=== PATIENT | male | born 1955 | race Caucasian/White ===

== ENCOUNTER → 2017-06-29 | Outpatient (CLI) | payer OTHER ==
[~2017-06-29] MED LIST: BISO5TAB5 PO; FISH100049 PO; HYDR-3713 PO; HYDR12.55 PO; LISI-542 PO; LOVA40TA PO; WARF-20 PO; WARF-23 PO; WARF-60 PO; WARF4TAB52 PO
--- NOTE | 2017-06-29 13:47 | REP ---
Chest two views HISTORY: Acute bronchitis Comparison: None The lungs are clear. The heart is normal in size. The pulmonary vasculature is normal in appearance. The bony structure is intact. IMPRESSION: No acute disease. Signed by William Kendrick MD 06/29/2017 01:39 P
== END ==
LOC: M WUC 10:06
PROVIDERS: ATTEND Nurse Practitioner Adult Health
DX: J20.9 Acute bronchitis, unspecified (principal)

== ENCOUNTER 2021-07-11 09:05 | Inpatient (IN) | payer MEDICARE ==
[~2021-07-11] VITALS: Ht 177.8 cm; Wt 132.0 kg
[~2021-07-11 09:05] MED LIST changes: +AMOX875T2 PO; +BISO5TAB14 PO; -BISO5TAB5 PO; +HYDR-3715 PO; -LISI-542 PO; +LISI-898 PO; +PRED20TA PO
[2021-07-11] MEDS ORDERED: AMLO1TAB24 PO (09:19)
[2021-07-11] MEDS ORDERED: METF-838 (09:19)
[2021-07-11] MEDS ORDERED: ALBU8.5H INH (09:19)
[2021-07-11] MEDS ORDERED: LISI40TA4 PO (09:19)
--- NOTE | 2021-07-11 10:02 | REP ---
INDICATION: DYSPNEA/COUGH COMPARISON: 02/23/2018 TECHNIQUE: Portable AP view of the chest FINDINGS: The mediastinum and cardiac silhouette are essentially stable. Mild cardiomegaly cannot be excluded. The lung rodriguez are clear without acute consolidation, effusion, or pneumothorax. Skeletal structures are intact. IMPRESSION: No acute cardiopulmonary process appreciated. <Electronically signed by Amando Cam > 07/11/21 0958
[2021-07-11 10:31] LABS: BASO # 0.1 10^3/uL (0.0-0.2); BASO % 0.7 % (0.0-1.0); EOS # 0.1 10^3/uL (0.0-0.5); EOS % 1.4 % (0.0-3.0); HEMATOCRIT 40.3 % (42.0-52.0); HEMOGLOBIN 13.2 g/dl (13.5-17.5); LYMPH # 1.8 10^3/uL (1.5-5.0); LYMPH % 20.4 % (24.0-44.0); MEAN CORPUSCULAR HEMOGLOBIN 29.6 pg (27.0-33.0); MEAN CORPUSCULAR HGB CONC 32.8 g/dl (32.0-36.5); MEAN CORPUSCULAR VOLUME 90.4 fl (80.0-96.0); MONO # 0.7 10^3/uL (0.0-0.8); MONO % 8.1 % (2.0-8.0); NEUTROPHILS % 68.9 % (36.0-66.0); PLATELET COUNT, AUTOMATED 237 10^3/uL (150-450); RED BLOOD COUNT 4.46 10^6/uL (4.30-6.10); WHITE BLOOD COUNT 8.7 10^3/uL (4.0-10.0)
[2021-07-11 10:36] LABS: PROTHROMBIN TIME 52.5 SECONDS (12.7-14.5)
[2021-07-11 10:43] LABS: INR 5.86
[2021-07-11 10:57] LABS: ALBUMIN 3.6 GM/DL (3.2-5.2); ALT/SGPT 22 U/L (12-78); BILIRUBIN,DIRECT < 0.1 MG/DL (0.0-0.2); BILIRUBIN,TOTAL 0.6 MG/DL (0.2-1.0); BLOOD UREA NITROGEN 22 MG/DL (7-18); CALCIUM LEVEL 8.7 MG/DL (8.8-10.2); CARBON DIOXIDE LEVEL 25 MEQ/L (21-32); CHLORIDE LEVEL 109 MEQ/L (98-107); CK-MB VALUE MASS 1.4 NG/ML (<3.6); CPK CREATINE PHOSPHOKINASE 235 U/L (39-308); CREATININE FOR GFR 1.05 MG/DL (0.70-1.30); GLOMERULAR FILTRATION RATE > 60.0 (>49); GLUCOSE, FASTING 105 MG/DL (70-100); NT-PRO BNP 1282 PG/ML (<125); SODIUM LEVEL 138 MEQ/L (136-145); TOTAL PROTEIN 7.5 GM/DL (6.4-8.2); TROPONIN I < 0.02 NG/ML (< 0.10)
[2021-07-11] MEDS ORDERED: FUROSEMIDE 40MG/4ML VIAL (J1940) IV ONE (11:00)
[2021-07-11] MEDS ORDERED: METOPROLOL TART 50 MG TAB PO ONE (12:35)
[2021-07-11] MEDS ORDERED: METOPROLOL 5 MG/5 ML VIAL IV SCH (12:35)
[2021-07-11] MEDS ORDERED: ROSU40TA4 PO (13:09)
[2021-07-11] MEDS ORDERED: WARF-60 PO (13:09)
[2021-07-11] MEDS ORDERED: FLUT1BLS5 INH (13:09)
[2021-07-11] MEDS ORDERED: METF-838 PO (13:09)
[2021-07-11] MEDS ORDERED: HOME MED LIST COMPLETE! XX SCH (13:15)
[2021-07-11] MEDS ORDERED: FUROSEMIDE 40MG/4ML VIAL (J1940) IV SCH (14:00)
[2021-07-11 16:00] VITALS: BP 143/100
[2021-07-11 17:21] VITALS: BP 137/78
[2021-07-11] MEDS: FUROSEMIDE 40MG/4ML VIAL (J1940) IV SCH ×2 (17:53→20:47)
[2021-07-11] MEDS ORDERED: atenoloL 50 MG TAB PO ONE (18:00)
[2021-07-11] MEDS ORDERED: GLUCAGON INJ 1MG VIAL SC PRN (18:00)
[2021-07-11] MEDS ORDERED: METOPROLOL TART 25 MG TABLET PO SCH (18:00)
[2021-07-11] MEDS ORDERED: GLUCOSE 4GM CHEW TABLET PO PRN (18:00)
[2021-07-11] MEDS ORDERED: DEXTROSE 50% 50 ML SYRINGE IV PRN (18:00)
[2021-07-11 18:42] LABS: CK-MB VALUE MASS 1.7 NG/ML (<3.6); CPK CREATINE PHOSPHOKINASE 203 U/L (39-308); MB/CK RELATIVE INDEX 0.84 (< OR =4); TROPONIN I < 0.02 NG/ML (< 0.10)
--- NOTE | 2021-07-11 18:57 | HPE ---
HISTORY AND PHYSICAL DATE OF ADMISSION: 07/11/2021 CHIEF COMPLAINT: Shortness of breath. HISTORY OF PRESENT ILLNESS: This is a 66-year-old male with past medical history significant for questions history of non-ST elevation myocardial infarction, stress test, [address] Perez with LVH, ejection fraction 56.5, chronic pulmonary embolism on warfarin, chronic A fib, hypertension with LVH, hypercholesterolemia, mitral valve calcification, aortic sclerosis, chronic right bundle branch block, pulmonary embolism in 1998, obesity, appendectomy, right knee arthroscopy, presents with acute onset of shortness of breath, waking up this morning at 3 a.m. with paroxysmal nocturnal dyspnea, orthopnea, three pillows and two week history of a cough productive of white-murdock sputum with fever or chills. The patient is noncompliant with salt restriction and fluid restriction and presents with decompensated heart failure. He denied any palpitations, lightheadedness, dizziness, chest pain, pressure or tightness, nausea, vomiting, diaphoresis. He was found to have A fib with RVR in the emergency room with rate of about 107 to 115 on telemetry but with ambulation, goes up to 140-160, given metoprolol. Hospitalist was asked to admit the patient for A fib with RVR and decompensated congestive heart failure with preserved systolic function. PAST MEDICAL HISTORY: 1. Congestive heart failure with preserved systolic function. 2. Hypertension. 3. LVH. 4. Obesity. 5. Chronic atrial fibrillation. 6. Pulmonary embolism, 1998 on chronic warfarin. 7. Hypercholesterolemia. 8. Mitral valve calcification. 9. Aortic sclerosis. 10. Chronic right bundle branch block. 11. Diabetes. 12. Hypertension. PAST SURGICAL HISTORY: 1. Appendectomy. 2. Right knee arthroscopy. 3. Left inguinal hernia and right inguinal hernia, attempted laparoscopic inguinal herniorrhaphy, converted to open left inguinal herniorrhaphy with mesh, 2013. ALLERGIES: No known drug allergies. HOME MEDICATIONS: 1. Amlodipine 5 daily. 2. Lisinopril 40 daily. 3. Metformin 500 q.p.m. 4. Rosuvastatin 40 daily. 5. Warfarin 2 mg four times a week, 6 mg four times a week, 9 mg three times week. 6. Fluticasone salmeterol one puff inhaled b.i.d. 7. Albuterol as needed. FAMILY HISTORY: Father of lung cancer at age 57. Mother of a heart attack at 69. SOCIAL HISTORY: , four children, two grandchildren. Previously worked at [email or web address] ([employer] Quit smoking at the age of 24. REVIEW OF SYSTEMS: As per HPI, 12-point system otherwise negative. PHYSICAL EXAMINATION: VITAL SIGNS: Temperature 97, pulse 102, A fib, respiratory 20, blood pressure 137/78, 96% on room air. GENERAL: Awake, alert and oriented to person, place and time, answering questions appropriately. No conversational dyspnea. Disheveled appearing with overgrown velásquez, positive JVD, no thyromegaly, cervical lymphadenopathy, moist mucous membranes. LUNGS: Diminished with bilateral rhonchi. Air entry is diminished. HEART: S1, S2, irregularly irregular with apical murmur 2/6 without radiation. Tachycardic. ABDOMEN: Obese, soft, nontender, nondistended. EXTREMITIES: Trace lower extremity edema bilaterally. LABORATORY DATA: White count 8.7, hemoglobin 13, hematocrit 40, platelet count 237. Sodium 138, potassium 5, chloride 109, bicarb 25, BUN 22, creatinine 1, glucose of 105, lactic acid of 2. Troponin is less than 0.02, BNP of 1282. COVID virus is negative. Chest x-ray, 07/11/2021: No acute cardiopulmonary process. ASSESSMENT AND PLAN: This is a 66-year-old male with history of hypertension, diabetes, hypercholesterolemia, prior history of ejection fraction 58% with diastolic congestive heart failure, chronic PE and atrial fibrillation, not on rate controlled medications, presented with acute onset of shortness of breath, found to have A fib with RVR with decompensated congestive heart failure. Current issues are as follows: 1. Atrial fibrillation with rapid ventricular response. Patient is placed on atenolol 50 mg b.i.d., metoprolol 5 IV q.6 as needed for heart rate greater than 120. Patient's warfarin has been held due to elevated INR. Patient is kept on telemetry. 2. Congestive heart failure with preserve systolic function. Patient is on Lasix 40 mg IV q.4 hourly to have negative balance goal daily. Strict Is and Os. Salt restriction, two liter fluid restriction. 3. History of CAD, non-ST elevation [place]. Patient currently has negative troponin. He is kept on atenolol for now. Once he is euvolemic, may start him back on KELLI inhibitor. Continue him on his home statins. Check with panel in the morning. 4. Type 2 diabetes on insulin sliding scale. Hold the metformin while the patient has congestive heart failure, sliding scale with insulin. 5. Hypertension, uncontrolled. Resume on home meds once he is euvolemic. For now for rate control, we will need to given the patient beta blockers and continue with Lasix for now. 6. PE on chronic warfarin with elevated INR of 5.86. Hold for now. Recheck INR in the morning. TAMARA
[2021-07-11 20:00] VITALS: BP 129/88; O2SAT 94
[2021-07-11] MEDS: HumaLOG INSULIN (NovoLOG) PER UNIT SC SCH (20:39)
[2021-07-11 21:00] VITALS: O2SAT 94
[2021-07-11 22:00] VITALS: O2SAT 92
[2021-07-11 23:00] VITALS: O2SAT 90
[2021-07-11] MEDS ORDERED: RAMELTEON 8 MG TAB (ROZEREM) PO PRN (23:45)
[2021-07-12] VITALS (11 sets, daily range): BP systolic 105–141; BP diastolic 58–87; O2SAT 90–92
[2021-07-12 00:46] LABS: CK-MB VALUE MASS 1.9 NG/ML (<3.6); CPK CREATINE PHOSPHOKINASE 230 U/L (39-308); MB/CK RELATIVE INDEX 0.83 (< OR =4); TROPONIN I < 0.02 NG/ML (< 0.10)
[2021-07-12] MEDS: FUROSEMIDE 40MG/4ML VIAL (J1940) IV SCH ×2 (01:08→05:30)
[2021-07-12 06:03] LABS: HEMATOCRIT 39.1 % (42.0-52.0); MEAN CORPUSCULAR HEMOGLOBIN 29.9 pg (27.0-33.0); MEAN CORPUSCULAR HGB CONC 33.2 g/dl (32.0-36.5); MEAN CORPUSCULAR VOLUME 89.9 fl (80.0-96.0); PLATELET COUNT, AUTOMATED 228 10^3/uL (150-450); RED BLOOD COUNT 4.35 10^6/uL (4.30-6.10); WHITE BLOOD COUNT 8.4 10^3/uL (4.0-10.0)
[2021-07-12 06:10] LABS: INR 4.35; PROTHROMBIN TIME 41.7 SECONDS (12.7-14.5)
[2021-07-12 06:21] LABS: CALCIUM LEVEL 8.4 MG/DL (8.8-10.2); CREATININE FOR GFR 1.39 MG/DL (0.70-1.30); GLOMERULAR FILTRATION RATE 54.1 (>49)
[2021-07-12] MEDS: HumaLOG INSULIN (NovoLOG) PER UNIT SC SCH ×4 (07:23→21:00)
[2021-07-12] MEDS: ROSUVASTATIN 10 MG TAB (CRESTOR) PO SCH (08:01)
--- NOTE | 2021-07-12 08:08 | IPNPDOC ---
Date Seen The patient was seen on 07/12/21. Progress Note S: no cp, pressure, lightheaded ness. tele: controlled afib O: PHYSICAL EXAMINATION: VITAL SIGNS: see below GENERAL:sitting on a chair at the bedside Awake, alert and oriented to person, place and time, answering questions appropriately. No conversational dyspnea. Disheveled appearing with overgrown velásquez, positive JVD, no thyromegaly, cervical lymphadenopathy, moist mucous membranes. lungs: improved air entry clear upper lobes. faint bibasilar HEART: S1, S2, irregularly irregular with apical murmur 2/6 without radiation. Tachycardic. ABDOMEN: Obese, soft, nontender, nondistended. EXTREMITIES: Trace lower extremity edema bilaterally. LABORATORY DATA: see below Chest x-ray, 07/11/2021: No acute cardiopulmonary process. ASSESSMENT AND PLAN: This is a 66-year-old male with history of hypertension, diabetes, hypercholesterolemia, prior history of ejection fraction 58% with diastolic congestive heart failure, chronic PE and atrial fibrillation, not on rate controlled medications, presented with acute onset of shortness of breath, found to have A fib with RVR with decompensated congestive heart failure. Current issues are as follows: Atrial fibrillation with rapid ventricular response. Patient is placed on atenolol 50 mg b.i.d.,check inr . goal 2-3. resume warfarin if inr<2 acute decompensated Congestive heart failure with preserved systolic function. yoel overnight. dc lasix bolus fluid restrict daily wts. recheck cxr and monitor serial bnp. lasix iv gtt and recheck mp at 4pm. History of CAD, non-ST elevation [place]. Patient currently has negative troponin. He is kept on atenolol for now. Once he is euvolemic, may start him back on KELLI inhibitor. Continue him on his home statins. Type 2 diabetes on insulin sliding scale. Hold the metformin while the patient has congestive heart failure, sliding scale with insulin. Hypertension,on atenolol and lasix obesity complicating care PE on chronic warfarin -held due to elevated INR of 5.86 yesterday. resume if inr<2 disposition:dc in am VS, I&O, 24H, Fishbone Vital Signs/I&O Vital Signs Date Time Temp Pulse Resp B/P (MAP) Pulse Ox O2 Delivery O2 Flow Rate FiO2 07/12/21 06:00 90 Room Air 07/12/21 04:00 97.0 72 18 141/78 (99) I&O- Last 24 Hours up to 6 AM 07/12/21 06:00 Intake Total 1660 ml Output Total 1200 ml Balance 460 ml Laboratory Data 24H LABS Laboratory Tests 2 07/11/21 09:55: Immature Granulocyte % (Auto) 0.5, Neutrophils (%) (Auto) 68.9H, Lymphocytes (%) (Auto) 20.4L, Monocytes (%) (Auto) 8.1H, Eosinophils (%) (Auto) 1.4, Basophils (%) (Auto) 0.7, Neutrophils # (Auto) 6.0, Lymphocytes # (Auto) 1.8, Monocytes # (Auto) 0.7, Eosinophils # (Auto) 0.1, Basophils # (Auto) 0.1, Nucleated Red Blood Cells % (auto) 0.0, Prothrombin Time 52.5H, Prothromb Time International Ratio 5.86*H, Anion Gap 4L, Glomerular Filtration Rate > 60.0, Lactic Acid Level 2.0, Calcium Level 8.7L, Total Bilirubin 0.6, Direct Bilirubin < 0.1, Aspartate Amino Transf (AST/SGOT) 28, Alanine Aminotransferase (ALT/SGPT) 22, Alkaline Gaye sphatase 103, Total Creatine Kinase 235, Creatine Kinase MB 1.4, Creatine Kinase MB Relative Index 0.60, Troponin I < 0.02, MN-Wly-P-Type Natriuretic Peptide 1282H, Total Protein 7.5, Albumin 3.6, Albumin/Globulin Ratio 0.9 07/11/21 17:51: Total Creatine Kinase 203, Creatine Kinase MB 1.7, Creatine Kinase MB Relative Index 0.84, Troponin I < 0.02 07/11/21 20:38: Bedside Glucose (Misc Panel) 119H 07/11/21 23:57: Total Creatine Kinase 230, Creatine Kinase MB 1.9, Creatine Kinase MB Relative Index 0.83, Troponin I < 0.02 07/12/21 05:38: Nucleated Red Blood Cells % (auto) 0.0, Prothrombin Time 41.7H, Prothromb Time International Ratio 4.35, Anion Gap 6L, Glomerular Filtration Rate 54.1, Calcium Level 8.4L, Magnesium Level 2.0 CBC/BMP Laboratory Tests 07/11/21 09:55 8/22/21 05:38 Microbiology Microbiology 07/11/21 Respiratory Virus Panel (PCR) ([facility]) - Final, Complete JONNATHAN AGUIRRE MD Jul 12, 2021 08:03
--- NOTE | 2021-07-12 08:23 | REP ---
INDICATION: sob COMPARISON: 07/11/2021 TECHNIQUE: Portable AP view of the chest FINDINGS: The mediastinum and cardiac silhouette are stable and within normal limits for portable technique. The lung rodriguez are clear without acute consolidation, effusion, or pneumothorax. Skeletal structures are intact. IMPRESSION: No acute cardiopulmonary process appreciated. <Electronically signed by Amando Cam > 07/12/21 0819
--- NOTE | 2021-07-12 08:49 | ECGEPIP ---
[facility] - ED Test Date: 2021-07-11 Pat Name: AMY TRAN Department: Room: - Gender: Male Medicare Biller: LR : 1955 Requested By: Luis Enrique Newby Order Number: [id number] Reading MD: Saige Patterson Measurements Intervals [place] Rate: 97 P: [place]: QRS: 102 QRSD: 134 T: -7 QT: 316 QTc: 401 Interpretive Statements Atrial fibrillation Right bundle branch block No prior Electronically Signed on 07-12-2021 8:49:01 EDT by Saige Patterson
[2021-07-12] MEDS ORDERED: atenoloL 50 MG TAB PO SCH (09:00)
[2021-07-12] MEDS ORDERED: FUROSEMIDE injection 250 MG in D5W 225 ML IV SCH (09:00)
[2021-07-12 17:00] LABS: CALCIUM LEVEL 8.6 MG/DL (8.8-10.2); CREATININE FOR GFR 1.57 MG/DL (0.70-1.30); POTASSIUM SERUM 4.4 MEQ/L (3.5-5.1)
[2021-07-12] MEDS ORDERED: WARFARIN SOD 5MG TAB PO ONE (17:00)
[2021-07-13] VITALS: BP 102/50
[2021-07-13 04:00] VITALS: BP 102/54
[2021-07-13 05:40] LABS: HEMATOCRIT 39.7 % (42.0-52.0); HEMOGLOBIN 13.3 g/dl (13.5-17.5); MEAN CORPUSCULAR HEMOGLOBIN 29.8 pg (27.0-33.0); MEAN CORPUSCULAR HGB CONC 33.5 g/dl (32.0-36.5); PLATELET COUNT, AUTOMATED 233 10^3/uL (150-450); RED BLOOD COUNT 4.46 10^6/uL (4.30-6.10); WHITE BLOOD COUNT 8.8 10^3/uL (4.0-10.0)
[2021-07-13 05:52] LABS: INR 3.24; PROTHROMBIN TIME 33.4 SECONDS (12.7-14.5)
[2021-07-13 06:02] LABS: CALCIUM LEVEL 8.2 MG/DL (8.8-10.2); CREATININE FOR GFR 1.62 MG/DL (0.70-1.30); GLOMERULAR FILTRATION RATE 45.3 (>49); POTASSIUM SERUM 3.6 MEQ/L (3.5-5.1)
[2021-07-13] MEDS: HumaLOG INSULIN (NovoLOG) PER UNIT SC SCH ×4 (07:30→20:58)
[2021-07-13 08:00] VITALS: BP 130/87
--- NOTE | 2021-07-13 08:36 | IPN ---
PROGRESS NOTE DATE: 07/13/2021 Patient denies any chest pain, pressure, tightness, shortness of breath, palpitations, lightheadedness, dizziness. He ambulated around the floor yesterday twice without dyspnea on exertion. Patient has been diuresed with acute kidney injury. Vital signs: Temperature 97.1, pulse 68, respiratory rate 20, blood pressure 102/54, 96% on room air. Generally: Awake, alert, oriented to person, place, and time, answering questions appropriately. Lungs: Clear to auscultation. No wheezing, rales, or rhonchi. Heart: S1, S2, irregularly irregular, not tachycardic. Abdomen: Obese, soft, nontender, nondistended. Extremities: No pitting edema. Laboratory data, microbiology, imaging studies have been reviewed. ASSESSMENT AND PLAN: 66-year-old male with obesity, diabetes, hypertension, hypercholesterolemia, metabolic syndrome, diastolic heart failure, preserved systolic function, ejection fraction (EF) 58%, chronic pulmonary embolism (PE) and atrial fibrillation, not on rate control medication, presented with acute shortness of breath, admitted for atrial fibrillation with rapid ventricular rate (RVR) with decompensated congestive heart failure (CHF). IMPRESSION: 1. Atrial fibrillation with rapid ventricular rate (RVR). Currently rate controlled on atenolol 50 mg daily. 2. Decompensated congestive heart failure (CHF) with preserved systolic function. Patient had been diuresed with Lasix with acute kidney injury and Lasix has been discontinued. Repeat metabolic panel, if downward trend may discharge home. 3. Chronic pulmonary embolism (PE) and atrial fibrillation. On warfarin with elevated INR, supratherapeutic. Still holding the patient's warfarin. 4. Hypercholesterolemia. Stable. 5. Type 2 diabetes. On insulin sliding scale currently. Off metformin due to decompensated congestive heart failure (CHF). 6. Hypertension. Controlled. Currently with blood pressure of 106. May need to hold patient's atenolol or we may give midodrine in order to use atenolol if patient has heart rate greater than 100. DISPOSITION: Patient is anxious to go home. Will check 2 p.m. basic metabolic panel. If it is showing a downward trend in creatinine he may be discharged home without Lasix. However, if it remains similar will need to wait another 24 hours to see if the patient's creatinine returns to normal off diuretics. MTDD
[2021-07-13] MEDS: ROSUVASTATIN 10 MG TAB (CRESTOR) PO SCH (08:46)
[2021-07-13] MEDS: atenoloL 50 MG TAB PO SCH (08:47)
[2021-07-13] MEDS ORDERED: atenoloL 50 MG TAB PO SCH (09:00)
[2021-07-13] MEDS ORDERED: ATEN50TA2 PO (10:34)
[2021-07-13 12:00] VITALS: BP 127/67
[2021-07-13 15:16] LABS: CALCIUM LEVEL 8.5 MG/DL (8.8-10.2); CREATININE FOR GFR 1.7 MG/DL (0.70-1.30); GLOMERULAR FILTRATION RATE 42.9 (>49); POTASSIUM SERUM 3.5 MEQ/L (3.5-5.1)
[2021-07-13 16:00] VITALS: BP 115/66
[2021-07-13 20:00] VITALS: BP 115/71
[2021-07-14 00:30] VITALS: BP 128/66
[2021-07-14 01:00] VITALS: BP 128/72
[2021-07-14 06:00] VITALS: BP 101/69
[2021-07-14 06:11] LABS: HEMATOCRIT 41.2 % (42.0-52.0); HEMOGLOBIN 13.7 g/dl (13.5-17.5); MEAN CORPUSCULAR HEMOGLOBIN 30.2 pg (27.0-33.0); MEAN CORPUSCULAR HGB CONC 33.3 g/dl (32.0-36.5); MEAN CORPUSCULAR VOLUME 90.9 fl (80.0-96.0); PLATELET COUNT, AUTOMATED 248 10^3/uL (150-450); RED BLOOD COUNT 4.53 10^6/uL (4.30-6.10); WHITE BLOOD COUNT 9.1 10^3/uL (4.0-10.0)
[2021-07-14 06:26] LABS: INR 2.32; PROTHROMBIN TIME 25.8 SECONDS (12.7-14.5)
[2021-07-14 06:31] LABS: CALCIUM LEVEL 8.4 MG/DL (8.8-10.2); CREATININE FOR GFR 1.43 MG/DL (0.70-1.30); GLOMERULAR FILTRATION RATE 52.4 (>49); MAGNESIUM LEVEL 2.4 MG/DL (1.8-2.4); POTASSIUM SERUM 4.1 MEQ/L (3.5-5.1)
[2021-07-14] MEDS: HumaLOG INSULIN (NovoLOG) PER UNIT SC SCH (07:30)
[2021-07-14] MEDS: ROSUVASTATIN 10 MG TAB (CRESTOR) PO SCH (08:28)
[2021-07-14 08:29] VITALS: BP 113/75
[2021-07-14] MEDS: atenoloL 50 MG TAB PO SCH (08:29)
[2021-07-14] MEDS ORDERED: NYST1POW9 TOP (10:28)
[2021-07-14] MEDS ORDERED: NYSTATIN 100,000 UNITS/GM TOPICAL PWD 15 GM TOP SCH (11:30)
--- NOTE | 2021-07-14 12:33 | DSES ---
DISCHARGE SUMMARY DATE OF ADMISSION: 07/11/2021 DATE OF DISCHARGE: 07/14/2021 PRINCIPAL DIAGNOSIS: Atrial fibrillation with rapid ventricular response. SECONDARY DIAGNOSES: 1. Supratherapeutic anticoagulation. 2. Decompensated congestive heart failure, preserved ejection fraction. 3. Acute kidney injury secondary to diuresis. 4. Type 2 diabetes. 5. Hyperlipidemia. 6. Hypertensive heart disease. HISTORY: Patient was admitted with atrial fibrillation with rapid ventricular response. See H+P from admission. HOSPITAL COURSE: His rate came under good control with atenolol. He got a little dry with diuresis and went into acute kidney injury. Diuretics were held, and renal function improved on a daily basis. He is back to baseline today. His INR was supratherapeutic on admission, 5.8. Warfarin was held. It was down to 2.3 today. He had no active bleeding and no consequence from the elevated INR. PHYSICAL EXAMINATION: GENERAL: On the day of discharge, he is eager to go home. VITAL SIGNS: His blood pressure was 113/75. His pulse was 83. RECTAL/GENITOURINARY: No acute signs of rectal bleeding or urinary bleeding. CHEST: No chest pain or shortness of breath. He has no JVD. LUNGS: Lungs were clear. HEART: Regular rate and rhythm, rate around 80. ABDOMEN: Soft, nontender. No masses. EXTREMITIES: Trace peripheral edema. LABORATORY DATA: INR today is 2.33. Over the last four days, it has been 5.8 4.2 3.2 2.3. Sodium 138, potassium 4.1, BUN 45, creatinine 1.4, glucose 107. White count 9.1, hemoglobin 13.7, platelets 248. Blood sugars have been down around 100, and he required no insulin coverage during the course of his hospitalization except for one time when he received 2 units a few days ago. Nursing staff notes some intertrigo, and they wanted some Nystatin powder on discharge. DISPOSITION: Patient was discharged home in improved and stable condition. MEDICATIONS: New medications were: 1. Atenolol 50 mg daily. 2. Nystatin powder to affected skin folds twice daily. He will otherwise continue: 1. Albuterol inhaler as needed. 2. Amlodipine 5 mg daily. 3. Fluticasone/Salmeterol 250/50 one inhalation b.i.d. 4. Lisinopril 40 mg daily. 5. Metformin ER 500 mg every evening. 6. Rosuvastatin 40 mg daily. 7. He will resume his previous warfarin dose. I called Flory Finch, his primary care provider. Case was discussed. She understands the need for follow up INR and follow up renal lab work this week, and she will reach out for an appointment to see him in the next few days. At the time of this dictation, there were no pending labs. MTDD
== END 2021-07-14 11:35 | disposition home or self-care (01) | DRG 308 ==
LOC: M ED 09:05 → M ED INP 12:53 → ENRESERV 13:15 → M PCU 15:21 → M MSPAV 07-14 00:50
PROVIDERS: ADMIT General Practice; ATTEND Family Medicine
DX: I48.20 Chronic atrial fibrillation, unspecified (principal); I50.23 Acute on chronic systolic (congestive) heart failure; N17.9 Acute kidney failure, unspecified; Z68.41 Body mass index [BMI] 40.0-44.9, adult; I27.82 Chronic pulmonary embolism; E66.9 Obesity, unspecified; I11.0 Hypertensive heart disease with heart failure; E78.5 Hyperlipidemia, unspecified; E11.9 Type 2 diabetes mellitus without complications; Z79.899 Other long term (current) drug therapy; I45.10 Unspecified right bundle-branch block; Z79.01 Long term (current) use of anticoagulants; Z87.891 Personal history of nicotine dependence

== ENCOUNTER → 2021-07-21 | Outpatient (CLI) | payer MEDICARE ==
[~2021-07-21] MED LIST changes: +ALBU8.5H INH; +AMLO1TAB24 PO; +ATEN50TA2 PO; +ATOR40TA75; +FLUT1BLS5 INH; +HYDR12.55; +LISI40TA4 PO; +METF-838; +METF-838 PO; +NYST1POW9 TOP; +ROSU40TA4 PO
--- NOTE | 2021-07-21 12:08 | REP ---
INDICATION: SHORTNESS OF BREATH COMPARISON: 07/12/2021. TECHNIQUE: PA/Lateral FINDINGS: Lungs: Clear, no infiltrate. Heart: Mildly enlarged. Mediastinum: Mediastinal silhouette unremarkable. Pleural angles: Unremarkable.. Bones and soft tissues: There are mild degenerative changes of the spine without compression deformity. IMPRESSION: No acute pulmonary disease. Mild cardiomegaly. <Electronically signed by Latrell Sin > 07/21/21 1206
== END ==
LOC: M RAD 10:48
PROVIDERS: ATTEND Nurse Practitioner Adult Health
DX: R06.02 Shortness of breath (principal); I51.7 Cardiomegaly

== ENCOUNTER → 2021-07-24 | Outpatient (REF) | payer MEDICARE ==
[2021-07-24 10:59] LABS: INR 4.63; PROTHROMBIN TIME 43.8 SECONDS (12.7-14.5)
== END ==
LOC: M LAB REF 10:11
PROVIDERS: ATTEND Nurse Practitioner Adult Health
DX: Z51.81 Encounter for therapeutic drug level monitoring (principal); Z79.01 Long term (current) use of anticoagulants

== ENCOUNTER → 2021-08-12 | Outpatient (REF) | payer MEDICARE ==
[2021-08-12 17:25] LABS: INR 2.58
== END ==
LOC: M LAB REF 16:05
PROVIDERS: ATTEND Nurse Practitioner Adult Health
DX: Z79.01 Long term (current) use of anticoagulants (principal)

== ENCOUNTER → 2021-08-14 | Outpatient (CLI) | payer MEDICARE ==
--- NOTE | 2021-08-14 18:04 | ECHO ---
ECHOCARDIOGRAM DATE OF PROCEDURE: 08/14/2021 Age: 66 Gender: Male Height: 70 inches Weight: 300 pounds Body surface area: 2.47 m2 Outpatient. REFERRING PHYSICIAN: Flory Juares, nurse practitioner. INDICATION: Permanent atrial fibrillation. MEASUREMENTS: 2D Measurements: RV - 3.6 cm LV - 5.4 cm Septum 1.3 cm Posterior wall 1.3 cm Aortic root 4.5 cm Ascending aorta 4.1 cm LA - 4.8 cm LVEF 65% Doppler Measurements: AV - 1.0 m/s LVOT - 0.88 m/s LVOT diameter 2.2 cm MV-E 115 Early mitral deceleration 148 msec E prime medial 7.4 E prime lateral 9.5 Average E/E prime ratio 13.6/PCWP - 18.8 mmHg PV - 0.8 m/s Pulmonary artery acceleration time 120 msec RVSP - 28 mmHg IVC - 2.2 cm COMMENTS: Underlying atrial fibrillation with controlled ventricular response. Technically challenging study in light of the patient's body habitus, but diagnostically useful information was still obtained. M-mode and 2-dimensional echocardiography was performed with pulse, continuous wave, color flow, and tissue Doppler studies. Left ventricular cavity size upper limits of normal with mild symmetrical increased wall thickness. Wall motion was symmetrical and normal. At least moderately dilated left atrium with current estimated mean left atrial pressure slightly increased. Normal right ventricular size and wall motion and current estimated pulmonary arterial pressure. At least moderately dilated right atrium with IVC size upper limits of normal with adequate respiratory collapse against an elevated central venous pressure at this time. At least mildly dilated aortic root and proximal ascending aorta. Mild aortic valvular sclerosis without apparent functional abnormality. Mild mitral annular calcification with normal leaflet thickness and excursion with no more than very mild insufficiency. Normal-appearing tricuspid valve with very mild insufficiency. No apparent intracardiac mass or pericardial effusion.
== END ==
LOC: M CARPUL 08:34
PROVIDERS: ATTEND Nurse Practitioner Adult Health
DX: I48.21 Permanent atrial fibrillation (principal)

== ENCOUNTER 2021-09-07 11:11 | Emergency (ER) | payer MEDICARE ==
[~2021-09-07] VITALS: Ht 177.8 cm; Wt 137.5 kg
--- OUTSIDE RECORDS SUMMARY | 2021-09-07 11:17 | CCD | Continuity of Care Document ---
Author Author Tony Rivera Organization Unknown Address [address] [address] Phone [phone] Care Team Providers Care [employer] Drawer Name Role Phone Flory Finch AUTM [phone] Problems Active Problems Provider Date Atrial fibrillation IDALIA Rivera Onset: 08/06/2011 Benign essential hypertension IDALIA Rivera Onset: Hypertensive heart disease without congestive heart failure IDALIA Rivera Onset: 01/16/2021 Type II diabetes mellitus uncontrolled IDALIA Rivera O nset: 01/16/2021 Chronic obstructive lung disease IDALIA Rivera Onset: 01/16/2021 Morbid obesity IDALIA Rivera Onset: 01/16/2021 Long-term current use of anticoagulant IDALIA Rivera O nset: 01/16/2021 Right bundle branch block IDALIA Rivera Onset: 021 Social History Type Date Description Comments Sex Unknown ETOH Use Rarely consumes alcohol 1-2 BEER S Tobacco Use Start: Unknown End: Unknown Patient is a former smoker quit over 40 years ago Allergies, Adverse Reactions, Alerts Description No Known Drug Allergies Medications Active Medications SIG Qnty Indications Ordering Provide r Date Nebulizer Kit/Tubing/Mouthpiece K it use four times a day dx j44.9 1units J44.1 IDALIA Rivera 07/28 Albuterol Sulfate (2 .5mg/3ML) 0.083% Nebulizer use via aerosol neb four times a day as needed 75ml J44.1 IDALIA Rivera 07/28/2021 Mucinex 600mg Tablets ER 12HR 1 tablet by mouth every 12 hours 60tabs IDALIA Rivera 07/28/2021 Torsemide 10mg Tablets 2 today then one daily by mouth every day 30tabs [facility] Guaifenesin ac 100-10mg/5ML Syrup 5 milliliters every 6 hour, 10 milliliters at bedtime 120ml Robyn Cuadra, ANP 07/20/2021 Atenolol 50mg Tablets 1 by mouth every day 90tabs [facility] 07/16/2021 Ketoconazole 2% Cream apply to rash under arms two times a day for 14 days 60gm [facility]/30/2021 Amlodipine Besylate 5mg Tablets Take One Tablet By Mouth Every Day 30tabs I11.9 Flory Warren [facility] 01/16 Rosuvastatin Calcium 40mg Tablets Take One Tablet By Mouth Every Day 90tabs [facility] 01/16 Fluticasone Propionate/Salmeterol Diskus 250-50mcg/Dose Aerosol Inhale 1 puff By Mouth Two Times A Day 180units [facility] 10/03/2020 Lisinopril 40mg Tablets 1 by mouth every day 90tabs [facility] 11/29/2019 Proventil HFA 108(90Base) mcg/Act Aerosol 2 puffs four times a day for one week then as needed for cough 1units I48.2 [facility] 09/09/2015 Warfarin Sodium 6mg Tablets take 1 or 2 tablets by mouth daily as directed 60tabs Flory Warren [facility] 12/16/2009 Warfarin Sodium 1mg Tablets take 1-3 tablets by mouth daily as directed 100tabs Flory Warren [facility] 10/21/2009 History Medications Prednisone 10mg Tablets 4 every day x 3 days,3 every day x 3 days, 2 every day x 3 days, then 1 tablet x 3 days then discontinue 30tabs Flory Warren [facility] 07/21/2021 - Fluconazole 100mg Tablets one daily x 7 days 7tabs Flory Warren [facility] 06/30/2021 - Medications Administered in Office Medication SIG Qnty Indications Ordering Provider Date Administration Of Flu Vaccine Inj ection Quirino Soler MD 09/12/2020 Administration Of Flu Vaccine Inj ection Flory Warren, [facility] 09/18/2019 Immunization Adminstration,1 Vaccine/Tox oid Injection Flory Warren, [facility] 05/01/2019 Administration Of Flu Vaccine Inj ection Flory Warren, [facility] 10/03/2018 Immunizations CPT Code Status Date Vaccine Lot # [id number] Given 01/16/2021 Pneumovax 23 [id number] Given 09/12/2020 Influenza Vaccin e Quadrivalent Preser/Antibiotic Free Im Use [id number] 61340 Given 09/18/2019 Influenza Vaccin e Quadrivalent Preser/Antibiotic Free Im Use [id number] 72168 Given 05/01/2019 Adacel- Tetanus Diphtheria P ertussis [id number] 30022 Given 10/03/2018 Influenza Virus Vaccine, Quadrivalent ([id number]), Derived From 1 Given 09/14/2017 Influenza Vaccin e Quadrivalent Preser/Antibiotic Free Im Use [id number] 16488 Given 12/16/2016 Prevnar 13 [id number] Given 09/07/2016 Fluvirin Virus Vaccine [id number] 01 Q2037 Given 09/09/2015 Fluvirin Virus Vaccine Q2037 Given 09/09/2015 Fluvirin Virus Vaccine [id number] 01 Q2037 Given 09/10/2014 Fluvirin Virus Vaccine [id number] 21 09866 Given 11/29/2013 Pneumovax 23 [id number] Q2037 Given 09/06/2013 Fluvirin Virus Vaccine Q2037 Given 08/23/2012 Fluvirin Virus Vaccine Q2037 Given 08/23/2012 Fluvirin Virus Vaccine Q2037 Given 10/05/2011 Fluvirin Virus Vaccine Vital Signs Date Vital Result Comment 08/12/2021 1:50pm BP Systolic 148 mmHg BP Diastolic 68 mmHg Heart Rate 84 /min irregular Height 67.5 inches 5'7.50" Weight 298.00 lb O2 % BldC Oximetry 93 % BMI (Body Mass Index) 46.0 kg/m2 08/05/2021 9:13am BP Systolic 138 mmHg BP Diastolic 80 mmHg Heart Rate 95 /min Height 67.5 inches 5'7.50" Weight 298.00 lb O2 % BldC Oximetry 94 % BMI (Body Mass Index) 46.0 kg/m2 Results Test Acquired Date Facility Test Result H/L Range Note Laboratory test finding 08/13/2021 Wi[facility]In[facility] Inr 2.6 Basic Metabolic Panel 08/12/2021 [facility] Mold Shaker: Dr Quirino Soler [place], [place] [id number] [phone] Glucose 95 mg/dL 74 - 99 1 BUN 22 mg/dL High 7 - 18 Creatinine 1.3 mg/dL 0.6 - 1.3 Sodium 138 mEq/L 136 - 145 Potassium 4.3 mEq/L 3.5 - 5.1 Chloride 106 mEq/L 98 - 107 Carbon Dioxide 24 mEq/L 21 - 32 Calcium 8.6 mg/dL 8.5 - 10.1 GFR 55 mL/min Low >60 GFR >= 60 mL/min >60 2 Prothrombin Time/Inr 08/12/2021 [place] [address] [phone] Prothrombin Time 28.0 seconds High 12.7-14.5 Inr 2.58 Normal 3 Laboratory test finding 07/28/2021 Wi-Inr Inr 1.6 Basic Metabolic Panel 07/28/2021 [facility] Mold Shaker: [place] [address] [phone] Glucose 95 mg/dL 74 - 99 4 BUN 37 mg/dL High 7 - 18 Creatinine 1.3 mg/dL 0.6 - 1.3 Sodium 141 mEq/L 136 - 145 Potassium 4.3 mEq/L 3.5 - 5.1 Chloride 105 mEq/L 98 - 107 Carbon Dioxide 24 mEq/L 21 - 32 Calcium 9.0 mg/dL 8.5 - 10.1 GFR 55 mL/min Low >60 GFR >= 60 mL/min >60 5 Complete Blood Count 07/28/2021 [facility] Mold Shaker: [place] [address] [phone] WBC 11.2 x10*3/UL High 4.1 - 10.9 RBC 4.31 x10*6/UL 4.20 - 6.30 Hemoglobin 13.1 g/dL 12.0 - 18.0 Hematocrit 37.9 % 37.0 - 51.0 MCV 87.8 fL 80.0 - 97.0 MCH 30.5 pg 26.0 - 32.0 MCHC 34.7 g/dL 31.0 - 38.0 RDW 13.1 % 11.6 - 13.7 PLT 257 x10*3/UL 140 - 440 MPV 8.9 FL 7.8 - 11.0 Lymph % 16.4 % 10.0 - 58.5 Mid % 4.3 % 1.7 - 9.3 Neut % 79.3 % 37.0 - 92.0 Lymph # 1.8 x10*3/UL 0.6 - 4.1 Mid # 0.5 x10*3/UL 0.1 - 0.6 Neut # 8.9 x10*3/UL High 2.0 - 7.8 Prothrombin Time/Inr 07/24/2021 [facility] [address] [place] [address] [phone] Prothrombin Time 43.8 seconds High 12.7-14.5 Inr 4.63 Normal 6 Laboratory test finding 07/24/2021 Wi-Inr Inr 5.6 Complete Blood Count 07/24/2021 [facility] Mold Shaker: [place] [address] [phone] WBC 9.6 x10*3/UL 4.1 - 10.9 RBC 3.93 x10*6/UL Low 4.20 - 6.30 Hemoglobin 11.9 g/dL Low 12.0 - 18.0 7 Hematocrit 34.2 % Low 37.0 - 51.0 MCV 87.0 fL 80.0 - 97.0 MCH 30.4 pg 26.0 - 32.0 MCHC 35.0 g/dL 31.0 - 38.0 RDW 13.4 % 11.6 - 13.7 PLT 232 x10*3/UL 140 - 440 MPV 8.8 FL 7.8 - 11.0 Lymph % 15.9 % 10.0 - 58.5 Mid % 4.3 % 1.7 - 9.3 Neut % 79.8 % 37.0 - 92.0 Lymph # 1.5 x10*3/UL 0.6 - 4.1 Mid # 0.5 x10*3/UL 0.1 - 0.6 Neut # 7.6 x10*3/UL 2.0 - 7.8 Basic Metabolic Panel 07/16/2021 [facility] Mold Shaker: [place] Qu[place] [address] [phone] Glucose 124 mg/dL High 74 - 99 8 BUN 48 mg/dL High 7 - 18 9 Creatinine 1.7 mg/dL High 0.6 - 1.3 Sodium 138 mEq/L 136 - 145 Potassium 4.6 mEq/L 3.5 - 5.1 Chloride 106 mEq/L 98 - 107 Carbon Dioxide 27 mEq/L 21 - 32 Calcium 8.9 mg/dL 8.5 - 10.1 GFR 40 mL/min Low >60 GFR 49 mL/min Low >60 10 Laboratory test finding 07/16/2021 Wi-Inr Inr 2.2 Laboratory test finding 06/30/2021 Wi-Inr Inr 2.8 Complete Blood Count 06/30/2021 [facility] Mold Shaker: [place]ir[place] [address] [phone] WBC 7.5 x10*3/UL 4.1 - 10.9 RBC 4.77 x10*6/UL 4.20 - 6.30 Hemoglobin 14.0 g/dL 12.0 - 18.0 Hematocrit 42.0 % 37.0 - 51.0 MCV 88.1 fL 80.0 - 97.0 MCH 29.3 pg 26.0 - 32.0 MCHC 33.2 g/dL 31.0 - 38.0 RDW 13.3 % 11.6 - 13.7 PLT 261 x10*3/UL 140 - 440 MPV 8.7 FL 7.8 - 11.0 Lymph % 27.1 % 10.0 - 58.5 Mid % 6.0 % 1.7 - 9.3 Neut % 66.9 % 37.0 - 92.0 Lymph # 2.0 x10*3/UL 0.6 - 4.1 Mid # 0.5 x10*3/UL 0.1 - 0.6 Neut # 5.0 x10*3/UL 2.0 - 7.8 Basic Metabolic Panel 06/30/2021 [facility] Mold Shaker: [place] Quir[place] [address] [phone] Glucose 105 mg/dL High 74 - 99 11 BUN 30 mg/dL High 7 - 18 Creatinine 1.4 mg/dL High 0.6 - 1.3 Sodium 135 mEq/L Low 136 - 145 Potassium 4.7 mEq/L 3.5 - 5.1 Chloride 100 mEq/L 98 - 107 Carbon Dioxide 23 mEq/L 21 - 32 Calcium 9.4 mg/dL 8.5 - 10.1 GFR 51 mL/min Low >60 GFR >= 60 mL/min >60 12 Laboratory test finding 05/26/2021 Wi-Inr Inr 3.0 Laboratory test finding 05/12/2021 Wi-Inr Inr 3.5 Laboratory test finding 04/10/2021 Wi-Inr Inr 2.5 Complete Blood Count 04/10/2021 [facility] Mold Shaker: [place] Quirino [place] [address] [phone] WBC 6.8 x10*3/UL 4.1 - 10.9 RBC 4.39 x10*6/UL 4.20 - 6.30 Hemoglobin 13.3 g/dL 12.0 - 18.0 Hematocrit 38.7 % 37.0 - 51.0 MCV 88.2 fL 80.0 - 97.0 MCH 30.3 pg 26.0 - 32.0 MCHC 34.4 g/dL 31.0 - 38.0 RDW 13.0 % 11.6 - 13.7 PLT 226 x10*3/UL 140 - 440 MPV 8.0 FL 7.8 - 11.0 Lymph % 26.9 % 10.0 - 58.5 Mid % 7.1 % 1.7 - 9.3 Neut % 66.0 % 37.0 - 92.0 Lymph # 1.8 x10*3/UL 0.6 - 4.1 Mid # 0.5 x10*3/UL 0.1 - 0.6 Neut # 4.5 x10*3/UL 2.0 - 7.8 Basic Metabolic Panel 04/10/2021 [facility] Mold Shaker: [place] Quirino [place] [address] [phone] Glucose 100 mg/dL High 74 - 99 13 BUN 20 mg/dL High 7 - 18 Creatinine 1.2 mg/dL 0.6 - 1.3 Sodium 137 mEq/L 136 - 145 Potassium 4.4 mEq/L 3.5 - 5.1 Chloride 103 mEq/L 98 - 107 Carbon Dioxide 25 mEq/L 21 - 32 Calcium 8.8 mg/dL 8.5 - 10.1 GFR >= 60 mL/min >60 GFR >= 60 mL/min >60 14 Laboratory test finding 03/09/2021 Wi-Inr Inr 2.6 1 100-125 mg/dL PRE-DIABET ES/FASTING >126 mg/dL DIABETES/FASTING 2 CHRONIC KIDNEY DISEASE STAGI NG PER NKF STAGE I & II GFR >= 60 NORMAL TO MILDLY DECREASED STAGE III GFR 30-59 MODERATELY DECREASED STAGE IV GFR 15-29 SEVERELY DECREASED STAGE V GFR <15 VERY LITTLE GFR LEFT ESRD GFR <15 ON [employer]BL[employer] SUPERVISOR 3 THERAPUTIC HUMAN INR VALUES INDICATIONS NORMAL RANGES PROPHYLAXIS/TREATMENT OF: VENOUS THROMBOSIS 2.0-3.0 PULMONARY EMBOLISM 2.0-3.0 PREVENTION OF SYSTEMIC EMBOLISM FROM: TISSUE HEART VALVES 2.0-3.0 ACUTE MYOCARDIAL INFARCTION 2.0-3.0 VALVULAR HEART DISEASE 2.0-3.0 ATRIAL FIBRILLATION 2.0-3.0 MECHANICAL VALVES(HIGH RISK) 2.5-3.5 RECURRENT MYOCARDIAL INFARCTION 2.5-3.5 4 100-125 mg/dL PRE-DIABET ES/FASTING >126 mg/dL DIABETES/FASTING 5 CHRONIC KIDNEY DISEASE STAGI NG PER NKF STAGE I & II GFR >= 60 NORMAL TO MILDLY DECREASED STAGE III GFR 30-59 MODERATELY DECREASED STAGE IV GFR 15-29 SEVERELY DECREASED STAGE V GFR <15 VERY LITTLE GFR LEFT ESRD GFR <15 ON [employer]SEMBL[employer] SUPERVISOR 6 THERAPUTIC HUMAN INR VALUES INDICATIONS NORMAL RANGES PROPHYLAXIS/TREATMENT OF: VENOUS THROMBOSIS 2.0-3.0 PULMONARY EMBOLISM 2.0-3.0 PREVENTION OF SYSTEMIC EMBOLISM FROM: TISSUE HEART VALVES 2.0-3.0 ACUTE MYOCARDIAL INFARCTION 2.0-3.0 VALVULAR HEART DISEASE 2.0-3.0 ATRIAL FIBRILLATION 2.0-3.0 MECHANICAL VALVES(HIGH RISK) 2.5-3.5 RECURRENT MYOCARDIAL INFARCTION 2.5-3.5 7 NOTE: RESULT VERIFIED. 8 100-125 mg/dL PRE-DIABET ES/FASTING >126 mg/dL DIABETES/FASTING 9 NOTE: RESULT VERIFIED. 10 CHRONIC KIDNEY DISEASE STAGI NG PER NKF STAGE I & II GFR >= 60 NORMAL TO MILDLY DECREASED STAGE III GFR 30-59 MODERATELY DECREASED STAGE IV GFR 15-29 SEVERELY DECREASED STAGE V GFR <15 VERY LITTLE GFR LEFT ESRD GFR <15 ON [employer] SUPERVISOR 11 100-125 mg/dL PRE-DIABET ES/FASTING >126 mg/dL DIABETES/FASTING 12 CHRONIC KIDNEY DISEASE STAGI NG PER NKF STAGE I & II GFR >= 60 NORMAL TO MILDLY DECREASED STAGE III GFR 30-59 MODERATELY DECREASED STAGE IV GFR 15-29 SEVERELY DECREASED STAGE V GFR <15 VERY LITTLE GFR LEFT ESRD GFR <15 ON [employer] SUPERVISOR 13 100-125 mg/dL PRE-DIABET ES/FASTING >126 mg/dL DIABETES/FASTING 14 CHRONIC KIDNEY DISEASE STAGI NG PER NKF STAGE I & II GFR >= 60 NORMAL TO MILDLY DECREASED STAGE III GFR 30-59 MODERATELY DECREASED STAGE IV GFR 15-29 SEVERELY DECREASED STAGE V GFR <15 VERY LITTLE GFR LEFT ESRD GFR <15 ON [employer] SUPERVISOR Procedures Date Code Description Status 08/12/2021 68589 Office/Outpatient Established Lo w MDM 20-29 Min Completed 08/05/2021 24179 Office/Outpatient Established Lo w MDM 20-29 Min Completed 07/28/2021 37014 Office/Outpatient Established Mo d MDM 30-39 Min Completed 07/24/2021 28824 Office/Outpatient Established Lo w MDM 20-29 Min Completed 07/16/2021 15908 German Cre SRV W/I 7 Days Of DC, C omm W/I 2 Dys Med Rec Completed 06/30/2021 54420 Office/Outpatient Established Mo d MDM 30-39 Min Completed 04/10/2021 81222 Office/Outpatient Established Lo w MDM 20-29 Min Completed 05/03/2016 [id number] Colonoscopy Completed Medical Devices Description No Information Available Encounters Type Date Location Provider Dx Diagnosis Office Visit 08/12/2021 1:40p [facility] Flory Chisholm Pi ne, RETURN TO VENDOR Z87.891 Personal history of nicotine dependence J44.9 Chronic obstructive pulmonar y disease, unspecified I48.21 Permanent atrial fibrillatio n Z79.01 MCC (current) use of a nticoagulants I13.0 Hyp hrt & chr kdny dis w hrt fail and stg 1-4/unsp chr kdny I50.32 Chronic diastolic (congestiv e) heart failure N18.31 Chronic kidney disease, stag e 3a Office Visit 08/05/2021 9:[facility]a [facility], RETURN TO VENDOR I50.9 Heart failure, unspecified J44.9 Chronic obstructive pulmonar y disease, unspecified I48.21 Permanent atrial fibrillatio n Z79.01 MCC (current) use of a nticoagulants Z51.[address] ug level monitoring Office Visit 07/28/2021 8:20a [facility], RETURN TO VENDOR J44.1 Chronic obstructive pulmonary disease w (acute) exacerbation I50.33 Acute on chronic diastolic ( congestive) heart failure I48.21 Permanent atrial fibrillatio n D64.9 Anemia, unspecified Office Visit 07/24/2021 11:20a [facility] Pearson, RETURN TO VENDOR I50.33 Acute on chronic diastolic (congestive) heart failure Z87.891 Personal history of nicotine dependence J44.1 Chronic obstructive pulmonar y disease w (acute) exacerbation I48.21 Permanent atrial fibrillatio n D64.9 Anemia, unspecified R79.1 Abnormal coagulation profile Office Visit 07/16/2021 11:20a [facility].Nelly Pearson, RETURN TO VENDOR I48.21 Permanent atrial fibrillation Z79.01 MCC (current) use of a nticoagulants N17.9 Acute kidney failure, unspec ified I13.0 Hyp hrt & chr kdny dis w hrt fail and stg 1-4/unsp chr kdny I50.33 Acute on chronic diastolic ( congestive) heart failure N18.31 Chronic kidney disease, stag e 3a J44.9 Chronic obstructive pulmonar y disease, unspecified E11.65 Type 2 diabetes mellitus wit h hyperglycemia Z79.84 rat exterminator (current) use of o ral hypoglycemic drugs E66.01 Morbid (severe) obesity due to excess calories Z68.42 Body mass index [BMI] 45.0-4 9.9, adult Office Visit 06/30/2021 9:40a [facility], RETURN TO VENDOR I11.9 Hypertensive heart disease without heart failure I48.21 Permanent atrial fibrillatio n Z79.01 rat exterminator (current) use of a nticoagulants J44.9 Chronic obstructive pulmonar y disease, unspecified E11.65 Type 2 diabetes mellitus wit h hyperglycemia E11.40 Type 2 diabetes mellitus wit h diabetic neuropathy, unsp Z79.84 MCC (current) use of o ral hypoglycemic drugs E66.01 Morbid (severe) obesity due to excess calories B35.4 Tinea corporis Z68.42 Body mass index [BMI] 45.0-4 9.9, adult Office Visit 04/10/2021 11:00a [facility] Flory Pearson, [facility] I11.9 Hypertensive heart disease without heart failure J44.9 Chronic obstructive pulmonar y disease, unspecified I48.21 Permanent atrial fibrillatio n Z79.01 MCC (current) use of a nticoagulants E11.65 Type 2 diabetes mellitus wit h hyperglycemia E11.40 Type 2 diabetes mellitus wit h diabetic neuropathy, unsp E66.01 Morbid (severe) obesity due to excess calories Z68.42 Body mass index [BMI] 45.0-4 9.9, adult Assessments Date Code Description Provider 08/12/2021 Z87.891 Personal history of nicotine dep endence Flory Warren, [facility] 08/12/2021 J44.9 Chronic obstructive pulmonary di sease, unspecified Flory Warren, [facility] 08/12/2021 I48.21 Permanent atrial fibrillation An malvin Warren, [facility] 08/12/2021 Z79.01 MCC (current) use of antic oagulants Flory Warren, [facility] 08/12/2021 I13.0 Hypertensive heart a nd chronic kidney disease with heart failure and stage 1 through stage 4 chronic kidney disease, or unspecified chronic kidney disease Flory Warren, [facility] 08/12/2021 I50.32 Chronic diastolic (congestive) h eart failure Flory Warren, [facility] 08/12/2021 N18.31 Chronic kidney disease, stage 3a Flory Warren, [facility] 08/05/2021 I50.9 Heart failure, unspecified Flory Mazariegos, [facility] 08/05/2021 J44.9 Chronic obstructive pulmonary di sease, unspecified Flory Warren, [facility] 08/05/2021 I48.21 Permanent atrial fibrillation An malvin Warren, [facility] 08/05/2021 Z79.01 MCC (current) use of antic oagulants Flory Warren, [facility] 08/05/2021 Z51.81 Encounter for therapeutic drug l evel monitoring Flory Warren, [facility] 07/28/2021 Z51.81 Encounter for therapeutic drug l evel monitoring Flory Warren, [facility] 07/28/2021 Z51.81 Encounter for therapeutic drug l evel monitoring Protime 07/28/2021 Z79.01 MCC (current) use of antic oagulants Flory Warren, [facility] 07/28/2021 Z79.01 MCC (current) use of antic oagulants Protime 07/28/2021 I48.21 Permanent atrial fibrillation An n Kathrine Mazariegos, [facility] 07/28/2021 J44.1 Chronic obstructive pulmonary disease with (acute) exacerbation Flory Warren, [facility] 07/28/2021 I48.21 Permanent atrial fibrillation Pr otime 07/28/2021 I50.33 Acute on chronic diastolic (amaya estive) heart failure Flory Warren, [facility] 07/28/2021 I48.21 Permanent atrial fibrillation An n Kahtrine Mazariegos, [facility] 07/28/2021 D64.9 Anemia, unspecified Flory Warren, [facility] 07/24/2021 Z51.81 Encounter for therapeutic drug l evel monitoring Flory Warren, [facility] 07/24/2021 Z51.81 Encounter for therapeutic drug l evel monitoring Protime 07/24/2021 Z79.01 rat exterminator (current) use of antic oagulants Flory Warren, [facility] 07/24/2021 D64.9 Anemia, unspecified Flory Kathrine Mazariegos, [facility] 07/24/2021 I48.21 Permanent atrial fibrillation An n Kathrine Mazraiegos, [facility] 07/24/2021 Z79.01 rat exterminator (current) use of antic oagulants Protime 07/24/2021 D64.9 Anemia, unspecified Lab Schedule 07/24/2021 I48.21 Permanent atrial fibrillation Pr otime 07/24/2021 R79.1 Abnormal coagulation profile Flory Warren, [facility] 07/24/2021 I50.33 Acute on chronic diastolic (amaya estive) heart failure Flory Kathrine Mazariegos, [facility] 07/24/2021 R79.1 Abnormal coagulation profile Lab Schedule 07/24/2021 Z87.891 Personal history of nicotine dep endence Flory Warren, [facility] 07/24/2021 J44.1 Chronic obstructive pulmonary disease with (acute) exacerbation Flory Warren, [facility] 07/24/2021 I48.21 Permanent atrial fibrillation An malvin Warren, [facility] 07/24/2021 D64.9 Anemia, unspecified Flory Warren, [facility] 07/24/2021 R79.1 Abnormal coagulation profile Flory Warren, [facility] 07/16/2021 Z51.81 Encounter for therapeutic drug l evel monitoring Flory Warren, [facility] 07/16/2021 Z51.81 Encounter for therapeutic drug l evel monitoring Protime 07/16/2021 Z79.01 MCC (current) use of antic oagulants Flory Warren, [facility] 07/16/2021 Z79.01 rat exterminator (current) use of antic oagulants Protime 07/16/2021 I48.21 Permanent atrial fibrillation An malvin Warren, [facility] 07/16/2021 I48.21 Permanent atrial fibrillation An malvin Warren, [facility] 07/16/2021 I48.21 Permanent atrial fibrillation Pr otime 07/16/2021 Z79.01 MCC (current) use of antic oagulants Flory Warren, [facility] 07/16/2021 N17.9 Acute kidney failure, unspecifie d Flory Warren, [facility] 07/16/2021 I13.0 Hypertensive heart a nd chronic kidney disease with heart failure and stage 1 through stage 4 chronic kidney disease, or unspecified chronic kidney disease Flory Warren, [facility] 07/16/2021 I50.33 Acute on chronic diastolic (amaya estive) heart failure Flory Warren, [facility] 07/16/2021 N18.31 Chronic kidney disease, stage 3a Flory Warren, [facility] 07/16/2021 J44.9 Chronic obstructive pulmonary di sease, unspecified Flory Warren, [facility] 07/16/2021 E11.65 Type 2 diabetes mellitus with hy perglycemia Flory Warren, [facility] 07/16/2021 Z79.84 rat exterminator (current) use of oral hypoglycemic drugs Flory Warren, [facility] 07/16/2021 E66.01 Morbid (severe) obesity due to e xcess calories Flory Warren, [facility] 07/16/2021 Z68.42 Body mass index [BMI] 45.0-49.9, adult Flory Warren, [facility] 06/30/2021 I11.9 Hypertensive heart disease witho ut heart failure Flory Warren, [facility] 06/30/2021 I48.21 Permanent atrial fibrillation An n Kathrine Mazariegos, [facility] 06/30/2021 Z51.81 Encounter for therapeutic drug l evel monitoring Flory Warren, [facility] 06/30/2021 Z79.01 rat exterminator (current) use of antic oagulants Flory Warren, [facility] 06/30/2021 J44.9 Chronic obstructive pulmonary di sease, unspecified Flory Warren, [facility] 06/30/2021 Z51.81 Encounter for therapeutic drug l evel monitoring Protime 06/30/2021 E11.65 Type 2 diabetes mellitus with hy perglycemia Flory Warren, [facility] 06/30/2021 E11.40 Type 2 diabetes jl itus with diabetic neuropathy, unspecified Flory Warren, [facility] 06/30/2021 Z79.84 MCC (current) use of oral hypoglycemic drugs Flory Warren, [facility] 06/30/2021 Z79.01 rat exterminator (current) use of antic oagulants Flory Warren, [facility] 06/30/2021 E66.01 Morbid (severe) obesity due to e xcess calories Flory Warren, [facility] 06/30/2021 B35.4 Tinea corporis Flory Warren, [facility] 06/30/2021 Z79.01 rat exterminator (current) use of antic oagulants Protime 06/30/2021 Z68.42 Body mass index [BMI] 45.0-49.9, adult Flory Warren, [facility] 06/30/2021 I48.21 Permanent atrial fibrillation An malvin Warren, [facility] 06/30/2021 I48.21 Permanent atrial fibrillation Pr otime 05/26/2021 Z51.81 Encounter for therapeutic drug l evel monitoring Flory Warren, [facility] 05/26/2021 Z51.81 Encounter for therapeutic drug l evel monitoring Protime 05/26/2021 Z79.01 rat exterminator (current) use of antic oagulants Flory Warren, [facility] 05/26/2021 Z79.01 rat exterminator (current) use of antic oagulants Protime 05/26/2021 I48.21 Permanent atrial fibrillation An n Kathrine Mazariegos, [facility] 05/26/2021 I48.21 Permanent atrial fibrillation Pr otime 05/12/2021 Z51.81 Encounter for therapeutic drug l evel monitoring Flory Warren, [facility] 05/12/2021 Z51.81 Encounter for therapeutic drug l evel monitoring Protime 05/12/2021 Z79.01 rat exterminator (current) use of antic oagulants Flory Warren, [facility] 05/12/2021 Z79.01 rat exterminator (current) use of antic oagulants Protime 05/12/2021 I48.21 Permanent atrial fibrillation An n Kathrine Mazariegos, [facility] 05/12/2021 I48.21 Permanent atrial fibrillation Pr otime 04/10/2021 Z51.81 Encounter for therapeutic drug l evel monitoring Flory Warren, [facility] 04/10/2021 Z51.81 Encounter for therapeutic drug l evel monitoring Protime 04/10/2021 I48.21 Permanent atrial fibrillation An n Kathrine Mazariegos, [facility] 04/10/2021 I11.9 Hypertensive heart disease witho ut heart failure Flory Warren, [facility] 04/10/2021 Z79.01 rat exterminator (current) use of antic oagulants Flory Warren, [facility] 04/10/2021 I48.21 Permanent atrial fibrillation Pr otime 04/10/2021 J44.9 Chronic obstructive pulmonary di sease, unspecified Flory Warren, [facility] 04/10/2021 Z79.01 MCC (current) use of antic oagulants Protime 04/10/2021 I48.21 Permanent atrial fibrillation An n Kathrine Mazariegos, 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 04/10/2021 E11.65 Type 2 diabetes mellitus with hy perglycemia Flory Warren, [facility] 04/10/2021 E11.40 Type 2 diabetes jl itus with diabetic neuropathy, unspecified Flory Kathrine Mazariegos [facility] 04/10/2021 E66.01 Morbid (severe) obesity due to e xcess calories Flory Warren [facility] 04/10/2021 Z68.42 Body mass index [BMI] 45.0-49.9, adult Flory Warren, [facility] 03/09/2021 Z51.81 Encounter for therapeutic drug l evel monitoring Flory Warren, [facility] 03/09/2021 Z51.81 Encounter for therapeutic drug l evel monitoring Protime 03/09/2021 I48.21 Permanent atrial fibrillation An n Kathrine Mazariegos, 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 * 09/16/2021 8:40 am - IDALIA Rivera at [facility] * 08/18/2021 8:30 am - [facility] * 10/06/2021 9:20 am - IDALIA Rivera at [facility] * 01/22/2022 10:40 am - IDALIA Rivera at [facility] * 01/22/2022 10:20 am - Nurse #2 at [facility] 08/12/2021 - IDALIA Rivera* Z87.891 Personal history of nicotine dependence * J44.9 Chronic obstructive pulmonary disease, unspecified* Comments:* would continue current medications * I48.21 Permanent atrial fibrillation* Comments:* heart rate controlled. * Z79.01 MCC (current) use of anticoagulants* Comments:* INR completed. No evidence of thromboembolic or bleeding events. Verbal and written instructions given. Signs and symptoms to report reviewed. * I13.0 Hypertensive heart and chronic kidney disease with heart failure and stage 1 through stage 4 chronic kidney disease, or unspecified chronic kidney disease* Comments:* Blood pressure is controlled on current treatment plan. * I50.32 Chronic diastolic (congestive) heart failure* Comments:* he has an echocardiogram ordered.his leg edema may be multifactorial due to venous insufficiency, dependent edema, obesity and CHF. Will continue Torsemide 10mg daily. * N18.31 Chronic kidney disease, stage 3a* Comments:* BMP obtained, reviewed and is stable. Functional Status Description No Information Available Mental Status Description No Information Available Referrals Description No Information Available
--- OUTSIDE RECORDS SUMMARY | 2021-09-07 11:17 | CCD | Continuity of Care Document ---
Author Author Tony Rivera Organization Unknown Address [address] [address] Phone [phone] Care Team Providers Care Nail Assembly Machine Operator Name Role Phone Flory Finch AUTM [phone] Problems Active Problems Provider Date Atrial fibrillation IDALIA Rivera Onset: 08/06/2011 Benign essential hypertension IDALIA Rivera Onset: Hypertensive heart disease without congestive heart failure IDALIA Rivera Onset: 01/16/2021 Type II diabetes mellitus uncontrolled IDALIA Rivera O nset: 01/16/2021 Chronic obstructive lung disease IDALIA Rivera Onset: 01/16/2021 Morbid obesity IADLIA Rivera Onset: 01/16/2021 Long-term current use of [...] daily by mouth every day [facility] Guaifenesin ac 100-10mg/5ML Syrup 5 milliliters every 6 hour, 10 milliliters at bedtime 120ml Robyn Cuadra, ANP 07/20/2021 Atenolol 50mg Tablets 1 by mouth every day 90tabs [facility] 07/16/2021 Ketoconazole 2% Cream apply to rash under arms two times a day for 14 days 60gm [facility]/30[facility]2021 Amlodipine Besylate 5mg Tablets Take One Tablet By Mouth Every Day 30tabs I11.9 Flory [facility] 01/16 Rosuvastatin Calcium 40mg Tablets Take One Tablet By Mouth Every Day 90tabs [facility] 01/16 Fluticasone Propionate/Salmeterol Diskus 250-50mcg/Dose Aerosol Inhale 1 puff By Mouth Two Times A Day 180units [facility] 10/03/2020 Lisinopril 40mg Tablets 1 by mouth every day 90tabs [facility] 11/29/2019 Proventil HFA 108(90Base) mcg/Act Aerosol 2 puffs four times a day for one week then as needed for cough 1units I48.2 [facility] 09/09/2015 Warfarin Sodium 6mg Tablets take 1 or 2 tablets by mouth daily as directed 60tabs Flory Warren [facility] 12/16/2009 Warfarin Sodium 1mg Tablets take 1-3 tablets by mouth daily as directed 100tabs Flory Warren [facility] 10/21/2009 History Medications Prednisone 10mg Tablets 4 every day x 3 days,3 every day x 3 days, 2 every day x 3 days, then 1 tablet x 3 days then discontinue 30tabs Flory Warren [facility] 07/21/2021 - Fluconazole 100mg Tablets one daily x 7 days 7tabs Flory Warren [facility] 06/30/2021 - Medications Administered in Office Medication SIG Qnty Indications Ordering Provider Date Administration Of Flu Vaccine Inj ection Quirino Soler MD 09/12/2020 Administration Of Flu Vaccine Inj ection Flory Warren, [facility] 09/18/2019 Immunization Adminstration,1 Vaccine/Tox oid Injection Flory Warren, [facility] 05/01/2019 Administration Of Flu Vaccine Inj ection Flory Warren, [facility] 10/03/2018 Immunizations CPT Code Status Date Vaccine Lot # [id number] Given 01/16/2021 Pneumovax 23 [id number] 04873 Given 09/12/2020 Influenza Vaccin e Quadrivalent Preser/Antibiotic Free Im Use [id number] 73044 Given 09/18/2019 Influenza Vaccin e Quadrivalent Preser/Antibiotic Free Im Use [id number] 87831 Given 05/01/2019 Adacel- Tetanus Diphtheria P ertussis [id number] 83857 Given 10/03/2018 Influenza Virus Vaccine, Quadrivalent ([id number]), Derived From 2 Given 09/14/2017 Influenza Vaccin e Quadrivalent Preser/Antibiotic Free Im Use [id number] 92486 Given 12/16/2016 Prevnar 13 [id number] Given 09/07/2016 Fluvirin Virus Vaccine [id number] 01 Q2037 Given 09/09/2015 Fluvirin Virus Vaccine Q2037 Given 09/09/2015 Fluvirin Virus Vaccine [id number] 01 Q2037 Given 09/10/2014 Fluvirin Virus Vaccine [id number] 21 50341 Given 11/29/2013 Pneumovax 23 [id number] Q2037 Given 09/06/2013 Fluvirin Virus Vaccine Q2037 [...] Date Facility Test Result H/L Range Note Basic Metabolic Panel 08/12/2021 [facility] [employer] Puncher: [place] [address] [phone] Glucose 95 mg/dL 74 - 99 1 [...] 60 mL/min >60 2 Prothrombin Time/Inr 08/12/2021 [facility] [address] [place] [address] [phone] Prothrombin Time 28.0 seconds High 12.7-14.5 Inr 2.58 Normal 3 Laboratory test finding 07/28/2021 [facility] Inr 1.6 Basic Metabolic Panel 07/28/2021 [facility] [place] Puncher: [place] [address] [phone] Glucose 95 mg/dL 74 - 99 4 [...] mL/min >60 5 Complete Blood Count 07/28/2021 [facility] [place] [place] Puncher: [place] [address] [phone] WBC 11.2 x10*3/UL High 4.1 - 10.9 [...] High 2.0 - 7.8 Prothrombin Time/Inr 07/24/2021 [facility] [address] [place] [address] [phone] Prothrombin Time 43.8 seconds High 12.7-14.5 Inr 4.63 Normal 6 Laboratory test finding 07/24/2021 [facility] Inr 5.6 Complete Blood Count 07/24/2021 [facility] [employer] [place] Puncher: [place] [address] [phone] WBC 9.6 x10*3/UL 4.1 - 10.9 RBC [...] 2.0 - 7.8 Basic Metabolic Panel 07/16/2021 [facility] [place] Puncher: [place] [address] [phone] Glucose 124 mg/dL High 74 - 99 [...] Wi-Inr Inr 2.8 Complete Blood Count 06/30/2021 [facility] [employer] [place] Puncher: [place] [address] [phone] WBC 7.5 x10*3/UL 4.1 - 10.9 RBC [...] 2.0 - 7.8 Basic Metabolic Panel 06/30/2021 [facility], [place] Puncher: [place] [address] [phone] Glucose 105 mg/dL High 74 - 99 [...] Wi-Inr Inr 2.5 Complete Blood Count 04/10/2021 [facility] [place] Puncher: Dr [place] [address] [phone] WBC 6.8 x10*3/UL 4.1 - 10.9 RBC [...] 2.0 - 7.8 Basic Metabolic Panel 04/10/2021 [facility] [place] [facility]: Dr [place] [address] [phone] Glucose 100 mg/dL High 74 - 99 [...] LITTLE GFR LEFT ESRD GFR <15 ON SCREEN MAKER 3 THERAPUTIC HUMAN INR VALUES INDICATIONS NORMAL [...] LITTLE GFR LEFT ESRD GFR <15 ON SCREEN MAKER 6 THERAPUTIC HUMAN INR VALUES INDICATIONS NORMAL [...] LITTLE GFR LEFT ESRD GFR <15 ON SCREEN MAKER 11 100-125 mg/dL PRE-DIABET ES/FASTING >126 mg/dL DIABETES/FASTING 12 CHRONIC KIDNEY DISEASE STAGI NG PER NKF STAGE I & II GFR >= 60 NORMAL TO MILDLY DECREASED STAGE III GFR 30-59 MODERATELY DECREASED STAGE IV GFR 15-29 SEVERELY DECREASED STAGE V GFR <15 VERY LITTLE GFR LEFT ESRD GFR <15 ON SCREEN MAKER 13 100-125 mg/dL PRE-DIABET ES/FASTING >126 mg/dL DIABETES/FASTING 14 CHRONIC KIDNEY DISEASE STAGI NG PER NKF STAGE I & II GFR >= 60 NORMAL TO MILDLY DECREASED STAGE III GFR 30-59 MODERATELY DECREASED STAGE IV GFR 15-29 SEVERELY DECREASED STAGE V GFR <15 VERY LITTLE GFR LEFT ESRD GFR <15 ON SCREEN MAKER Procedures Date Code Description Status 08/05/2021 95849 Office/Outpatient Established Lo w MDM 20-29 Min Completed 07/28/2021 [id number] Office/Outpatient Established Mo d MDM 30-39 Min Completed 07/24/2021 [id number] Office/Outpatient Established Lo w MDM 20-29 Min Completed 07/16/2021 05257 German Cre SRV W/I 7 Days Of DC, C omm W/I 2 Dys Med Rec Completed 06/30/2021 [id number] Office/Outpatient Established Mo d MDM 30-39 Min Completed 04/10/2021 65630 Office/Outpatient Established Lo w MDM 20-29 Min Completed 05/03/2016 [id number] Colonoscopy Completed Medical Devices Description No Information Available Encounters Type Date Location Provider Dx Diagnosis Office Visit 08/05/2021 9:40a [facility] Flory Pearson, AUTOCLAVE OPERATOR I50.9 Heart failure, unspecified J44.9 Chronic obstructive pulmonar y disease, unspecified I48.21 Permanent atrial fibrillatio n Z79.01 long term acute care registered nurse (current) use of a nticoagulants Z51.[address] ug level monitoring Office Visit 07/28/2021 8:20a [facility] Flory Pearson, AUTOCLAVE OPERATOR J44.1 Chronic obstructive pulmonary disease w (acute) exacerbation I50.33 Acute on chronic diastolic ( congestive) heart failure I48.21 Permanent atrial fibrillatio n D64.9 Anemia, unspecified Office Visit 07/24/2021 11:20[facility], AUTOCLAVE OPERATOR I50.33 Acute on chronic diastolic (congestive) heart failure Z87.891 Personal history of nicotine dependence J44.1 Chronic obstructive pulmonar y disease w (acute) exacerbation I48.21 Permanent atrial fibrillatio n D64.9 Anemia, unspecified R79.1 Abnormal coagulation profile Office Visit 07/16/2021 11:20a [facility], AUTOCLAVE OPERATOR I48.21 Permanent atrial fibrillation Z79.01 senior care (current) use of a nticoagulants N17.9 Acute kidney failure, unspec ified I13.0 Hyp hrt & chr kdny dis w hrt fail and stg 1-4/unsp chr kdny I50.33 Acute on chronic diastolic ( congestive) heart failure N18.31 Chronic kidney disease, stag e 3a J44.9 Chronic obstructive pulmonar y disease, unspecified E11.65 Type 2 diabetes mellitus wit h hyperglycemia Z79.84 long term acute care registered nurse (current) use of o ral hypoglycemic drugs E66.01 Morbid (severe) obesity due to excess calories Z68.42 Body mass index [BMI] 45.0-4 9.9, adult Office Visit 06/30/2021 9:40a [facility], AUTOCLAVE OPERATOR I11.9 Hypertensive heart disease without heart failure I48.21 Permanent atrial fibrillatio n Z79.01 long term acute care registered nurse (current) use of a nticoagulants J44.9 Chronic obstructive pulmonar y disease, unspecified E11.65 Type 2 diabetes mellitus wit h hyperglycemia E11.40 Type 2 diabetes mellitus wit h diabetic neuropathy, unsp Z79.84 long term acute care registered nurse (current) use of o ral hypoglycemic drugs E66.01 Morbid (severe) obesity due to excess calories B35.4 Tinea corporis Z68.42 Body mass index [BMI] 45.0-4 9.9, adult Office Visit 04/10/2021 11:00a [facility], AUTOCLAVE OPERATOR I11.9 Hypertensive heart disease without heart failure J44.9 Chronic obstructive pulmonar y disease, unspecified I48.21 Permanent atrial fibrillatio n Z79.01 senior care (current) use of a nticoagulants E11.65 Type 2 diabetes mellitus wit h hyperglycemia E11.40 Type 2 diabetes mellitus wit h diabetic neuropathy, unsp E66.01 Morbid (severe) obesity due to excess calories Z68.42 Body mass index [BMI] 45.0-4 9.9, adult Assessments Date Code Description Provider 08/05/2021 I50.9 Heart failure, unspecified Flory Mazariegos, [facility] 08/05/2021 J44.9 Chronic obstructive pulmonary di sease, unspecified Flory Warren, [facility] 08/05/2021 I48.21 Permanent atrial fibrillation An n Kathrine Mazariegos, [facility] 08/05/2021 Z79.01 senior care (current) use of antic oagulants Flory Warren, [facility] 08/05/2021 Z51.81 Encounter for therapeutic drug l evel monitoring Flory Warren, [facility] 07/28/2021 Z51.81 Encounter for therapeutic drug l evel monitoring Flory Warren, [facility] 07/28/2021 Z51.81 Encounter for therapeutic drug l evel monitoring Protime 07/28/2021 Z79.01 long term acute care registered nurse (current) use of antic oagulants Flory Warren, [facility] 07/28/2021 Z79.01 long term acute care registered nurse (current) use of antic oagulants Protime 07/28/2021 I48.21 Permanent atrial fibrillation An n Kathrine Mazariegos, [facility] 07/28/2021 J44.1 Chronic obstructive pulmonary disease with (acute) exacerbation Flory Warren, [facility] 07/28/2021 I48.21 Permanent atrial fibrillation Pr otime 07/28/2021 I50.33 Acute on chronic diastolic (amaya estive) heart failure Flory Warren, [facility] 07/28/2021 I48.21 Permanent atrial fibrillation An malvin Warren, [facility] 07/28/2021 D64.9 Anemia, unspecified Flory Warren, [facility] 07/24/2021 Z51.81 Encounter for therapeutic drug l evel monitoring Flory Warren, [facility] 07/24/2021 Z51.81 Encounter for therapeutic drug l evel monitoring Protime 07/24/2021 Z79.01 long term acute care registered nurse (current) use of antic oagulants Flory Warren, [facility] 07/24/2021 D64.9 Anemia, unspecified Flory Warren, [facility] 07/24/2021 I48.21 Permanent atrial fibrillation An malvin Warren, [facility] 07/24/2021 Z79.01 long term acute care registered nurse (current) use of antic oagulants Protime 07/24/2021 D64.9 Anemia, unspecified Lab Schedule 07/24/2021 I48.21 Permanent atrial fibrillation Pr otime 07/24/2021 R79.1 Abnormal coagulation profile Flory Warren, [facility] 07/24/2021 I50.33 Acute on chronic diastolic (amaya estive) heart failure Flory Warren, [facility] 07/24/2021 R79.1 Abnormal coagulation profile Lab Schedule 07/24/2021 Z87.891 Personal history of nicotine dep endence Flory Warren, [facility] 07/24/2021 J44.1 Chronic obstructive pulmonary disease with (acute) exacerbation Flory Warren, [facility] 07/24/2021 I48.21 Permanent atrial fibrillation An malvin Warren, [facility] 07/24/2021 D64.9 Anemia, unspecified Flory Warren, [facility] 07/24/2021 R79.1 Abnormal coagulation profile Flory Warren, [facility] 07/16/2021 Z51.81 Encounter for therapeutic drug l evel monitoring Flory Warren, [facility] 07/16/2021 Z51.81 Encounter for therapeutic drug l evel monitoring Protime 07/16/2021 Z79.01 long term acute care registered nurse (current) use of antic oagulants Flory Warren, [facility] 07/16/2021 Z79.01 senior care (current) use of antic oagulants Protime 07/16/2021 I48.21 Permanent atrial fibrillation An malvin Warren, [facility] 07/16/2021 I48.21 Permanent atrial fibrillation An malvin Warren, [facility] 07/16/2021 I48.21 Permanent atrial fibrillation Pr otime 07/16/2021 Z79.01 senior care (current) use of antic oagulants Flory Warren, [facility] 07/16/2021 N17.9 Acute kidney failure, unspecifie d Flory Warren, [facility] 07/16/2021 I13.0 Hypertensive heart a nd chronic kidney disease with heart failure and stage 1 through stage 4 chronic kidney disease, or unspecified chronic kidney disease Flory Warren, [facility] 07/16/2021 I50.33 Acute on chronic diastolic (amaya estive) heart failure Flory Warren, [facility] 07/16/2021 N18.31 Chronic kidney disease, stage 3a Flory Warren, [facility] 07/16/2021 J44.9 Chronic obstructive pulmonary di sease, unspecified Flory Warren, [facility] 07/16/2021 E11.65 Type 2 diabetes mellitus with hy perglycemia Flory Warren, [facility] 07/16/2021 Z79.84 senior care (current) use of oral hypoglycemic drugs Flory Warren, [facility] 07/16/2021 E66.01 Morbid (severe) obesity due to e xcess calories Flory Warren, [facility] 07/16/2021 Z68.42 Body mass index [BMI] 45.0-49.9, adult Flory Warren, [facility] 06/30/2021 I11.9 Hypertensive heart disease witho ut heart failure Flory Warren, [facility] 06/30/2021 I48.21 Permanent atrial fibrillation An malvin Kathrine Mazariegos, [facility] 06/30/2021 Z51.81 Encounter for therapeutic drug l evel monitoring Flory Warren, [facility] 06/30/2021 Z79.01 senior care (current) use of antic oagulants Flory Warren, [facility] 06/30/2021 J44.9 Chronic obstructive pulmonary di sease, unspecified Flory Warren, [facility] 06/30/2021 Z51.81 Encounter for therapeutic drug l evel monitoring Protime 06/30/2021 E11.65 Type 2 diabetes mellitus with hy perglycemia Flory Kathrine Mazariegos, [facility] 06/30/2021 E11.40 Type 2 diabetes jl itus with diabetic neuropathy, unspecified Flory Kathrine Mazariegos, [facility] 06/30/2021 Z79.84 long term acute care registered nurse (current) use of oral hypoglycemic drugs Flory Kathrine Mazariegos, [facility] 06/30/2021 Z79.01 long term acute care registered nurse (current) use of antic oagulants Flory Kathrine Mazariegos, [facility] 06/30/2021 E66.01 Morbid (severe) obesity due to e xcess calories Flory Kathrine Mazariegos, [facility] 06/30/2021 B35.4 Tinea corporis Flory Kathrine Mazariegos, [facility] 06/30/2021 Z79.01 long term acute care registered nurse (current) use of antic oagulants Protime 06/30/2021 Z68.42 Body mass index [BMI] 45.0-49.9, adult Flory Warren, [facility] 06/30/2021 I48.21 Permanent atrial fibrillation An malvin Warren, [facility] 06/30/2021 I48.21 Permanent atrial fibrillation Pr otime 05/26/2021 Z51.81 Encounter for therapeutic drug l evel monitoring Flory Warren, [facility] 05/26/2021 Z51.81 Encounter for therapeutic drug l evel monitoring Protime 05/26/2021 Z79.01 long term acute care registered nurse (current) use of antic oagulants Flory Warren, [facility] 05/26/2021 Z79.01 long term acute care registered nurse (current) use of antic oagulants Protime 05/26/2021 I48.21 Permanent atrial fibrillation An malvin Warren, [facility] 05/26/2021 I48.21 Permanent atrial fibrillation Pr otime 05/12/2021 Z51.81 Encounter for therapeutic drug l evel monitoring Flory Warren, [facility] 05/12/2021 Z51.81 Encounter for therapeutic drug l evel monitoring Protime 05/12/2021 Z79.01 long term acute care registered nurse (current) use of antic oagulants Flory Warren, [facility] 05/12/2021 Z79.01 long term acute care registered nurse (current) use of antic oagulants Protime 05/12/2021 I48.21 Permanent atrial fibrillation An malvin Warren, [facility] 05/12/2021 I48.21 Permanent atrial fibrillation Pr otime 04/10/2021 Z51.81 Encounter for therapeutic drug l evel monitoring Flory Warren, [facility] 04/10/2021 Z51.81 Encounter for therapeutic drug l evel monitoring Protime 04/10/2021 I48.21 Permanent atrial fibrillation An malvin Warren, [facility] 04/10/2021 I11.9 Hypertensive heart disease witho ut heart failure Flory Warren, [facility] 04/10/2021 Z79.01 long term acute care registered nurse (current) use of antic oagulants Flory Warren, [facility] 04/10/2021 I48.21 Permanent atrial fibrillation Pr otime 04/10/2021 J44.9 Chronic obstructive pulmonary di sease, unspecified Flory Warren, [facility] 04/10/2021 Z79.01 senior care (current) use of antic oagulants Protime 04/10/2021 I48.21 Permanent atrial fibrillation An malvin Warren, [facility] 04/10/2021 Z79.01 long term acute care registered nurse (current) use of antic oagulants Flory Warren, [facility] 04/10/2021 E11.65 Type 2 diabetes mellitus with hy perglycemia Flory Warren, [facility] 04/10/2021 E11.40 Type 2 diabetes jl itus with diabetic neuropathy, unspecified Flory Warren, [facility] 04/10/2021 E66.01 Morbid (severe) obesity due to e xcess calories Flory Warren, [facility] 04/10/2021 Z68.42 Body mass index [BMI] 45.0-49.9, adult Flory Warren, [facility] 03/09/2021 Z51.81 Encounter for therapeutic drug l evel monitoring Flory Warren [facility] 03/09/2021 Z51.81 Encounter for therapeutic drug l evel monitoring Protime 03/09/2021 I48.21 Permanent atrial fibrillation An malvin Warren, [facility] 03/09/2021 I48.21 Permanent atrial fibrillation Pr otime 03/09/2021 Z79.01 senior care (current) use of antic oagulants Flory Warren, [facility] 03/09/2021 Z79.01 long term acute care registered nurse (current) use of antic oagulants Protime Plan of Treatment Future Appointment(s):* 09/16/2021 8:40 am - IDALIA Rivera at [facility] * 08/18/2021 8:30 am - Protime at [facility] * 10/06/2021 9:20 am - IDALIA Rivera at [facility] * 01/22/2022 10:40 am - IDALIA Rivera at [facility] * 01/22/2022 10:20 am - Nurse #2 at [facility] Functional Status Description No Information Available Mental Status Description No Information Available Referrals Description No Information Available
--- OUTSIDE RECORDS SUMMARY | 2021-09-07 11:18 | CCD | Continuity of Care Document ---
Author Author Tony Rivera Organization Unknown Address [address] [address] Phone [phone] Care Team Providers Care Storeroom Clerk Name Role Phone Flory Finch AUTM [phone] Problems Active Problems Provider Date Atrial fibrillation [...] daily by [facility] every day [facility] Guaifenesin ac 100-10mg/5ML Syrup 5 milliliters every 6 hour, 10 milliliters at bedtime 120ml Robyn Cuadra, ANP 07/20/2021 Atenolol 50mg Tablets 1 by mouth every day 90tabs [facility]/16[facility]2021 Ketoconazole 2% Cream apply to rash under arms two times a day for 14 days 60gm [facility]2021 Amlodipine Besylate 5mg Tablets Take One Tablet By Mouth Every Day 30tabs I11.9 Flory Warren [facility] 01/16 Rosuvastatin Calcium 40mg Tablets Take One Tablet By Mouth Every Day 90tabs [facility]16 Fluticasone Propionate/Salmeterol Diskus 250-50mcg/Dose Aerosol Inhale 1 puff By Mouth Two Times A Day 180units [facility] 10/03/2020 Lisinopril 40mg Tablets 1 by mouth every day 90tabs [facility] 11/29/2019 Proventil HFA 108(90Base) mcg/Act Aerosol 2 puffs four times a day for one week then as needed for cough 1units I48.2 [facility] 09/09/2015 Warfarin Sodium 6mg Tablets take 1 or 2 tablets by mouth daily as directed 60tabs Flory Warren [facility] 12/16/2009 Warfarin Sodium 1mg Tablets take 1-3 tablets by mouth daily as directed 100tabs Flory Warren [facility] 10/21/2009 History Medications Prednisone 10mg Tablets 4 every day x 3 days,3 every day x 3 days, 2 every day x 3 days, then 1 tablet x 3 days then discontinue 30tabs Flory Warren [facility] 07/21/2021 - Fluconazole 100mg Tablets one daily x 7 days 7tabs Flory Warren [facility] 06/30/2021 - Medications Administered in Office Medication SIG Qnty Indications Ordering Provider Date Administration Of Flu Vaccine Inj ection Quirino Soler MD 09/12/2020 Administration Of Flu Vaccine Inj ection Flory Warren, [facility] 09/18/2019 Immunization Adminstration,1 Vaccine/Tox oid Injection Flory Warren, [facility] 05/01/2019 Administration Of Flu Vaccine Inj ection Flory Warren, [facility] 10/03/2018 Immunizations CPT Code Status Date Vaccine Lot # 13514 Given 01/16/2021 Pneumovax 23 [id number] Given 09/12/2020 Influenza Vaccin e Quadrivalent Preser/Antibiotic Free Im Use [id number] 30443 Given 09/18/2019 Influenza Vaccin e Quadrivalent Preser/Antibiotic Free Im Use [id number] 18806 Given 05/01/2019 Adacel- Tetanus Diphtheria P ertussis [id number] 18545 Given 10/03/2018 Influenza Virus Vaccine, Quadrivalent ([id number]), Derived From 2 Given 09/14/2017 Influenza Vaccin e Quadrivalent Preser/Antibiotic Free Im Use [id number] 19906 Given 12/16/2016 Prevnar 13 [id number] Given 09/07/2016 Fluvirin Virus Vaccine [id number] 01 Q2037 Given 09/09/2015 Fluvirin Virus Vaccine Q2037 Given 09/09/2015 Fluvirin Virus Vaccine [id number] 01 Q2037 Given 09/10/2014 Fluvirin Virus Vaccine [id number] 21 21403 Given 11/29/2013 Pneumovax 23 [id number] Q2037 Given 09/06/2013 Fluvirin Virus Vaccine Q2037 [...] H/L Range Note Basic Metabolic Panel 08/12/2021 [facility] ankush ellison Service Station Manager: [place] [address] [phone] Glucose 95 mg/dL 74 - 99 1 BUN 22 mg/dL High 7 - 18 Creatinine 1.3 mg/dL 0.6 - 1.3 Sodium 138 mEq/L 136 - 145 Potassium 4.3 mEq/L 3.5 - 5.1 Chloride 106 mEq/L 98 - 107 Carbon Dioxide 24 mEq/L 21 - 32 Calcium 8.6 mg/dL 8.5 - 10.1 GFR 55 mL/min Low >60 GFR >= 60 mL/min >60 2 Laboratory test finding 07/28/2021 [facility] 1.6 Basic Metabolic Panel 07/28/2021 [facility] ankush ellison Service Station Manager: [place] [address] [phone] Glucose 95 mg/dL 74 - 99 3 BUN 37 mg/dL High 7 - 18 Creatinine 1.3 mg/dL 0.6 - 1.3 Sodium 141 mEq/L 136 - 145 Potassium 4.3 mEq/L 3.5 - 5.1 Chloride 105 mEq/L 98 - 107 Carbon Dioxide 24 mEq/L 21 - 32 Calcium 9.0 mg/dL 8.5 - 10.1 GFR 55 mL/min Low >60 GFR >= 60 mL/min >60 4 Complete Blood Count 07/28/2021 [facility] Service Station Manager: [place] [address] [phone] WBC 11.2 x10*3/UL High 4.1 - 10.9 [...] High 2.0 - 7.8 Prothrombin Time/Inr 07/24/2021 [facility] [address] [place] [address] [phone] Prothrombin Time 43.8 seconds High 12.7-14.5 Inr 4.63 Normal 5 Laboratory test finding 07/24/2021 [facility] 5.6 Complete Blood Count 07/24/2021 [facility] Service Station Manager: [place] [address] [phone] WBC 9.6 x10*3/UL 4.1 - 10.9 RBC 3.93 x10*6/UL Low 4.20 - 6.30 Hemoglobin 11.9 g/dL Low 12.0 - 18.0 6 Hematocrit 34.2 % Low 37.0 - 51.0 [...] 2.0 - 7.8 Basic Metabolic Panel 07/16/2021 [facility] Service Station Manager: [place] [address] [phone] Glucose 124 mg/dL High 74 - 99 7 BUN 48 mg/dL High 7 - 18 8 Creatinine 1.7 mg/dL High 0.6 - 1.3 Sodium 138 mEq/L 136 - 145 Potassium 4.6 mEq/L 3.5 - 5.1 Chloride 106 mEq/L 98 - 107 Carbon Dioxide 27 mEq/L 21 - 32 Calcium 8.9 mg/dL 8.5 - 10.1 GFR 40 mL/min Low >60 GFR 49 mL/min Low >60 9 Laboratory test finding 07/16/2021 [facility] 2.2 Laboratory test finding 06/30/2021 [facility] 2.8 Complete Blood Count 06/30/2021 [facility] Service Station Manager: [place] [address] [phone] WBC 7.5 x10*3/UL 4.1 - 10.9 RBC [...] 2.0 - 7.8 Basic Metabolic Panel 06/30/2021 [facility] Service Station Manager: [place] [address] [phone] Glucose 105 mg/dL High 74 - 99 10 BUN 30 mg/dL High 7 - 18 Creatinine 1.4 mg/dL High 0.6 - 1.3 Sodium 135 mEq/L Low 136 - 145 Potassium 4.7 mEq/L 3.5 - 5.1 Chloride 100 mEq/L 98 - 107 Carbon Dioxide 23 mEq/L 21 - 32 Calcium 9.4 mg/dL 8.5 - 10.1 GFR 51 mL/min Low >60 GFR >= 60 mL/min >60 11 Laboratory test finding 05/26/2021 [facility] 3.0 Laboratory test finding 05/12/2021 [facility] 3.5 Laboratory test finding 04/10/2021 [facility] 2.5 Complete Blood Count 04/10/2021 [facility] Service Station Manager: [place] [address] [phone] WBC 6.8 x10*3/UL 4.1 - 10.9 RBC [...] 2.0 - 7.8 Basic Metabolic Panel 04/10/2021 [facility] Service Station Manager: [place] [address] [phone] Glucose 100 mg/dL High 74 - 99 12 BUN 20 mg/dL High 7 - 18 Creatinine 1.2 mg/dL 0.6 - 1.3 Sodium 137 mEq/L 136 - 145 Potassium 4.4 mEq/L 3.5 - 5.1 Chloride 103 mEq/L 98 - 107 Carbon Dioxide 25 mEq/L 21 - 32 Calcium 8.8 mg/dL 8.5 - 10.1 GFR >= 60 mL/min >60 GFR >= 60 mL/min >60 13 Laboratory test finding 03/09/2021 [facility] 2.6 Laboratory test finding 02/10/2021 [facility] 2.3 1 100-125 mg/dL PRE-DIABET ES/FASTING >126 mg/dL DIABETES/FASTING 2 CHRONIC KIDNEY DISEASE STAGI NG PER NKF STAGE I & II GFR >= 60 NORMAL TO MILDLY DECREASED STAGE III GFR 30-59 MODERATELY DECREASED STAGE IV GFR 15-29 SEVERELY DECREASED STAGE V GFR <15 VERY LITTLE GFR LEFT ESRD GFR <15 ON MANAGEMENT TRAINEE 3 100-125 mg/dL PRE-DIABET ES/FASTING >126 mg/dL DIABETES/FASTING 4 CHRONIC KIDNEY DISEASE STAGI NG PER NKF STAGE I & II GFR >= 60 NORMAL TO MILDLY DECREASED STAGE III GFR 30-59 MODERATELY DECREASED STAGE IV GFR 15-29 SEVERELY DECREASED STAGE V GFR <15 VERY LITTLE GFR LEFT ESRD GFR <15 ON MANAGEMENT TRAINEE 5 THERAPUTIC HUMAN INR VALUES INDICATIONS NORMAL RANGES PROPHYLAXIS/TREATMENT OF: VENOUS THROMBOSIS 2.0-3.0 PULMONARY EMBOLISM 2.0-3.0 PREVENTION OF SYSTEMIC EMBOLISM FROM: TISSUE HEART VALVES 2.0-3.0 ACUTE MYOCARDIAL INFARCTION 2.0-3.0 VALVULAR HEART DISEASE 2.0-3.0 ATRIAL FIBRILLATION 2.0-3.0 MECHANICAL VALVES(HIGH RISK) 2.5-3.5 RECURRENT MYOCARDIAL INFARCTION 2.5-3.5 6 NOTE: RESULT VERIFIED. 7 100-125 mg/dL PRE-DIABET ES/FASTING >126 mg/dL DIABETES/FASTING 8 NOTE: RESULT VERIFIED. 9 CHRONIC KIDNEY DISEASE STAGI NG PER NKF STAGE I & II GFR >= 60 NORMAL TO MILDLY DECREASED STAGE III GFR 30-59 MODERATELY DECREASED STAGE IV GFR 15-29 SEVERELY DECREASED STAGE V GFR <15 VERY LITTLE GFR LEFT ESRD GFR <15 ON MANAGEMENT TRAINEE 10 100-125 mg/dL PRE-DIABET ES/FASTING >126 mg/dL DIABETES/FASTING 11 CHRONIC KIDNEY DISEASE STAGI NG PER NKF STAGE I & II GFR >= 60 NORMAL TO MILDLY DECREASED STAGE III GFR 30-59 MODERATELY DECREASED STAGE IV GFR 15-29 SEVERELY DECREASED STAGE V GFR <15 VERY LITTLE GFR LEFT ESRD GFR <15 ON MANAGEMENT TRAINEE 12 100-125 mg/dL PRE-DIABET ES/FASTING >126 mg/dL DIABETES/FASTING 13 CHRONIC KIDNEY DISEASE STAGI NG PER NKF STAGE I & II GFR >= 60 NORMAL TO MILDLY DECREASED STAGE III GFR 30-59 MODERATELY DECREASED STAGE IV GFR 15-29 SEVERELY DECREASED STAGE V GFR <15 VERY LITTLE GFR LEFT ESRD GFR <15 ON MANAGEMENT TRAINEE Procedures Date Code Description Status 08/05/2021 13948 Office/Outpatient Established Lo w MDM 20-29 Min Completed 07/28/2021 52496 Office/Outpatient Established Mo d MDM 30-39 Min Completed 07/24/2021 05148 Office/Outpatient Established Lo w MDM 20-29 Min Completed 07/16/2021 36429 German Cre SRV W/I 7 Days Of DC, C omm W/I 2 Dys Med Rec Completed 06/30/2021 04678 Office/Outpatient Established Mo d MDM 30-39 Min Completed 04/10/2021 03363 Office/Outpatient Established Lo w MDM 20-29 Min Completed 05/03/2016 [id number] Colonoscopy Completed Medical Devices Description No Information Available Encounters Type Date Location Provider Dx Diagnosis Office Visit 08/05/2021 9[facility] I50.9 Heart failure, unspecified J44.9 Chronic obstructive pulmonar y disease, unspecified I48.21 Permanent atrial fibrillatio n 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 Z51.[address] ug level monitoring Office Visit 07/28/2021 8:20a [facility], MOLD INJECTOR J44.1 Chronic obstructive pulmonary disease w (acute) exacerbation I50.33 Acute on chronic diastolic ( congestive) heart failure I48.21 Permanent atrial fibrillatio n D64.9 Anemia, unspecified Office Visit 07/24/2021 11:20a [facility], [facility] IN[facility] I50.33 Acute on chronic diastolic (congestive) heart failure Z87.891 Personal history of nicotine dependence J44.1 Chronic obstructive pulmonar y disease w (acute) exacerbation I48.21 Permanent atrial fibrillatio n D64.9 Anemia, unspecified R79.1 Abnormal coagulation profile Office Visit 07/16/2021 11:20a [facility], MOLD INJECTOR I48.21 Permanent atrial fibrillation Z79.01 group home (current) use of a nticoagulants N17.9 Acute kidney failure, unspec ified I13.0 Hyp hrt & chr kdny dis w hrt fail and stg 1-4/unsp chr kdny I50.33 Acute on chronic diastolic ( congestive) heart failure N18.31 Chronic kidney disease, stag e 3a J44.9 Chronic obstructive pulmonar y disease, unspecified E11.65 Type 2 diabetes mellitus wit h hyperglycemia Z79.84 equipment operator intermodal yard (current) use of o ral hypoglycemic drugs E66.01 Morbid (severe) obesity due to excess calories Z68.42 Body mass index [BMI] 45.0-4 9.9, adult Office Visit 06/30/2021 9:40a [facility] Flory Munoz ne, [facility] I11.9 Hypertensive heart disease without heart failure I48.21 Permanent atrial fibrillatio n Z79.01 group home (current) use of a nticoagulants J44.9 Chronic obstructive pulmonar y disease, unspecified E11.65 Type 2 diabetes mellitus wit h hyperglycemia E11.40 Type 2 diabetes mellitus wit h diabetic neuropathy, unsp Z79.84 equipment operator intermodal yard (current) use of o ral hypoglycemic drugs E66.01 Morbid (severe) obesity due to excess calories B35.4 Tinea corporis Z68.42 Body mass index [BMI] 45.0-4 9.9, adult Office Visit 04/10/2021 11:00a [facility] Flory Pearson, [facility] I11.9 Hypertensive heart disease without heart failure J44.9 Chronic obstructive pulmonar y disease, unspecified I48.21 Permanent atrial fibrillatio n Z79.01 group home (current) use of a nticoagulants E11.65 Type 2 diabetes mellitus wit h hyperglycemia E11.40 Type 2 diabetes mellitus wit h diabetic neuropathy, unsp E66.01 Morbid (severe) obesity due to excess calories Z68.42 Body mass index [BMI] 45.0-4 9.9, adult Assessments Date Code Description Provider 08/05/2021 I50.9 Heart failure, unspecified Flory Mazariegos, [facility] 08/05/2021 J44.9 Chronic obstructive pulmonary di sease, unspecified Flory Warren, [facility] 08/05/2021 I48.21 Permanent atrial fibrillation An DAISHA PalenciaP 08/05/2021 Z79.01 group home (current) use of antic oagulants Flory Warren, [facility] 08/05/2021 Z51.81 Encounter for therapeutic drug l evel monitoring Flory Warren, [facility] 07/28/2021 Z51.81 Encounter for therapeutic drug l evel monitoring Flory Warren, [facility] 07/28/2021 Z51.81 Encounter for therapeutic drug l evel monitoring Protime 07/28/2021 Z79.01 group home (current) use of antic oagulants Flory Warren, [facility] 07/28/2021 Z79.01 group home (current) use of antic oagulants Protime 07/28/2021 I48.21 Permanent atrial fibrillation An n Kathrine Mazariegos, [facility] 07/28/2021 J44.1 Chronic obstructive pulmonary disease with (acute) exacerbation Flory Warren, [facility] 07/28/2021 I48.21 Permanent atrial fibrillation Pr otime 07/28/2021 I50.33 Acute on chronic diastolic (amaya estive) heart failure Flory Warren, [facility] 07/28/2021 I48.21 Permanent atrial fibrillation An n Kathrine Mazariegos, [facility] 07/28/2021 D64.9 Anemia, unspecified Flory Warren, [facility] 07/24/2021 Z51.81 Encounter for therapeutic drug l evel monitoring Flory Warren, [facility] 07/24/2021 Z51.81 Encounter for therapeutic drug l evel monitoring Protime 07/24/2021 Z79.01 equipment operator intermodal yard (current) use of antic oagulants Flory Warren, [facility] 07/24/2021 D64.9 Anemia, unspecified Flory Warren, [facility] 07/24/2021 I48.21 Permanent atrial fibrillation An n Kathrine Mazariegos, [facility] 07/24/2021 Z79.01 group home (current) use of antic oagulants Protime 07/24/2021 D64.9 Anemia, unspecified Lab Schedule 07/24/2021 I48.21 Permanent atrial fibrillation Pr otime 07/24/2021 R79.1 Abnormal coagulation profile Flory Warren, [facility] 07/24/2021 I50.33 Acute on chronic diastolic (amaya estive) heart failure Flory Warren, [facility] 07/24/2021 R79.1 Abnormal coagulation profile Lab Schedule 07/24/2021 Z87.891 Personal history of nicotine dep endence Flory Warren, [facility] 07/24/2021 J44.1 Chronic obstructive pulmonary disease with (acute) exacerbation Flory Warren, [facility] 07/24/2021 I48.21 Permanent atrial fibrillation An malvin Warren, [facility] 07/24/2021 D64.9 Anemia, unspecified Flory Warren, [facility] 07/24/2021 R79.1 Abnormal coagulation profile Flory Warren, [facility] 07/16/2021 Z51.81 Encounter for therapeutic drug l evel monitoring Flory Warren, [facility] 07/16/2021 Z51.81 Encounter for therapeutic drug l evel monitoring Protime 07/16/2021 Z79.01 equipment operator intermodal yard (current) use of antic oagulants Flory Warren, [facility] 07/16/2021 Z79.01 group home (current) use of antic oagulants Protime 07/16/2021 I48.21 Permanent atrial fibrillation An malvin Warren, [facility] 07/16/2021 I48.21 Permanent atrial fibrillation An malvin Warren, [facility] 07/16/2021 I48.21 Permanent atrial fibrillation Pr otime 07/16/2021 Z79.01 equipment operator intermodal yard (current) use of antic oagulants Flory Warren, [facility] 07/16/2021 N17.9 Acute kidney failure, unspecifie d Flory Warren, [facility] 07/16/2021 I13.0 Hypertensive heart a nd chronic kidney disease with heart failure and stage 1 through stage 4 chronic kidney disease, or unspecified chronic kidney disease Flory Warren, [facility] 07/16/2021 I50.33 Acute on chronic diastolic (amaya estive) heart failure Flory Warren, [facility] 07/16/2021 N18.31 Chronic kidney disease, stage 3a Flory Warren, [facility] 07/16/2021 J44.9 Chronic obstructive pulmonary di sease, unspecified Flory Warren, [facility] 07/16/2021 E11.65 Type 2 diabetes mellitus with hy perglycemia Flory Warren, [facility] 07/16/2021 Z79.84 group home (current) use of oral hypoglycemic drugs Flory Warren, [facility] 07/16/2021 E66.01 Morbid (severe) obesity due to e xcess calories Flory Warren, [facility] 07/16/2021 Z68.42 Body mass index [BMI] 45.0-49.9, adult Flory Warren, [facility] 06/30/2021 I11.9 Hypertensive heart disease witho ut heart failure Flory Warren, [facility] 06/30/2021 I48.21 Permanent atrial fibrillation An n Kathrine Mazariegos, [facility] 06/30/2021 Z51.81 Encounter for therapeutic drug l evel monitoring Flory Warren, [facility] 06/30/2021 Z79.01 equipment operator intermodal yard (current) use of antic oagulants Flory Warren, [facility] 06/30/2021 J44.9 Chronic obstructive pulmonary di sease, unspecified Flory Warren, [facility] 06/30/2021 Z51.81 Encounter for therapeutic drug l evel monitoring Protime 06/30/2021 E11.65 Type 2 diabetes mellitus with hy perglycemia Flory Warren, [facility] 06/30/2021 E11.40 Type 2 diabetes jl itus with diabetic neuropathy, unspecified Flory Warren, [facility] 06/30/2021 Z79.84 equipment operator intermodal yard (current) use of oral hypoglycemic drugs Flory Warren, [facility] 06/30/2021 Z79.01 group home (current) use of antic oagulants Flory Warren, [facility] 06/30/2021 E66.01 Morbid (severe) obesity due to e xcess calories Flory Warren, [facility] 06/30/2021 B35.4 Tinea corporis Flory Warren, [facility] 06/30/2021 Z79.01 equipment operator intermodal yard (current) use of antic oagulants Protime 06/30/2021 Z68.42 Body mass index [BMI] 45.0-49.9, adult Flory Warren, [facility] 06/30/2021 I48.21 Permanent atrial fibrillation An n Kathrine Mazariegos, [facility] 06/30/2021 I48.21 Permanent atrial fibrillation Pr otime 05/26/2021 Z51.81 Encounter for therapeutic drug l evel monitoring Flory Warren, [facility] 05/26/2021 Z51.81 Encounter for therapeutic drug l evel monitoring Protime 05/26/2021 Z79.01 group home (current) use of antic oagulants Flory Warren, [facility] 05/26/2021 Z79.01 equipment operator intermodal yard (current) use of antic oagulants Protime 05/26/2021 I48.21 Permanent atrial fibrillation An n Kathrine Mazariegos, [facility] 05/26/2021 I48.21 Permanent atrial fibrillation Pr otime 05/12/2021 Z51.81 Encounter for therapeutic drug l evel monitoring Flory Warren, [facility] 05/12/2021 Z51.81 Encounter for therapeutic drug l evel monitoring Protime 05/12/2021 Z79.01 equipment operator intermodal yard (current) use of antic oagulants Flory Warren, [facility] 05/12/2021 Z79.01 equipment operator intermodal yard (current) use of antic oagulants Protime 05/12/2021 I48.21 Permanent atrial fibrillation An n Kathrine Mazariegos, [facility] 05/12/2021 I48.21 Permanent atrial fibrillation Pr otime 04/10/2021 Z51.81 Encounter for therapeutic drug l evel monitoring Flory Warren, [facility] 04/10/2021 Z51.81 Encounter for therapeutic drug l evel monitoring Protime 04/10/2021 I48.21 Permanent atrial fibrillation An n Kathrine Mazariegos, [facility] 04/10/2021 I11.9 Hypertensive heart disease witho ut heart failure Flory Warren, [facility] 04/10/2021 Z79.01 equipment operator intermodal yard (current) use of antic oagulants Flory Warren, [facility] 04/10/2021 I48.21 Permanent atrial fibrillation Pr otime 04/10/2021 J44.9 Chronic obstructive pulmonary di sease, unspecified Flory Warren, [facility] 04/10/2021 Z79.01 group home (current) use of antic oagulants Protime 04/10/2021 I48.21 Permanent atrial fibrillation An n Kathrine Mazariegos, [facility] 04/10/2021 Z79.01 group home (current) use of antic oagulants Flory Kathrine [place], [facility] 04/10/2021 E11.65 Type 2 diabetes mellitus with hy perglycemia Flory Warren, [facility] 04/10/2021 E11.40 Type 2 diabetes jl itus with diabetic neuropathy, unspecified Flory Warren [facility] 04/10/2021 E66.01 Morbid (severe) obesity due to e xcess calories Flory Warren [facility] 04/10/2021 Z68.42 Body mass index [BMI] 45.0-49.9, adult Floyr Warren, [facility] 03/09/2021 Z51.81 Encounter for therapeutic drug l evel monitoring Flory Warren, [facility] 03/09/2021 Z51.81 Encounter for therapeutic drug l evel monitoring Protime 03/09/2021 I48.21 Permanent atrial fibrillation An malvin Warren, [facility] 03/09/2021 I48.21 Permanent atrial fibrillation Pr otime 03/09/2021 Z79.01 equipment operator [employer] yard (current) use of antic oagulants Flory Warren, [facility] 03/09/2021 Z79.01 group home (current) use of antic oagulants Protime 02/10/2021 Z51.81 Encounter for therapeutic drug l evel monitoring Flory Warren, [facility] 02/10/2021 Z51.81 Encounter for therapeutic drug l evel monitoring Protime 02/10/2021 I48.21 Permanent atrial fibrillation An malvin Warren, [facility] 02/10/2021 I48.21 Permanent atrial fibrillation Pr otime 02/10/2021 Z79.01 equipment operator intermodal yard (current) use of antic oagulants Flory Warren, [facility] 02/10/2021 Z79.01 group home (current) use of antic oagulants Protime Plan of Treatment Future Appointment(s):* 09/16/2021 8:40 am - IDALIA Rivera at [facility] * 08/18/2021 8:30 am - Protime at [facility] * 10/06/2021 9:20 am - IDALIA Rivera at [facility] * 01/22/2022 10:40 am - IDALIA Rivera at [facility] * 01/22/2022 10:20 am - Nurse #2 at [facility] Functional Status Description No Information Available Mental Status Description No Information Available Referrals Description No Information Available
--- OUTSIDE RECORDS SUMMARY | 2021-09-07 11:18 | CCD | Continuity of Care Document ---
Author Author Tony Rivera Organization Unknown Address [address] [address] Phone [phone] Care Team Providers Care Budget Examiner Name Role Phone Flory Finch AUTM [phone] Problems Active Problems Provider Date Atrial fibrillation [...] by mouth every 12 hours 60tabs IDALIA Rivrea 07/28/2021 Torsemide 10mg Tablets 2 today then one daily by mouth every day 30tabs [facility] Guaifenesin ac 100-10mg/5ML Syrup 5 milliliters every 6 hour, 10 milliliters at bedtime 120ml Robyn Cuadra, ANP 07/20/2021 Atenolol 50mg Tablets 1 by mouth every day 90tabs [facility] 07/16/2021 Ketoconazole 2% Cream apply to rash under arms two times a day for 14 days 60gm [facility]/30/2021 Amlodipine Besylate 5mg Tablets Take One Tablet By Mouth Every Day 30tabs I11.9 Flory Warren [facility] 01/16 Rosuvastatin Calcium 40mg Tablets Take One Tablet By Mouth Every Day 90tabs [facility] 01/16 Fluticasone Propionate/Salmeterol Diskus 250-50mcg/Dose Aerosol Inhale 1 puff By Mouth Two Times A Day 180units [facility] 10/03/2020 Lisinopril 40mg Tablets 1 by mouth every day 90tabs [facility] 11/29/2019 Proventil HFA 108(90Base) mcg/Act Aerosol 2 puffs four times a day for one week then as needed for cough 1units I48.2 [facility] 09/09/2015 Warfarin Sodium 6mg Tablets take 1 or 2 tablets by mouth daily as directed 60tabs Flory Warren [facility] 12/16/2009 Warfarin Sodium 1mg Tablets take 1-3 tablets by mouth daily as directed 100tabs Flory Warren [facility] 10/21/2009 History Medications Prednisone 10mg Tablets 4 every day x 3 days,3 every day x 3 days, 2 every day x 3 days, then 1 tablet x 3 days then discontinue 30tabs Flory Warren [facility] 07/21/2021 - Fluconazole 100mg Tablets one daily x 7 days 7tabs Flory Warren [facility] 06/30/2021 - Medications Administered in Office Medication SIG Qnty Indications Ordering Provider Date Administration Of Flu Vaccine Inj ection Quirino Soler MD 09/12/2020 Administration Of Flu Vaccine Inj ection Flory Warren, [facility] 09/18/2019 Immunization Adminstration,1 Vaccine/Tox oid Injection Flory Warren, [facility] 05/01/2019 Administration Of Flu Vaccine Inj ection Flory Warren, [facility] 10/03/2018 Immunizations CPT Code Status Date Vaccine Lot # [id number] Given 01/16/2021 Pneumovax 23 [id number] Given 09/12/2020 Influenza Vaccin e Quadrivalent Preser/Antibiotic Free Im Use [id number] 97941 Given 09/18/2019 Influenza Vaccin e Quadrivalent Preser/Antibiotic Free Im Use [id number] 98567 Given 05/01/2019 Adacel- Tetanus Diphtheria P ertussis [id number] 69955 Given 10/03/2018 Influenza Virus Vaccine, Quadrivalent ([id number]), Derived From 0 Given 09/14/2017 Influenza Vaccin e Quadrivalent Preser/Antibiotic Free Im Use [id number] 39759 Given 12/16/2016 Prevnar 13 Q2037 Given 09/07/2016 Fluvirin Virus Vaccine [id number] 01 Q2037 Given 09/09/2015 Fluvirin Virus Vaccine Q2037 Given 09/09/2015 Fluvirin Virus Vaccine 51403 01 Q2037 Given 09/10/2014 Fluvirin Virus Vaccine 46700 21 22981 Given 11/29/2013 Pneumovax 23 [id number] Q2037 Given 09/06/2013 Fluvirin Virus Vaccine Q2037 Given 08/23/2012 Fluvirin Virus Vaccine Q2037 Given 08/23/2012 Fluvirin Virus Vaccine Q2037 Given 10/05/2011 Fluvirin Virus Vaccine Vital Signs Date Vital Result Comment 08/05/2021 9:13am BP Systolic 138 mmHg BP Diastolic 80 mmHg Heart Rate 95 /min Height 67.5 inches 5'7.50" Weight 298.00 lb O2 % BldC Oximetry 94 % BMI (Body Mass Index) 46.0 kg/m2 07/28/2021 8:25am BP Systolic 138 mmHg BP Diastolic 74 mmHg Heart Rate 82 /min Height 67.5 inches 5'7.50" Weight 296.00 lb O2 % BldC Oximetry 95 % RM Air BMI (Body Mass Index) 45.7 kg/m2 Results Test Acquired Date Facility Test Result H/L Range Note Basic Metabolic Panel 07/28/2021 [facility] Firebreak Cutter: [place] [address] [phone] Glucose 95 mg/dL 74 - 99 1 BUN 37 mg/dL High 7 - 18 Creatinine 1.3 mg/dL 0.6 - 1.3 Sodium 141 mEq/L 136 - 145 Potassium 4.3 mEq/L 3.5 - 5.1 Chloride 105 mEq/L 98 - 107 Carbon Dioxide 24 mEq/L 21 - 32 Calcium 9.0 mg/dL 8.5 - 10.1 GFR 55 mL/min Low >60 GFR >= 60 mL/min >60 2 Complete Blood Count 07/28/2021 [facility] Firebreak Cutter: [place] [address] [phone] WBC 11.2 x10*3/UL High 4.1 - 10.9 [...] # 8.9 x10*3/UL High 2.0 - 7.8 Laboratory test finding 07/28/2021 [facility] 1.6 Prothrombin Time/Inr 07/24/2021 [facility] [address] [place] [address] [phone] Prothrombin Time 43.8 seconds High 12.7-14.5 Inr 4.63 Normal 3 Laboratory test finding 07/24/2021 [facility] 5.6 Complete Blood Count 07/24/2021 [facility] Firebreak Cutter: [place] [address] [phone] WBC 9.6 x10*3/UL 4.1 - 10.9 RBC 3.93 x10*6/UL Low 4.20 - 6.30 Hemoglobin 11.9 g/dL Low 12.0 - 18.0 4 Hematocrit 34.2 % Low 37.0 - 51.0 [...] 2.0 - 7.8 Basic Metabolic Panel 07/16/2021 [facility] Firebreak Cutter: [place] [address] [phone] Glucose 124 mg/dL High 74 - 99 5 BUN 48 mg/dL High 7 - 18 6 Creatinine 1.7 mg/dL High 0.6 - 1.3 Sodium 138 mEq/L 136 - 145 Potassium 4.6 mEq/L 3.5 - 5.1 Chloride 106 mEq/L 98 - 107 Carbon Dioxide 27 mEq/L 21 - 32 Calcium 8.9 mg/dL 8.5 - 10.1 GFR 40 mL/min Low >60 GFR 49 mL/min Low >60 7 Laboratory test finding 07/16/2021 [facility] 2.2 Laboratory test finding 06/30/2021 [facility] 2.8 Complete Blood Count 06/30/2021 [facility] Firebreak Cutter: [place] [address] [phone] WBC 7.5 x10*3/UL 4.1 - 10.9 RBC [...] 2.0 - 7.8 Basic Metabolic Panel 06/30/2021 [facility] Firebreak Cutter: [place] [address] [phone] Glucose 105 mg/dL High 74 - 99 8 BUN 30 mg/dL High 7 - 18 Creatinine 1.4 mg/dL High 0.6 - 1.3 Sodium 135 mEq/L Low 136 - 145 Potassium 4.7 mEq/L 3.5 - 5.1 Chloride 100 mEq/L 98 - 107 Carbon Dioxide 23 mEq/L 21 - 32 Calcium 9.4 mg/dL 8.5 - 10.1 GFR 51 mL/min Low >60 GFR >= 60 mL/min >60 9 Laboratory test finding 05/26/2021 [facility] 3.0 Laboratory test finding 05/12/2021 [facility] 3.5 Laboratory test finding 04/10/2021 [facility] 2.5 Complete Blood Count 04/10/2021 [facility] Firebreak Cutter: [place] [address] [phone] WBC 6.8 x10*3/UL 4.1 - 10.9 RBC [...] 2.0 - 7.8 Basic Metabolic Panel 04/10/2021 [facility]: [place] [address] [phone] Glucose 100 mg/dL High 74 - 99 10 BUN 20 mg/dL High 7 - 18 Creatinine 1.2 mg/dL 0.6 - 1.3 Sodium 137 mEq/L 136 - 145 Potassium 4.4 mEq/L 3.5 - 5.1 Chloride 103 mEq/L 98 - 107 Carbon Dioxide 25 mEq/L 21 - 32 Calcium 8.8 mg/dL 8.5 - 10.1 GFR >= 60 mL/min >60 GFR >= 60 mL/min >60 11 Laboratory test finding 03/09/2021 [facility] 2.6 [...] LITTLE GFR LEFT ESRD GFR <15 ON HEMP FIBER TAKER OFF 3 THERAPUTIC HUMAN INR VALUES INDICATIONS NORMAL RANGES PROPHYLAXIS/TREATMENT OF: VENOUS THROMBOSIS 2.0-3.0 PULMONARY EMBOLISM 2.0-3.0 PREVENTION OF SYSTEMIC EMBOLISM FROM: TISSUE HEART VALVES 2.0-3.0 ACUTE MYOCARDIAL INFARCTION 2.0-3.0 VALVULAR HEART DISEASE 2.0-3.0 ATRIAL FIBRILLATION 2.0-3.0 MECHANICAL VALVES(HIGH RISK) 2.5-3.5 RECURRENT MYOCARDIAL INFARCTION 2.5-3.5 4 NOTE: RESULT VERIFIED. 5 100-125 mg/dL PRE-DIABET ES/FASTING >126 mg/dL DIABETES/FASTING 6 NOTE: RESULT VERIFIED. 7 CHRONIC KIDNEY DISEASE STAGI NG PER NKF STAGE I & II GFR >= 60 NORMAL TO MILDLY DECREASED STAGE III GFR 30-59 MODERATELY DECREASED STAGE IV GFR 15-29 SEVERELY DECREASED STAGE V GFR <15 VERY LITTLE GFR LEFT ESRD GFR <15 ON HEMP FIBER TAKER OFF 8 100-125 mg/dL PRE-DIABET ES/FASTING >126 mg/dL DIABETES/FASTING 9 CHRONIC KIDNEY DISEASE STAGI NG PER NKF STAGE I & II GFR >= 60 NORMAL TO MILDLY DECREASED STAGE III GFR 30-59 MODERATELY DECREASED STAGE IV GFR 15-29 SEVERELY DECREASED STAGE V GFR <15 VERY LITTLE GFR LEFT ESRD GFR <15 ON HEMP FIBER TAKER OFF 10 100-125 mg/dL PRE-DIABET ES/FASTING >126 mg/dL DIABETES/FASTING 11 CHRONIC KIDNEY DISEASE STAGI NG PER NKF STAGE I & II GFR >= 60 NORMAL TO MILDLY DECREASED STAGE III GFR 30-59 MODERATELY DECREASED STAGE IV GFR 15-29 SEVERELY DECREASED STAGE V GFR <15 VERY LITTLE GFR LEFT ESRD GFR <15 ON HEMP FIBER TAKER OFF Procedures Date Code Description Status 08/05/2021 57129 Office/Outpatient Established Lo w MDM 20-29 Min Completed 07/28/2021 67828 Office/Outpatient Established Mo d MDM 30-39 Min Completed 07/24/2021 65908 Office/Outpatient Established Lo w MDM 20-29 Min Completed 07/16/2021 02796 [facility] SRV W/I 7 Days Of DC, C omm W/I 2 Dys Med Rec Completed 06/30/2021 69754 Office/Outpatient Established Mo d MDM 30-39 Min Completed 04/10/2021 64851 Office/Outpatient Established Lo w MDM 20-29 Min Completed 05/03/2016 [id number] Colonoscopy Completed Medical Devices Description No Information Available Encounters Type Date Location Provider Dx Diagnosis Office Visit 08/05/2021 9:40a [facility] Flory Chisholm Pi ne, [employer] I50.9 Heart failure, unspecified J44.9 Chronic obstructive pulmonar y disease, unspecified I48.21 Permanent atrial fibrillatio n Z79.01 buttermaker helper (current) use of a nticoagulants Z51.[address] diaz level monitoring Office Visit 07/28/2021 8:[facility], [employer] J44.1 Chronic obstructive pulmonary disease w (acute) exacerbation I50.33 Acute on chronic diastolic ( congestive) heart failure I48.21 Permanent atrial fibrillatio n D64.9 Anemia, unspecified Office Visit 07/24/2021 11:[facility] [employer] I50.33 Acute on chronic diastolic (congestive) heart failure Z87.891 Personal history of nicotine dependence J44.1 Chronic obstructive pulmonar y disease w (acute) exacerbation I48.21 Permanent atrial fibrillatio n D64.9 Anemia, unspecified R79.1 Abnormal coagulation profile Office Visit 07/16/2021 11:20a [facility], [employer] I48.21 Permanent atrial fibrillation Z79.01 MCC (current) [...] 2 diabetes mellitus wit h hyperglycemia Z79.84 MCC (current) use of o ral hypoglycemic drugs E66.01 Morbid (severe) obesity due to excess calories Z68.42 Body mass index [BMI] 45.0-4 9.9, adult Office Visit 06/30/2021 9:40[facility], [employer] I11.9 Hypertensive heart disease without heart failure I48.21 Permanent atrial fibrillatio n Z79.01 MCC (current) use of a nticoagulants J44.9 Chronic obstructive pulmonar y disease, unspecified E11.65 Type 2 diabetes mellitus wit h hyperglycemia E11.40 Type 2 diabetes mellitus wit h diabetic neuropathy, unsp Z79.84 buttermaker helper (current) use of o ral hypoglycemic drugs E66.01 Morbid (severe) obesity due to excess calories B35.4 Tinea corporis Z68.42 Body mass index [BMI] 45.0-4 9.9, adult Office Visit 04/10/2021 11:00a [facility] Flory Munoz ne, [facility] I11.9 Hypertensive heart disease without heart failure [...] 08/05/2021 I50.9 Heart failure, unspecified Flory Mazariegos, [facility] 08/05/2021 J44.9 Chronic obstructive pulmonary di sease, unspecified Flory Warren, [facility] 08/05/2021 I48.21 Permanent atrial fibrillation An malvin Warren [facility] 08/05/2021 Z79.01 MCC (current) use of antic oagulants Flory Warren, [facility] 08/05/2021 Z51.81 Encounter for therapeutic drug l evel monitoring Flory Warren [facility] 07/28/2021 Z51.81 Encounter for therapeutic drug l evel monitoring Flory Warren [facility] 07/28/2021 Z51.81 Encounter for therapeutic drug l evel monitoring Protime 07/28/2021 Z79.01 buttermaker helper (current) use of antic oagulants Flory Warren [facility] 07/28/2021 Z79.01 MCC (current) use of antic oagulants Protime 07/28/2021 I48.21 Permanent atrial fibrillation An malvin Warren [facility] 07/28/2021 J44.1 Chronic obstructive pulmonary disease with (acute) exacerbation Flory Warren [facility] 07/28/2021 I48.21 Permanent atrial fibrillation Pr otime 07/28/2021 I50.33 Acute on chronic diastolic (amaya estive) heart failure Flory Warren, [facility] 07/28/2021 I48.21 Permanent atrial fibrillation An n Kathrine Mazariegos, [facility] 07/28/2021 D64.9 Anemia, unspecified Flory Warren, [facility] 07/24/2021 Z51.81 Encounter for therapeutic drug l evel monitoring Flory Chisholm [place], [facility] 07/24/2021 Z51.81 Encounter for therapeutic drug l evel monitoring Protime 07/24/2021 Z79.01 buttermaker helper (current) use of antic oagulants Flory Chisholm [place], [facility] 07/24/2021 D64.9 Anemia, unspecified Flory Chisholm [place], [facility] 07/24/2021 I48.21 Permanent atrial fibrillation An n Kathrine Mazariegos, [facility] 07/24/2021 Z79.01 MCC (current) use of antic oagulants Protime 07/24/2021 D64.9 Anemia, unspecified Lab Schedule 07/24/2021 I48.21 Permanent atrial fibrillation Pr otime 07/24/2021 R79.1 Abnormal coagulation profile Flory Warren, [facility] 07/24/2021 I50.33 Acute on chronic diastolic (amaya estive) heart failure Flory Warren, [facility] 07/24/2021 R79.1 Abnormal coagulation profile Lab Schedule 07/24/2021 Z87.891 Personal history of nicotine dep endence Flory Warren, [facility] 07/24/2021 J44.1 Chronic obstructive pulmonary disease with (acute) exacerbation Flory Warren, [facility] 07/24/2021 I48.21 Permanent atrial fibrillation An n Kathrine Mazariegos, [facility] 07/24/2021 D64.9 Anemia, unspecified Flory Warren, [facility] 07/24/2021 R79.1 Abnormal coagulation profile Flory Warren, [facility] 07/16/2021 Z51.81 Encounter for therapeutic drug l evel monitoring Flory Chisholm [place], [facility] 07/16/2021 Z51.81 Encounter for therapeutic drug l evel monitoring Protime 07/16/2021 Z79.01 buttermaker helper (current) use of antic oagulants Flory Le [place], [facility] 07/16/2021 Z79.01 buttermaker helper (current) use of antic oagulants Protime 07/16/2021 I48.21 Permanent atrial fibrillation An n Kathrine Mazariegos, [facility] 07/16/2021 I48.21 Permanent atrial fibrillation An n Kathrine Mazariegos, [facility] 07/16/2021 I48.21 Permanent atrial fibrillation Pr otime 07/16/2021 Z79.01 MCC (current) use of antic oagulants Flory Warren, [facility] 07/16/2021 N17.9 Acute kidney failure, unspecifie d Flory Warren, [facility] 07/16/2021 I13.0 Hypertensive heart a nd chronic kidney disease with heart failure and stage 1 through stage 4 chronic kidney disease, or unspecified chronic kidney disease Flory Warren, [facility] 07/16/2021 I50.33 Acute on chronic diastolic (amaya estive) heart failure Flory Warren, [facility] 07/16/2021 N18.31 Chronic kidney disease, stage 3a Flory Warren, [facility] 07/16/2021 J44.9 Chronic obstructive pulmonary di sease, unspecified Flory Kathrine Mazariegos, [facility] 07/16/2021 E11.65 Type 2 diabetes mellitus with hy perglycemia Flory Warren, [facility] 07/16/2021 Z79.84 buttermaker helper (current) use of oral hypoglycemic drugs Flory Warren, [facility] 07/16/2021 E66.01 Morbid (severe) obesity due to e xcess calories Flory Warren, [facility] 07/16/2021 Z68.42 Body mass index [BMI] 45.0-49.9, adult Flory Warren, [facility] 06/30/2021 I11.9 Hypertensive heart disease witho ut heart failure Flory Warren, [facility] 06/30/2021 I48.21 Permanent atrial fibrillation An n Kathrine Mazariegos, [facility] 06/30/2021 Z51.81 Encounter for therapeutic drug l evel monitoring Flory Warren, [facility] 06/30/2021 Z79.01 MCC (current) use of antic oagulants Flory Kathrine Mazariegos, [facility] 06/30/2021 J44.9 Chronic obstructive pulmonary di sease, unspecified Flory Warren, [facility] 06/30/2021 Z51.81 [facility] E11.65 Type 2 diabetes mellitus with hy perglycemia Flory Kathrine Mazariegos, [facility] 06/30/2021 E11.40 Type 2 diabetes jl itus with diabetic neuropathy, unspecified Flory Warren, [facility] 06/30/2021 Z79.84 buttermaker helper (current) use of oral hypoglycemic drugs Flory Warren, [facility] 06/30/2021 Z79.01 buttermaker helper (current) use of antic oagulants Flory Warren, [facility] 06/30/2021 E66.01 Morbid (severe) obesity due to e xcess calories Flory Warren, [facility] 06/30/2021 B35.4 Tinea corporis Flory Warren, [facility] 06/30/2021 Z79.01 MCC (current) use of antic oagulants Protime 06/30/2021 Z68.42 Body mass index [BMI] 45.0-49.9, adult Flory Warren, [facility] 06/30/2021 I48.21 Permanent atrial fibrillation An malvin Warren, [facility] 06/30/2021 I48.21 Permanent atrial fibrillation Pr otime 05/26/2021 Z51.81 Encounter for therapeutic drug l evel monitoring Flory Warren, [facility] 05/26/2021 Z51.81 Encounter for therapeutic drug l evel monitoring Protime 05/26/2021 Z79.01 buttermaker helper (current) use of antic oagulants Flory Warren, [facility] 05/26/2021 Z79.01 MCC (current) use of antic oagulants Protime 05/26/2021 I48.21 Permanent atrial fibrillation An malvin Warren, [facility] 05/26/2021 I48.21 Permanent atrial fibrillation Pr otime 05/12/2021 Z51.81 Encounter for therapeutic drug l evel monitoring Flory Warren, [facility] 05/12/2021 Z51.81 Encounter for therapeutic drug l evel monitoring Protime 05/12/2021 Z79.01 buttermaker helper (current) use of antic oagulants Flory Warren, [facility] 05/12/2021 Z79.01 buttermaker helper (current) use of antic oagulants Protime 05/12/2021 I48.21 Permanent atrial fibrillation An malvin Warren, [facility] 05/12/2021 I48.21 Permanent atrial fibrillation Pr otime 04/10/2021 Z51.81 Encounter for therapeutic drug l evel monitoring Flory Warren, [facility] 04/10/2021 Z51.81 Encounter for therapeutic drug l evel monitoring Protime 04/10/2021 I48.21 Permanent atrial fibrillation An n Kathrine Mazariegos, [facility] 04/10/2021 I11.9 Hypertensive heart disease witho ut heart failure Flory Warren, [facility] 04/10/2021 Z79.01 MCC (current) use of antic oagulants Flory Warren, [facility] 04/10/2021 I48.21 Permanent atrial fibrillation Pr otime 04/10/2021 J44.9 Chronic obstructive pulmonary di sease, unspecified Flory Warren, [facility] 04/10/2021 Z79.01 buttermaker helper (current) use of antic oagulants Protime 04/10/2021 I48.21 Permanent atrial fibrillation An malvin Warren, [facility] 04/10/2021 Z79.01 buttermaker helper (current) use of antic oagulants Flory Warren, [facility] 04/10/2021 E11.65 Type 2 diabetes mellitus with hy perglycemia Flory Warren, [facility] 04/10/2021 E11.40 Type 2 diabetes jl itus with diabetic neuropathy, unspecified Flory Warren, [facility] 04/10/2021 E66.01 Morbid (severe) obesity due to e xcess calories Flory Warren, [facility] 04/10/2021 Z68.42 Body mass index [BMI] 45.0-49.9, adult Flory Warren, [facility] 03/09/2021 Z51.81 Encounter for therapeutic drug l evel monitoring Flory Warren, [facility] 03/09/2021 Z51.81 Encounter for therapeutic drug l evel monitoring Protime 03/09/2021 I48.21 Permanent atrial fibrillation An malvin Warren, [facility] 03/09/2021 I48.21 Permanent atrial fibrillation Pr otime 03/09/2021 Z79.01 MCC (current) use of antic oagulants Flory Warren, [facility] 03/09/2021 Z79.01 MCC (current) use of antic oagulants Protime 02/10/2021 Z51.81 Encounter for therapeutic drug l evel monitoring Flory Warren, [facility] 02/10/2021 Z51.81 Encounter for therapeutic drug l evel monitoring Protime 02/10/2021 I48.21 Permanent atrial fibrillation An n IDALIA Warren 02/10/2021 I48.21 Permanent atrial fibrillation Pr otime 02/10/2021 Z79.01 buttermaker helper (current) use of antic oagulants IDALIA Rivera 02/10/2021 Z79.01 buttermaker helper (current) use of antic oagulants Protime Plan of Treatment Future Appointment(s):* 08/18/2021 8:30 am - Greta at [facility] * 08/12/2021 1:40 pm - IDALIA Rivera at [facility] * 10/06/2021 9:20 am - [facility] * 01/22/2022 10:40 am - IDALIA Rivera [facility] * 01/22/2022 10:20 am - Nurse #2 at [facility] 08/05/2021 - IDALIA Rivera* I50.9 Heart failure, unspecified* Comments:* Still has evidence of fluid overload. Will continue torsemide 10 mg daily. Will check a basic medical panel when he returns. * J44.9 Chronic obstructive pulmonary disease, unspecified* Comments:* INR has been quite labile. It is likely related to his fluid overload and prednisone. We will continue to monitor and make adjustments as appropriate. Denies any symptoms of bleeding. No evidence of a thromboembolic event. * I48.21 Permanent atrial fibrillation* Comments:* Rate controlled. * Z79.01 buttermaker helper (current) use of anticoagulants* Comments:* INR completed. Verbal instructions given. Signs and symptoms to report reviewed. No evidence of thromboembolic or bleeding events. Verbal and written instructions given. Signs and symptoms to report reviewed. No evidence of thromboembolic or bleeding events. * Z51.81 Encounter for therapeutic drug level monitoring Functional Status Description No Information Available Mental Status Description No Information Available Referrals Description No Information Available
--- OUTSIDE RECORDS SUMMARY | 2021-09-07 11:18 | CCD | Continuity of Care Document ---
Author Author Tony Rivera Organization Unknown Address [address] [address] Phone [phone] Care Team Providers Care Shipping Weigher Name Role Phone Flory Finch AUTM [phone] Problems Active Problems Provider Date Atrial fibrillation IDALIA Rivera Onset: 08/06/2011 Benign essential hypertension IDALIA Rivera Onset: Hypertensive heart disease without congestive heart failure IDALIA Rivera Onset: 01/16/2021 Type II diabetes mellitus uncontrolled IDALIA Rivera O nset: 01/16/2021 Chronic obstructive lung disease IDALIA Rivera Onset: 01/16/2021 Morbid obesity IDLAIA Rivera Onset: 01/16/2021 Long-term current use of [...] [facility] Guaifenesin ac 100-10mg/5ML Syrup 5 milliliters every 6 hour, 10 milliliters at bedtime 120ml Robyn Cuadra, ANP 07/20/2021 Atenolol 50mg Tablets 1 by mouth every day 90tabs [facility] 07/16/2021 Ketoconazole 2% Cream apply to rash under arms two times a day for 14 days 60gm [facility]/30[facility]2021 Amlodipine Besylate 5mg Tablets Take One Tablet By Mouth Every Day 30tabs I11.9 Flory Warren [facility] 01/16 Rosuvastatin Calcium 40mg Tablets Take One Tablet By Mouth Every Day 90tabs [facility] 01/16 Fluticasone Propionate/Salmeterol Diskus 250-50mcg/Dose Aerosol Inhale 1 puff By Mouth Two Times A Day 180units [facility] 10/03/2020 Lisinopril 40mg Tablets 1 by mouth every day 90tabs [facility] 11/29/2019 Proventil HFA 108(90Base) mcg/Act Aerosol 2 puffs four times a day for one week then as needed for cough 1units I48.2 [facility] 09/09/2015 Warfarin Sodium 6mg Tablets take 1 or 2 tablets by mouth daily as directed 60tabs Flory Warren [facility] 12/16/2009 Warfarin Sodium 1mg Tablets take 1-3 tablets by mouth daily as directed 100tabs Flory Warren [facility] 10/21/2009 History Medications Prednisone 10mg Tablets 4 every day x 3 days,3 every day x 3 days, 2 every day x 3 days, then 1 tablet x 3 days then discontinue 30tabs Flory Warren [facility] 07/21/2021 - Fluconazole 100mg Tablets one daily x 7 days 7tabs Flory Warren [facility] 06/30/2021 - Medications Administered in Office Medication SIG Qnty Indications Ordering Provider Date Administration Of Flu Vaccine Inj ection Quirino Soler MD 09/12/2020 Administration Of Flu Vaccine Inj ection Flory Warren, [facility] 09/18/2019 Immunization Adminstration,1 Vaccine/Tox oid Injection Flory Warren, [facility] 05/01/2019 Administration Of Flu Vaccine Inj ection Flory Warren, [facility] 10/03/2018 Immunizations CPT Code Status Date Vaccine Lot # [id number] Given 01/16/2021 Pneumovax 23 [id number] 13894 Given 09/12/2020 Influenza Vaccin e Quadrivalent Preser/Antibiotic Free Im Use [id number] 19858 Given 09/18/2019 Influenza Vaccin e Quadrivalent Preser/Antibiotic Free Im Use [id number] 09798 Given 05/01/2019 Adacel- Tetanus Diphtheria P ertussis [id number] 53074 Given 10/03/2018 Influenza Virus Vaccine, Quadrivalent ([id number]), Derived From 7 Given 09/14/2017 Influenza Vaccin e Quadrivalent Preser/Antibiotic Free Im Use [id number] 70062 Given 12/16/2016 Prevnar 13 [id number] Given 09/07/2016 Fluvirin Virus Vaccine [id number] 01 Q2037 Given 09/09/2015 Fluvirin Virus Vaccine Q2037 Given 09/09/2015 Fluvirin Virus Vaccine [id number] 01 Q2037 Given 09/10/2014 Fluvirin Virus Vaccine 20904 21 38677 Given 11/29/2013 Pneumovax 23 [id number] Q2037 Given 09/06/2013 Fluvirin Virus Vaccine Q2037 [...] H/L Range Note Basic Metabolic Panel 08/12/2021 [facility] ankush ellison Fresh Foods Technician: [place] [address] [phone] Glucose 95 mg/dL 74 - 99 1 [...] Wi-Inr Inr 1.6 Basic Metabolic Panel 07/28/2021 [facility] ankush ellison Fresh [employer] Technician: [place] [address] [phone] Glucose 95 mg/dL 74 - 99 3 [...] mL/min >60 4 Complete Blood Count 07/28/2021 [facility] Fresh [employer] Technician: [place] [address] [phone] WBC 11.2 x10*3/UL High 4.1 - 10.9 [...] High 2.0 - 7.8 Prothrombin Time/Inr 07/24/2021 [facility] enter [address] [place] [address] [phone] Prothrombin Time 43.8 seconds High 12.7-14.5 Inr 4.63 Normal 5 Laboratory test finding 07/24/2021 Wi-Inr Inr 5.6 Complete Blood Count 07/24/2021 [facility] Fresh Foods Technician: [place] [address] [phone] WBC 9.6 x10*3/UL 4.1 - 10.9 RBC [...] 2.0 - 7.8 Basic Metabolic Panel 07/16/2021 [facility] Fresh Foods Technician: [place] [address] [phone] Glucose 124 mg/dL High 74 - 99 [...] Wi-Inr Inr 2.8 Complete Blood Count 06/30/2021 [facility] Fresh Foods Technician: [place] [address] [phone] WBC 7.5 x10*3/UL 4.1 - 10.9 RBC [...] 2.0 - 7.8 Basic Metabolic Panel 06/30/2021 [facility] Fresh Foods Technician: [place] [address] [phone] Glucose 105 mg/dL High 74 - 99 [...] Wi-Inr Inr 2.5 Complete Blood Count 04/10/2021 [facility] Fresh Foods Technician: [place] [address] [phone] WBC 6.8 x10*3/UL 4.1 - 10.9 RBC [...] 2.0 - 7.8 Basic Metabolic Panel 04/10/2021 [facility] Fresh Foods Technician: [place] [address] [phone] Glucose 100 mg/dL High 74 - 99 [...] LITTLE GFR LEFT ESRD GFR <15 ON CLOTH FINISHING RANGE OPERATOR CHIEF 3 100-125 mg/dL PRE-DIABET ES/FASTING >126 mg/dL DIABETES/FASTING 4 CHRONIC KIDNEY DISEASE STAGI NG PER NKF STAGE I & II GFR >= 60 NORMAL TO MILDLY DECREASED STAGE III GFR 30-59 MODERATELY DECREASED STAGE IV GFR 15-29 SEVERELY DECREASED STAGE V GFR <15 VERY LITTLE GFR LEFT ESRD GFR <15 ON CLOTH FINISH[employer] RANGE OPERATOR CHIEF 5 THERAPUTIC HUMAN INR VALUES INDICATIONS NORMAL [...] LITTLE GFR LEFT ESRD GFR <15 ON [employer]OTH [employer] RANGE OPERATOR CHIEF 10 100-125 mg/dL PRE-DIABET ES/FASTING >126 mg/dL DIABETES/FASTING 11 CHRONIC KIDNEY DISEASE STAGI NG PER NKF STAGE I & II GFR >= 60 NORMAL TO MILDLY DECREASED STAGE III GFR 30-59 MODERATELY DECREASED STAGE IV GFR 15-29 SEVERELY DECREASED STAGE V GFR <15 VERY LITTLE GFR LEFT ESRD GFR <15 ON CLOTH FINISH[employer] RANGE OPERATOR CHIEF 12 100-125 mg/dL PRE-DIABET ES/FASTING >126 mg/dL DIABETES/FASTING 13 CHRONIC KIDNEY DISEASE STAGI NG PER NKF STAGE I & II GFR >= 60 NORMAL TO MILDLY DECREASED STAGE III GFR 30-59 MODERATELY DECREASED STAGE IV GFR 15-29 SEVERELY DECREASED STAGE V GFR <15 VERY LITTLE GFR LEFT ESRD GFR <15 ON [employer] FIN[employer] RANGE OPERATOR CHIEF Procedures Date Code Description Status 08/05/2021 [id number] Office/Outpatient Established Lo w MDM 20-29 Min Completed 07/28/2021 [id number] Office/Outpatient Established Mo d MDM 30-39 Min Completed 07/24/2021 [id number] Office/Outpatient Established Lo w MDM 20-29 Min Completed 07/16/2021 [id number] German Cre SRV W/I 7 Days Of DC, C omm W/I 2 Dys Med Rec Completed 06/30/2021 [id number] Office/Outpatient Established Mo d MDM 30-39 Min Completed 04/10/2021 [id number] Office/Outpatient Established Lo w MDM 20-29 Min Completed 05/03/2016 [id number] Colonoscopy Completed Medical Devices Description No Information Available Encounters Type Date Location Provider Dx Diagnosis Office Visit 08/05/2021 9:40a [facility], HOME AND FAMILY LIVING PROFESSOR I50.9 Heart failure, unspecified J44.9 Chronic obstructive pulmonar y disease, unspecified I48.21 Permanent atrial fibrillatio n Z79.01 ibm bpm developer (current) use of a nticoagulants Z51.[address] ug level monitoring Office Visit 07/28/2021 8:20a [facility], HOME AND FAMILY LIVING PROFESSOR J44.1 Chronic obstructive pulmonary disease w (acute) exacerbation I50.33 Acute on chronic diastolic ( congestive) heart failure I48.21 Permanent atrial fibrillatio n D64.9 Anemia, unspecified Office Visit 07/24/2021 11:20a [facility], HOME AND FAMILY LIVING PROFESSOR I50.33 Acute on chronic diastolic (congestive) heart failure Z87.891 Personal history of nicotine dependence J44.1 Chronic obstructive pulmonar y disease w (acute) exacerbation I48.21 Permanent atrial fibrillatio n D64.9 Anemia, unspecified R79.1 Abnormal coagulation profile Office Visit 07/16/2021 11:20a [facility], HOME AND FAMILY LIVING PROFESSOR I48.21 Permanent atrial fibrillation Z79.01 halfway (current) use of a nticoagulants N17.9 Acute kidney failure, unspec ified I13.0 Hyp hrt & chr kdny dis w hrt fail and stg 1-4/unsp chr kdny I50.33 Acute on chronic diastolic ( congestive) heart failure N18.31 Chronic kidney disease, stag e 3a J44.9 Chronic obstructive pulmonar y disease, unspecified E11.65 Type 2 diabetes mellitus wit h hyperglycemia Z79.84 ibm bpm developer (current) use of o ral hypoglycemic drugs E66.01 Morbid (severe) obesity due to excess calories Z68.42 Body mass index [BMI] 45.0-4 9.9, adult Office Visit 06/30/2021 9:40a [facility] Flory Munoz ne, [facility] I11.9 Hypertensive heart disease without heart failure I48.21 Permanent atrial fibrillatio n Z79.01 halfway (current) use of a nticoagulants J44.9 Chronic obstructive pulmonar y disease, unspecified E11.65 Type 2 diabetes mellitus wit h hyperglycemia E11.40 Type 2 diabetes mellitus wit h diabetic neuropathy, unsp Z79.84 ibm bpm developer (current) use of o ral hypoglycemic drugs E66.01 Morbid (severe) obesity due to excess calories B35.4 Tinea corporis Z68.42 Body mass index [BMI] 45.0-4 9.9, adult Office Visit 04/10/2021 11:00a [facility] Flory Pearson, [facility] I11.9 Hypertensive heart disease without heart failure J44.9 Chronic obstructive pulmonar y disease, unspecified I48.21 Permanent atrial fibrillatio n Z79.01 halfway (current) use of a nticoagulants E11.65 Type 2 diabetes mellitus wit h hyperglycemia E11.40 Type 2 diabetes mellitus wit h diabetic neuropathy, unsp E66.01 Morbid (severe) obesity due to excess calories Z68.42 Body mass index [BMI] 45.0-4 9.9, adult Assessments Date Code Description Provider 08/05/2021 I50.9 Heart failure, unspecified Flory Mazariegos, [facility] 08/05/2021 J44.9 Chronic obstructive pulmonary di sease, unspecified Flory Warren, [facility] 08/05/2021 I48.21 Permanent atrial fibrillation An DAISHA PalenciaP 08/05/2021 Z79.01 halfway (current) use of antic oagulants Flory Warren, [facility] 08/05/2021 Z51.81 Encounter for therapeutic drug l evel monitoring Flory Warren, [facility] 07/28/2021 Z51.81 Encounter for therapeutic drug l evel monitoring Flory Warren, [facility] 07/28/2021 Z51.81 Encounter for therapeutic drug l evel monitoring Protime 07/28/2021 Z79.01 halfway (current) use of antic oagulants Flory Warren, [facility] 07/28/2021 Z79.01 halfway (current) use of antic oagulants Protime 07/28/2021 I48.21 Permanent atrial fibrillation An n Kathrine Mazariegos, [facility] 07/28/2021 J44.1 Chronic obstructive pulmonary disease with (acute) exacerbation Flory Warren, [facility] 07/28/2021 I48.21 Permanent atrial fibrillation Pr otime 07/28/2021 I50.33 Acute on chronic diastolic (amaya estive) heart failure Flory Warren, [facility] 07/28/2021 I48.21 Permanent atrial fibrillation An n Kathrine Mazariegos, [facility] 07/28/2021 D64.9 Anemia, unspecified Flory Warren, [facility] 07/24/2021 Z51.81 Encounter for therapeutic drug l evel monitoring Flory Warren, [facility] 07/24/2021 Z51.81 Encounter for therapeutic drug l evel monitoring Protime 07/24/2021 Z79.01 ibm bpm developer (current) use of antic oagulants Flory Warren, [facility] 07/24/2021 D64.9 Anemia, unspecified Flory Warren, [facility] 07/24/2021 I48.21 Permanent atrial fibrillation An n Kathrine Mazariegos, [facility] 07/24/2021 Z79.01 halfway (current) use of antic oagulants Protime 07/24/2021 D64.9 Anemia, unspecified Lab Schedule 07/24/2021 I48.21 Permanent atrial fibrillation Pr otime 07/24/2021 R79.1 Abnormal coagulation profile Flory Warren, [facility] 07/24/2021 I50.33 Acute on chronic diastolic (amaya estive) heart failure Flory Warren, [facility] 07/24/2021 R79.1 Abnormal coagulation profile Lab Schedule 07/24/2021 Z87.891 Personal history of nicotine dep endence Flory Warren, [facility] 07/24/2021 J44.1 Chronic obstructive pulmonary disease with (acute) exacerbation Flory Warren, [facility] 07/24/2021 I48.21 Permanent atrial fibrillation An malvin Warren, [facility] 07/24/2021 D64.9 Anemia, unspecified Flory Warren, [facility] 07/24/2021 R79.1 Abnormal coagulation profile Flory Warren, [facility] 07/16/2021 Z51.81 Encounter for therapeutic drug l evel monitoring Flory Warren, [facility] 07/16/2021 Z51.81 Encounter for therapeutic drug l evel monitoring Protime 07/16/2021 Z79.01 ibm bpm developer (current) use of antic oagulants Flory Warren, [facility] 07/16/2021 Z79.01 halfway (current) use of antic oagulants Protime 07/16/2021 I48.21 Permanent atrial fibrillation An malvin Warren, [facility] 07/16/2021 I48.21 Permanent atrial fibrillation An malvin Warren, [facility] 07/16/2021 I48.21 Permanent atrial fibrillation Pr otime 07/16/2021 Z79.01 ibm bpm developer (current) use of antic oagulants Flory Warren, [facility] 07/16/2021 N17.9 Acute kidney failure, unspecifie d Flory Warren, [facility] 07/16/2021 I13.0 Hypertensive heart a nd chronic kidney disease with heart failure and stage 1 through stage 4 chronic kidney disease, or unspecified chronic kidney disease Flory Warren, [facility] 07/16/2021 I50.33 Acute on chronic diastolic (amaya estive) heart failure Flory Warren, [facility] 07/16/2021 N18.31 Chronic kidney disease, stage 3a Flory Warren, [facility] 07/16/2021 J44.9 Chronic obstructive pulmonary di sease, unspecified Flory Warren, [facility] 07/16/2021 E11.65 Type 2 diabetes mellitus with hy perglycemia Flory Warren, [facility] 07/16/2021 Z79.84 halfway (current) use of oral hypoglycemic drugs Flory Warren, [facility] 07/16/2021 E66.01 Morbid (severe) obesity due to e xcess calories Flory Warren, [facility] 07/16/2021 Z68.42 Body mass index [BMI] 45.0-49.9, adult Flory Warren, [facility] 06/30/2021 I11.9 Hypertensive heart disease witho ut heart failure Flory Warren, [facility] 06/30/2021 I48.21 Permanent atrial fibrillation An n Kathrine Mazariegos, [facility] 06/30/2021 Z51.81 Encounter for therapeutic drug l evel monitoring Flory Warren, [facility] 06/30/2021 Z79.01 ibm bpm developer (current) use of antic oagulants Flory Warren, [facility] 06/30/2021 J44.9 Chronic obstructive pulmonary di sease, unspecified Flory Warren, [facility] 06/30/2021 Z51.81 Encounter for therapeutic drug l evel monitoring Protime 06/30/2021 E11.65 Type 2 diabetes mellitus with hy perglycemia Flory Warren, [facility] 06/30/2021 E11.40 Type 2 diabetes jl itus with diabetic neuropathy, unspecified Flory Warren, [facility] 06/30/2021 Z79.84 ibm bpm developer (current) use of oral hypoglycemic drugs Flory Warren, [facility] 06/30/2021 Z79.01 halfway (current) use of antic oagulants Floyr Warren, [facility] 06/30/2021 E66.01 Morbid (severe) obesity due to e xcess calories Flory Warren, [facility] 06/30/2021 B35.4 Tinea corporis Flory Warren, [facility] 06/30/2021 Z79.01 ibm bpm developer (current) use of antic oagulants Protime 06/30/2021 Z68.42 Body mass index [BMI] 45.0-49.9, adult Flory Warren, [facility] 06/30/2021 I48.21 Permanent atrial fibrillation An n Kathrine Mazariegos, [facility] 06/30/2021 I48.21 Permanent atrial fibrillation Pr otime 05/26/2021 Z51.81 Encounter for therapeutic drug l evel monitoring Flory Warren, [facility] 05/26/2021 Z51.81 Encounter for therapeutic drug l evel monitoring Protime 05/26/2021 Z79.01 halfway (current) use of antic oagulants Flory Warren, [facility] 05/26/2021 Z79.01 ibm bpm developer (current) use of antic oagulants Protime 05/26/2021 I48.21 Permanent atrial fibrillation An n Kathrine Mazariegos, [facility] 05/26/2021 I48.21 Permanent atrial fibrillation Pr otime 05/12/2021 Z51.81 Encounter for therapeutic drug l evel monitoring Flory Warren, [facility] 05/12/2021 Z51.81 Encounter for therapeutic drug l evel monitoring Protime 05/12/2021 Z79.01 ibm bpm developer (current) use of antic oagulants Flory Warren, [facility] 05/12/2021 Z79.01 ibm bpm developer (current) use of antic oagulants Protime 05/12/2021 I48.21 Permanent atrial fibrillation An n Kathrine Mazariegos, [facility] 05/12/2021 I48.21 Permanent atrial fibrillation Pr otime 04/10/2021 Z51.81 Encounter for therapeutic drug l evel monitoring Flory Warren, [facility] 04/10/2021 Z51.81 Encounter for therapeutic drug l evel monitoring Protime 04/10/2021 I48.21 Permanent atrial fibrillation An n Kathrine Mazariegos, [facility] 04/10/2021 I11.9 Hypertensive heart disease witho ut heart failure Flory Warren, [facility] 04/10/2021 Z79.01 ibm bpm developer (current) use of antic oagulants Flory Warren, [facility] 04/10/2021 I48.21 Permanent atrial fibrillation Pr otime 04/10/2021 J44.9 Chronic obstructive pulmonary di sease, unspecified Flory Warren, [facility] 04/10/2021 Z79.01 halfway (current) use of antic oagulants Protime 04/10/2021 I48.21 Permanent atrial fibrillation An n Kathrine Mazariegos, [facility] 04/10/2021 Z79.01 halfway (current) use of antic oagulants Flory Kathrine [place], [facility] 04/10/2021 E11.65 Type 2 diabetes mellitus with hy perglycemia Flory Warren, [facility] 04/10/2021 E11.40 Type 2 diabetes jl itus with diabetic neuropathy, unspecified Flory Warren [facility] 04/10/2021 E66.01 Morbid (severe) obesity due to e xcess calories Flory Warren [facility] 04/10/2021 Z68.42 Body mass index [BMI] 45.0-49.9, adult Flory Warren, [facility] 03/09/2021 Z51.81 Encounter for therapeutic drug l evel monitoring Flory Warren, [facility] 03/09/2021 Z51.81 Encounter for therapeutic drug l evel monitoring Protime 03/09/2021 I48.21 Permanent atrial fibrillation An malvin Warren, [facility] 03/09/2021 I48.21 Permanent atrial fibrillation Pr otime 03/09/2021 Z79.01 ibm bpm developer (current) use of antic oagulants Flory Warren, [facility] 03/09/2021 Z79.01 halfway (current) use of antic oagulants Protime 02/10/2021 Z51.81 Encounter for therapeutic drug l evel monitoring Flory Warren, [facility] 02/10/2021 Z51.81 Encounter for therapeutic drug l evel monitoring Protime 02/10/2021 I48.21 Permanent atrial fibrillation An malvin Warren, [facility] 02/10/2021 I48.21 Permanent atrial fibrillation Pr otime 02/10/2021 Z79.01 ibm bpm developer (current) use of antic oagulants Flory Warren, [facility] 02/10/2021 Z79.01 halfway (current) use of antic oagulants Protime Plan of Treatment Future Appointment(s):* 09/16/2021 8:40 am - IDALIA Rivera at [facility] * 08/18/2021 8:30 am - Protime at [facility] * 10/06/2021 9:20 am - IDALIA Rivera at [facility] * 01/22/2022 10:40 am - IDALIA Rivera at [facility] * 01/22/2022 10:20 am - Nurse #2 at [facility] Functional Status Description No Information Available Mental Status Description No Information Available Referrals Description No Information Available
--- OUTSIDE RECORDS SUMMARY | 2021-09-07 11:18 | CCD ---
Continuity of Care Document (CCD) Created on: 08/12/2021 ToreyTony External Reference #: [id number] : [id number] Sex: Male Author Author Tony Rivera Organization Unknown Address [address] [address] Phone [phone] Care Team Providers Care Online Marketing Strategist Name Role Phone Flory Finch AUTM [phone] Problems Active Problems Provider Date Atrial fibrillation [...] daily by [facility] every day [facility] Guaifenesin ac 100-10mg/5ML Syrup 5 milliliters every 6 hour, 10 milliliters at bedtime 120ml Robyn Cuadra, ANP 07/20/2021 Atenolol 50mg Tablets 1 by mouth every day 90tabs [facility] 07/16/2021 Ketoconazole 2% Cream apply to rash under arms two times a day for 14 days 60gm [facility]2021 Amlodipine Besylate 5mg Tablets Take One Tablet By Mouth Every Day 30tabs I11.9 Flory Warren [facility] 01/16 Rosuvastatin Calcium 40mg Tablets Take One Tablet By Mouth Every Day 90tabs [facility]/16 Fluticasone Propionate/Salmeterol Diskus 250-50mcg/Dose Aerosol Inhale 1 puff By Mouth Two Times A Day 180units [facility] 10/03/2020 Lisinopril 40mg Tablets 1 by mouth every day 90tabs [facility] 11/29/2019 Proventil HFA 108(90Base) mcg/Act Aerosol 2 puffs four times a day for one week then as needed for cough 1units I48.2 [facility] 09/09/2015 Warfarin Sodium 6mg Tablets take 1 or 2 tablets by mouth daily as directed 60tabs Flory Warren [facility] 12/16/2009 Warfarin Sodium 1mg Tablets take 1-3 tablets by mouth daily as directed 100tabs Flory Warren [facility] 10/21/2009 History Medications Prednisone 10mg Tablets 4 every day x 3 days,3 every day x 3 days, 2 every day x 3 days, then 1 tablet x 3 days then discontinue 30tabs Flory Warren [facility] 07/21/2021 - Fluconazole 100mg Tablets one daily x 7 days 7tabs Flory Warren [facility] 06/30/2021 - Medications Administered in Office Medication SIG Qnty Indications Ordering Provider Date Administration Of Flu Vaccine Inj ection Quirino Soler MD 09/12/2020 Administration Of Flu Vaccine Inj ection Flory Warren, [facility] 09/18/2019 Immunization Adminstration,1 Vaccine/Tox oid Injection Flory Warren, [facility] 05/01/2019 Administration Of Flu Vaccine Inj ection Flory Warren, [facility] 10/03/2018 Immunizations CPT Code Status Date Vaccine Lot # [id number] Given 01/16/2021 Pneumovax 23 [id number] Given 09/12/2020 Influenza Vaccin e Quadrivalent Preser/Antibiotic Free Im Use [id number] 46122 Given 09/18/2019 Influenza Vaccin e Quadrivalent Preser/Antibiotic Free Im Use [id number] 70338 Given 05/01/2019 Adacel- Tetanus Diphtheria P ertussis [id number] 93157 Given 10/03/2018 Influenza Virus Vaccine, Quadrivalent ([id number]), Derived From 0 Given 09/14/2017 Influenza Vaccin e Quadrivalent Preser/Antibiotic Free Im Use [id number] 64485 Given 12/16/2016 Prevnar 13 [id number] Given 09/07/2016 Fluvirin Virus Vaccine [id number] 01 Q2037 Given 09/09/2015 Fluvirin Virus Vaccine Q2037 Given 09/09/2015 Fluvirin Virus Vaccine [id number] 01 Q2037 Given 09/10/2014 Fluvirin Virus Vaccine [id number] 21 14941 Given 11/29/2013 Pneumovax 23 [id number] Q2037 Given 09/06/2013 Fluvirin Virus Vaccine Q2037 [...] H/L Range Note Basic Metabolic Panel 08/12/2021 [facility] Sales Program Coordinator: [place] [address] [phone] Glucose 95 mg/dL 74 - 99 1 [...] Wi-Inr Inr 1.6 Basic Metabolic Panel 07/28/2021 [facility] Sales Program Coordinator: [place] [address] [phone] Glucose 95 mg/dL 74 - 99 3 [...] mL/min >60 4 Complete Blood Count 07/28/2021 [facility] Sales Program Coordinator: [place] [address] [phone] WBC 11.2 x10*3/UL High 4.1 - 10.9 [...] High 2.0 - 7.8 Prothrombin Time/Inr 07/24/2021 [facility] [address] [place] [address] [phone] Prothrombin Time 43.8 seconds High 12.7-14.5 Inr 4.63 Normal 5 Laboratory test finding 07/24/2021 Wi-Inr Inr 5.6 Complete Blood Count 07/24/2021 [facility] Sales Program Coordinator: [place] [address] [phone] WBC 9.6 x10*3/UL 4.1 - 10.9 RBC [...] 2.0 - 7.8 Basic Metabolic Panel 07/16/2021 [facility] Sales Program Coordinator: [place] [address] [phone] Glucose 124 mg/dL High 74 - 99 [...] Wi-Inr Inr 2.8 Complete Blood Count 06/30/2021 [facility] Sales Program Coordinator: [place] [address] [phone] WBC 7.5 x10*3/UL 4.1 - 10.9 RBC [...] 2.0 - 7.8 Basic Metabolic Panel 06/30/2021 [facility] Sales Program Coordinator: [place] [address] [phone] Glucose 105 mg/dL High 74 - 99 [...] Wi-Inr Inr 2.5 Complete Blood Count 04/10/2021 [facility] Sales Program Coordinator: [place] [address] [phone] WBC 6.8 x10*3/UL 4.1 - 10.9 RBC [...] 2.0 - 7.8 Basic Metabolic Panel 04/10/2021 [facility] Sales Program Coordinator: [place] [address] [phone] Glucose 100 mg/dL High 74 - 99 [...] LITTLE GFR LEFT ESRD GFR <15 ON DIRECTOR OF DISTRICT OFFICE 3 100-125 mg/dL PRE-DIABET ES/FASTING >126 mg/dL DIABETES/FASTING 4 CHRONIC KIDNEY DISEASE STAGI NG PER NKF STAGE I & II GFR >= 60 NORMAL TO MILDLY DECREASED STAGE III GFR 30-59 MODERATELY DECREASED STAGE IV GFR 15-29 SEVERELY DECREASED STAGE V GFR <15 VERY LITTLE GFR LEFT ESRD GFR <15 ON DIRECTOR OF DISTRICT OFFICE 5 THERAPUTIC HUMAN INR VALUES INDICATIONS NORMAL [...] LITTLE GFR LEFT ESRD GFR <15 ON DIRECTOR OF DISTRICT OFFICE 10 100-125 mg/dL PRE-DIABET ES/FASTING >126 mg/dL DIABETES/FASTING 11 CHRONIC KIDNEY DISEASE STAGI NG PER NKF STAGE I & II GFR >= 60 NORMAL TO MILDLY DECREASED STAGE III GFR 30-59 MODERATELY DECREASED STAGE IV GFR 15-29 SEVERELY DECREASED STAGE V GFR <15 VERY LITTLE GFR LEFT ESRD GFR <15 ON DIRECTOR OF DISTRICT OFFICE 12 100-125 mg/dL PRE-DIABET ES/FASTING >126 mg/dL DIABETES/FASTING 13 CHRONIC KIDNEY DISEASE STAGI NG PER NKF STAGE I & II GFR >= 60 NORMAL TO MILDLY DECREASED STAGE III GFR 30-59 MODERATELY DECREASED STAGE IV GFR 15-29 SEVERELY DECREASED STAGE V GFR <15 VERY LITTLE GFR LEFT ESRD GFR <15 ON DIRECTOR OF DISTRICT OFFICE Procedures Date Code Description Status 08/05/2021 39208 Office/Outpatient Established Lo w MDM 20-29 Min Completed 07/28/2021 53013 Office/Outpatient Established Mo d MDM 30-39 Min Completed 07/24/2021 28711 Office/Outpatient Established Lo w MDM 20-29 Min Completed 07/16/2021 52880 German Cre SRV W/I 7 Days Of DC, C omm W/I 2 Dys Med Rec Completed 06/30/2021 69553 Office/Outpatient Established Mo d MDM 30-39 Min Completed 04/10/2021 82739 Office/Outpatient Established Lo w MDM 20-29 Min Completed 05/03/2016 [id number] Colonoscopy Completed Medical Devices Description No Information Available Encounters Type Date Location Provider Dx Diagnosis Office Visit 08/05/2021 9[facility] RADAR TECHNIC[facility] I50.9 Heart failure, unspecified J44.9 Chronic obstructive pulmonar y disease, unspecified I48.21 Permanent atrial fibrillatio n Z79.01 long term care phlebotomist (current) use of a nticoagulants Z51.[address] ug level monitoring Office Visit 07/28/2021 8:20a [facility], RADAR TECHNICIAN J44.1 Chronic obstructive pulmonary disease w (acute) exacerbation I50.33 Acute on chronic diastolic ( congestive) heart failure I48.21 Permanent atrial fibrillatio n D64.9 Anemia, unspecified Office Visit 07/24/2021 11:20a [facility], RADAR TECHNICIAN I50.33 Acute on chronic diastolic (congestive) heart failure Z87.891 Personal history of nicotine dependence J44.1 Chronic obstructive pulmonar y disease w (acute) exacerbation I48.21 Permanent atrial fibrillatio n D64.9 Anemia, unspecified R79.1 Abnormal coagulation profile Office Visit 07/16/2021 11:20a [facility], RADAR TECHNICIAN I48.21 Permanent atrial fibrillation Z79.01 MCC (current) [...] mellitus wit h hyperglycemia Z79.84 long term care phlebotomist (current) use of o ral hypoglycemic drugs E66.01 Morbid (severe) obesity due to excess calories Z68.42 Body mass index [BMI] 45.0-4 9.9, adult Office Visit 06/30/2021 9:40a [facility] Flory Munoz ne, [facility] I11.9 Hypertensive heart disease without heart failure I48.21 Permanent atrial fibrillatio n Z79.01 MCC (current) use of a nticoagulants J44.9 Chronic obstructive pulmonar y disease, unspecified E11.65 Type 2 diabetes mellitus wit h hyperglycemia E11.40 Type 2 diabetes mellitus wit h diabetic neuropathy, unsp Z79.84 long term care phlebotomist (current) use of o ral hypoglycemic drugs E66.01 Morbid (severe) obesity due to excess calories B35.4 Tinea corporis Z68.42 Body mass index [BMI] 45.0-4 9.9, adult Office Visit 04/10/2021 11:00a [facility] Flory Pearson, [facility] I11.9 Hypertensive heart disease without heart failure [...] I50.9 Heart failure, unspecified Flory Mazariegos, [facility] 08/05/2021 J44.9 Chronic obstructive pulmonary di sease, unspecified Flory Warren, [facility] 08/05/2021 I48.21 Permanent atrial fibrillation An DAISAH PalenciaP 08/05/2021 Z79.01 MCC (current) use of antic oagulants Flory Warren, [facility] 08/05/2021 Z51.81 Encounter for therapeutic drug l evel monitoring Flory Warren, [facility] 07/28/2021 Z51.81 Encounter for therapeutic drug l evel monitoring Flory Warren, [facility] 07/28/2021 Z51.81 Encounter for therapeutic drug l evel monitoring Protime 07/28/2021 Z79.01 MCC (current) use of antic oagulants Flory Warren, [facility] 07/28/2021 Z79.01 MCC (current) use of antic oagulants Protime 07/28/2021 I48.21 Permanent atrial fibrillation An n Kathrine Mazariegos, [facility] 07/28/2021 J44.1 Chronic obstructive pulmonary disease with (acute) exacerbation Flory Warren, [facility] 07/28/2021 I48.21 Permanent atrial fibrillation Pr otime 07/28/2021 I50.33 Acute on chronic diastolic (amaya estive) heart failure Flory Warren, [facility] 07/28/2021 I48.21 Permanent atrial fibrillation An n Kathrine Mazariegos, [facility] 07/28/2021 D64.9 Anemia, unspecified Flory Warren, [facility] 07/24/2021 Z51.81 Encounter for therapeutic drug l evel monitoring Flory Warren, [facility] 07/24/2021 Z51.81 Encounter for therapeutic drug l evel monitoring Protime 07/24/2021 Z79.01 long term care phlebotomist (current) use of antic oagulants Flory Warren, [facility] 07/24/2021 D64.9 Anemia, unspecified Flory Warren, [facility] 07/24/2021 I48.21 Permanent atrial fibrillation An n Kathrine Mazariegos, [facility] 07/24/2021 Z79.01 MCC (current) use of antic oagulants Protime 07/24/2021 D64.9 Anemia, unspecified Lab Schedule 07/24/2021 I48.21 Permanent atrial fibrillation Pr otime 07/24/2021 R79.1 Abnormal coagulation profile Flory Warren, [facility] 07/24/2021 I50.33 Acute on chronic diastolic (amaya estive) heart failure Flory Warren, [facility] 07/24/2021 R79.1 Abnormal coagulation profile Lab Schedule 07/24/2021 Z87.891 Personal history of nicotine dep endence Flory Warren, [facility] 07/24/2021 J44.1 Chronic obstructive pulmonary disease with (acute) exacerbation Flory Warren, [facility] 07/24/2021 I48.21 Permanent atrial fibrillation An malvin Warren, [facility] 07/24/2021 D64.9 Anemia, unspecified Flory Warren, [facility] 07/24/2021 R79.1 Abnormal coagulation profile Flory Warren, [facility] 07/16/2021 Z51.81 Encounter for therapeutic drug l evel monitoring Flory Warren, [facility] 07/16/2021 Z51.81 Encounter for therapeutic drug l evel monitoring Protime 07/16/2021 Z79.01 long term care phlebotomist (current) use of antic oagulants Flory Warren, [facility] 07/16/2021 Z79.01 MCC (current) use of antic oagulants Protime 07/16/2021 I48.21 Permanent atrial fibrillation An malvin Warren, [facility] 07/16/2021 I48.21 Permanent atrial fibrillation An malvin Warren, [facility] 07/16/2021 I48.21 Permanent atrial fibrillation Pr otime 07/16/2021 Z79.01 long term care phlebotomist (current) use of antic oagulants Flory Warren, [facility] 07/16/2021 N17.9 Acute kidney failure, unspecifie d Flory Warren, [facility] 07/16/2021 I13.0 Hypertensive heart a nd chronic kidney disease with heart failure and stage 1 through stage 4 chronic kidney disease, or unspecified chronic kidney disease Flory Warren, [facility] 07/16/2021 I50.33 Acute on chronic diastolic (amaya estive) heart failure Flory Warren, [facility] 07/16/2021 N18.31 Chronic kidney disease, stage 3a Flory Warren, [facility] 07/16/2021 J44.9 Chronic obstructive pulmonary di sease, unspecified Flory Warren, [facility] 07/16/2021 E11.65 Type 2 diabetes mellitus with hy perglycemia Flory Warren, [facility] 07/16/2021 Z79.84 MCC (current) use of oral hypoglycemic drugs Flory Warren, [facility] 07/16/2021 E66.01 Morbid (severe) obesity due to e xcess calories Flory Warren, [facility] 07/16/2021 Z68.42 Body mass index [BMI] 45.0-49.9, adult Flory Warren, [facility] 06/30/2021 I11.9 Hypertensive heart disease witho ut heart failure Flory Warren, [facility] 06/30/2021 I48.21 Permanent atrial fibrillation An n Kathrine Mazariegos, [facility] 06/30/2021 Z51.81 Encounter for therapeutic drug l evel monitoring Flory Warren, [facility] 06/30/2021 Z79.01 long term care phlebotomist (current) use of antic oagulants Flory Warren, [facility] 06/30/2021 J44.9 Chronic obstructive pulmonary di sease, unspecified Flory Warren, [facility] 06/30/2021 Z51.81 Encounter for therapeutic drug l evel monitoring Protime 06/30/2021 E11.65 Type 2 diabetes mellitus with hy perglycemia Flory Warren, [facility] 06/30/2021 E11.40 Type 2 diabetes jl itus with diabetic neuropathy, unspecified Flory Warren, [facility] 06/30/2021 Z79.84 long term care phlebotomist (current) use of oral hypoglycemic drugs Flory Warren, [facility] 06/30/2021 Z79.01 MCC (current) use of antic oagulants Flory Warren, [facility] 06/30/2021 E66.01 Morbid (severe) obesity due to e xcess calories Flory Warren, [facility] 06/30/2021 B35.4 Tinea corporis Flory Warren, [facility] 06/30/2021 Z79.01 long term care phlebotomist (current) use of antic oagulants Protime 06/30/2021 Z68.42 Body mass index [BMI] 45.0-49.9, adult Flory Warren, [facility] 06/30/2021 I48.21 Permanent atrial fibrillation An n Kathrine Mazariegos, [facility] 06/30/2021 I48.21 Permanent atrial fibrillation Pr otime 05/26/2021 Z51.81 Encounter for therapeutic drug l evel monitoring Flory Warren, [facility] 05/26/2021 Z51.81 Encounter for therapeutic drug l evel monitoring Protime 05/26/2021 Z79.01 MCC (current) use of antic oagulants Flory Warren, [facility] 05/26/2021 Z79.01 long term care phlebotomist (current) use of antic oagulants Protime 05/26/2021 I48.21 Permanent atrial fibrillation An n Kathrine Mazariegos, [facility] 05/26/2021 I48.21 Permanent atrial fibrillation Pr otime 05/12/2021 Z51.81 Encounter for therapeutic drug l evel monitoring Flory Warren, [facility] 05/12/2021 Z51.81 Encounter for therapeutic drug l evel monitoring Protime 05/12/2021 Z79.01 long term care phlebotomist (current) use of antic oagulants Flory Warren, [facility] 05/12/2021 Z79.01 long term care phlebotomist (current) use of antic oagulants Protime 05/12/2021 I48.21 Permanent atrial fibrillation An n Kathrine Mazariegos, [facility] 05/12/2021 I48.21 Permanent atrial fibrillation Pr otime 04/10/2021 Z51.81 Encounter for therapeutic drug l evel monitoring Flory Warren, [facility] 04/10/2021 Z51.81 Encounter for therapeutic drug l evel monitoring Protime 04/10/2021 I48.21 Permanent atrial fibrillation An n Kathrine Mazariegos, [facility] 04/10/2021 I11.9 Hypertensive heart disease witho ut heart failure Flory Warren, [facility] 04/10/2021 Z79.01 long term care phlebotomist (current) use of antic oagulants Flory Warren, [facility] 04/10/2021 I48.21 Permanent atrial fibrillation Pr otime 04/10/2021 J44.9 Chronic obstructive pulmonary di sease, unspecified Flory Warren, [facility] 04/10/2021 Z79.01 MCC (current) use of antic oagulants Protime 04/10/2021 I48.21 Permanent atrial fibrillation An n Kathrine Mazariegos, [facility] 04/10/2021 Z79.01 MCC (current) use of antic oagulants Flory Kathrine Collier, [facility] 04/10/2021 E11.65 Type 2 diabetes mellitus with hy perglycemia Flory Warren, [facility] 04/10/2021 E11.40 Type 2 diabetes jl itus with diabetic neuropathy, unspecified Flory Warren [facility] 04/10/2021 E66.01 Morbid (severe) obesity due to e xcess calories Flory Warren [facility] 04/10/2021 Z68.42 Body mass index [BMI] 45.0-49.9, adult Flory Warren, [facility] 03/09/2021 Z51.81 Encounter for therapeutic drug l evel monitoring Flory Warren, [facility] 03/09/2021 Z51.81 Encounter for therapeutic drug l evel monitoring Protime 03/09/2021 I48.21 Permanent atrial fibrillation An malvin Warren, [facility] 03/09/2021 I48.21 Permanent atrial fibrillation Pr otime 03/09/2021 Z79.01 long term care phlebotomist (current) use of antic oagulants Flory Warren, [facility] 03/09/2021 Z79.01 MCC (current) use of antic oagulants Protime 02/10/2021 Z51.81 Encounter for therapeutic drug l evel monitoring Flory Warren, [facility] 02/10/2021 Z51.81 Encounter for therapeutic drug l evel monitoring Protime 02/10/2021 I48.21 Permanent atrial fibrillation An malvin Warren, [facility] 02/10/2021 I48.21 Permanent atrial fibrillation Pr otime 02/10/2021 Z79.01 long term care phlebotomist (current) use of antic oagulants Flory Warren, [facility] 02/10/2021 Z79.01 MCC (current) use of antic oagulants Protime Plan of Treatment Future Appointment(s):* 09/16/2021 8:40 am - IDALIA Rivera at [facility] * 08/18/2021 8:30 am - Protime at [facility] * 10/06/2021 9:20 am - IDALIA Rivera at [facility] * 01/22/2022 10:40 am - IDALIA Rivera at [facility] * 01/22/2022 10:20 am - Nurse #2 at [facility] Functional Status Description No Information Available Mental Status Description No Information Available Referrals Description No Information Available
--- OUTSIDE RECORDS SUMMARY | 2021-09-07 11:18 | CCD | Continuity of Care Document ---
Author Author Tony Rivera Organization Unknown Address [address] [address] Phone [phone] Care Team Providers Care Shank Piece Tacker Name Role Phone Flory Finch AUTM [phone] Problems Active Problems Provider Date Atrial fibrillation [...] a day for 14 days 60[facility] Amlodipine Besylate 5mg Tablets Take One Tablet By Mouth Every Day 30tabs I11.9 Flory Warren [facility] 01/16 Rosuvastatin Calcium 40mg Tablets [...] mouth daily as directed 60tabs Flory Warren [facility] 12/16/2009 Warfarin Sodium 1mg Tablets take 1-3 tablets by mouth daily as directed 100tabs Flory Warren [facility] 10/21/2009 History Medications Prednisone 10mg Tablets 4 every day x 3 days,3 every day x 3 days, 2 every day x 3 days, then 1 tablet x 3 days then discontinue 30tabs Flory Warren [facility] 07/21/2021 - Fluconazole 100mg Tablets one daily x 7 days 7tabs Flory Warren [facility] 06/30/2021 - Medications Administered in Office Medication SIG Qnty Indications Ordering Provider Date Administration Of Flu Vaccine Inj ection Quirino Soler MD 09/12/2020 Administration Of Flu Vaccine Inj ection Flory Warren, [facility] 09/18/2019 Immunization Adminstration,1 Vaccine/Tox oid Injection Flory Warren, [facility] 05/01/2019 Administration Of Flu Vaccine Inj ection Flory Warren, [facility] 10/03/2018 Immunizations CPT Code Status Date Vaccine Lot # [id number] Given 01/16/2021 Pneumovax 23 [id number] Given 09/12/2020 Influenza Vaccin e Quadrivalent Preser/Antibiotic Free Im Use [id number] 48099 Given 09/18/2019 Influenza Vaccin e Quadrivalent Preser/Antibiotic Free Im Use [id number] 54417 Given 05/01/2019 Adacel- Tetanus Diphtheria P ertussis [id number] 28150 Given 10/03/2018 Influenza Virus Vaccine, Quadrivalent ([id number]), Derived From 6 Given 09/14/2017 Influenza Vaccin e Quadrivalent Preser/Antibiotic Free Im Use [id number] 83485 Given 12/16/2016 Prevnar 13 [id number] Given 09/07/2016 Fluvirin Virus Vaccine [id number] 01 Q2037 Given 09/09/2015 Fluvirin Virus Vaccine Q2037 Given 09/09/2015 Fluvirin Virus Vaccine 47542 01 Q2037 Given 09/10/2014 Fluvirin Virus Vaccine [id number] 21 12154 Given 11/29/2013 Pneumovax 23 [id number] Q2037 Given 09/06/2013 Fluvirin Virus Vaccine Q2037 [...] H/L Range Note Basic Metabolic Panel 08/12/2021 [facility] [employer] Driver: [place] [address] [phone] Glucose 95 mg/dL 74 - 99 1 [...] 60 mL/min >60 2 Prothrombin Time/Inr 08/12/2021 [facility] [address] [place] [address] [phone] Prothrombin Time 28.0 seconds High 12.7-14.5 Inr 2.58 Normal 3 Laboratory test finding 07/28/2021 Wi-Inr Inr 1.6 Basic Metabolic Panel 07/28/2021 [facility] [employer] Driver: [place] [address] [phone] Glucose 95 mg/dL 74 - 99 4 [...] mL/min >60 5 Complete Blood Count 07/28/2021 [facility] [employer] Driver: [place] [address] [phone] WBC 11.2 x10*3/UL High 4.1 - 10.9 [...] High 2.0 - 7.8 Prothrombin Time/Inr 07/24/2021 [facility] enter [address] [place] [address] [phone] Prothrombin Time 43.8 seconds High 12.7-14.5 Inr 4.63 Normal 6 Laboratory test finding 07/24/2021 Wi-Inr Inr 5.6 Complete Blood Count 07/24/2021 [facility] [employer] Driver: [place] [address] [phone] WBC 9.6 x10*3/UL 4.1 - 10.9 RBC [...] 2.0 - 7.8 Basic Metabolic Panel 07/16/2021 [facility] [employer] Driver: [place] [address] [phone] Glucose 124 mg/dL High 74 - 99 [...] Wi-Inr Inr 2.8 Complete Blood Count 06/30/2021 [facility] [employer] Driver: [place] [address] [phone] WBC 7.5 x10*3/UL 4.1 - 10.9 RBC [...] 2.0 - 7.8 Basic Metabolic Panel 06/30/2021 [facility], [employer] Driver: [place] [address] [phone] Glucose 105 mg/dL High 74 - 99 [...] Wi-Inr Inr 2.5 Complete Blood Count 04/10/2021 [facility] [employer] Driver: [place] [address] [phone] WBC 6.8 x10*3/UL 4.1 - 10.9 RBC [...] 2.0 - 7.8 Basic Metabolic Panel 04/10/2021 [facility] [employer] Driver: [place] [address] [phone] Glucose 100 mg/dL High 74 - 99 [...] LITTLE GFR LEFT ESRD GFR <15 ON MANUSCRIPT EDITOR 3 THERAPUTIC HUMAN INR VALUES INDICATIONS NORMAL [...] LITTLE GFR LEFT ESRD GFR <15 ON MANUSCRIPT EDITOR 6 THERAPUTIC HUMAN INR VALUES INDICATIONS NORMAL [...] LITTLE GFR LEFT ESRD GFR <15 ON MANUSCRIPT EDITOR 11 100-125 mg/dL PRE-DIABET ES/FASTING >126 mg/dL DIABETES/FASTING 12 CHRONIC KIDNEY DISEASE STAGI NG PER NKF STAGE I & II GFR >= 60 NORMAL TO MILDLY DECREASED STAGE III GFR 30-59 MODERATELY DECREASED STAGE IV GFR 15-29 SEVERELY DECREASED STAGE V GFR <15 VERY LITTLE GFR LEFT ESRD GFR <15 ON MANUSCRIPT EDITOR 13 100-125 mg/dL PRE-DIABET ES/FASTING >126 mg/dL DIABETES/FASTING 14 CHRONIC KIDNEY DISEASE STAGI NG PER NKF STAGE I & II GFR >= 60 NORMAL TO MILDLY DECREASED STAGE III GFR 30-59 MODERATELY DECREASED STAGE IV GFR 15-29 SEVERELY DECREASED STAGE V GFR <15 VERY LITTLE GFR LEFT ESRD GFR <15 ON MANUSCRIPT EDITOR Procedures Date Code Description Status 08/05/2021 68057 Office/Outpatient Established Lo w MDM 20-29 Min Completed 07/28/2021 [id number] Office/Outpatient Established Mo d MDM 30-39 Min Completed 07/24/2021 [id number] Office/Outpatient Established Lo w MDM 20-29 Min Completed 07/16/2021 67569 German Cre SRV W/I 7 Days Of DC, C omm W/I 2 Dys Med Rec Completed 06/30/2021 [id number] Office/Outpatient Established Mo d MDM 30-39 Min Completed 04/10/2021 94193 Office/Outpatient Established Lo w MDM 20-29 Min Completed 05/03/2016 [id number] Colonoscopy Completed Medical Devices Description No Information Available Encounters Type Date Location Provider Dx Diagnosis Office Visit 08/05/2021 9:40a [facility] Flory Pearson, BULLET SL[employer] CASTING MACHINE OPERATOR I50.9 Heart failure, unspecified J44.9 Chronic obstructive pulmonar y disease, unspecified I48.21 Permanent atrial fibrillatio n Z79.01 terminal operator (current) use of a nticoagulants Z51.[address] ug level monitoring Office Visit 07/28/2021 8:20a [facility] Flory Pearson, [employer] CASTING MACHINE OPERATOR J44.1 Chronic obstructive pulmonary disease w (acute) exacerbation I50.33 Acute on chronic diastolic ( congestive) heart failure I48.21 Permanent atrial fibrillatio n D64.9 Anemia, unspecified Office Visit 07/24/2021 11:[facility]a [facility], [employer] CA[employer]ING MACHINE OPERATOR I50.33 Acute on chronic diastolic (congestive) heart failure Z87.891 Personal history of nicotine dependence J44.1 Chronic obstructive pulmonar y disease w (acute) exacerbation I48.21 Permanent atrial fibrillatio n D64.9 Anemia, unspecified R79.1 Abnormal coagulation profile Office Visit 07/16/2021 11:20a [facility], B[employer] SL[employer] CASTING MACHINE OPERATOR I48.21 Permanent atrial fibrillation Z79.01 intermediate (current) use of a nticoagulants N17.9 Acute kidney failure, unspec ified I13.0 Hyp hrt & chr kdny dis w hrt fail and stg 1-4/unsp chr kdny I50.33 Acute on chronic diastolic ( congestive) heart failure N18.31 Chronic kidney disease, stag e 3a J44.9 Chronic obstructive pulmonar y disease, unspecified E11.65 Type 2 diabetes mellitus wit h hyperglycemia Z79.84 terminal operator (current) use of o ral hypoglycemic drugs E66.01 Morbid (severe) obesity due to excess calories Z68.42 Body mass index [BMI] 45.0-4 9.9, adult Office Visit 06/30/2021 9:40a [facility], B[employer] CA[employer]ING MACHINE OPERATOR I11.9 Hypertensive heart disease without heart failure I48.21 Permanent atrial fibrillatio n Z79.01 terminal operator (current) use of a nticoagulants J44.9 Chronic obstructive pulmonar y disease, unspecified E11.65 Type 2 diabetes mellitus wit h hyperglycemia E11.40 Type 2 diabetes mellitus wit h diabetic neuropathy, unsp Z79.84 terminal operator (current) use of o ral hypoglycemic drugs E66.01 Morbid (severe) obesity due to excess calories B35.4 Tinea corporis Z68.42 Body mass index [BMI] 45.0-4 9.9, adult Office Visit 04/10/2021 11:00a [facility], [employer] CA[employer]ING MACHINE OPERATOR I11.9 Hypertensive heart disease without heart failure J44.9 Chronic obstructive pulmonar y disease, unspecified I48.21 Permanent atrial fibrillatio n Z79.01 intermediate (current) use of a nticoagulants E11.65 Type 2 diabetes mellitus wit h hyperglycemia E11.40 Type 2 diabetes mellitus wit h diabetic neuropathy, unsp E66.01 Morbid (severe) obesity due to excess calories Z68.42 Body mass index [BMI] 45.0-4 9.9, adult Assessments Date Code Description Provider 08/05/2021 I50.9 Heart failure, unspecified Flory Mazariegos, [facility] 08/05/2021 J44.9 Chronic obstructive pulmonary di sease, unspecified Flory Warren, [facility] 08/05/2021 I48.21 Permanent atrial fibrillation An n Kathrine Mazariegos, [facility] 08/05/2021 Z79.01 intermediate (current) use of antic oagulants Flory Warren, [facility] 08/05/2021 Z51.81 Encounter for therapeutic drug l evel monitoring Flory Warren, [facility] 07/28/2021 Z51.81 Encounter for therapeutic drug l evel monitoring Flory aWrren, [facility] 07/28/2021 Z51.81 Encounter for therapeutic drug l evel monitoring Protime 07/28/2021 Z79.01 terminal operator (current) use of antic oagulants Flory Warren, [facility] 07/28/2021 Z79.01 terminal operator (current) use of antic oagulants Protime 07/28/2021 I48.21 Permanent atrial fibrillation An n Kathrine Mazariegos, [facility] 07/28/2021 J44.1 Chronic obstructive pulmonary disease with (acute) exacerbation Flory Warren, [facility] 07/28/2021 I48.21 Permanent atrial fibrillation Pr otime 07/28/2021 I50.33 Acute on chronic diastolic (amaya estive) heart failure Flory Warren, [facility] 07/28/2021 I48.21 Permanent atrial fibrillation An malvin Warren, [facility] 07/28/2021 D64.9 Anemia, unspecified Flory Warren, [facility] 07/24/2021 Z51.81 Encounter for therapeutic drug l evel monitoring Flory Warren, [facility] 07/24/2021 Z51.81 Encounter for therapeutic drug l evel monitoring Protime 07/24/2021 Z79.01 terminal operator (current) use of antic oagulants Folry Warren, [facility] 07/24/2021 D64.9 Anemia, unspecified Flory Warren, [facility] 07/24/2021 I48.21 Permanent atrial fibrillation An malvin Warren, [facility] 07/24/2021 Z79.01 terminal operator (current) use of antic oagulants Protime 07/24/2021 D64.9 Anemia, unspecified Lab Schedule 07/24/2021 I48.21 Permanent atrial fibrillation Pr otime 07/24/2021 R79.1 Abnormal coagulation profile Flory Warren, [facility] 07/24/2021 I50.33 Acute on chronic diastolic (amaya estive) heart failure Flory Warren, [facility] 07/24/2021 R79.1 Abnormal coagulation profile Lab Schedule 07/24/2021 Z87.891 Personal history of nicotine dep endence Flory Warren, [facility] 07/24/2021 J44.1 Chronic obstructive pulmonary disease with (acute) exacerbation Flory Warren, [facility] 07/24/2021 I48.21 Permanent atrial fibrillation An malvin Warren, [facility] 07/24/2021 D64.9 Anemia, unspecified Flory Warren, [facility] 07/24/2021 R79.1 Abnormal coagulation profile Flory Warren, [facility] 07/16/2021 Z51.81 Encounter for therapeutic drug l evel monitoring Flory Warren, [facility] 07/16/2021 Z51.81 Encounter for therapeutic drug l evel monitoring Protime 07/16/2021 Z79.01 terminal operator (current) use of antic oagulants Flory Warren, [facility] 07/16/2021 Z79.01 intermediate (current) use of antic oagulants Protime 07/16/2021 I48.21 Permanent atrial fibrillation An malvin Warren, [facility] 07/16/2021 I48.21 Permanent atrial fibrillation An malvin Warren, [facility] 07/16/2021 I48.21 Permanent atrial fibrillation Pr otime 07/16/2021 Z79.01 intermediate (current) use of antic oagulants Flory Warren, [facility] 07/16/2021 N17.9 Acute kidney failure, unspecifie d Flory Warren, [facility] 07/16/2021 I13.0 Hypertensive heart a nd chronic kidney disease with heart failure and stage 1 through stage 4 chronic kidney disease, or unspecified chronic kidney disease Flory Warren, [facility] 07/16/2021 I50.33 Acute on chronic diastolic (amaya estive) heart failure Flory Warren, [facility] 07/16/2021 N18.31 Chronic kidney disease, stage 3a Flory Warren, [facility] 07/16/2021 J44.9 Chronic obstructive pulmonary di sease, unspecified Flory Warren, [facility] 07/16/2021 E11.65 Type 2 diabetes mellitus with hy perglycemia Flory Warren, [facility] 07/16/2021 Z79.84 intermediate (current) use of oral hypoglycemic drugs Flory Warren, [facility] 07/16/2021 E66.01 Morbid (severe) obesity due to e xcess calories Flory Warren, [facility] 07/16/2021 Z68.42 Body mass index [BMI] 45.0-49.9, adult Flory Warren, [facility] 06/30/2021 I11.9 Hypertensive heart disease witho ut heart failure Flory Warren, [facility] 06/30/2021 I48.21 Permanent atrial fibrillation An malvin Kathrine Mazariegos, [facility] 06/30/2021 Z51.81 Encounter for therapeutic drug l evel monitoring Flory Warren, [facility] 06/30/2021 Z79.01 intermediate (current) use of antic oagulants Flory Warren, [facility] 06/30/2021 J44.9 Chronic obstructive pulmonary di sease, unspecified Flory Warren, [facility] 06/30/2021 Z51.81 Encounter for therapeutic drug l evel monitoring Protime 06/30/2021 E11.65 Type 2 diabetes mellitus with hy perglycemia Flory Kathrine Mazariegos, [facility] 06/30/2021 E11.40 Type 2 diabetes jl itus with diabetic neuropathy, unspecified Flory Kathrine Mazariegos, [facility] 06/30/2021 Z79.84 terminal operator (current) use of oral hypoglycemic drugs Flory Kathrine Mazariegos, [facility] 06/30/2021 Z79.01 terminal operator (current) use of antic oagulants Flory Kathrine Mazariegos, [facility] 06/30/2021 E66.01 Morbid (severe) obesity due to e xcess calories Flory Kathrine Mazariegos, [facility] 06/30/2021 B35.4 Tinea corporis Flory Kathrine Mazariegos, [facility] 06/30/2021 Z79.01 terminal operator (current) use of antic oagulants Protime 06/30/2021 Z68.42 Body mass index [BMI] 45.0-49.9, adult Flory Warren, [facility] 06/30/2021 I48.21 Permanent atrial fibrillation An malvin Warren, [facility] 06/30/2021 I48.21 Permanent atrial fibrillation Pr otime 05/26/2021 Z51.81 Encounter for therapeutic drug l evel monitoring Flory Warren, [facility] 05/26/2021 Z51.81 Encounter for therapeutic drug l evel monitoring Protime 05/26/2021 Z79.01 terminal operator (current) use of antic oagulants Flory Warren, [facility] 05/26/2021 Z79.01 terminal operator (current) use of antic oagulants Protime 05/26/2021 I48.21 Permanent atrial fibrillation An malvin Warren, [facility] 05/26/2021 I48.21 Permanent atrial fibrillation Pr otime 05/12/2021 Z51.81 Encounter for therapeutic drug l evel monitoring Flory Warren, [facility] 05/12/2021 Z51.81 Encounter for therapeutic drug l evel monitoring Protime 05/12/2021 Z79.01 terminal operator (current) use of antic oagulants Flory Warren, [facility] 05/12/2021 Z79.01 terminal operator (current) use of antic oagulants Protime 05/12/2021 I48.21 Permanent atrial fibrillation An malvin Warren, [facility] 05/12/2021 I48.21 Permanent atrial fibrillation Pr otime 04/10/2021 Z51.81 Encounter for therapeutic drug l evel monitoring Flory Warren, [facility] 04/10/2021 Z51.81 Encounter for therapeutic drug l evel monitoring Protime 04/10/2021 I48.21 Permanent atrial fibrillation An malvin Warren, [facility] 04/10/2021 I11.9 Hypertensive heart disease witho ut heart failure Flory Warren, [facility] 04/10/2021 Z79.01 terminal operator (current) use of antic oagulants Flory Warren, [facility] 04/10/2021 I48.21 Permanent atrial fibrillation Pr otime 04/10/2021 J44.9 Chronic obstructive pulmonary di sease, unspecified Flory Warren, [facility] 04/10/2021 Z79.01 intermediate (current) use of antic oagulants Protime 04/10/2021 I48.21 Permanent atrial fibrillation An malvin Warren, [facility] 04/10/2021 Z79.01 terminal operator (current) use of antic oagulants Flory Warren, [facility] 04/10/2021 E11.65 Type 2 diabetes mellitus with hy perglycemia Flory Warren, [facility] 04/10/2021 E11.40 Type 2 diabetes jl itus with diabetic neuropathy, unspecified Flory Warren, [facility] 04/10/2021 E66.01 Morbid (severe) obesity due to e xcess calories Flory Warren, [facility] 04/10/2021 Z68.42 Body mass index [BMI] 45.0-49.9, adult Flory Warren, [facility] 03/09/2021 Z51.81 Encounter for therapeutic drug l evel monitoring Flory Warren [facility] 03/09/2021 Z51.81 Encounter for therapeutic drug l evel monitoring Protime 03/09/2021 I48.21 Permanent atrial fibrillation An malvin Warren, [facility] 03/09/2021 I48.21 Permanent atrial fibrillation Pr otime 03/09/2021 Z79.01 intermediate (current) use of antic oagulants Flory Warren, [facility] 03/09/2021 Z79.01 terminal operator (current) use of antic oagulants Protime Plan of Treatment Future Appointment(s):* 09/16/2021 8:40 am - IDALIA Rivera at [facility] * 08/18/2021 8:30 am - Protime at [facility] * 10/06/2021 9:20 am - IDALIA Rivera at [facility] * 01/22/2022 10:40 am - IDALIA Rivera at [facility] * 01/22/2022 10:20 am - Nurse #2 at [facility] Functional Status Description No Information Available Mental Status Description No Information Available Referrals Description No Information Available
--- OUTSIDE RECORDS SUMMARY | 2021-09-07 11:18 | CCD ---
Continuity of Care Document (CCD) Created on: 08/05/2021 ToreyTony External Reference #: [id number] : [id number] Sex: Male Author Author Tony Hernandes Organization Unknown Address [address] [address] Phone [phone] Care Team Providers Care Director Of Land Acquisition Name Role Phone Flory Finch ANP AUTM [phone] Problems Active Problems Provider Date Atrial fibrillation [...] daily by mouth every day [facility] Guaifenesin ac 100-10mg/5ML Syrup 5 milliliters every 6 hour, 10 milliliters at bedtime 120ml Robyn Cuadra, ANP 07/20/2021 Atenolol 50mg Tablets 1 by mouth every day 90tabs [facility] 07/16/2021 Ketoconazole 2% Cream apply to rash under arms two times a day for 14 days 60gm [facility] 06/30/2021 Amlodipine Besylate 5mg Tablets Take One Tablet By Mouth Every Day 30tabs I11.9 Flory Warren [facility] 01/16 Rosuvastatin Calcium 40mg Tablets Take One Tablet By Mouth Every Day 90tabs [facility] 01/16 Fluticasone Propionate/Salmeterol Diskus 250-50mcg/Dose Aerosol Inhale 1 puff By Mouth Two Times A Day 180units Flory Warren [facility] 10/03/2020 Lisinopril 40mg Tablets 1 by mouth every day 90tabs [facility] 11/29/2019 Proventil HFA 108(90Base) mcg/Act Aerosol 2 puffs four times a day for one week then as needed for cough 1units I48.2 [facility] 09/09/2015 Warfarin Sodium 6mg Tablets take 1 or 2 tablets by mouth daily as directed 60tabs Flory Warren [facility] 12/16/2009 Warfarin Sodium 1mg Tablets take 1-3 tablets by mouth daily as directed 100tabs Flory Warren [facility] 10/21/2009 History Medications Prednisone 10mg Tablets 4 every day x 3 days,3 every day x 3 days, 2 every day x 3 days, then 1 tablet x 3 days then discontinue 30tabs Flory Warren [facility] 07/21/2021 - Fluconazole 100mg Tablets one daily x 7 days 7tabs Flory Warren [facility] 06/30/2021 - Medications Administered in Office Medication SIG Qnty Indications Ordering Provider Date Administration Of Flu Vaccine Inj ection Quirino Soler MD 09/12/2020 Administration Of Flu Vaccine Inj ection Flory Warren [facility] 09/18/2019 Immunization Adminstration,1 Vaccine/Tox oid Injection Flory Warren, [facility] 05/01/2019 Administration Of Flu Vaccine Inj ection Flory Warren, [facility] 10/03/2018 Immunizations CPT Code Status Date Vaccine Lot # [id number] Given 01/16/2021 Pneumovax 23 [id number] 83296 Given 09/12/2020 Influenza Vaccin e Quadrivalent Preser/Antibiotic Free Im Use 800071 03746 Given 09/18/2019 Influenza Vaccin e Quadrivalent Preser/Antibiotic Free Im Use [id number] 97373 Given 05/01/2019 Adacel- Tetanus Diphtheria P ertussis [id number] 43687 Given 10/03/2018 Influenza Virus Vaccine, Quadrivalent ([id number]), Derived From 8 Given 09/14/2017 Influenza Vaccin e Quadrivalent Preser/Antibiotic Free Im Use [id number] 58980 Given 12/16/2016 Prevnar 13 [id number] Given 09/07/2016 Fluvirin Virus Vaccine [id number] 01 Q2037 Given 09/09/2015 Fluvirin Virus Vaccine Q2037 Given 09/09/2015 Fluvirin Virus Vaccine 47325 01 Q2037 Given 09/10/2014 Fluvirin Virus Vaccine 51000 21 68224 Given 11/29/2013 Pneumovax 23 [id number] Q2037 Given 09/06/2013 Fluvirin Virus Vaccine Q2037 [...] H/L Range Note Basic Metabolic Panel 07/28/2021 [facility] Tub Puller: [place] [address] [phone] Glucose 95 mg/dL 74 - 99 1 [...] mL/min >60 2 Complete Blood Count 07/28/2021 [facility] Tub Puller: [place] [address] [phone] WBC 11.2 x10*3/UL High 4.1 - 10.9 [...] 07/28/2021 Wi-Inr Inr 1.6 Prothrombin Time/Inr 07/24/2021 [facility] enter [address] [place], [place] [id number] [phone] Prothrombin Time 43.8 seconds High 12.7-14.5 Inr 4.63 Normal 3 Laboratory test finding 07/24/2021 Wi-Inr Inr 5.6 Complete Blood Count 07/24/2021 [facility] Tub Puller: [place] [address] [phone] WBC 9.6 x10*3/UL 4.1 - 10.9 RBC [...] 2.0 - 7.8 Basic Metabolic Panel 07/16/2021 [facility] Tub Puller: [place] [address] [phone] Glucose 124 mg/dL High 74 - 99 [...] Wi-Inr Inr 2.8 Complete Blood Count 06/30/2021 [facility] Tub Puller: Dr Quirino Soler [place] [id number] [phone] WBC 7.5 x10*3/UL 4.1 - 10.9 RBC [...] 2.0 - 7.8 Basic Metabolic Panel 06/30/2021 [facility] Tub Puller: Dr Quirino Soler [place] [id number] [phone] Glucose 105 mg/dL High 74 - 99 [...] Wi-Inr Inr 2.5 Complete Blood Count 04/10/2021 [facility] Tub Puller: [place] [address] [phone] WBC 6.8 x10*3/UL 4.1 - 10.9 RBC [...] 2.0 - 7.8 Basic Metabolic Panel 04/10/2021 [facility] Tub Puller: [place] [address] [phone] Glucose 100 mg/dL High 74 - 99 [...] LITTLE GFR LEFT ESRD GFR <15 ON SENIOR [employer] DEVELOPER 3 THERAPUTIC HUMAN INR VALUES INDICATIONS NORMAL [...] LITTLE GFR LEFT ESRD GFR <15 ON SENIOR [employer] DEVELOPER 8 100-125 mg/dL PRE-DIABET ES/FASTING >126 mg/dL DIABETES/FASTING 9 CHRONIC KIDNEY DISEASE STAGI NG PER NKF STAGE I & II GFR >= 60 NORMAL TO MILDLY DECREASED STAGE III GFR 30-59 MODERATELY DECREASED STAGE IV GFR 15-29 SEVERELY DECREASED STAGE V GFR <15 VERY LITTLE GFR LEFT ESRD GFR <15 ON SENIOR [employer] DEVELOPER 10 100-125 mg/dL PRE-DIABET ES/FASTING >126 mg/dL DIABETES/FASTING 11 CHRONIC KIDNEY DISEASE STAGI NG PER NKF STAGE I & II GFR >= 60 NORMAL TO MILDLY DECREASED STAGE III GFR 30-59 MODERATELY DECREASED STAGE IV GFR 15-29 SEVERELY DECREASED STAGE V GFR <15 VERY LITTLE GFR LEFT ESRD GFR <15 ON SENIOR [employer] DEVELOPER Procedures Date Code Description Status 08/05/2021 83305 Office/Outpatient Established Lo w MDM 20-29 Min Completed 07/28/2021 07267 Office/Outpatient Established Mo d MDM 30-39 Min Completed 07/24/2021 53078 Office/Outpatient Established Lo w MDM 20-29 Min Completed 07/16/2021 96410 [place] [facility] SRV W/I 7 Days Of DC, C omm W/I 2 Dys Med Rec Completed 06/30/2021 08508 Office/Outpatient Established Mo d MDM 30-39 Min Completed 04/10/2021 95111 Office/Outpatient Established Lo w MDM 20-29 Min Completed 05/03/2016 [id number] Colonoscopy Completed Medical Devices Description No Information Available Encounters Type Date Location Provider Dx Diagnosis Office Visit 08/05/2021 9:40a [facility] Flory Chisholm Pi ne, HANDLE BENDER I50.9 Heart failure, unspecified I48.21 Permanent atrial fibrillatio n J44.9 Chronic obstructive pulmonar y disease, unspecified Z79.01 roasterman (current) use of a nticoagulants Office Visit 07/28/2021 8:20a [facility] Flory Munoz ne, HANDLE BENDER J44.1 Chronic obstructive pulmonary disease w (acute) exacerbation I50.33 Acute on chronic diastolic ( congestive) heart failure I48.21 Permanent atrial fibrillatio n D64.9 Anemia, unspecified Office Visit 07/24/2021 11:20a [facility], [employer] I50.33 Acute on chronic diastolic (congestive) heart failure Z87.891 Personal history of nicotine dependence J44.1 Chronic obstructive pulmonar y disease w (acute) exacerbation I48.21 Permanent atrial fibrillatio n D64.9 Anemia, unspecified R79.1 Abnormal coagulation profile Office Visit 07/16/2021 11:20a [facility], [employer] [facility] I48.21 Permanent atrial fibrillation Z79.01 roasterman (current) use of a nticoagulants N17.9 Acute kidney failure, unspec ified I13.0 Hyp hrt & chr kdny dis w hrt fail and stg 1-4/unsp chr kdny I50.33 Acute on chronic diastolic ( congestive) heart failure N18.31 Chronic kidney disease, stag e 3a J44.9 Chronic obstructive pulmonar y disease, unspecified E11.65 Type 2 diabetes mellitus wit h hyperglycemia Z79.84 detention (current) use of o ral hypoglycemic drugs E66.01 Morbid (severe) obesity due to excess calories Z68.42 Body mass index [BMI] 45.0-4 9.9, adult Office Visit 06/30/2021 9:40a [facility] Flory Munoz ne, HANDLE BENDER I11.9 Hypertensive heart disease without heart failure I48.21 Permanent atrial fibrillatio n Z79.01 roasterman (current) use of a nticoagulants J44.9 Chronic obstructive pulmonar y disease, unspecified E11.65 Type 2 diabetes mellitus wit h hyperglycemia E11.40 Type 2 diabetes mellitus wit h diabetic neuropathy, unsp Z79.84 detention (current) use of o ral hypoglycemic drugs E66.01 Morbid (severe) obesity due to excess calories B35.4 Tinea corporis Z68.42 Body mass index [BMI] 45.0-4 9.9, adult Office Visit 04/10/2021 11:00a [facility] Flory Munoz ne, [facility] I11.9 Hypertensive heart disease without heart failure J44.9 Chronic obstructive pulmonar y disease, unspecified I48.21 Permanent atrial fibrillatio n Z79.01 roasterman (current) use of a nticoagulants E11.65 Type 2 diabetes mellitus wit h hyperglycemia E11.40 Type 2 diabetes mellitus wit h diabetic neuropathy, [facility] E[facility].01 Morbid (severe) obesity due to excess calories Z68.42 Body mass index [BMI] 45.0-4 9.9, adult Assessments Date Code Description Provider 08/05/2021 I50.9 Heart failure, unspecified Flory Mazariegos, [facility] 08/05/2021 I48.21 Permanent atrial fibrillation An malvin Warren, [facility] 08/05/2021 J44.9 Chronic obstructive pulmonary di sease, unspecified Flory Warren, [facility] 08/05/2021 Z79.01 detention (current) use of antic oagulants Flory Warren [facility] 07/28/2021 Z51.81 Encounter for therapeutic drug l evel monitoring Flory Warren [facility] 07/28/2021 Z51.81 Encounter for therapeutic drug l evel monitoring Protime 07/28/2021 Z79.01 roasterman (current) use of antic oagulants Flory Warren [facility] 07/28/2021 Z79.01 roasterman (current) use of antic oagulants Protime 07/28/2021 I48.21 Permanent atrial fibrillation An malvin Warren [facility] 07/28/2021 J44.1 Chronic obstructive pulmonary disease with (acute) exacerbation Flory Warren [facility] 07/28/2021 I48.21 Permanent atrial fibrillation Pr otime 07/28/2021 I50.33 Acute on chronic diastolic (amaya estive) heart failure Flory Warren [facility] 07/28/2021 I48.21 Permanent atrial fibrillation An malvin Warren [facility] 07/28/2021 D64.9 Anemia, unspecified Flory Warren, [facility] 07/24/2021 Z51.81 Encounter for therapeutic drug l evel monitoring Flory Warren, [facility] 07/24/2021 Z51.81 Encounter for therapeutic drug l evel monitoring Protime 07/24/2021 Z79.01 detention (current) use of antic oagulants Flory Warren, [facility] 07/24/2021 D64.9 Anemia, unspecified Flory Kathrine [place], [facility] 07/24/2021 I48.21 Permanent atrial fibrillation An n Kathrine Mazariegos, [facility] 07/24/2021 Z79.01 detention (current) use of antic oagulants Protime 07/24/2021 D64.9 Anemia, unspecified Lab Schedule 07/24/2021 I48.21 Permanent atrial fibrillation Pr otime 07/24/2021 R79.1 Abnormal coagulation profile Flory Warren, [facility] 07/24/2021 I50.33 Acute on chronic diastolic (amaya estive) heart failure Flory Warren, [facility] 07/24/2021 R79.1 Abnormal coagulation profile Lab Schedule 07/24/2021 Z87.891 Personal history of nicotine dep endence Flory Warren, [facility] 07/24/2021 J44.1 Chronic obstructive pulmonary disease with (acute) exacerbation Flory Warren, [facility] 07/24/2021 I48.21 Permanent atrial fibrillation An n Kathrine Mazariegos, [facility] 07/24/2021 D64.9 Anemia, unspecified Flory Warren, [facility] 07/24/2021 R79.1 Abnormal coagulation profile Flory Warren, [facility] 07/16/2021 Z51.81 Encounter for therapeutic drug l evel monitoring Flory Chisholm [place], [facility] 07/16/2021 Z51.81 Encounter for therapeutic drug l evel monitoring Protime 07/16/2021 Z79.01 detention (current) use of antic oagulants Flory Kathrine [place], [facility] 07/16/2021 Z79.01 roasterman (current) use of antic oagulants Protime 07/16/2021 I48.21 Permanent atrial fibrillation An n Kathrine [place], [facility] 07/16/2021 I48.21 Permanent atrial fibrillation An n Kathrine [place], [facility] 07/16/2021 I48.21 Permanent atrial fibrillation Pr otime 07/16/2021 Z79.01 detention (current) use of antic oagulants Flory Warren, [facility] 07/16/2021 N17.9 Acute kidney failure, unspecifie d Flory Warren, [facility] 07/16/2021 I13.0 Hypertensive heart a nd chronic kidney disease with heart failure and stage 1 through stage 4 chronic kidney disease, or unspecified chronic kidney disease Flory Warren, [facility] 07/16/2021 I50.33 Acute on chronic diastolic (amaya estive) heart failure Flory Warren, [facility] 07/16/2021 N18.31 Chronic kidney disease, stage 3a Flory Warren, [facility] 07/16/2021 J44.9 Chronic obstructive pulmonary di sease, unspecified Flory Kathrine Mazariegos, [facility] 07/16/2021 E11.65 Type 2 diabetes mellitus with hy perglycemia Flory Kathrine Mazariegos, [facility] 07/16/2021 Z79.84 roasterman (current) use of oral hypoglycemic drugs Flory Warren, [facility] 07/16/2021 E66.01 Morbid (severe) obesity due to e xcess calories Flory Warren, [facility] 07/16/2021 Z68.42 Body mass index [BMI] 45.0-49.9, adult Flory Warren, [facility] 06/30/2021 I11.9 Hypertensive heart disease witho ut heart failure Flory Warren, [facility] 06/30/2021 I48.21 Permanent atrial fibrillation An malvin Kathrine Mazariegos, [facility] 06/30/2021 Z51.81 Encounter for therapeutic drug l evel monitoring Flory Warren, [facility] 06/30/2021 Z79.01 roasterman (current) use of antic oagulants Flory Kathrine Mazariegos [facility] 06/30/2021 J44.9 Chronic obstructive pulmonary di sease, unspecified Flory Chisholm [place], [facility] 06/30/2021 Z51.81 [facility] E11.65 Type 2 diabetes mellitus with hy perglycemia Flory Warren, [facility] 06/30/2021 E11.40 Type 2 diabetes jl itus with diabetic neuropathy, unspecified Flory Warren, [facility] 06/30/2021 Z79.84 detention (current) use of oral hypoglycemic drugs Flory Warren [facility] 06/30/2021 Z79.01 roasterman (current) use of antic oagulants Flory Warren, [facility] 06/30/2021 E66.01 Morbid (severe) obesity due to e xcess calories Flory Warren, [facility] 06/30/2021 B35.4 Tinea corporis Flory Warren, [facility] 06/30/2021 Z79.01 roasterman (current) use of antic oagulants [facility] 06/30/2021 Z68.42 Body mass index [BMI] 45.0-49.9, adult Flory Warren, [facility] 06/30/2021 I48.21 Permanent atrial fibrillation An malvin Warren, [facility] 06/30/2021 I48.21 Permanent atrial fibrillation Pr otime 05/26/2021 Z51.81 Encounter for therapeutic drug l evel monitoring Flory Warren, [facility] 05/26/2021 Z51.81 Encounter for therapeutic drug l evel monitoring Protime 05/26/2021 Z79.01 detention (current) use of antic oagulants Flory Warren, [facility] 05/26/2021 Z79.01 roasterman (current) use of antic oagulants Protime 05/26/2021 I48.21 Permanent atrial fibrillation An malvin Warren, [facility] 05/26/2021 I48.21 Permanent atrial fibrillation Pr otime 05/12/2021 Z51.81 Encounter for therapeutic drug l evel monitoring Flory Warren, [facility] 05/12/2021 Z51.81 Encounter for therapeutic drug l evel monitoring Protime 05/12/2021 Z79.01 detention (current) use of antic oagulants Flory Warren, [facility] 05/12/2021 Z79.01 detention (current) use of antic oagulants Protime 05/12/2021 I48.21 Permanent atrial fibrillation An malvin Warren, [facility] 05/12/2021 I48.21 Permanent atrial fibrillation Pr otime 04/10/2021 Z51.81 Encounter for therapeutic drug l evel monitoring Flory Warren, [facility] 04/10/2021 Z51.81 Encounter for therapeutic drug l evel monitoring Protime 04/10/2021 I48.21 Permanent atrial fibrillation An malvin Warren, [facility] 04/10/2021 I11.9 Hypertensive heart disease witho ut heart failure Flory Warren, [facility] 04/10/2021 Z79.01 roasterman (current) use of antic oagulants Flory Warren, [facility] 04/10/2021 I48.21 Permanent atrial fibrillation Pr otime 04/10/2021 J44.9 Chronic obstructive pulmonary di sease, unspecified Flory Warren, [facility] 04/10/2021 Z79.01 roasterman (current) use of antic oagulants Protime 04/10/2021 I48.21 Permanent atrial fibrillation An malvin Warren, [facility] 04/10/2021 Z79.01 roasterman (current) use of antic oagulants Flory Warren, [facility] 04/10/2021 E11.65 Type 2 diabetes mellitus with hy perglycemia Flory Warren, [facility] 04/10/2021 E11.40 Type 2 diabetes jl itus with diabetic neuropathy, unspecified Flory Warren, [facility] 04/10/2021 E66.01 Morbid (severe) obesity due to e xcess calories Flory Warren, [facility] 04/10/2021 Z68.42 Body mass index [BMI] 45.0-49.9, adult Flory Warren, [facility] 03/09/2021 Z51.81 Encounter for therapeutic drug l evel monitoring Flory Warren, [facility] 03/09/2021 Z51.81 Encounter for therapeutic drug l evel monitoring Protime 03/09/2021 I48.21 Permanent atrial fibrillation An malvin Warren, [facility] 03/09/2021 I48.21 Permanent atrial fibrillation Pr otime 03/09/2021 Z79.01 detention (current) use of antic oagulants Flory Warren, [facility] 03/09/2021 Z79.01 roasterman (current) use of antic oagulants Protime 02/10/2021 Z51.81 Encounter for therapeutic drug l evel monitoring Flory Warren, [facility] 02/10/2021 Z51.81 Encounter for therapeutic drug l evel monitoring Protime 02/10/2021 I48.21 Permanent atrial fibrillation An malvin Warren, [facility] 02/10/2021 I48.21 Permanent atrial fibrillation Pr otime 02/10/2021 Z79.01 roasterman (current) use of antic oagulants IDALIA Rivera 02/10/2021 Z79.01 detention (current) use of antic oagulants Protime Plan of Treatment Future Appointment(s):* 08/18/2021 8:30 am - [facility]time at [facility] * 08/12/2021 1:40 pm - IDALIA Rivera at [facility] * 10/06/2021 9:20 am - IDALIA Rivera at [facility] * 01/22/2022 10:40 am - [facility] * 01/22/2022 10:20 am - Nurse #2 at [facility] 08/05/2021 - IDALIA Rivera* I50.9 Heart failure, unspecified* Comments:* Still has evidence of fluid overload. Will continue torsemide 10 mg daily. Will check a basic medical panel when he returns. * I48.21 Permanent atrial fibrillation* Comments:* Rate controlled. * J44.9 Chronic obstructive pulmonary disease, unspecified* Comments:* INR has been quite labile. It is likely related to his fluid overload and prednisone. We will continue to monitor and make adjustments as appropriate. Denies any symptoms of bleeding. No evidence of a thromboembolic event. * Z79.01 roasterman (current) use of anticoagulants* Comments:* INR completed. Verbal instructions given. Signs and symptoms to report reviewed. No evidence of thromboembolic or bleeding events. Verbal and written instructions given. Signs and symptoms to report reviewed. No evidence of thromboembolic or bleeding events. Functional Status Description No Information Available Mental Status Description No Information Available Referrals Description No Information Available
--- OUTSIDE RECORDS SUMMARY | 2021-09-07 11:18 | CCD | Continuity of Care Document ---
Author Author Tony Hernandes Organization Unknown Address [address] [address] Phone [phone] Care Team Providers Care Worm Grower Name Role Phone Flory Finch ANP AUTM [phone] Problems Active Problems Provider Date Atrial fibrillation [...] by mouth every day [facility] Guaifenesin ac 100-10mg/5ML Syrup 5 milliliters every 6 hour, 10 milliliters at bedtime 120ml Robyn Cuadra, ANP 07/20/2021 Atenolol 50mg Tablets 1 by mouth every day 90tabs [facility] 07/16/2021 Ketoconazole 2% Cream apply to rash under arms two times a day for 14 days 60[facility]2021 Amlodipine Besylate 5mg Tablets Take One Tablet By Mouth Every Day 30tabs I11.9 Flory Warren [facility] 01/16 Rosuvastatin Calcium 40mg Tablets Take One Tablet By Mouth Every Day 90tabs [facility] 01/16 Fluticasone Propionate/Salmeterol Diskus 250-50mcg/Dose Aerosol Inhale 1 puff By Mouth Two Times A Day 180units Flory Warren [facility] 10/03/2020 Lisinopril 40mg Tablets 1 by mouth every day 90tabs [facility] 11/29/2019 Proventil HFA 108(90Base) mcg/Act Aerosol 2 puffs four times a day for one week then as needed for cough 1units I48.2 [facility] 09/09/2015 Warfarin Sodium 6mg Tablets take 1 or 2 tablets by mouth daily as directed 60tabs Flory Warren [facility] 12/16/2009 Warfarin Sodium 1mg Tablets take 1-3 tablets by mouth daily as directed 100tabs Flory Warren [facility] 10/21/2009 History Medications Prednisone 10mg Tablets 4 every day x 3 days,3 every day x 3 days, 2 every day x 3 days, then 1 tablet x 3 days then discontinue 30tabs Flory Warren [facility] 07/21/2021 - Fluconazole 100mg Tablets one daily x 7 days 7tabs Flory Warren [facility] 06/30/2021 - Medications Administered in Office Medication SIG Qnty Indications Ordering Provider Date Administration Of Flu Vaccine Inj ection Quirino Soler MD 09/12/2020 Administration Of Flu Vaccine Inj ection Flory Warren [facility] 09/18/2019 Immunization Adminstration,1 Vaccine/Tox oid Injection Flory Warren, [facility] 05/01/2019 Administration Of Flu Vaccine Inj ection Flory Warren, [facility] 10/03/2018 Immunizations CPT Code Status Date Vaccine Lot # [id number] Given 01/16/2021 Pneumovax 23 [id number] Given 09/12/2020 Influenza Vaccin e Quadrivalent Preser/Antibiotic Free Im Use [id number] 64234 Given 09/18/2019 Influenza Vaccin e Quadrivalent Preser/Antibiotic Free Im Use [id number] 55736 Given 05/01/2019 Adacel- Tetanus Diphtheria P ertussis (Age64 & Under) [id number] 63033 Given 10/03/2018 Influenza Virus Vaccine, Quadrivalent ([id number]), Derived From 5 Given 09/14/2017 Influenza Vaccin e Quadrivalent Preser/Antibiotic Free Im Use [id number] 93798 Given 12/16/2016 Prevnar 13 [id number] Given 09/07/2016 Fluvirin Virus Vaccine [id number] 01 Q2037 Given 09/09/2015 Fluvirin Virus Vaccine Q2037 Given 09/09/2015 Fluvirin Virus Vaccine [id number] 01 Q2037 Given 09/10/2014 Fluvirin Virus Vaccine 92318 21 80836 Given 11/29/2013 Pneumovax 23 [id number] Q2037 Given 09/06/2013 Fluvirin Virus Vaccine Q2037 [...] H/L Range Note Basic Metabolic Panel 07/28/2021 [facility] Industrial Education Teacher: [place] [address] [phone] Glucose 95 mg/dL 74 - 99 1 [...] mL/min >60 2 Complete Blood Count 07/28/2021 [facility] Industrial Education Teacher: [place] [address] [phone] WBC 11.2 x10*3/UL High 4.1 - 10.9 [...] 07/28/2021 [facility] Inr 1.6 Prothrombin Time/Inr 07/24/2021 [facility] enter [address] [place] [address] [phone] Prothrombin Time 43.8 seconds High 12.7-14.5 Inr 4.63 Normal 3 Laboratory test finding 07/24/2021 [facility] Inr 5.6 Complete Blood Count 07/24/2021 [facility] Industrial Education Teacher: [place] [address] [phone] WBC 9.6 x10*3/UL 4.1 - 10.9 RBC [...] 2.0 - 7.8 Basic Metabolic Panel 07/16/2021 [facility] Industrial Education Teacher: [place] [address] [phone] Glucose 124 mg/dL High 74 - 99 [...] Wi-Inr Inr 2.8 Complete Blood Count 06/30/2021 [facility] Industrial Education Teacher: [place] [address] [phone] WBC 7.5 x10*3/UL 4.1 - 10.9 RBC [...] 2.0 - 7.8 Basic Metabolic Panel 06/30/2021 [facility] Industrial Education Teacher: [place] [address] [phone] Glucose 105 mg/dL High 74 - 99 [...] Wi-Inr Inr 2.5 Complete Blood Count 04/10/2021 [facility] Industrial Education Teacher: [place] [address] [phone] WBC 6.8 x10*3/UL 4.1 - 10.9 RBC [...] 2.0 - 7.8 Basic Metabolic Panel 04/10/2021 [facility] Industrial Education Teacher: Dr Quirino Soler [place], [place] [id number] [phone] Glucose 100 mg/dL High 74 - 99 [...] LITTLE GFR LEFT ESRD GFR <15 ON POUNCER MACHINE 3 THERAPUTIC HUMAN INR VALUES INDICATIONS NORMAL [...] LITTLE GFR LEFT ESRD GFR <15 ON POUNCER MACHINE 8 100-125 mg/dL PRE-DIABET ES/FASTING >126 mg/dL DIABETES/FASTING 9 CHRONIC KIDNEY DISEASE STAGI NG PER NKF STAGE I & II GFR >= 60 NORMAL TO MILDLY DECREASED STAGE III GFR 30-59 MODERATELY DECREASED STAGE IV GFR 15-29 SEVERELY DECREASED STAGE V GFR <15 VERY LITTLE GFR LEFT ESRD GFR <15 ON POUNCER MACHINE 10 100-125 mg/dL PRE-DIABET ES/FASTING >126 mg/dL DIABETES/FASTING 11 CHRONIC KIDNEY DISEASE STAGI NG PER NKF STAGE I & II GFR >= 60 NORMAL TO MILDLY DECREASED STAGE III GFR 30-59 MODERATELY DECREASED STAGE IV GFR 15-29 SEVERELY DECREASED STAGE V GFR <15 VERY LITTLE GFR LEFT ESRD GFR <15 ON POUNCER MACHINE Procedures Date Code Description Status 08/05/2021 72236 Office/Outpatient Established Lo w MDM 20-29 Min Completed 07/28/2021 [id number] Office/Outpatient Established Mo d MDM 30-39 Min Completed 07/24/2021 [id number] Office/Outpatient Established Lo w MDM 20-29 Min Completed 07/16/2021 09536 German Cre SRV W/I 7 Days Of DC, C omm W/I 2 Dys Med Rec Completed 06/30/2021 47206 Office/Outpatient Established Mo d MDM 30-39 Min Completed 04/10/2021 45538 Office/Outpatient Established Lo w MDM 20-29 Min Completed 05/03/2016 [id number] Colonoscopy Completed Medical Devices Description No Information Available Encounters Type Date Location Provider Dx Diagnosis Office Visit 08/05/2021 9:40a [facility] Flory Le Pi ne, ENVIRONMENTAL HEALTH NURSE I50.9 Heart failure, unspecified I48.21 Permanent atrial fibrillatio n J44.9 Chronic obstructive pulmonar y disease, unspecified Z79.01 snf (current) use of a nticoagulants Office Visit 07/28/2021 8:20a [facility] Flory Pearson, ENVIRONMENTAL HEALTH NURSE J44.1 Chronic obstructive pulmonary disease w (acute) exacerbation I50.33 Acute on chronic diastolic ( congestive) heart failure I48.21 Permanent atrial fibrillatio n D64.9 Anemia, unspecified Office Visit 07/24/2021 11:20a [facility] Flory Pearson, ENVIRONMENTAL HEALTH NURSE I50.33 Acute on chronic diastolic (congestive) heart failure Z87.891 Personal history of nicotine dependence J44.1 Chronic obstructive pulmonar y disease w (acute) exacerbation I48.21 Permanent atrial fibrillatio n D64.9 Anemia, unspecified R79.1 Abnormal coagulation profile Office Visit 07/16/2021 11:20a [facility] 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 Flory Pearson, [facility] I11.9 Hypertensive heart disease without heart failure J44.9 Chronic obstructive pulmonar y disease, unspecified I48.21 Permanent atrial fibrillatio n Z79.01 truck terminal manager (current) use of a nticoagulants E11.65 Type 2 diabetes mellitus wit h hyperglycemia E11.40 Type 2 diabetes mellitus wit h diabetic neuropathy, unsp E66.01 Morbid (severe) obesity due to excess calories Z68.42 Body mass index [BMI] 45.0-4 9.9, adult Assessments Date Code Description Provider 08/05/2021 I50.9 Heart failure, unspecified Flory Mazariegos, [facility] 08/05/2021 I48.21 Permanent atrial fibrillation An n Kathrine Mazariegos, [facility] 08/05/2021 J44.9 Chronic obstructive pulmonary di sease, unspecified Flory Warren, [facility] 08/05/2021 Z79.01 snf (current) use of antic oagulants Flory Warren, [facility] 07/28/2021 I48.21 Permanent atrial fibrillation Pr otime 07/28/2021 J44.1 Chronic obstructive pulmonary disease with (acute) exacerbation Flory Warren [facility] 07/28/2021 Z51.81 Encounter for therapeutic drug l evel monitoring Protime 07/28/2021 I50.33 Acute on chronic diastolic (amaya estive) heart failure Flory Warren [facility] 07/28/2021 I48.21 Permanent atrial fibrillation An malvin Warren [facility] 07/28/2021 D64.9 Anemia, unspecified Flory Warren [facility] 07/24/2021 Z51.81 Encounter for therapeutic drug l evel monitoring Flory Warren [facility] 07/24/2021 Z51.81 Encounter for therapeutic drug l evel monitoring Protime 07/24/2021 Z79.01 truck terminal manager (current) use of antic oagulants Flory Warren [facility] 07/24/2021 D64.9 Anemia, unspecified Flory Warren, [facility] 07/24/2021 I48.21 Permanent atrial fibrillation An malvin Warren, [facility] 07/24/2021 Z79.01 snf (current) use of antic oagulants Protime 07/24/2021 D64.9 Anemia, unspecified Lab Schedule 07/24/2021 I48.21 Permanent atrial fibrillation Pr otime 07/24/2021 R79.1 Abnormal coagulation profile Flory Warren, [facility] 07/24/2021 I50.33 Acute on chronic diastolic (amaya estive) heart failure Flory Warren, [facility] 07/24/2021 R79.1 Abnormal coagulation profile Lab Schedule 07/24/2021 Z87.891 Personal history of nicotine dep endence Flory Warren, [facility] 07/24/2021 J44.1 Chronic obstructive pulmonary disease with (acute) exacerbation Flory Warren, [facility] 07/24/2021 I48.21 Permanent atrial fibrillation An malvin Warren, [facility] 07/24/2021 D64.9 Anemia, unspecified Flory Warren, [facility] 07/24/2021 R79.1 Abnormal coagulation profile Flory Warren, [facility] 07/16/2021 Z51.81 Encounter for therapeutic drug l evel monitoring Flory Warren, [facility] 07/16/2021 Z51.81 Encounter for therapeutic drug l evel monitoring Protime 07/16/2021 Z79.01 truck terminal manager (current) use of antic oagulants Flory Warren, [facility] 07/16/2021 Z79.01 truck terminal manager (current) use of antic oagulants Protime 07/16/2021 I48.21 Permanent atrial fibrillation An malvin Warren, [facility] 07/16/2021 I48.21 Permanent atrial fibrillation An malvin Warren, [facility] 07/16/2021 I48.21 Permanent atrial fibrillation Pr otime 07/16/2021 Z79.01 truck terminal manager (current) use of antic oagulants Flory Warren, [facility] 07/16/2021 N17.9 Acute kidney failure, unspecifie d Flory Warren, [facility] 07/16/2021 I13.0 Hypertensive heart a nd chronic kidney disease with heart failure and stage 1 through stage 4 chronic kidney disease, or unspecified chronic kidney disease Flory Warren, [facility] 07/16/2021 I50.33 Acute on chronic diastolic (amaya estive) heart failure Flory Warren, [facility] 07/16/2021 N18.31 Chronic kidney disease, stage 3a Flory Warren, [facility] 07/16/2021 J44.9 Chronic obstructive pulmonary di sease, unspecified Flory Warren, [facility] 07/16/2021 E11.65 Type 2 diabetes mellitus with hy perglycemia Flory Warren, [facility] 07/16/2021 Z79.84 truck terminal manager (current) use of oral hypoglycemic drugs Flory Warren, [facility] 07/16/2021 E66.01 Morbid (severe) obesity due to e xcess calories Flory Warren, [facility] 07/16/2021 Z68.42 Body mass index [BMI] 45.0-49.9, adult Flory Warren, [facility] 06/30/2021 I11.9 Hypertensive heart disease witho ut heart failure Flory Warren, [facility] 06/30/2021 I48.21 Permanent atrial fibrillation An malvin Warren, [facility] 06/30/2021 Z51.81 Encounter for therapeutic drug l evel monitoring Flory Warren, [facility] 06/30/2021 Z79.01 truck terminal manager (current) use of antic oagulants Flory Warren, [facility] 06/30/2021 J44.9 Chronic obstructive pulmonary di sease, unspecified Flory Warren, [facility] 06/30/2021 Z51.81 Encounter for therapeutic drug l evel monitoring Protime 06/30/2021 E11.65 Type 2 diabetes mellitus with hy perglycemia Flory Warren, [facility] 06/30/2021 E11.40 Type 2 diabetes jl itus with diabetic neuropathy, unspecified Flory Warren, [facility] 06/30/2021 Z79.84 snf (current) use of oral hypoglycemic drugs Flory Warren, [facility] 06/30/2021 Z79.01 snf (current) use of antic oagulants Flory Warren, [facility] 06/30/2021 E66.01 Morbid (severe) obesity due to e xcess calories Flory Kathrine Mazariegos, [facility] 06/30/2021 B35.4 Tinea corporis Flory Kathrine Mazariegos, [facility] 06/30/2021 Z79.01 truck terminal manager (current) use of antic oagulants Protime 06/30/2021 Z68.42 Body mass index [BMI] 45.0-49.9, adult Flory Warren, [facility] 06/30/2021 I48.21 Permanent atrial fibrillation An malvin Warren, [facility] 06/30/2021 I48.21 Permanent atrial fibrillation Pr otime 05/26/2021 Z51.81 Encounter for therapeutic drug l evel monitoring Flory Warren, [facility] 05/26/2021 Z51.81 Encounter for therapeutic drug l evel monitoring Protime 05/26/2021 Z79.01 truck terminal manager (current) use of antic oagulants Flory Warren, [facility] 05/26/2021 Z79.01 truck terminal manager (current) use of antic oagulants Protime 05/26/2021 I48.21 Permanent atrial fibrillation An malvin Warren, [facility] 05/26/2021 I48.21 Permanent atrial fibrillation Pr otime 05/12/2021 Z51.81 Encounter for therapeutic drug l evel monitoring Flory Warren, [facility] 05/12/2021 Z51.81 Encounter for therapeutic drug l evel monitoring Protime 05/12/2021 Z79.01 truck terminal manager (current) use of antic oagulants Flory Warren, [facility] 05/12/2021 Z79.01 snf (current) use of antic oagulants Protime 05/12/2021 I48.21 Permanent atrial fibrillation An malvin Warren, [facility] 05/12/2021 I48.21 Permanent atrial fibrillation Pr otime 04/10/2021 Z51.81 Encounter for therapeutic drug l evel monitoring Flory Warren, [facility] 04/10/2021 Z51.81 Encounter for therapeutic drug l evel monitoring Protime 04/10/2021 I48.21 Permanent atrial fibrillation An malvin Warren, [facility] 04/10/2021 I11.9 Hypertensive heart disease witho ut heart failure Flory Warren, [facility] 04/10/2021 Z79.01 snf (current) use of antic oagulants Flory Warren, [facility] 04/10/2021 I48.21 Permanent atrial fibrillation Pr otime 04/10/2021 J44.9 Chronic obstructive pulmonary di sease, unspecified Flory Warren, [facility] 04/10/2021 Z79.01 snf (current) use of antic oagulants Protime 04/10/2021 I48.21 Permanent atrial fibrillation An malvin Warren, [facility] 04/10/2021 Z79.01 truck terminal manager (current) use of antic oagulants Flory Warren, [facility] 04/10/2021 E11.65 Type 2 diabetes mellitus with hy perglycemia Flory Warren, [facility] 04/10/2021 E11.40 Type 2 diabetes jl itus with diabetic neuropathy, unspecified Flory Warren, [facility] 04/10/2021 E66.01 Morbid (severe) obesity due to e xcess calories Flory Warren, [facility] 04/10/2021 Z68.42 Body mass index [BMI] 45.0-49.9, adult Floyr Warren, [facility] 03/09/2021 Z51.81 Encounter for therapeutic drug l evel monitoring Flory Warren, [facility] 03/09/2021 Z51.81 Encounter for therapeutic drug l evel monitoring Protime 03/09/2021 I48.21 Permanent atrial fibrillation An malvin Warren, [facility] 03/09/2021 I48.21 Permanent atrial fibrillation Pr otime 03/09/2021 Z79.01 snf (current) use of antic oagulants Flory Warren, [facility] 03/09/2021 Z79.01 truck terminal manager (current) use of antic oagulants Protime 02/10/2021 Z51.81 Encounter for therapeutic drug l evel monitoring Flory Warren, [facility] 02/10/2021 Z51.81 Encounter for therapeutic drug l evel monitoring Protime 02/10/2021 I48.21 Permanent atrial fibrillation An malvin Warren, [facility] 02/10/2021 I48.21 Permanent atrial fibrillation Pr otime 02/10/2021 Z79.01 snf (current) use of antic oagulants Flory Kathrine Mazariegos, [facility] 02/10/2021 Z79.01 snf (current) use of antic oagulants Protime Plan of Treatment Future Appointment(s):* 08/12/2021 1:40 pm - IDALIA Rivera at [facility] * 10/06/2021 9:20 am - IDALIA Rivera at [facility] * 08/07/2021 10:45 am - Protime at [facility] * 01/22/2022 10:40 am - IDALIA Rivera at [facility] * 01/22/2022 10:20 am - Nurse #2 at [facility] 08/05/2021 - IDALIA Rivera* I50.9 Heart [...] evidence of a thromboembolic event. * Z79.01 snf (current) use of anticoagulants* Comments:* INR completed. [...]
--- OUTSIDE RECORDS SUMMARY | 2021-09-07 11:19 | CCD | Continuity of Care Document ---
Author Author Tony Rivera Organization Unknown Address [address] [address] Phone [phone] Care Team Providers Care Mold Car Pusher Name Role Phone Flory Finch [facility] [phone] Problems Active Problems Provider Date Atrial fibrillation [...] SIG Qnty Indications Ordering Provide r Date Torsemide 10mg Tablets 2 today then one daily by mouth every day 30tabs IDALIA Rivera 2020 Prednisone 10mg Tablets 4 every day x 3 days,3 every day x 3 days, 2 every day x 3 days, then 1 tablet x 3 days then discontinue 30tabs IDALIA Rivera 07/21/2021 Guaifenesin ac 100-10mg/5ML Syrup 5 milliliters every 6 hour, 10 milliliters at bedtime 120ml JEAN Watts 07/20/2021 Atenolol 50mg Tablets 1 by mouth every day 90tabs Flory Warren [facility] 07/16/2021 Ketoconazole 2% Cream apply to rash under arms two times a day for 14 days 60gm Flory Warren [facility] 06/30/2021 Amlodipine Besylate 5mg Tablets Take One Tablet By Mouth Every Day 30tabs I11.9 Flory Warren [facility] 01/16 Rosuvastatin Calcium 40mg Tablets Take One Tablet By Mouth Every Day 90tabs Flory Warren [facility] 01/16 Fluticasone Propionate/Salmeterol Diskus 250-50mcg/Dose Aerosol Inhale 1 puff By Mouth Two Times A Day 180units Flory Warren [facility] 10/03/2020 Lisinopril 40mg Tablets 1 by mouth every day 90tabs Flory Warren [facility] 11/29/2019 Proventil HFA 108(90Base) mcg/Act Aerosol 2 puffs four times a day for one week then as needed for cough 1units I48.2 Flory Warren [facility] 09/09/2015 Warfarin Sodium 6mg Tablets take 1 or 2 tablets by mouth daily as directed 60tabs Flory Warren [facility] 12/16/2009 Warfarin Sodium 1mg Tablets take 1-3 tablets by mouth daily as directed 100tabs Flory Warren [facility] 10/21/2009 History Medications Fluconazole 100mg Tablets one daily x 7 days 7tabs Flory Warren [facility] 06/30/2021 - Medications Administered in Office Medication SIG Qnty Indications Ordering Provider Date Administration Of Flu Vaccine Inj ection Quirino Soler MD 09/12/2020 Administration Of Flu Vaccine Inj ection Flory Warren [facility] 09/18/2019 Immunization Adminstration,1 Vaccine/Tox oid Injection Flory Warrne [facility] 05/01/2019 Administration Of Flu Vaccine Inj ection Flory Warren [facility] 10/03/2018 Immunizations CPT Code Status Date Vaccine Lot # [id number] Given 01/16/2021 Pneumovax 23 [id number] Given 09/12/2020 Influenza Vaccin e Quadrivalent Preser/Antibiotic Free Im Use [id number] 45360 Given 09/18/2019 Influenza Vaccin e Quadrivalent Preser/Antibiotic Free Im Use [id number] 90518 Given 05/01/2019 Adacel- Tetanus Diphtheria P ertussis (Age64 & Under) [id number] Given 10/03/2018 Influenza Virus Vaccine, Quadrivalent ([id number]), Derived From 6 Given 09/14/2017 Influenza Vaccin e Quadrivalent Preser/Antibiotic Free Im Use [id number] 06018 Given 12/16/2016 Prevnar 13 [id number] Given 09/07/2016 Fluvirin Virus Vaccine [id number] 01 Q2037 Given 09/09/2015 Fluvirin Virus Vaccine Q2037 Given 09/09/2015 Fluvirin Virus Vaccine 39810 01 Q2037 Given 09/10/2014 Fluvirin Virus Vaccine [id number] 21 95996 Given 11/29/2013 Pneumovax 23 [id number] Q2037 Given 09/06/2013 Fluvirin Virus Vaccine Q2037 Given 08/23/2012 Fluvirin Virus Vaccine Q2037 Given 08/23/2012 Fluvirin Virus Vaccine Q2037 Given 10/05/2011 Fluvirin Virus Vaccine Vital Signs Date Vital Result Comment 07/24/2021 8:45am BP Systolic 120 mmHg BP Diastolic 60 mmHg Heart Rate 84 /min Height 67.5 inches 5'7.50" Weight 303.00 lb O2 % BldC Oximetry 95 % BMI (Body Mass Index) 46.8 kg/m2 07/16/2021 11:23am BP Systolic 112 mmHg BP Diastolic 66 mmHg Heart Rate 86 /min Height 67.5 inches 5'7.50" Weight 296.00 lb O2 % BldC Oximetry 96 % BMI (Body Mass Index) 45.7 kg/m2 Results Test Acquired Date Facility Test Result H/L Range Note Laboratory test finding 07/24/2021 [facility] 5.6 Complete Blood Count 07/24/2021 [facility] Hotel Desk Clerk: [place] [address] [phone] WBC 9.6 x10*3/UL 4.1 - 10.9 RBC 3.93 x10*6/UL Low 4.20 - 6.30 Hemoglobin 11.9 g/dL Low 12.0 - 18.0 1 Hematocrit 34.2 % Low 37.0 - 51.0 [...] Neut # 7.6 x10*3/UL 2.0 - 7.8 Prothrombin Time/Inr 07/24/2021 [facility] enter [address] [place] [address] [phone] Prothrombin Time 43.8 seconds High 12.7-14.5 Inr 4.63 Normal 2 Basic Metabolic Panel 07/16/2021 [facility] Hotel Desk Clerk: [place] [address] [phone] Glucose 124 mg/dL High 74 - 99 3 BUN 48 mg/dL High 7 - 18 4 Creatinine 1.7 mg/dL High 0.6 - 1.3 Sodium 138 mEq/L 136 - 145 Potassium 4.6 mEq/L 3.5 - 5.1 Chloride 106 mEq/L 98 - 107 Carbon Dioxide 27 mEq/L 21 - 32 Calcium 8.9 mg/dL 8.5 - 10.1 GFR 40 mL/min Low >60 GFR 49 mL/min Low >60 5 Laboratory test finding 07/16/2021 [facility] 2.2 Laboratory test finding 06/30/2021 [facility] 2.8 Complete Blood Count 06/30/2021 [facility] Hotel Desk Clerk: [place] [address] [phone] WBC 7.5 x10*3/UL 4.1 - 10.9 RBC [...] 2.0 - 7.8 Basic Metabolic Panel 06/30/2021 [facility] Hotel Desk Clerk: [place] [address] [phone] Glucose 105 mg/dL High 74 - 99 6 BUN 30 mg/dL High 7 - 18 Creatinine 1.4 mg/dL High 0.6 - 1.3 Sodium 135 mEq/L Low 136 - 145 Potassium 4.7 mEq/L 3.5 - 5.1 Chloride 100 mEq/L 98 - 107 Carbon Dioxide 23 mEq/L 21 - 32 Calcium 9.4 mg/dL 8.5 - 10.1 GFR 51 mL/min Low >60 GFR >= 60 mL/min >60 7 Laboratory test finding 05/26/2021 [facility] 3.0 Laboratory test finding 05/12/2021 [facility] 3.5 Laboratory test finding 04/10/2021 [facility] 2.5 Complete Blood Count 04/10/2021 [facility] Hotel Desk Clerk: [place] [address] [phone] WBC 6.8 x10*3/UL 4.1 - 10.9 RBC [...] 2.0 - 7.8 Basic Metabolic Panel 04/10/2021 [facility] Hotel Desk Clerk: [place] [address] [phone] Glucose 100 mg/dL High 74 - 99 8 BUN 20 mg/dL High 7 - 18 Creatinine 1.2 mg/dL 0.6 - 1.3 Sodium 137 mEq/L 136 - 145 Potassium 4.4 mEq/L 3.5 - 5.1 Chloride 103 mEq/L 98 - 107 Carbon Dioxide 25 mEq/L 21 - 32 Calcium 8.8 mg/dL 8.5 - 10.1 GFR >= 60 mL/min >60 GFR >= 60 mL/min >60 9 Laboratory test finding 03/09/2021 [facility] 2.6 Laboratory test finding 02/10/2021 [facility] 2.3 Laboratory test finding 01/27/2021 [facility] 1.8 1 NOTE: RESULT VERIFIED. 2 THERAPUTIC HUMAN INR VALUES INDICATIONS NORMAL RANGES PROPHYLAXIS/TREATMENT OF: VENOUS THROMBOSIS 2.0-3.0 PULMONARY EMBOLISM 2.0-3.0 PREVENTION OF SYSTEMIC EMBOLISM FROM: TISSUE HEART VALVES 2.0-3.0 ACUTE MYOCARDIAL INFARCTION 2.0-3.0 VALVULAR HEART DISEASE 2.0-3.0 ATRIAL FIBRILLATION 2.0-3.0 MECHANICAL VALVES(HIGH RISK) 2.5-3.5 RECURRENT MYOCARDIAL INFARCTION 2.5-3.5 3 100-125 mg/dL PRE-DIABET ES/FASTING >126 mg/dL DIABETES/FASTING 4 NOTE: RESULT VERIFIED. 5 CHRONIC KIDNEY DISEASE STAGI NG PER NKF STAGE I & II GFR >= 60 NORMAL TO MILDLY DECREASED STAGE III GFR 30-59 MODERATELY DECREASED STAGE IV GFR 15-29 SEVERELY DECREASED STAGE V GFR <15 VERY LITTLE GFR LEFT ESRD GFR <15 ON TYPING SECTION CHIEF 6 100-125 mg/dL PRE-DIABET ES/FASTING >126 mg/dL DIABETES/FASTING 7 CHRONIC KIDNEY DISEASE STAGI NG PER NKF STAGE I & II GFR >= 60 NORMAL TO MILDLY DECREASED STAGE III GFR 30-59 MODERATELY DECREASED STAGE IV GFR 15-29 SEVERELY DECREASED STAGE V GFR <15 VERY LITTLE GFR LEFT ESRD GFR <15 ON TYPING SECTION CHIEF 8 100-125 mg/dL PRE-DIABET ES/FASTING >126 mg/dL DIABETES/FASTING 9 CHRONIC KIDNEY DISEASE STAGI NG PER NKF STAGE I & II GFR >= 60 NORMAL TO MILDLY DECREASED STAGE III GFR 30-59 MODERATELY DECREASED STAGE IV GFR 15-29 SEVERELY DECREASED STAGE V GFR <15 VERY LITTLE GFR LEFT ESRD GFR <15 ON TYPING SECTION CHIEF Procedures Date Code Description Status 07/16/2021 70169 [facility] SRV W/I 7 Days Of DC, C omm W/I 2 Dys Med Rec Completed 06/30/2021 87291 Office/Outpatient Established Mo d MDM 30-39 Min Completed 04/10/2021 [id number] Office/Outpatient Established Lo w MDM 20-29 Min Completed 05/03/2016 [id number] Colonoscopy Completed Medical Devices Description No Information Available Encounters Type Date Location Provider Dx Diagnosis Office Visit 07/16/2021 11:20a [facility] Flory Munoz ne, [employer] OFF[employer]ER I48.21 Permanent atrial fibrillation Z79.01 manager long term care (current) use of a nticoagulants N17.9 Acute kidney failure, unspec ified I13.0 Hyp hrt & chr kdny dis w hrt fail and stg 1-4/unsp chr kdny I50.33 Acute on chronic diastolic ( congestive) heart failure N18.31 Chronic kidney disease, stag e 3a J44.9 Chronic obstructive pulmonar y disease, unspecified E11.65 Type 2 diabetes mellitus wit h hyperglycemia Z79.84 prison (current) use of o ral hypoglycemic drugs E66.01 Morbid (severe) obesity due to excess calories Z68.42 Body mass index [BMI] 45.0-4 9.9, adult Office Visit 06/30/2021 9:40a [facility] Flory Munoz ne, [employer] OFFICER I11.9 Hypertensive heart disease without heart failure I48.21 Permanent atrial fibrillatio n Z79.01 manager long term care (current) use of a nticoagulants J44.9 Chronic obstructive pulmonar y disease, unspecified E11.65 Type 2 diabetes mellitus wit h hyperglycemia E11.40 Type 2 diabetes mellitus wit h diabetic neuropathy, unsp Z79.84 prison (current) use of o ral hypoglycemic drugs E66.01 Morbid (severe) obesity due to excess calories B35.4 Tinea corporis Z68.42 Body mass index [BMI] 45.0-4 9.9, adult Office Visit 04/10/2021 11:00a [facility] I11.9 Hypertensive heart disease without heart failure J44.9 Chronic obstructive pulmonar y disease, unspecified I48.21 Permanent atrial fibrillatio n Z79.01 manager long term care (current) use of a nticoagulants E11.65 Type 2 diabetes mellitus wit h hyperglycemia E11.40 Type 2 diabetes mellitus wit h diabetic neuropathy, unsp E66.01 Morbid (severe) obesity due to excess calories Z68.42 Body mass index [BMI] 45.0-4 9.9, adult Assessments Date Code Description Provider 07/16/2021 Z51.81 Encounter for therapeutic drug l evel monitoring Flory Warren [facility] 07/16/2021 Z51.81 Encounter for therapeutic drug l evel monitoring [facility] 07/16/2021 Z79.01 manager long term care (current) use of antic oagulants Flory Warren [facility] 07/16/2021 Z79.01 prison (current) use of antic oagulants [facility] 07/16/2021 I48.21 Permanent atrial fibrillation An malvin Warren [facility] 07/16/2021 I48.21 Permanent atrial fibrillation An malvin Warren [facility] 07/16/2021 I48.21 Permanent atrial fibrillation Pr otime 07/16/2021 Z79.01 prison (current) use of antic oagulants Flory Warren [facility] 07/16/2021 N17.9 Acute kidney failure, unspecifie d Flory Warren [facility] 07/16/2021 I13.0 Hypertensive heart a nd chronic kidney disease with heart failure and stage 1 through stage 4 chronic kidney disease, or unspecified chronic kidney disease Flory Warren, [facility] 07/16/2021 I50.33 Acute on chronic diastolic (amaya estive) heart failure Flory Warren, [facility] 07/16/2021 N18.31 Chronic kidney disease, stage 3a Flory Warren, [facility] 07/16/2021 J44.9 Chronic obstructive pulmonary di sease, unspecified Flory Kathrine Mazariegos, [facility] 07/16/2021 E11.65 Type 2 diabetes mellitus with hy perglycemia Flory Warren, [facility] 07/16/2021 Z79.84 manager long term care (current) use of oral hypoglycemic drugs Flory Warren, [facility] 07/16/2021 E66.01 Morbid (severe) obesity due to e xcess calories Flory Kathrine Mazariegos, [facility] 07/16/2021 Z68.42 Body mass index [BMI] 45.0-49.9, adult Flory Warren, [facility] 06/30/2021 I11.9 Hypertensive heart disease witho ut heart failure Flory Kathrine Mazariegos, [facility] 06/30/2021 I48.21 Permanent atrial fibrillation An malvin Warren, [facility] 06/30/2021 Z51.81 Encounter for therapeutic drug l evel monitoring Flory Warren, [facility] 06/30/2021 Z79.01 prison (current) use of antic oagulants Flory Kathrine Mazariegos, [facility] 06/30/2021 J44.9 Chronic obstructive pulmonary di sease, unspecified Flory Kathrine Mazariegos, [facility] 06/30/2021 Z51.81 Encounter for therapeutic drug l evel monitoring [facility] 06/30/2021 E11.65 Type 2 diabetes mellitus with hy perglycemia Flory Kathrine Mazariegos, [facility] 06/30/2021 E11.40 Type 2 diabetes jl itus with diabetic neuropathy, unspecified Flory Kathrine Mazariegos, [facility] 06/30/2021 Z79.84 prison (current) use of oral hypoglycemic drugs Flory Kathrine Mazariegos, [facility] 06/30/2021 Z79.01 prison (current) use of antic oagulants Flory Kathrine Mazariegos, [facility] 06/30/2021 E66.01 Morbid (severe) obesity due to e xcess calories Flory Kathrine Mazariegos, [facility] 06/30/2021 B35.4 Tinea corporis Flory Kathrine Mazariegos, [facility] 06/30/2021 Z79.01 manager long term care (current) use of antic oagulants [facility] 06/30/2021 Z68.42 Body mass index [BMI] 45.0-49.9, adult Flory Warren, [facility] 06/30/2021 I48.21 Permanent atrial fibrillation An malvin Warren, [facility] 06/30/2021 I48.21 Permanent atrial fibrillation Pr otime 05/26/2021 Z51.81 Encounter for therapeutic drug l evel monitoring Flory Warren, [facility] 05/26/2021 Z51.81 Encounter for therapeutic drug l evel monitoring [facility] 05/26/2021 Z79.01 prison (current) use of antic oagulants Flory Warren, [facility] 05/26/2021 Z79.01 manager long term care (current) use of antic oagulants [facility] 05/26/2021 I48.21 Permanent atrial fibrillation An malvin Warren, [facility] 05/26/2021 I48.21 Permanent atrial fibrillation Pr otime 05/12/2021 Z51.81 Encounter for therapeutic drug l evel monitoring Flory Warren, [facility] 05/12/2021 Z51.81 Encounter for therapeutic drug l evel monitoring [facility]time 05/12/2021 Z79.01 prison (current) use of antic oagulants Flory Warren, [facility] 05/12/2021 Z79.01 prison (current) use of antic oagulants [facility] 05/12/2021 I48.21 Permanent atrial fibrillation An malvin Warren, [facility] 05/12/2021 I48.21 Permanent atrial fibrillation Pr otime 04/10/2021 Z51.81 Encounter for therapeutic drug l evel monitoring Flory Warren, [facility] 04/10/2021 Z51.81 Encounter for therapeutic drug l evel monitoring [facility] 04/10/2021 I48.21 Permanent atrial fibrillation An malvin Warren, [facility] 04/10/2021 I11.9 Hypertensive heart disease witho ut heart failure Flory Warren, [facility] 04/10/2021 Z79.01 prison (current) use of antic oagulants Flory Warren, [facility] 04/10/2021 I48.21 Permanent atrial fibrillation Pr otime 04/10/2021 J44.9 Chronic obstructive pulmonary di sease, unspecified Flory Warren, [facility] 04/10/2021 Z79.01 manager long term care (current) use of antic oagulants [facility] 04/10/2021 I48.21 Permanent atrial fibrillation An malvin Warren, [facility] 04/10/2021 Z79.01 manager long term care (current) use of antic oagulants Flory Warren, [facility] 04/10/2021 E11.65 Type 2 diabetes mellitus with hy perglycemia Flory Warren, [facility] 04/10/2021 E11.40 Type 2 diabetes jl itus with diabetic neuropathy, unspecified Flory Warren, [facility] 04/10/2021 E66.01 Morbid (severe) obesity due to e xcess calories Flory Warren, [facility] 04/10/2021 Z68.42 Body mass index [BMI] 45.0-49.9, adult Flory Warren, [facility] 03/09/2021 Z51.81 Encounter for therapeutic drug l evel monitoring Flory Warren, [facility] 03/09/2021 Z51.81 Encounter for therapeutic drug l evel monitoring [facility] 03/09/2021 I48.21 Permanent atrial fibrillation An malvin Warren, [facility] 03/09/2021 I48.21 Permanent atrial fibrillation Pr otime 03/09/2021 Z79.01 manager long term care (current) use of antic oagulants Flory Warren, [facility] 03/09/2021 Z79.01 manager long term care (current) use of antic oagulants [facility] 02/10/2021 Z51.81 Encounter for therapeutic drug l evel monitoring Flory Warren, [facility] 02/10/2021 Z51.81 Encounter for therapeutic drug l evel monitoring Protime 02/10/2021 I48.21 Permanent atrial fibrillation An malvin Warren, [facility] 02/10/2021 I48.21 Permanent atrial fibrillation Pr otime 02/10/2021 Z79.01 prison (current) use of antic oagulants Flory Warren, [facility] 02/10/2021 Z79.01 prison (current) use of antic oagulants [facility] 01/27/2021 Z51.81 Encounter for therapeutic drug l evel monitoring Flory Warren, [facility] 01/27/2021 Z51.81 Encounter for therapeutic drug l evel monitoring [facility] 01/27/2021 I48.21 Permanent atrial fibrillation An n Kathrine Mazariegos, [employer] 01/27/2021 I48.21 Permanent atrial fibrillation Pr otime 01/27/2021 Z79.01 manager long term care (current) use of antic oagulants Flory Warren, IDALIA 01/27/2021 Z79.01 prison (current) use of antic oagulants Protime Plan of Treatment Future Appointment(s):* 07/28/2021 8:20 am - IDALIA Rivera at [facility] * 07/28/2021 8:30 am - [facility] at [facility] * 10/06/2021 9:20 am - IDALIA Rivera at [facility] * 08/07/2021 10:45 am - [facility] at [facility] * 01/22/2022 10:40 am [facility] * 01/22/2022 10:20 am - Nurse #[address] [facility] 07/24/2021 - IDALIA Rivera* All * New Medication:* Torsemide 10 mg - 2 today then one daily by mouth every day Functional Status Description No Information Available Mental Status Description No Information Available Referrals Description No Information Available
--- OUTSIDE RECORDS SUMMARY | 2021-09-07 11:19 | CCD | Continuity of Care Document ---
Author Author Tony Rivera Organization Unknown Address [address] [address] Phone [phone] Care Team Providers Care Recovery Analyst Name Role Phone Flory Finch AUTM [phone] Problems Active Problems Provider Date Atrial fibrillation [...] daily by mouth every day [facility] Prednisone 10mg Tablets 4 every day x 3 days,3 every day x 3 days, 2 every day x 3 days, then 1 tablet x 3 days then discontinue 30tabs Flory Warren [facility] 07/21/2021 Guaifenesin ac 100-10mg/5ML Syrup 5 milliliters every 6 hour, 10 milliliters at bedtime 120ml Robyn Cuadra, [facility] 07/20/2021 Atenolol 50mg Tablets 1 by mouth every day 90tabs [facility]/16[facility]2021 Ketoconazole 2% Cream apply to rash under arms two times a day for 14 days 60gm Flory Warren [facility] 06/30/2021 Amlodipine Besylate 5mg Tablets Take One Tablet By Mouth Every Day 30tabs I11.[address] [facility] 01/16 Rosuvastatin Calcium 40mg Tablets Take One Tablet By Mouth Every Day 90tabs [facility]/16 Fluticasone Propionate/Salmeterol Diskus 250-50mcg/Dose Aerosol Inhale 1 puff By Mouth Two Times A Day 180units Flory Warren [facility] 10/03/2020 Lisinopril 40mg Tablets 1 by mouth every day 90tabs Flory Warren [facility] 11/29/2019 Proventil HFA 108(90Base) mcg/Act Aerosol 2 puffs four times a day for one week then as needed for cough 1units I48.[address] [facility] 09/09/2015 Warfarin Sodium 6mg Tablets take 1 or 2 tablets by mouth daily as directed 60tabs Flory Warren [facility] 12/16/2009 Warfarin Sodium 1mg Tablets take 1-3 tablets by mouth daily as directed 100tabs Flory Warren [facility] 10/21/2009 History Medications Fluconazole 100mg Tablets one daily x 7 days 7tabs Flory Warren [facility] 06/30/2021 - Medications Administered in Office Medication SIG Qnty Indications Ordering Provider Date Administration Of Flu Vaccine Inj ection Quirino Soler MD 09/12/2020 Administration Of Flu Vaccine Inj ection Flory Warren [facility] 09/18/2019 Immunization Adminstration,1 Vaccine/Tox oid Injection Flory Kathrine Mazariegos, [facility] 05/01/2019 Administration Of Flu Vaccine Inj ection Flory Chisholm Yair, [facility] 10/03/2018 Immunizations CPT Code Status Date Vaccine Lot # [id number] Given 01/16/2021 Pneumovax 23 [id number] Given 09/12/2020 Influenza Vaccin e Quadrivalent Preser/Antibiotic Free Im Use [id number] 40130 Given 09/18/2019 Influenza Vaccin e Quadrivalent Preser/Antibiotic Free Im Use [id number] 87992 Given 05/01/2019 Adacel- Tetanus Diphtheria P ertussis (Age64 & Under) [id number] 75892 Given 10/03/2018 Influenza Virus Vaccine, Quadrivalent ([id number]), Derived From 6 Given 09/14/2017 Influenza Vaccin e Quadrivalent Preser/Antibiotic Free Im Use [id number] 70554 Given 12/16/2016 Prevnar 13 Q2037 Given 09/07/2016 Fluvirin Virus Vaccine [id number] 01 Q2037 Given 09/09/2015 Fluvirin Virus Vaccine Q2037 Given 09/09/2015 Fluvirin Virus Vaccine [id number] 01 Q2037 Given 09/10/2014 Fluvirin Virus Vaccine [id number] 21 61032 Given 11/29/2013 Pneumovax 23 [id number] Q2037 Given 09/06/2013 Fluvirin Virus Vaccine Q2037 Given 08/23/2012 Fluvirin Virus Vaccine Q2037 Given 08/23/2012 Fluvirin Virus Vaccine Q2037 Given 10/05/2011 Fluvirin Virus Vaccine Vital Signs Date Vital Result Comment 07/28/2021 8:25am BP Systolic 138 mmHg BP Diastolic 74 mmHg Heart Rate 82 /min Height 67.5 inches 5'7.50" Weight 296.00 lb O2 % BldC Oximetry 95 % RM Air BMI (Body Mass Index) 45.7 kg/m2 07/24/2021 8:45am BP Systolic 120 mmHg BP Diastolic 60 mmHg Heart Rate 84 /min Height 67.5 inches 5'7.50" Weight 303.00 lb O2 % BldC Oximetry 95 % BMI (Body Mass Index) 46.8 kg/m2 Results Test Acquired Date Facility Test Result H/L Range Note Basic Metabolic Panel 07/28/2021 [facility] Reed Fixer: [place] [address] [phone] Glucose 95 mg/dL 74 - 99 1 [...] mL/min >60 2 Complete Blood Count 07/28/2021 [facility] Reed Fixer: [place] [address] [phone] WBC 11.2 x10*3/UL High 4.1 - 10.9 [...] 07/28/2021 Wi-In[facility] Inr 1.6 Prothrombin Time/Inr 07/24/2021 [facility] [address] [place] [address] [phone] Prothrombin Time 43.8 seconds High 12.7-14.5 Inr 4.63 Normal 3 Laboratory test finding 07/24/2021 [facility] Inr 5.6 Complete Blood Count 07/24/2021 [facility] Reed Fixer: [place] [address] [phone] WBC 9.6 x10*3/UL 4.1 - 10.9 RBC [...] 2.0 - 7.8 Basic Metabolic Panel 07/16/2021 [facility] Reed Fixer: [place] [address] [phone] Glucose 124 mg/dL High 74 - 99 [...] Wi-Inr Inr 2.8 Complete Blood Count 06/30/2021 [facility] Reed Fixer: [place] [address] [phone] WBC 7.5 x10*3/UL 4.1 - 10.9 RBC [...] 2.0 - 7.8 Basic Metabolic Panel 06/30/2021 [facility] Reed Fixer: [place] [address] [phone] Glucose 105 mg/dL High 74 - 99 [...] Wi-Inr Inr 2.5 Complete Blood Count 04/10/2021 [facility] Reed Fixer: [place] [address] [phone] WBC 6.8 x10*3/UL 4.1 - 10.9 RBC [...] 2.0 - 7.8 Basic Metabolic Panel 04/10/2021 [facility] Reed Fixer: [place] [address] [phone] Glucose 100 mg/dL High 74 - 99 [...] test finding 01/27/2021 Wi-Inr Inr 1.8 1 100-125 mg/dL PRE-DIABET ES/FASTING >126 mg/dL DIABETES/FASTING 2 CHRONIC KIDNEY DISEASE STAGI NG PER NKF STAGE I & II GFR >= 60 NORMAL TO MILDLY DECREASED STAGE III GFR 30-59 MODERATELY DECREASED STAGE IV GFR 15-29 SEVERELY DECREASED STAGE V GFR <15 VERY LITTLE GFR LEFT ESRD GFR <15 ON CLOTHING SALES ASSISTANT 3 THERAPUTIC HUMAN INR VALUES INDICATIONS NORMAL [...] LITTLE GFR LEFT ESRD GFR <15 ON CLOTHING SALES ASSISTANT 8 100-125 mg/dL PRE-DIABET ES/FASTING >126 mg/dL DIABETES/FASTING 9 CHRONIC KIDNEY DISEASE STAGI NG PER NKF STAGE I & II GFR >= 60 NORMAL TO MILDLY DECREASED STAGE III GFR 30-59 MODERATELY DECREASED STAGE IV GFR 15-29 SEVERELY DECREASED STAGE V GFR <15 VERY LITTLE GFR LEFT ESRD GFR <15 ON CLOTHING SALES ASSISTANT 10 100-125 mg/dL PRE-DIABET ES/FASTING >126 mg/dL DIABETES/FASTING 11 CHRONIC KIDNEY DISEASE STAGI NG PER NKF STAGE I & II GFR >= 60 NORMAL TO MILDLY DECREASED STAGE III GFR 30-59 MODERATELY DECREASED STAGE IV GFR 15-29 SEVERELY DECREASED STAGE V GFR <15 VERY LITTLE GFR LEFT ESRD GFR <15 ON CLOTHING SALES ASSISTANT Procedures Date Code Description Status 07/28/2021 93832 Office/Outpatient Established Lo w MDM 20-29 Min Completed 07/16/2021 01590 [facility] SRV W/I 7 Days Of DC, C omm W/I 2 Dys Med Rec Completed 06/30/2021 38913 Office/Outpatient Established Mo d MDM 30-39 Min Completed 04/10/2021 02039 Office/Outpatient Established Lo w MDM 20-29 Min Completed 05/03/2016 [id number] Colonoscopy Completed Medical Devices Description No Information Available Encounters Type Date Location Provider Dx Diagnosis Office Visit 07/28/2021 8:20a [facility] Flory Munoz ne, SALES AND DISTRIBUTION CLERK J44.1 Chronic obstructive pulmonary disease w (acute) exacerbation I50.33 Acute on chronic diastolic ( congestive) heart failure I48.21 Permanent atrial fibrillatio n D64.9 Anemia, unspecified Office Visit 07/16/2021 11:20a [facility] Flory Munoz ne, SALES AND DISTRIBUTION CLERK I48.21 Permanent atrial fibrillation Z79.01 senior care [...] 2 diabetes mellitus wit h hyperglycemia Z79.84 intermediate manager (current) use of o ral hypoglycemic drugs E66.01 Morbid (severe) obesity due to excess calories Z68.42 Body mass index [BMI] 45.0-4 9.9, adult Office Visit 06/30/2021 9:40a [facility] Flory Munoz ne, SALES AND DISTRIBUTION CLERK I11.9 Hypertensive heart disease without heart failure I48.21 Permanent atrial fibrillatio n Z79.01 intermediate manager (current) use of a nticoagulants J44.9 Chronic obstructive pulmonar y disease, unspecified E11.65 Type 2 diabetes mellitus wit h hyperglycemia E11.40 Type 2 diabetes mellitus wit h diabetic neuropathy, unsp Z79.84 senior care (current) use of o ral hypoglycemic drugs E66.01 Morbid (severe) obesity due to excess calories B35.4 Tinea corporis Z68.42 Body mass index [BMI] 45.0-4 9.9, adult Office Visit 04/10/2021 11:00a [facility] Flory Munoz ne, SALES AND DISTRIBUTION CLERK I11.9 Hypertensive heart disease without heart failure [...] 9.9, adult Assessments Date Code Description Provider 07/28/2021 I48.21 Permanent atrial fibrillation Pr otime 07/28/2021 J44.1 Chronic obstructive pulmonary disease with (acute) exacerbation Flory Warren, [facility] 07/28/2021 Z51.81 Encounter for therapeutic drug l evel monitoring Protime 07/28/2021 I50.33 Acute on chronic diastolic (amaya estive) heart failure Flory Warren, [facility] 07/28/2021 I48.21 Permanent atrial fibrillation An n Kathrine Mazariegos, [facility] 07/28/2021 D64.9 Anemia, unspecified Flory Warren, [facility] 07/24/2021 I50.33 Acute on chronic diastolic (amaya estive) heart failure Flory Warren, [facility] 07/24/2021 I48.21 Permanent atrial fibrillation An n Kathrine Mazariegos, [facility] 07/24/2021 D64.9 Anemia, unspecified Flory Warren, [facility] 07/24/2021 J44.1 Chronic obstructive pulmonary disease with (acute) exacerbation Flory Warren, [facility] 07/24/2021 R79.1 Abnormal coagulation profile Flory Warren, [facility] 07/16/2021 Z51.81 Encounter for therapeutic drug l evel monitoring Flory Warren, [facility] 07/16/2021 Z51.81 Encounter for therapeutic drug l evel monitoring Protime 07/16/2021 Z79.01 intermediate manager (current) use of antic oagulants Flory Warren, [facility] 07/16/2021 Z79.01 senior care (current) use of antic oagulants Protime 07/16/2021 I48.21 Permanent atrial fibrillation An n Kathrine Mazariegos, [facility] 07/16/2021 I48.21 Permanent atrial fibrillation An n Kathrine Mazariegos, [facility] 07/16/2021 I48.21 Permanent atrial fibrillation Pr otime 07/16/2021 Z79.01 senior care (current) use of antic oagulants Flory Kathrine Mazariegos, [facility] 07/16/2021 N17.9 Acute kidney failure, unspecifie d Flory Kathrine Mazariegos, [facility] 07/16/2021 I13.0 Hypertensive heart a nd chronic kidney disease with heart failure and stage 1 through stage 4 chronic kidney disease, or unspecified chronic kidney disease Flory Kathrine Mazariegos, [facility] 07/16/2021 I50.33 Acute on chronic diastolic (amaya estive) heart failure Flory Warren, [facility] 07/16/2021 N18.31 Chronic kidney disease, stage 3a Flory Warren, [facility] 07/16/2021 J44.9 Chronic obstructive pulmonary di sease, unspecified Flory Warren, [facility] 07/16/2021 E11.65 Type 2 diabetes mellitus with hy perglycemia Flory Warren, [facility] 07/16/2021 Z79.84 intermediate manager (current) use of oral hypoglycemic drugs Flory Warren, [facility] 07/16/2021 E66.01 Morbid (severe) obesity due to e xcess calories Flory Warren, [facility] 07/16/2021 Z68.42 Body mass index [BMI] 45.0-49.9, adult Flory Warren, [facility] 06/30/2021 I11.9 Hypertensive heart disease witho ut heart failure Flory Warren, [facility] 06/30/2021 I48.21 Permanent atrial fibrillation An malvin Kathrine Mazariegos, [facility] 06/30/2021 Z51.81 Encounter for therapeutic drug l evel monitoring Flory Warren, [facility] 06/30/2021 Z79.01 intermediate manager (current) use of antic oagulants Flory Warren, [facility] 06/30/2021 J44.9 Chronic obstructive pulmonary di sease, unspecified Flory Warren, [facility] 06/30/2021 Z51.81 Encounter for therapeutic drug l evel monitoring Protime 06/30/2021 E11.65 Type 2 diabetes mellitus with hy perglycemia Flory Warren, [facility] 06/30/2021 E11.40 Type 2 diabetes jl itus with diabetic neuropathy, unspecified Flory Kathrine Mazariegos, [facility] 06/30/2021 Z79.84 intermediate manager (current) use of oral hypoglycemic drugs Flory Warren, [facility] 06/30/2021 Z79.01 intermediate manager (current) use of antic oagulants Flory Kathrine Mazariegos, [facility] 06/30/2021 E66.01 Morbid (severe) obesity due to e xcess calories Flory Kathrine Mazariegos, [facility] 06/30/2021 B35.4 Tinea corporis Flory Kathrine Mazariegos, [facility] 06/30/2021 Z79.01 senior care (current) use of antic oagulants Protime 06/30/2021 Z68.42 Body mass index [BMI] 45.0-49.9, adult Flory Warren, [facility] 06/30/2021 I48.21 Permanent atrial fibrillation An malvin Warren, [facility] 06/30/2021 I48.21 Permanent atrial fibrillation Pr otime 05/26/2021 Z51.81 Encounter for therapeutic drug l evel monitoring Flory Warren, [facility] 05/26/2021 Z51.81 Encounter for therapeutic drug l evel monitoring Protime 05/26/2021 Z79.01 intermediate manager (current) use of antic oagulants Flory Warren, [facility] 05/26/2021 Z79.01 senior care (current) use of antic oagulants Protime 05/26/2021 I48.21 Permanent atrial fibrillation An malvin Warren, [facility] 05/26/2021 I48.21 Permanent atrial fibrillation Pr otime 05/12/2021 Z51.81 Encounter for therapeutic drug l evel monitoring Flory Warren, [facility] 05/12/2021 Z51.81 Encounter for therapeutic drug l evel monitoring Protime 05/12/2021 Z79.01 intermediate manager (current) use of antic oagulants Flory Warren, [facility] 05/12/2021 Z79.01 senior care (current) use of antic oagulants Protime 05/12/2021 I48.21 Permanent atrial fibrillation An malvin Warren, [facility] 05/12/2021 I48.21 Permanent atrial fibrillation Pr otime 04/10/2021 Z51.81 Encounter for therapeutic drug l evel monitoring Flory Warren, [facility] 04/10/2021 Z51.81 Encounter for therapeutic drug l evel monitoring Protime 04/10/2021 I48.21 Permanent atrial fibrillation An malvin Warren, [facility] 04/10/2021 I11.9 Hypertensive heart disease witho ut heart failure Flory Warren, [facility] 04/10/2021 Z79.01 intermediate manager (current) use of antic oagulants Flory Warren, [facility] 04/10/2021 I48.21 Permanent atrial fibrillation Pr otime 04/10/2021 J44.9 Chronic obstructive pulmonary di sease, unspecified Flory Warren, [facility] 04/10/2021 Z79.01 intermediate manager (current) use of antic oagulants Protime 04/10/2021 I48.21 Permanent atrial fibrillation An malvin Warren, [facility] 04/10/2021 Z79.01 intermediate manager (current) use of antic oagulants Flory Warren, [facility] 04/10/2021 E11.65 Type 2 diabetes mellitus with hy perglycemia Flory Warren, [facility] 04/10/2021 E11.40 Type 2 diabetes jl itus with diabetic neuropathy, unspecified Flory Warren, [facility] 04/10/2021 E66.01 Morbid (severe) obesity due to e xcess calories Flory Warren, [facility] 04/10/2021 Z68.42 Body mass index [BMI] 45.0-49.9, adult Flory Warren, [facility] 03/09/2021 Z51.81 Encounter for therapeutic drug l evel monitoring Flory Warren, [facility] 03/09/2021 Z51.81 Encounter for therapeutic drug l evel monitoring Protime 03/09/2021 I48.21 Permanent atrial fibrillation An malvin Warren, [facility] 03/09/2021 I48.21 Permanent atrial fibrillation Pr otime 03/09/2021 Z79.01 senior care (current) use of antic oagulants Flory Warren, [facility] 03/09/2021 Z79.01 senior care (current) use of antic oagulants Protime 02/10/2021 Z51.81 Encounter for therapeutic drug l evel monitoring Flory Warren, [facility] 02/10/2021 Z51.81 Encounter for therapeutic drug l evel monitoring Protime 02/10/2021 I48.21 Permanent atrial fibrillation An malvin Warren, [facility] 02/10/2021 I48.21 Permanent atrial fibrillation Pr otime 02/10/2021 Z79.01 senior care (current) use of antic oagulants Flory Warren, [facility] 02/10/2021 Z79.01 intermediate manager (current) use of antic oagulants Protime 01/27/2021 Z51.81 Encounter for therapeutic drug l evel monitoring Flory Warren, [facility] 01/27/2021 Z51.81 Encounter for therapeutic drug l evel monitoring Protime 01/27/2021 I48.21 Permanent atrial fibrillation An malvin Warren, [facility] 01/27/2021 I48.21 Permanent atrial fibrillation Pr otime 01/27/2021 Z79.01 intermediate manager (current) use of antic oagulants IDALIA Rivera 01/27/2021 Z79.01 intermediate manager (current) use of antic oagulants Protime Plan of Treatment Future Appointment(s):* 08/05/2021 8:30 am - [facility] at [facility] * 08/05/2021 9:40 am - IDALIA Rivera at [facility] * 10/06/2021 9:20 am - IDALIA Rivera at [facility] * 08/07/2021 10:45 am - [facility] at [facility] * 01/22/2022 10:40 am - IDALIA Rivera at [facility] * 01/22/2022 10:20 am - Nurse #2 at [facility] 07/28/2021 - IDALIA Rivera* J44.1 Chronic obstructive pulmonary disease with (acute) exacerbation* New Medication:* Nebulizer Kit/Tubing/Mouthpiece - use four times a day dx j44.9 * Albuterol Sulfate (2.5 mg/3ML) 0.083% - use via aerosol neb four times a day as needed * Comments:* We will add aerosol nebulizer with albuterol 3 times a day. We will continue his salmeterol. He is on a prednisone taper will be down to 10 mg daily starting tomorrow. He does not have any evidence of infection. * I50.33 Acute on chronic diastolic (congestive) heart failure* Comments:* He continues to have some evidence of fluid overload. Basic medical panel pendi ng. * I48.21 Permanent atrial fibrillation* Comments:* Rate controlled. * D64.9 Anemia, unspecified* Comments:* CBC pending. Functional Status Description No Information Available Mental Status Description No Information Available Referrals Description No Information Available
--- OUTSIDE RECORDS SUMMARY | 2021-09-07 11:19 | CCD | Continuity of Care Document ---
Author Author Tony Hernandes Organization Unknown Address [address] [address] Phone [phone] Care Team Providers Care Street Light Repairer Name Role Phone Flory Finch ANP AUTM [phone] Problems Active Problems Provider Date Atrial fibrillation [...] daily by mouth every day [facility] Guaifenesin ac 100-10mg/5ML Syrup 5 milliliters every 6 hour, 10 milliliters at bedtime 120ml Robyn Cuadra, ANP 07/20/2021 Atenolol 50mg Tablets 1 by mouth every day 90tabs [facility] 07/16[facility]2021 Ketoconazole 2% Cream apply to rash under arms two times a day for 14 days [facility]21 Amlodipine Besylate 5mg Tablets Take One Tablet By Mouth Every Day 30tabs I11.9 Flory Warren [facility] 01/16 Rosuvastatin Calcium 40mg Tablets Take One Tablet By Mouth Every Day 90tabs [facility]16 Fluticasone Propionate/Salmeterol Diskus 250-50mcg/Dose Aerosol Inhale 1 puff By Mouth Two Times A Day 180units Flory Warren [facility] 10/03/2020 Lisinopril 40mg Tablets 1 by mouth every day 90tabs [facility] 11/29/2019 Proventil HFA 108(90Base) mcg/Act Aerosol 2 puffs four times a day for one week then as needed for cough 1units I48.2 [facility] 09/09/2015 Warfarin Sodium 6mg Tablets take 1 or 2 tablets by mouth daily as directed 60tabs Flory Warren [facility] 12/16/2009 Warfarin Sodium 1mg Tablets take 1-3 tablets by mouth daily as directed 100tabs Flory Warren [facility] 10/21/2009 History Medications Prednisone 10mg Tablets 4 every day x 3 days,3 every day x 3 days, 2 every day x 3 days, then 1 tablet x 3 days then discontinue 30tabs Flory Warren [facility] 07/21/2021 - Fluconazole 100mg Tablets one daily x 7 days 7tabs Floyr Warren [facility] 06/30/2021 - Medications Administered in Office Medication SIG Qnty Indications Ordering Provider Date Administration Of Flu Vaccine Inj ection Quirino Soler MD 09/12/2020 Administration Of Flu Vaccine Inj ection Flory Warren [facility] 09/18/2019 Immunization Adminstration,1 Vaccine/Tox oid Injection Flory Warren, [facility] 05/01/2019 Administration Of Flu Vaccine Inj ection Flory Warren, [facility] 10/03/2018 Immunizations CPT Code Status Date Vaccine Lot # [id number] Given 01/16/2021 Pneumovax 23 [id number] 83034 Given 09/12/2020 Influenza Vaccin e Quadrivalent Preser/Antibiotic Free Im Use [id number] 48528 Given 09/18/2019 Influenza Vaccin e Quadrivalent Preser/Antibiotic Free Im Use [id number] 71548 Given 05/01/2019 Adacel- Tetanus Diphtheria P ertussis (Age64 & Under) [id number] 80905 Given 10/03/2018 Influenza Virus Vaccine, Quadrivalent ([id number]), Derived From 6 Given 09/14/2017 Influenza Vaccin e Quadrivalent Preser/Antibiotic Free Im Use [id number] 33235 Given 12/16/2016 Prevnar 13 Q2037 Given 09/07/2016 Fluvirin Virus Vaccine [id number] 01 Q2037 Given 09/09/2015 Fluvirin Virus Vaccine Q2037 Given 09/09/2015 Fluvirin Virus Vaccine [id number] 01 Q2037 Given 09/10/2014 Fluvirin Virus Vaccine [id number] 21 74215 Given 11/29/2013 Pneumovax 23 [id number] Q2037 Given 09/06/2013 Fluvirin Virus Vaccine Q2037 [...] H/L Range Note Basic Metabolic Panel 07/28/2021 [facility] Fuse Cutter: [place] [address] [phone] Glucose 95 mg/dL 74 - 99 1 [...] mL/min >60 2 Complete Blood Count 07/28/2021 [facility] Fuse Cutter: [place] [address] [phone] WBC 11.2 x10*3/UL High 4.1 - 10.9 [...] 07/28/2021 Wi-Inr Inr 1.6 Prothrombin Time/Inr 07/24/2021 [facility] enter [address] [place] [address] [phone] Prothrombin Time 43.8 seconds High 12.7-14.5 Inr 4.63 Normal 3 Laboratory test finding 07/24/2021 Wi-Inr Inr 5.6 Complete Blood Count 07/24/2021 [facility] Fuse Cutter: [place] [address] [phone] WBC 9.6 x10*3/UL 4.1 - 10.9 RBC [...] 2.0 - 7.8 Basic Metabolic Panel 07/16/2021 [facility] Fuse Cutter: [place] [address] [phone] Glucose 124 mg/dL High 74 - 99 [...] Wi-Inr Inr 2.8 Complete Blood Count 06/30/2021 [facility] Fuse Cutter: [place] [address] [phone] WBC 7.5 x10*3/UL 4.1 - 10.9 RBC [...] 2.0 - 7.8 Basic Metabolic Panel 06/30/2021 [facility] Fuse Cutter: [place] [address] [phone] Glucose 105 mg/dL High 74 - 99 [...] Wi-Inr Inr 2.5 Complete Blood Count 04/10/2021 [facility] Fuse Cutter: [place] [address] [phone] WBC 6.8 x10*3/UL 4.1 - 10.9 RBC [...] 2.0 - 7.8 Basic Metabolic Panel 04/10/2021 [facility] F[facility] Cutter: Dr Quirino Soler [place], [place] [id number] [phone] Glucose 100 mg/dL High 74 - 99 [...] LITTLE GFR LEFT ESRD GFR <15 ON SCRUB NURSE 3 THERAPUTIC HUMAN INR VALUES INDICATIONS NORMAL [...] LITTLE GFR LEFT ESRD GFR <15 ON SCRUB NURSE 8 100-125 mg/dL PRE-DIABET ES/FASTING >126 mg/dL DIABETES/FASTING 9 CHRONIC KIDNEY DISEASE STAGI NG PER NKF STAGE I & II GFR >= 60 NORMAL TO MILDLY DECREASED STAGE III GFR 30-59 MODERATELY DECREASED STAGE IV GFR 15-29 SEVERELY DECREASED STAGE V GFR <15 VERY LITTLE GFR LEFT ESRD GFR <15 ON SCRUB NURSE 10 100-125 mg/dL PRE-DIABET ES/FASTING >126 mg/dL DIABETES/FASTING 11 CHRONIC KIDNEY DISEASE STAGI NG PER NKF STAGE I & II GFR >= 60 NORMAL TO MILDLY DECREASED STAGE III GFR 30-59 MODERATELY DECREASED STAGE IV GFR 15-29 SEVERELY DECREASED STAGE V GFR <15 VERY LITTLE GFR LEFT ESRD GFR <15 ON SCRUB NURSE Procedures Date Code Description Status 07/28/2021 91607 Office/Outpatient Established Mo d MDM 30-39 Min Completed 07/24/2021 03811 Office/Outpatient Established Lo w MDM 20-29 Min Completed 07/16/2021 45134 [place] [facility] SRV W/I 7 Days Of DC, C omm W/I 2 Dys Med Rec Completed 06/30/2021 57233 Office/Outpatient Established Mo d MDM 30-39 Min Completed 04/10/2021 62554 Office/Outpatient Established Lo w MDM 20-29 Min Completed 05/03/2016 [id number] Colonoscopy Completed Medical Devices Description No Information Available Encounters Type Date Location Provider Dx Diagnosis Office Visit 07/28/2021 8:20a [facility] Flory Chisholm Pi ne, OPERATING SYSTEMS PROGRAMMER J44.1 Chronic obstructive pulmonary disease w (acute) exacerbation I50.33 Acute on chronic diastolic ( congestive) heart failure I48.21 Permanent atrial fibrillatio n D64.9 Anemia, unspecified Office Visit 07/24/2021 11:20a [facility], OPERATING SYSTEMS PROGRAMMER I50.33 Acute on chronic diastolic (congestive) heart failure Z87.891 Personal history of nicotine dependence J44.1 Chronic obstructive pulmonar y disease w (acute) exacerbation I48.21 Permanent atrial fibrillatio n D64.9 Anemia, unspecified R79.1 Abnormal coagulation profile Office Visit 07/16/2021 11:20a [facility], OPERATING SYSTEMS PROGRAMMER I48.21 Permanent atrial fibrillation Z79.01 sound designer (current) use of a nticoagulants N17.9 Acute [...] 45.0-4 9.9, adult Office Visit 06/30/2021 9:40a [facility], OPERATING SYSTEMS PROGRAMMER I11.9 Hypertensive heart disease without heart failure I48.21 Permanent atrial fibrillatio n Z79.01 sound designer (current) use of a nticoagulants J44.9 Chronic obstructive pulmonar y disease, unspecified E11.65 Type 2 diabetes mellitus wit h hyperglycemia E11.40 Type 2 diabetes mellitus wit h diabetic neuropathy, unsp Z79.84 prison (current) use of o ral hypoglycemic drugs E66.01 Morbid (severe) obesity due to excess calories B35.4 Tinea corporis Z68.42 Body mass index [BMI] 45.0-4 9.9, adult Office Visit 04/10/2021 11:00a [facility], OPERATING SYSTEMS PROGRAMMER I11.9 Hypertensive heart disease without heart failure J44.9 Chronic obstructive pulmonar y disease, unspecified I48.21 Permanent atrial fibrillatio n Z79.01 prison (current) use of a nticoagulants E11.65 Type 2 diabetes mellitus wit h hyperglycemia E11.40 Type 2 diabetes mellitus wit h diabetic neuropathy, unsp E66.01 Morbid (severe) obesity due to excess calories Z68.42 Body mass index [BMI] 45.0-4 9.9, adult Assessments Date Code Description Provider 07/28/2021 I48.21 Permanent atrial fibrillation Pr otime 07/28/2021 J44.1 Chronic obstructive pulmonary disease with (acute) exacerbation Flory Warren, [facility] 07/28/2021 Z51.81 Encounter for therapeutic drug l evel monitoring Protime 07/28/2021 I50.33 Acute on chronic diastolic (amaya estive) heart failure Flory Warren, [facility] 07/28/2021 I48.21 Permanent atrial fibrillation An n Kathrine Mazariegos, [facility] 07/28/2021 D64.9 Anemia, unspecified Flory Warren, [facility] 07/24/2021 Z51.81 Encounter for therapeutic drug l evel monitoring Flory Warren, [facility] 07/24/2021 Z51.81 Encounter for therapeutic drug l evel monitoring Protime 07/24/2021 Z79.01 prison (current) use of antic oagulants Flory Warren, [facility] 07/24/2021 D64.9 Anemia, unspecified Flory Warren, [facility] 07/24/2021 I48.21 Permanent atrial fibrillation An n Kathrine Mazariegos, [facility] 07/24/2021 Z79.01 prison (current) use of antic oagulants Protime 07/24/2021 D64.9 Anemia, unspecified Lab Schedule 07/24/2021 I48.21 Permanent atrial fibrillation Pr otime 07/24/2021 R79.1 Abnormal coagulation profile Flory Warren, [facility] 07/24/2021 I50.33 Acute on chronic diastolic (amaya estive) heart failure Flory Warren [facility] 07/24/2021 R79.1 Abnormal coagulation profile Lab Schedule 07/24/2021 Z87.891 Personal history of nicotine dep endence Flory Warren, [facility] 07/24/2021 J44.1 Chronic obstructive pulmonary disease with (acute) exacerbation Flory Warren, [facility] 07/24/2021 I48.21 Permanent atrial fibrillation An malvin Warren, [facility] 07/24/2021 D64.9 Anemia, unspecified Flory Warren, [facility] 07/24/2021 R79.1 Abnormal coagulation profile Flory Warren, [facility] 07/16/2021 Z51.81 Encounter for therapeutic drug l evel monitoring Flory Warren, [facility] 07/16/2021 Z51.81 Encounter for therapeutic drug l evel monitoring Protime 07/16/2021 Z79.01 prison (current) use of antic oagulants Flory Warren, [facility] 07/16/2021 Z79.01 sound designer (current) use of antic oagulants Protime 07/16/2021 I48.21 Permanent atrial fibrillation An malvin Warren, [facility] 07/16/2021 I48.21 Permanent atrial fibrillation An malvin Warren, [facility] 07/16/2021 I48.21 Permanent atrial fibrillation Pr otime 07/16/2021 Z79.01 sound designer (current) use of antic oagulants Flory Warren, [facility] 07/16/2021 N17.9 Acute kidney failure, unspecifie d Flory Warren, [facility] 07/16/2021 I13.0 Hypertensive heart a nd chronic kidney disease with heart failure and stage 1 through stage 4 chronic kidney disease, or unspecified chronic kidney disease Flory Warren, [facility] 07/16/2021 I50.33 Acute on chronic diastolic (amaya estive) heart failure Flory Warren, [facility] 07/16/2021 N18.31 Chronic kidney disease, stage 3a Flory Warren, [facility] 07/16/2021 J44.9 Chronic obstructive pulmonary di sease, unspecified Flory Warren, [facility] 07/16/2021 E11.65 Type 2 diabetes mellitus with hy perglycemia Flory Warren, [facility] 07/16/2021 Z79.84 prison (current) use of oral hypoglycemic drugs Flory Warren, [facility] 07/16/2021 E66.01 Morbid (severe) obesity due to e xcess calories Flory Warren, [facility] 07/16/2021 Z68.42 Body mass index [BMI] 45.0-49.9, adult Flory Warren, [facility] 06/30/2021 I11.9 Hypertensive heart disease witho ut heart failure Flory Warren, [facility] 06/30/2021 I48.21 Permanent atrial fibrillation An n Kathrine Mazariegos, [facility] 06/30/2021 Z51.81 Encounter for therapeutic drug l evel monitoring Flory Warren, [facility] 06/30/2021 Z79.01 prison (current) use of antic oagulants Flory Warren, [facility] 06/30/2021 J44.9 Chronic obstructive pulmonary di sease, unspecified Flory Warren, [facility] 06/30/2021 Z51.81 Encounter for therapeutic drug l evel monitoring Protime 06/30/2021 E11.65 Type 2 diabetes mellitus with hy perglycemia Flory Warren, [facility] 06/30/2021 E11.40 Type 2 diabetes jl itus with diabetic neuropathy, unspecified Flory Warren, [facility] 06/30/2021 Z79.84 sound designer (current) use of oral hypoglycemic drugs Flory Warren, [facility] 06/30/2021 Z79.01 prison (current) use of antic oagulants Flory Warren, [facility] 06/30/2021 E66.01 Morbid (severe) obesity due to e xcess calories Flory Warren, [facility] 06/30/2021 B35.4 Tinea corporis Flory Warren, [facility] 06/30/2021 Z79.01 prison (current) use of antic oagulants Protime 06/30/2021 Z68.42 Body mass index [BMI] 45.0-49.9, adult Flory Warren, [facility] 06/30/2021 I48.21 Permanent atrial fibrillation An n Kathrine Mazariegos, [facility] 06/30/2021 I48.21 Permanent atrial fibrillation Pr otime 05/26/2021 Z51.81 Encounter for therapeutic drug l evel monitoring Flory Warren, [facility] 05/26/2021 Z51.81 Encounter for therapeutic drug l evel monitoring Protime 05/26/2021 Z79.01 prison (current) use of antic oagulants Flory Warren, [facility] 05/26/2021 Z79.01 prison (current) use of antic oagulants Protime 05/26/2021 I48.21 Permanent atrial fibrillation An n Kathrine Mazariegos, [facility] 05/26/2021 I48.21 Permanent atrial fibrillation Pr otime 05/12/2021 Z51.81 Encounter for therapeutic drug l evel monitoring Flory Warren, [facility] 05/12/2021 Z51.81 Encounter for therapeutic drug l evel monitoring Protime 05/12/2021 Z79.01 sound designer (current) use of antic oagulants Flory Warren, [facility] 05/12/2021 Z79.01 sound designer (current) use of antic oagulants Protime 05/12/2021 I48.21 Permanent atrial fibrillation An malvin Warren, [facility] 05/12/2021 I48.21 Permanent atrial fibrillation Pr otime 04/10/2021 Z51.81 Encounter for therapeutic drug l evel monitoring Flory Warren, [facility] 04/10/2021 Z51.81 Encounter for therapeutic drug l evel monitoring Protime 04/10/2021 I48.21 Permanent atrial fibrillation An malvin Warren, [facility] 04/10/2021 I11.9 Hypertensive heart disease witho ut heart failure Flory Warren, [facility] 04/10/2021 Z79.01 prison (current) use of antic oagulants Flory Warren, [facility] 04/10/2021 I48.21 Permanent atrial fibrillation Pr otime 04/10/2021 J44.9 Chronic obstructive pulmonary di sease, unspecified Flory Warren, [facility] 04/10/2021 Z79.01 sound designer (current) use of antic oagulants Protime 04/10/2021 I48.21 Permanent atrial fibrillation An malvin Warren, [facility] 04/10/2021 Z79.01 sound designer (current) use of antic oagulants Flory Warren, [facility] 04/10/2021 E11.65 Type 2 diabetes mellitus with hy perglycemia Flory Kathrine Mazariegos, [facility] 04/10/2021 E11.40 Type 2 diabetes jl itus with diabetic neuropathy, unspecified Flory Warren, [facility] 04/10/2021 E66.01 Morbid (severe) obesity due to e xcess calories Flory Kathrine Mazariegos, [facility] 04/10/2021 Z68.42 Body mass index [BMI] 45.0-49.9, adult Flory Warren, [facility] 03/09/2021 Z51.81 Encounter for therapeutic drug l evel monitoring Flory Kathrine Richmond, OPERATING SYSTEMS PROGRAMMER 03/09/2021 Z51.81 Encounter for therapeutic drug l evel monitoring Protime 03/09/2021 I48.21 Permanent atrial fibrillation An malvin Warren, [employer]PERATING SYSTEMS PROGRAMMER 03/09/2021 I48.21 Permanent atrial fibrillation Pr otime 03/09/2021 Z79.01 prison (current) use of antic oagulants Flory Chisholm Yair, OPERATING SYSTEMS PROGRAMMER 03/09/2021 Z79.01 sound designer (current) use of antic oagulants Protime 02/10/2021 Z51.81 Encounter for therapeutic drug l evel monitoring Flory Warren, OPERATING SYSTEMS PROGRAMMER 02/10/2021 Z51.81 Encounter for therapeutic drug l evel monitoring Protime 02/10/2021 I48.21 Permanent atrial fibrillation An malvin Warren, OPERATING SYSTEMS PROGRAMMER 02/10/2021 I48.21 Permanent atrial fibrillation Pr otime 02/10/2021 Z79.01 prison (current) use of antic oagulants Flory Warren OPERATING SYSTEMS PROGRAMMER 02/10/2021 Z79.01 sound designer (current) use of antic oagulants Protime Plan of Treatment Future Appointment(s):* 08/05/2021 8:30 am - [place] at [facility] * 08/05/2021 9:40 am - IDALIA Rivera at [facility] * 10/06/2021 9:20 am - IDALIA Rivera at [facility] * 08/07/2021 10:45 am - [place] at [facility] * 01/22/2022 10:40 am - IDALIA Rivera at [facility] * 01/22/2022 10:20 am - Nurse #2 at [facility] 07/28/2021 - IDALIA Rivera* J44.1 Chronic [...]
--- OUTSIDE RECORDS SUMMARY | 2021-09-07 11:19 | CCD | Continuity of Care Document ---
Author Author Tony Rivera Organization Unknown Address [address] [address] Phone [phone] Care Team Providers Care Director Of Event Management Name Role Phone Flory Finch AUTM [phone] Problems Active Problems Provider Date Atrial fibrillation [...] daily [facility] day [facility] Prednisone 10mg Tablets 4 every day x 3 days,3 every day x 3 days, 2 every day x 3 days, then 1 tablet x 3 days then discontinue 30tabs Flory Warren [facility] 07/21/2021 Guaifenesin ac 100-10mg/5ML Syrup 5 milliliters every 6 hour, 10 milliliters at bedtime 120ml Robyn Cuadra, [facility] 07/20/2021 Atenolol 50mg Tablets 1 by mouth every day [facility]tabs [facility]2021 Ketoconazole 2% Cream apply to rash under arms two times a day for 14 days 60gm Flory Warren [facility] 06/30/2021 Amlodipine Besylate 5mg Tablets Take One Tablet By Mouth Every Day 30tabs I11.9 Flory Warren [facility] 01/16 Rosuvastatin Calcium 40mg Tablets Take One Tablet By Mouth Every Day 90tabs [facility]16 Fluticasone Propionate/Salmeterol Diskus 250-50mcg/Dose Aerosol Inhale 1 puff By Mouth Two Times A Day 180units Flory Warren [facility] 10/03/2020 Lisinopril 40mg Tablets 1 by mouth every day 90tabs Flory Warren [facility] 11/29/2019 Proventil HFA 108(90Base) mcg/Act Aerosol 2 puffs four times a day for one week then as needed for cough 1units I48.2 Flory Warren [facility] 09/09/2015 Warfarin Sodium 6mg Tablets take 1 or 2 tablets by mouth daily as directed 60tabs Flory Warren [facility] 12/16/2009 Warfarin Sodium 1mg Tablets take 1-3 tablets by mouth daily as directed 100tabs Flory Warren [facility] 10/21/2009 History Medications Fluconazole 100mg Tablets one daily x 7 days 7tabs Flory Warren [facility] 06/30/2021 - Medications Administered in Office Medication SIG Qnty Indications Ordering Provider Date Administration Of Flu Vaccine Inj ection Quirino Soler MD 09/12/2020 Administration Of Flu Vaccine Inj ection Flory Warren [facility] 09/18/2019 Immunization Adminstration,1 Vaccine/Tox oid Injection Flory Kathrine Mazariegos, [facility] 05/01/2019 Administration Of Flu Vaccine Inj ection Flory Chisholm Yair, [facility] 10/03/2018 Immunizations CPT Code Status Date Vaccine Lot # [id number] Given 01/16/2021 Pneumovax 23 [id number] 97769 Given 09/12/2020 Influenza Vaccin e Quadrivalent Preser/Antibiotic Free Im Use [id number] 64114 Given 09/18/2019 Influenza Vaccin e Quadrivalent Preser/Antibiotic Free Im Use [id number] 30237 Given 05/01/2019 Adacel- Tetanus Diphtheria P ertussis (Age64 & Under) [id number] 19624 Given 10/03/2018 Influenza Virus Vaccine, Quadrivalent ([id number]), Derived From 6 Given 09/14/2017 Influenza Vaccin e Quadrivalent Preser/Antibiotic Free Im Use [id number] 42183 Given 12/16/2016 Prevnar 13 [id number] Given 09/07/2016 Fluvirin Virus Vaccine [id number] 01 Q2037 Given 09/09/2015 Fluvirin Virus Vaccine Q2037 Given 09/09/2015 Fluvirin Virus Vaccine 77618 01 Q2037 Given 09/10/2014 Fluvirin Virus Vaccine [id number] 21 77993 Given 11/29/2013 Pneumovax 23 [id number] Q2037 Given 09/06/2013 Fluvirin Virus Vaccine Q2037 [...] H/L Range Note Basic Metabolic Panel 07/28/2021 [facility] Epidemiologist: [place] [address] [phone] Glucose 95 mg/dL 74 - 99 1 [...] mL/min >60 2 Complete Blood Count 07/28/2021 [facility] Epidemiologist: [place] [address] [phone] WBC 11.2 x10*3/UL High 4.1 - 10.9 [...] 07/28/2021 [facility] 1.6 Prothrombin Time/Inr 07/24/2021 [facility] [address] [place] [address] [phone] Prothrombin Time 43.8 seconds High 12.7-14.5 Inr 4.63 Normal 3 Laboratory test finding 07/24/2021 [facility] 5.6 Complete Blood Count 07/24/2021 [facility] Epidemiologist: [place] [address] [phone] WBC 9.6 x10*3/UL 4.1 - 10.9 RBC [...] 2.0 - 7.8 Basic Metabolic Panel 07/16/2021 [facility] Epidemiologist: [place] [address] [phone] Glucose 124 mg/dL High 74 - 99 [...] Wi-Inr Inr 2.8 Complete Blood Count 06/30/2021 [facility] Epidemiologist: [place] [address] [phone] WBC 7.5 x10*3/UL 4.1 - 10.9 RBC [...] 2.0 - 7.8 Basic Metabolic Panel 06/30/2021 [facility] Epidemiologist: [place] [address] [phone] Glucose 105 mg/dL High 74 - 99 [...] Wi-Inr Inr 2.5 Complete Blood Count 04/10/2021 [facility] Epidemiologist: [place] [address] [phone] WBC 6.8 x10*3/UL 4.1 - 10.9 RBC [...] 2.0 - 7.8 Basic Metabolic Panel 04/10/2021 [facility] Epidemiologist: [place] [address] [phone] Glucose 100 mg/dL High 74 - 99 [...] LITTLE GFR LEFT ESRD GFR <15 ON ANTENNA INSTALLER 3 THERAPUTIC HUMAN INR VALUES INDICATIONS NORMAL [...] LITTLE GFR LEFT ESRD GFR <15 ON ANTENNA INSTALLER 8 100-125 mg/dL PRE-DIABET ES/FASTING >126 mg/dL DIABETES/FASTING 9 CHRONIC KIDNEY DISEASE STAGI NG PER NKF STAGE I & II GFR >= 60 NORMAL TO MILDLY DECREASED STAGE III GFR 30-59 MODERATELY DECREASED STAGE IV GFR 15-29 SEVERELY DECREASED STAGE V GFR <15 VERY LITTLE GFR LEFT ESRD GFR <15 ON ANTENNA INSTALLER 10 100-125 mg/dL PRE-DIABET ES/FASTING >126 mg/dL DIABETES/FASTING 11 CHRONIC KIDNEY DISEASE STAGI NG PER NKF STAGE I & II GFR >= 60 NORMAL TO MILDLY DECREASED STAGE III GFR 30-59 MODERATELY DECREASED STAGE IV GFR 15-29 SEVERELY DECREASED STAGE V GFR <15 VERY LITTLE GFR LEFT ESRD GFR <15 ON ANTENNA INSTALLER Procedures Date Code Description Status 07/28/2021 83195 Office/Outpatient Established Mo d MDM 30-39 Min Completed 07/24/2021 88895 Office/Outpatient Established Lo w MDM 20-29 Min Completed 07/16/2021 04944 [facility] SRV W/I 7 Days Of DC, C omm W/I 2 Dys Med Rec Completed 06/30/2021 17422 Office/Outpatient Established Mo d MDM 30-39 Min Completed 04/10/2021 25798 Office/Outpatient Established Lo w MDM 20-29 Min Completed 05/03/2016 [id number] Colonoscopy Completed Medical Devices Description No Information Available Encounters Type Date Location Provider Dx Diagnosis Office Visit 07/[facility]21 [facility] J44.1 Chronic obstructive pulmonary disease w (acute) exacerbation I50.33 Acute on chronic diastolic ( congestive) heart failure I48.21 Permanent atrial fibrillatio n D64.9 Anemia, unspecified Office Visit 07/24/2021 11:20a [facility] [place] [place] I50.33 Acute on chronic diastolic (congestive) heart failure Z87.891 Personal history of nicotine dependence J44.1 Chronic obstructive pulmonar y disease w (acute) exacerbation I48.21 Permanent atrial fibrillatio n D64.9 Anemia, unspecified R79.1 Abnormal coagulation profile Office Visit 07/16/2021 11:20a [facility], [place] I48.21 Permanent atrial fibrillation Z79.01 buttermaker (current) use of a nticoagulants N17.9 Acute kidney failure, unspec ified I13.0 Hyp hrt & chr kdny dis w hrt fail and stg 1-4/unsp chr kdny I50.33 Acute on chronic diastolic ( congestive) heart failure N18.31 Chronic kidney disease, stag e 3a J44.9 Chronic obstructive pulmonar y disease, unspecified E11.65 Type 2 diabetes mellitus wit h hyperglycemia Z79.84 correction (current) use of o ral hypoglycemic drugs E66.01 Morbid (severe) obesity due to excess calories Z68.42 Body mass index [BMI] 45.0-4 9.9, adult Office Visit 06/30/2021 9:40a [facility], [place] I11.9 Hypertensive heart disease without heart failure I48.21 Permanent atrial fibrillatio n Z79.01 correction (current) use of a nticoagulants J44.9 Chronic obstructive pulmonar y disease, unspecified E11.65 Type 2 diabetes mellitus wit h hyperglycemia E11.40 Type 2 diabetes mellitus wit h diabetic neuropathy, unsp Z79.84 correction (current) use of o ral hypoglycemic drugs E66.01 Morbid (severe) obesity due to excess calories B35.4 Tinea corporis Z68.42 Body mass index [BMI] 45.0-4 9.9, adult Office Visit 04/10/2021 11:00a [facility], [place] I11.9 Hypertensive heart disease without heart failure J44.9 Chronic obstructive pulmonar y disease, unspecified I48.21 Permanent atrial fibrillatio n Z79.01 buttermaker (current) use of a nticoagulants E11.65 Type 2 diabetes mellitus wit h hyperglycemia E11.40 Type 2 diabetes mellitus wit h diabetic neuropathy[facility] E[facility]01 Morbid (severe) obesity due to excess calories Z68.42 Body mass index [BMI] 45.0-4 9.9, adult Assessments Date Code Description Provider 07/28/2021 I48.21 Permanent atrial fibrillation Pr otime 07/28/2021 J44.1 Chronic obstructive pulmonary disease with (acute) exacerbation Flory Warren, [facility] 07/28/2021 Z51.81 Encounter for therapeutic drug l evel monitoring Protime 07/28/2021 I50.33 Acute on chronic diastolic (amaya estive) heart failure Flory Warren, [facility] 07/28/2021 I48.21 Permanent atrial fibrillation An malvin Warren, [facility] 07/28/2021 D64.9 Anemia, unspecified Flory Warren, [facility] 07/24/2021 I50.33 Acute on chronic diastolic (amaya estive) heart failure Flory Warren, [facility] 07/24/2021 Z87.891 Personal history of nicotine dep endence Flory Warren, [facility] 07/24/2021 J44.1 Chronic obstructive pulmonary disease with (acute) exacerbation Flory Warren, [facility] 07/24/2021 I48.21 Permanent atrial fibrillation An malvin Warren, [facility] 07/24/2021 D64.9 Anemia, unspecified Flory Warren, [facility] 07/24/2021 R79.1 Abnormal coagulation profile Flory Warren, [facility] 07/16/2021 Z51.81 Encounter for therapeutic drug l evel monitoring Flory Warren [facility] 07/16/2021 Z51.81 Encounter for therapeutic drug l evel monitoring Protime 07/16/2021 Z79.01 correction (current) use of antic oagulants Flory Warren, [facility] 07/16/2021 Z79.01 correction (current) use of antic oagulants Protime 07/16/2021 I48.21 Permanent atrial fibrillation An malvin Warren [facility] 07/16/2021 I48.21 Permanent atrial fibrillation An malvin Warren, [facility] 07/16/2021 I48.21 Permanent atrial fibrillation Pr otime 07/16/2021 Z79.01 correction (current) use of antic oagulants Flory Warren, [facility] 07/16/2021 N17.9 Acute kidney failure, unspecifie d Flory Warren, [facility] 07/16/2021 I13.0 Hypertensive heart a nd chronic kidney disease with heart failure and stage 1 through stage 4 chronic kidney disease, or unspecified chronic kidney disease Flory Warren, [facility] 07/16/2021 I50.33 Acute on chronic diastolic (amaya estive) heart failure Flory Warren, [facility] 07/16/2021 N18.31 Chronic kidney disease, stage 3a Flory Warren, [facility] 07/16/2021 J44.9 Chronic obstructive pulmonary di sease, unspecified Flory Warren, [facility] 07/16/2021 E11.65 Type 2 diabetes mellitus with hy perglycemia Flory Warren, [facility] 07/16/2021 Z79.84 buttermaker (current) use of oral hypoglycemic drugs Flory Warren, [facility] 07/16/2021 E66.01 Morbid (severe) obesity due to e xcess calories Flory Warren, [facility] 07/16/2021 Z68.42 Body mass index [BMI] 45.0-49.9, adult Flory Warren, [facility] 06/30/2021 I11.9 Hypertensive heart disease witho ut heart failure Flory Warren, [facility] 06/30/2021 I48.21 Permanent atrial fibrillation An n Ktahrine Mazariegos, [facility] 06/30/2021 Z51.81 Encounter for therapeutic drug l evel monitoring Flory Warren, [facility] 06/30/2021 Z79.01 correction (current) use of antic oagulants Flory Warren, [facility] 06/30/2021 J44.9 Chronic obstructive pulmonary di sease, unspecified Flory Kathrine Mazariegos, [facility] 06/30/2021 Z51.81 [facility] E11.65 Type 2 diabetes mellitus with hy perglycemia Flory Kathrine Mazariegos, [facility] 06/30/2021 E11.40 Type 2 diabetes jl itus with diabetic neuropathy, unspecified Flory Kathrine Mazariegos, [facility] 06/30/2021 Z79.84 correction (current) use of oral hypoglycemic drugs Flory Warren, [facility] 06/30/2021 Z79.01 correction (current) use of antic oagulants Flory Warren, [facility] 06/30/2021 E66.01 Morbid (severe) obesity due to e xcess calories Flory Warren, [facility] 06/30/2021 B35.4 Tinea corporis Flory Warren, [facility] 06/30/2021 Z79.01 correction (current) use of antic oagulants Protime 06/30/2021 Z68.42 Body mass index [BMI] 45.0-49.9, adult Flory Warren, [facility] 06/30/2021 I48.21 Permanent atrial fibrillation An malvin Warren, [facility] 06/30/2021 I48.21 Permanent atrial fibrillation Pr otime 05/26/2021 Z51.81 Encounter for therapeutic drug l evel monitoring Flory Warren, [facility] 05/26/2021 Z51.81 Encounter for therapeutic drug l evel monitoring Protime 05/26/2021 Z79.01 buttermaker (current) use of antic oagulants Flory Warren, [facility] 05/26/2021 Z79.01 correction (current) use of antic oagulants Protime 05/26/2021 I48.21 Permanent atrial fibrillation An n Kathrine Mazariegos, [facility] 05/26/2021 I48.21 Permanent atrial fibrillation Pr otime 05/12/2021 Z51.81 Encounter for therapeutic drug l evel monitoring Flory Warren, [facility] 05/12/2021 Z51.81 Encounter for therapeutic drug l evel monitoring Protime 05/12/2021 Z79.01 buttermaker (current) use of antic oagulants Flory Warren, [facility] 05/12/2021 Z79.01 correction (current) use of antic oagulants Protime 05/12/2021 I48.21 Permanent atrial fibrillation An malvin Warren, [facility] 05/12/2021 I48.21 Permanent atrial fibrillation Pr otime 04/10/2021 Z51.81 Encounter for therapeutic drug l evel monitoring Flory Warren, [facility] 04/10/2021 Z51.81 Encounter for therapeutic drug l evel monitoring Protime 04/10/2021 I48.21 Permanent atrial fibrillation An n [place], [facility] 04/10/2021 I11.9 Hypertensive heart disease witho ut heart failure Flory Warren, [facility] 04/10/2021 Z79.01 correction (current) use of antic oagulants Flory Warren, [facility] 04/10/2021 I48.21 Permanent atrial fibrillation Pr otime 04/10/2021 J44.9 Chronic obstructive pulmonary di sease, unspecified Flory Warren, [facility] 04/10/2021 Z79.01 buttermaker (current) use of antic oagulants Protime 04/10/2021 I48.21 Permanent atrial fibrillation An malvin Warren, [facility] 04/10/2021 Z79.01 buttermaker (current) use of antic oagulants Flory Warren, [facility] 04/10/2021 E11.65 Type 2 diabetes mellitus with hy perglycemia Flory Warren, [facility] 04/10/2021 E11.40 Type 2 diabetes jl itus with diabetic neuropathy, unspecified Flroy Warren, [facility] 04/10/2021 E66.01 Morbid (severe) obesity due to e xcess calories Flory Warren, [facility] 04/10/2021 Z68.42 Body mass index [BMI] 45.0-49.9, adult Flory Wraren, [facility] 03/09/2021 Z51.81 Encounter for therapeutic drug l evel monitoring Flory Warren, [facility] 03/09/2021 Z51.81 Encounter for therapeutic drug l evel monitoring Protime 03/09/2021 I48.21 Permanent atrial fibrillation An malvin aWrren, [facility] 03/09/2021 I48.21 Permanent atrial fibrillation Pr otime 03/09/2021 Z79.01 buttermaker (current) use of antic oagulants Flory Warren, [facility] 03/09/2021 Z79.01 correction (current) use of antic oagulants Protime 02/10/2021 Z51.81 Encounter for therapeutic drug l evel monitoring Flory Warren, [facility] 02/10/2021 Z51.81 Encounter for therapeutic drug l evel monitoring Protime 02/10/2021 I48.21 Permanent atrial fibrillation An malvin Warren, [facility] 02/10/2021 I48.21 Permanent atrial fibrillation Pr otime 02/10/2021 Z79.01 correction (current) use of antic oagulants IDALIA Rivera 02/10/2021 Z79.01 buttermaker (current) use of antic oagulants Protime Plan of Treatment Future Appointment(s):* 08/05/2021 8:30 am - [facility] at [facility] * 08/05/2021 9:40 am - IDALIA Rivera at [facility] * 10/06/2021 9:20 am - IDALIA Rivera at [facility] * 08/07/2021 10:45 am - [facility] at [facility] * 01/22/2022 10:40 am - IDALIA Rivera at [facility] * 01/22/2022 10:20 am - Nurse #[address] [facility] 07/28/2021 - IDALIA Rivera* J44.1 Chronic [...]
--- OUTSIDE RECORDS SUMMARY | 2021-09-07 11:19 | CCD | Continuity of Care Document ---
Author Author Tony Rivera Organization Unknown Address [address] [place] [id number] Phone [phone] Care Team Providers Care Accredited Farm Manager Name Role Phone Flory Finch AUTM [phone] Problems Active Problems Provider Date Atrial fibrillation [...] [facility] day [facility] Prednisone 10mg Tablets 4 every day x 3 days,3 every day x 3 days, 2 every day x 3 days, then 1 tablet x 3 days then discontinue 30tabs Flory Warren [facility] 07/21/2021 Guaifenesin ac 100-10mg/5ML Syrup 5 milliliters every 6 hour, 10 milliliters at bedtime 120ml Robyn Cuadra, [facility] 07/20/2021 Atenolol 50mg Tablets 1 by mouth every day 90tabs [facility]/16[facility]2021 Ketoconazole 2% Cream apply to rash under arms two times a day for 14 days 60gm Flory Warren [facility] 06/30/2021 Amlodipine Besylate 5mg Tablets Take One Tablet By Mouth Every Day 30tabs I11.9 Flory Warren [facility] 01/16 Rosuvastatin Calcium 40mg Tablets Take One Tablet By Mouth Every Day 90tabs [facility]/16 Fluticasone Propionate/Salmeterol Diskus 250-50mcg/Dose Aerosol Inhale 1 puff By Mouth Two Times A Day 180units Flory Warren [facility] 10/03/2020 Lisinopril 40mg Tablets 1 by mouth every day 90tabs Flory Warren [facility] 11/29/2019 Proventil HFA 108(90Base) mcg/Act Aerosol 2 puffs four times a day for one week then as needed for cough 1units I48.2 Flory Warren [facility] 09/09/2015 Warfarin Sodium 6mg Tablets take 1 or 2 tablets by mouth daily as directed 60tabs Flory Warren [facility] 12/16/2009 Warfarin Sodium 1mg Tablets take 1-3 tablets by mouth daily as directed 100tabs Flory Warren [facility] 10/21/2009 History Medications Fluconazole 100mg Tablets one daily x 7 days 7tabs Flory Warren [facility] 06/30/2021 - Medications Administered in Office Medication SIG Qnty Indications Ordering Provider Date Administration Of Flu Vaccine Inj ection Quirino Soler MD 09/12/2020 Administration Of Flu Vaccine Inj ection Flory Warren [facility] 09/18/2019 Immunization Adminstration,1 Vaccine/Tox oid Injection Flory Kathrine Mazariegos, [facility] 05/01/2019 Administration Of Flu Vaccine Inj ection Flory Chisholm Yair, [facility] 10/03/2018 Immunizations CPT Code Status Date Vaccine Lot # [id number] Given 01/16/2021 Pneumovax 23 [id number] 06669 Given 09/12/2020 Influenza Vaccin e Quadrivalent Preser/Antibiotic Free Im Use [id number] 74201 Given 09/18/2019 Influenza Vaccin e Quadrivalent Preser/Antibiotic Free Im Use [id number] 53253 Given 05/01/2019 Adacel- Tetanus Diphtheria P ertussis (Age64 & Under) [id number] 43300 Given 10/03/2018 Influenza Virus Vaccine, Quadrivalent ([id number]), Derived From 8 Given 09/14/2017 Influenza Vaccin e Quadrivalent Preser/Antibiotic Free Im Use [id number] 54926 Given 12/16/2016 Prevnar 13 [id number] Given 09/07/2016 Fluvirin Virus Vaccine [id number] 01 Q2037 Given 09/09/2015 Fluvirin Virus Vaccine Q2037 Given 09/09/2015 Fluvirin Virus Vaccine 50081 01 Q2037 Given 09/10/2014 Fluvirin Virus Vaccine [id number] 21 65147 Given 11/29/2013 Pneumovax 23 [id number] Q2037 Given 09/06/2013 Fluvirin Virus Vaccine Q2037 [...] H/L Range Note Basic Metabolic Panel 07/28/2021 [facility] Needle Polisher: [place] [address] [phone] Glucose 95 mg/dL 74 - 99 1 [...] mL/min >60 2 Complete Blood Count 07/28/2021 [facility] Needle Polisher: [place] [address] [phone] WBC 11.2 x10*3/UL High 4.1 - 10.9 [...] 07/28/2021 [facility] Inr 1.6 Prothrombin Time/Inr 07/24/2021 [facility] enter [address] [place] [address] [phone] Prothrombin Time 43.8 seconds High 12.7-14.5 Inr 4.63 Normal 3 Laboratory test finding 07/24/2021 [facility] Inr 5.6 Complete Blood Count 07/24/2021 [facility] Needle Polisher: [place] [address] [phone] WBC 9.6 x10*3/UL 4.1 - 10.9 RBC [...] 2.0 - 7.8 Basic Metabolic Panel 07/16/2021 [facility] Needle Polisher: [place] [address] [phone] Glucose 124 mg/dL High 74 - 99 [...] Wi-Inr Inr 2.8 Complete Blood Count 06/30/2021 [facility] Needle Polisher: [place] [address] [phone] WBC 7.5 x10*3/UL 4.1 - 10.9 RBC [...] 2.0 - 7.8 Basic Metabolic Panel 06/30/2021 [facility] Needle Polisher: [place] [address] [phone] Glucose 105 mg/dL High 74 - 99 [...] Wi-Inr Inr 2.5 Complete Blood Count 04/10/2021 [facility] Needle Polisher: [place] [address] [phone] WBC 6.8 x10*3/UL 4.1 - 10.9 RBC [...] 2.0 - 7.8 Basic Metabolic Panel 04/10/2021 [facility] Needle Polisher: [place] [address] [phone] Glucose 100 mg/dL High 74 - 99 [...] LITTLE GFR LEFT ESRD GFR <15 ON PAVING SUPERVISOR 3 THERAPUTIC HUMAN INR VALUES INDICATIONS [...] LITTLE GFR LEFT ESRD GFR <15 ON PAVING SUPERVISOR 8 100-125 mg/dL PRE-DIABET ES/FASTING >126 mg/dL DIABETES/FASTING 9 CHRONIC KIDNEY DISEASE STAGI NG PER NKF STAGE I & II GFR >= 60 NORMAL TO MILDLY DECREASED STAGE III GFR 30-59 MODERATELY DECREASED STAGE IV GFR 15-29 SEVERELY DECREASED STAGE V GFR <15 VERY LITTLE GFR LEFT ESRD GFR <15 ON PAVING SUPERVISOR 10 100-125 mg/dL PRE-DIABET ES/FASTING >126 mg/dL DIABETES/FASTING 11 CHRONIC KIDNEY DISEASE STAGI NG PER NKF STAGE I & II GFR >= 60 NORMAL TO MILDLY DECREASED STAGE III GFR 30-59 MODERATELY DECREASED STAGE IV GFR 15-29 SEVERELY DECREASED STAGE V GFR <15 VERY LITTLE GFR LEFT ESRD GFR <15 ON PAVING SUPERVISOR Procedures Date Code Description Status 07/28/2021 99755 Office/Outpatient Established Lo w MDM 20-29 Min Completed 07/24/2021 92813 Office/Outpatient Established Lo w MDM 20-29 Min Completed 07/16/2021 89324 German Cre SRV W/I 7 Days Of DC, C omm W/I 2 Dys Med Rec Completed 06/30/2021 38970 Office/Outpatient Established Mo d MDM 30-39 Min Completed 04/10/2021 05030 Office/Outpatient Established Lo w MDM 20-29 Min Completed 05/03/2016 [id number] Colonoscopy Completed Medical Devices Description No Information Available Encounters Type Date Location Provider Dx Diagnosis Office Visit 07/[facility]2021 [facility] ANALYTICAL TECHNICIAN J44.1 Chronic obstructive pulmonary disease w (acute) exacerbation I50.33 Acute on chronic diastolic ( congestive) heart failure I48.21 Permanent atrial fibrillatio n D64.9 Anemia, unspecified Office Visit 07/24/2021 11:20a [facility], ANALYTICAL TECHNICIAN I50.33 Acute on chronic diastolic (congestive) heart failure Z87.891 Personal history of nicotine dependence J44.1 Chronic obstructive pulmonar y disease w (acute) exacerbation I48.21 Permanent atrial fibrillatio n D64.9 Anemia, unspecified R79.1 Abnormal coagulation profile Office Visit 07/16/2021 11:20a [facility], ANALYTICAL TECHNICIAN I48.21 Permanent atrial fibrillation 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 N17.9 Acute kidney failure, unspec ified I13.0 Hyp hrt & chr kdny dis w hrt fail and stg 1-4/unsp chr kdny I50.33 Acute on chronic diastolic ( congestive) heart failure N18.31 Chronic kidney disease, stag e 3a J44.9 Chronic obstructive pulmonar y disease, unspecified E11.65 Type 2 diabetes mellitus wit h hyperglycemia Z79.84 FDC (current) use of o ral hypoglycemic drugs E66.01 Morbid (severe) obesity due to excess calories Z68.42 Body mass index [BMI] 45.0-4 9.9, adult Office Visit 06/30/2021 9:40a [facility], ANALYTICAL TECHNICIAN I11.9 Hypertensive heart disease without heart failure I48.21 Permanent atrial fibrillatio n Z79.01 FDC (current) use of a nticoagulants J44.9 Chronic obstructive pulmonar y disease, unspecified E11.65 Type 2 diabetes mellitus wit h hyperglycemia E11.40 Type 2 diabetes mellitus wit h diabetic neuropathy, unsp Z79.84 FDC (current) use of o ral hypoglycemic drugs E66.01 Morbid (severe) obesity due to excess calories B35.4 Tinea corporis Z68.42 Body mass index [BMI] 45.0-4 9.9, adult Office Visit 04/10/2021 11:00a [facility], ANALYTICAL TECHNICIAN I11.9 Hypertensive heart disease without heart failure J44.9 Chronic obstructive pulmonar y disease, unspecified I48.21 Permanent atrial fibrillatio n 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 E11.65 Type 2 diabetes mellitus wit h hyperglycemia E11.40 Type 2 diabetes mellitus wit h diabetic neuropathy, [facility] E[facility].01 Morbid (severe) obesity due to excess calories Z68.42 Body mass index [BMI] 45.0-4 9.9, adult Assessments Date Code Description Provider 07/28/2021 I48.21 Permanent atrial fibrillation Pr otime 07/28/2021 J44.1 Chronic obstructive pulmonary disease with (acute) exacerbation Flory Warren, [facility] 07/28/2021 Z51.81 Encounter for therapeutic drug l evel monitoring Protime 07/28/2021 I50.33 Acute on chronic diastolic (amaya estive) heart failure Flory Warren, [facility] 07/28/2021 I48.21 Permanent atrial fibrillation An malvin Warren, [facility] 07/28/2021 D64.9 Anemia, unspecified lFory Warren, [facility] 07/24/2021 I50.33 Acute on chronic diastolic (amaya estive) heart failure Flory Warren, [facility] 07/24/2021 Z87.891 Personal history of nicotine dep endence Flory Warren, [facility] 07/24/2021 J44.1 Chronic obstructive pulmonary disease with (acute) exacerbation Flory Warren, [facility] 07/24/2021 I48.21 Permanent atrial fibrillation An malvin Warren, [facility] 07/24/2021 D64.9 Anemia, unspecified Flory Warren, [facility] 07/24/2021 R79.1 Abnormal coagulation profile Flory Warren, [facility] 07/16/2021 Z51.81 Encounter for therapeutic drug l evel monitoring Flory Warren [facility] 07/16/2021 Z51.81 Encounter for therapeutic drug l evel monitoring Protime 07/16/2021 Z79.01 FDC (current) use of antic oagulants Flory Warren, [facility] 07/16/2021 Z79.01 FDC (current) use of antic oagulants Protime 07/16/2021 I48.21 Permanent atrial fibrillation An malvin Warren [facility] 07/16/2021 I48.21 Permanent atrial fibrillation An malvin Warren, [facility] 07/16/2021 I48.21 Permanent atrial fibrillation Pr otime 07/16/2021 Z79.01 FDC (current) use of antic oagulants Flory Warren, [facility] 07/16/2021 N17.9 Acute kidney failure, unspecifie d Flory Warren, [facility] 07/16/2021 I13.0 Hypertensive heart a nd chronic kidney disease with heart failure and stage 1 through stage 4 chronic kidney disease, or unspecified chronic kidney disease Flory Warren, [facility] 07/16/2021 I50.33 Acute on chronic diastolic (amaya estive) heart failure Flory Warren, [facility] 07/16/2021 N18.31 Chronic kidney disease, stage 3a Flory Warren, [facility] 07/16/2021 J44.9 Chronic obstructive pulmonary di sease, unspecified Flory Warren, [facility] 07/16/2021 E11.65 Type 2 diabetes mellitus with hy perglycemia Flory Warren, [facility] 07/16/2021 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 drugs Flory Warren, [facility] 07/16/2021 E66.01 Morbid (severe) obesity due to e xcess calories Flory Warren, [facility] 07/16/2021 Z68.42 Body mass index [BMI] 45.0-49.9, adult Flory Warren, [facility] 06/30/2021 I11.9 Hypertensive heart disease witho ut heart failure Flory Warren, [facility] 06/30/2021 I48.21 Permanent atrial fibrillation An n Kathrine Mazariegos, [facility] 06/30/2021 Z51.81 Encounter for therapeutic drug l evel monitoring Flory Warren, [facility] 06/30/2021 Z79.01 FDC (current) use of antic oagulants Flory Warren, [facility] 06/30/2021 J44.9 Chronic obstructive pulmonary di sease, unspecified Flory Kathrine Mazariegos, [facility] 06/30/2021 Z51.81 [facility] E11.65 Type 2 diabetes mellitus with hy perglycemia Flory Kathrine Mazariegos, [facility] 06/30/2021 E11.40 Type 2 diabetes jl itus with diabetic neuropathy, unspecified Flory Kathrine Mazariegos, [facility] 06/30/2021 Z79.84 FDC (current) use of oral hypoglycemic drugs Flory Warren, [facility] 06/30/2021 Z79.01 FDC (current) use of antic oagulants Flory Warren, [facility] 06/30/2021 E66.01 Morbid (severe) obesity due to e xcess calories Flory Warren, [facility] 06/30/2021 B35.4 Tinea corporis Flory Warren, [facility] 06/30/2021 Z79.01 FDC (current) use of antic oagulants Protime 06/30/2021 Z68.42 Body mass index [BMI] 45.0-49.9, adult Flory Warren, [facility] 06/30/2021 I48.21 Permanent atrial fibrillation An malvin Warren, [facility] 06/30/2021 I48.21 Permanent atrial fibrillation Pr otime 05/26/2021 Z51.81 Encounter for therapeutic drug l evel monitoring Flory Warren, [facility] 05/26/2021 Z51.81 Encounter for therapeutic drug l evel monitoring Protime 05/26/2021 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 Flory Warren, [facility] 05/26/2021 Z79.01 FDC (current) use of antic oagulants Protime 05/26/2021 I48.21 Permanent atrial fibrillation An n Kathrine Mazariegos, [facility] 05/26/2021 I48.21 Permanent atrial fibrillation Pr otime 05/12/2021 Z51.81 Encounter for therapeutic drug l evel monitoring Flory Warren, [facility] 05/12/2021 Z51.81 Encounter for therapeutic drug l evel monitoring Protime 05/12/2021 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 Flory Warren, [facility] 05/12/2021 Z79.01 FDC (current) use of antic oagulants Protime 05/12/2021 I48.21 Permanent atrial fibrillation An malvin Warren, [facility] 05/12/2021 I48.21 Permanent atrial fibrillation Pr otime 04/10/2021 Z51.81 Encounter for therapeutic drug l evel monitoring Flory Warren, [facility] 04/10/2021 Z51.81 Encounter for therapeutic drug l evel monitoring Protime 04/10/2021 I48.21 Permanent atrial fibrillation An n [place], [facility] 04/10/2021 I11.9 Hypertensive heart disease witho ut heart failure Flory Warren, [facility] 04/10/2021 Z79.01 FDC (current) use of antic oagulants Flory Warren, [facility] 04/10/2021 I48.21 Permanent atrial fibrillation Pr otime 04/10/2021 J44.9 Chronic obstructive pulmonary di sease, unspecified Flory Warren, [facility] 04/10/2021 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 Protime 04/10/2021 I48.21 Permanent atrial fibrillation An malvin Warren, [facility] 04/10/2021 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 Flory Warren, [facility] 04/10/2021 E11.65 Type 2 diabetes mellitus with hy perglycemia Flory Warren, [facility] 04/10/2021 E11.40 Type 2 diabetes jl itus with diabetic neuropathy, unspecified Flory Warren, [facility] 04/10/2021 E66.01 Morbid (severe) obesity due to e xcess calories Flory Warren, [facility] 04/10/2021 Z68.42 Body mass index [BMI] 45.0-49.9, adult Flory Warren, [facility] 03/09/2021 Z51.81 Encounter for therapeutic drug l evel monitoring Flory Warren, [facility] 03/09/2021 Z51.81 Encounter for therapeutic drug l evel monitoring Protime 03/09/2021 I48.21 Permanent atrial fibrillation An malvin Warren, [facility] 03/09/2021 I48.21 Permanent atrial fibrillation Pr otime 03/09/2021 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 Flory Warren, [facility] 03/09/2021 Z79.01 FDC (current) use of antic oagulants Protime 02/10/2021 Z51.81 Encounter for therapeutic drug l evel monitoring Flory Warren, [facility] 02/10/2021 Z51.81 Encounter for therapeutic drug l evel monitoring Protime 02/10/2021 I48.21 Permanent atrial fibrillation An malvin Warren, [facility] 02/10/2021 I48.21 Permanent atrial fibrillation Pr otime 02/10/2021 Z79.01 FDC (current) use of antic oagulants IDALIA Rivera 02/10/2021 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 * 08/05/2021 9:40 am - IDALIA Rivera at [facility] * 10/06/2021 9:20 am - IDALIA Rivera at [facility] * 08/07/2021 10:45 am - [facility] at [facility] * 01/22/2022 10:40 am - IDALIA Rivera at [facility] * 01/22/2022 10:20 am - Nurse #2 at [facility] 07/28/2021 - IDALIA Rivera* J44.1 Chronic [...]
--- OUTSIDE RECORDS SUMMARY | 2021-09-07 11:19 | CCD | Continuity of Care Document ---
Author Author Tony Rivera Organization Unknown Address [address] [address] Phone [phone] Care Team Providers Care It Business Process Architect Name Role Phone Flory Finch AUTM [phone] Problems Active Problems Provider Date Atrial fibrillation [...] daily by mouth every day [facility] Guaifenesin ac 100-10mg/5ML Syrup 5 milliliters every 6 hour, 10 milliliters at bedtime 120ml Robyn Cuadra, ANP 07/20/2021 Atenolol 50mg Tablets 1 by mouth every day 90tabs [facility] 07/16/2021 Ketoconazole 2% Cream apply to rash under arms two times a day for 14 days 60gm [facility]2021 Amlodipine Besylate 5mg Tablets Take One Tablet By Mouth Every Day 30tabs I11.9 Flory Warren [facility] 01/16 Rosuvastatin Calcium 40mg Tablets Take One Tablet By Mouth Every Day 90tabs [facility]/16 Fluticasone Propionate/Salmeterol Diskus 250-50mcg/Dose Aerosol Inhale 1 puff By Mouth Two Times A Day 180units [facility] 10/03/2020 Lisinopril 40mg Tablets 1 by mouth every day 90tabs [facility] 11/29/2019 Proventil HFA 108(90Base) mcg/Act Aerosol 2 puffs four times a day for one week then as needed for cough 1units I48.2 [facility] 09/09/2015 Warfarin Sodium 6mg Tablets take 1 or 2 tablets by mouth daily as directed 60tabs Flory Warren [facility] 12/16/2009 Warfarin Sodium 1mg Tablets take 1-3 tablets by mouth daily as directed 100tabs Flory Warren [facility] 10/21/2009 History Medications Prednisone 10mg Tablets 4 every day x 3 days,3 every day x 3 days, 2 every day x 3 days, then 1 tablet x 3 days then discontinue 30tabs Flory Warren [facility] 07/21/2021 - Fluconazole 100mg Tablets one daily x 7 days 7tabs Flory Warren [facility] 06/30/2021 - Medications Administered in Office Medication SIG Qnty Indications Ordering Provider Date Administration Of Flu Vaccine Inj ection Quirino Soler MD 09/12/2020 Administration Of Flu Vaccine Inj ection Flory Warren, [facility] 09/18/2019 Immunization Adminstration,1 Vaccine/Tox oid Injection Flory Warren, [facility] 05/01/2019 Administration Of Flu Vaccine Inj ection Flory Warren, [facility] 10/03/2018 Immunizations CPT Code Status Date Vaccine Lot # [id number] Given 01/16/2021 Pneumovax 23 [id number] Given 09/12/2020 Influenza Vaccin e Quadrivalent Preser/Antibiotic Free Im Use [id number] 58400 Given 09/18/2019 Influenza Vaccin e Quadrivalent Preser/Antibiotic Free Im Use [id number] 34349 Given 05/01/2019 Adacel- Tetanus Diphtheria P ertussis (Age64 & Under) [id number] 55559 Given 10/03/2018 Influenza Virus Vaccine, Quadrivalent ([id number]), Derived From 4 Given 09/14/2017 Influenza Vaccin e Quadrivalent Preser/Antibiotic Free Im Use [id number] 04095 Given 12/16/2016 Prevnar 13 Q2037 Given 09/07/2016 Fluvirin Virus Vaccine 00771 01 Q2037 Given 09/09/2015 Fluvirin Virus Vaccine Q2037 Given 09/09/2015 Fluvirin Virus Vaccine 99691 01 Q2037 Given 09/10/2014 Fluvirin Virus Vaccine 21068 21 75392 Given 11/29/2013 Pneumovax 23 [id number] Q2037 Given 09/06/2013 Fluvirin Virus Vaccine Q2037 [...] H/L Range Note Basic Metabolic Panel 07/28/2021 [facility] Planer Tender: [place] [address] [phone] Glucose 95 mg/dL 74 - 99 1 [...] mL/min >60 2 Complete Blood Count 07/28/2021 [facility] Plan[facility] Tender: [place] [address] [phone] WBC 11.2 x10*3/UL High 4.1 - 10.9 [...] 07/28/2021 [facility] Inr 1.6 Prothrombin Time/Inr 07/24/2021 [facility] [address] [place] [address] [phone] Prothrombin Time 43.8 seconds High 12.7-14.5 Inr 4.63 Normal 3 Laboratory test finding 07/24/2021 [facility] Inr 5.6 Complete Blood Count 07/24/2021 [facility] Stave Planer Tender: [place] [address] [phone] WBC 9.6 x10*3/UL 4.1 - 10.9 RBC [...] 2.0 - 7.8 Basic Metabolic Panel 07/16/2021 [facility] Planer Tender: Dr Quirino Soler [place], [place] [id number] [phone] Glucose 124 mg/dL High 74 - 99 [...] Wi-Inr Inr 2.8 Complete Blood Count 06/30/2021 [facility] Stave Planer Tender: [place] [address] [phone] WBC 7.5 x10*3/UL 4.1 - 10.9 RBC [...] 2.0 - 7.8 Basic Metabolic Panel 06/30/2021 [facility] Stave Planer Tender: [place] [address] [phone] Glucose 105 mg/dL High 74 - 99 [...] Wi-Inr Inr 2.5 Complete Blood Count 04/10/2021 [facility] Stave Planer Tender: [place] [address] [phone] WBC 6.8 x10*3/UL 4.1 - 10.9 RBC [...] 2.0 - 7.8 Basic Metabolic Panel 04/10/2021 [facility] Planer Tender: Dr Quirino Soler [place], [place] [id number] [phone] Glucose 100 mg/dL High 74 - 99 [...] LITTLE GFR LEFT ESRD GFR <15 ON RECEIVING ROOM CLERK 3 THERAPUTIC HUMAN INR VALUES INDICATIONS NORMAL [...] LITTLE GFR LEFT ESRD GFR <15 ON RECEIVING ROOM CLERK 8 100-125 mg/dL PRE-DIABET ES/FASTING >126 mg/dL DIABETES/FASTING 9 CHRONIC KIDNEY DISEASE STAGI NG PER NKF STAGE I & II GFR >= 60 NORMAL TO MILDLY DECREASED STAGE III GFR 30-59 MODERATELY DECREASED STAGE IV GFR 15-29 SEVERELY DECREASED STAGE V GFR <15 VERY LITTLE GFR LEFT ESRD GFR <15 ON RECEIVING ROOM CLERK 10 100-125 mg/dL PRE-DIABET ES/FASTING >126 mg/dL DIABETES/FASTING 11 CHRONIC KIDNEY DISEASE STAGI NG PER NKF STAGE I & II GFR >= 60 NORMAL TO MILDLY DECREASED STAGE III GFR 30-59 MODERATELY DECREASED STAGE IV GFR 15-29 SEVERELY DECREASED STAGE V GFR <15 VERY LITTLE GFR LEFT ESRD GFR <15 ON RECEIVING ROOM CLERK Procedures Date Code Description Status 08/05/2021 61323 Office/Outpatient Established Lo w MDM 20-29 Min Completed 07/28/2021 60319 Office/Outpatient Established Mo d MDM 30-39 Min Completed 07/24/2021 05450 Office/Outpatient Established Lo w MDM 20-29 Min Completed 07/16/2021 05405 German Cre SRV W/I 7 Days Of DC, C omm W/I 2 Dys Med Rec Completed 06/30/2021 35975 Office/Outpatient Established Mo d MDM 30-39 Min Completed 04/10/2021 55424 Office/Outpatient Established Lo w MDM 20-29 Min Completed 05/03/2016 [id number] Colonoscopy Completed Medical Devices Description No Information Available Encounters Type Date Location Provider Dx Diagnosis Office Visit 08/05/2021 9:40a [facility], Danny Pearson, MANAGER TRAVEL I50.9 Heart failure, unspecified I48.21 Permanent atrial fibrillatio n J44.9 Chronic obstructive pulmonar y disease, unspecified Z79.01 director talent (current) use of a nticoagulants Office Visit 07/28/2021 8:20a [facility] Pearson, MANAGER TRAVEL J44.1 Chronic obstructive pulmonary disease w (acute) exacerbation I50.33 Acute on chronic diastolic ( congestive) heart failure I48.21 Permanent atrial fibrillatio n D64.9 Anemia, unspecified Office Visit 07/24/2021 11:20a [facility] PJuliet Pearson, MANAGER TRAVEL I50.33 Acute on chronic diastolic (congestive) heart failure Z87.891 Personal history of nicotine dependence J44.1 Chronic obstructive pulmonar y disease w (acute) exacerbation I48.21 Permanent atrial fibrillatio n D64.9 Anemia, unspecified R79.1 Abnormal coagulation profile Office Visit 07/16/2021 11:20a [facility] Pearson, MANAGER TRAVEL I48.21 Permanent atrial fibrillation Z79.01 FDC (current) use of a nticoagulants N17.9 Acute kidney failure, unspec ified I13.0 Hyp hrt & chr kdny dis w hrt fail and stg 1-4/unsp chr kdny I50.33 Acute on chronic diastolic ( congestive) heart failure N18.31 Chronic kidney disease, stag e 3a J44.9 Chronic obstructive pulmonar y disease, unspecified E11.65 Type 2 diabetes mellitus wit h hyperglycemia Z79.84 director talent (current) use of o ral hypoglycemic drugs E66.01 Morbid (severe) obesity due to excess calories Z68.42 Body mass index [BMI] 45.0-4 9.9, adult Office Visit 06/30/2021 9:40a [facility] Pearson, MANAGER TRAVEL I11.9 Hypertensive heart disease without heart failure I48.21 Permanent atrial fibrillatio n Z79.01 director talent (current) use of a nticoagulants J44.9 Chronic obstructive pulmonar y disease, unspecified E11.65 Type 2 diabetes mellitus wit h hyperglycemia E11.40 Type 2 diabetes mellitus wit h diabetic neuropathy, unsp Z79.84 director talent (current) use of o ral hypoglycemic drugs E66.01 Morbid (severe) obesity due to excess calories B35.4 Tinea corporis Z68.42 Body mass index [BMI] 45.0-4 9.9, adult Office Visit 04/10/2021 11:00a [facility] Flory Munoz ne, [facility] I11.9 Hypertensive heart disease without heart failure J44.9 Chronic obstructive pulmonar y disease, unspecified I48.21 Permanent atrial fibrillatio n Z79.01 FDC (current) use of a nticoagulants E11.65 Type 2 diabetes mellitus wit h hyperglycemia E11.40 Type 2 diabetes mellitus wit h diabetic neuropathy, unsp E66.01 Morbid (severe) obesity due to excess calories Z68.42 Body mass index [BMI] 45.0-4 9.9, adult Assessments Date Code Description Provider 08/05/2021 I50.9 Heart failure, unspecified Flory Mazariegos, [facility] 08/05/2021 I48.21 Permanent atrial fibrillation An malvin Warren, [facility] 08/05/2021 J44.9 Chronic obstructive pulmonary di sease, unspecified Flory Warren, [facility] 08/05/2021 Z79.01 director talent (current) use of antic oagulants Flory Warren [facility] 07/28/2021 I48.21 Permanent atrial fibrillation Pr otime 07/28/2021 J44.1 Chronic obstructive pulmonary disease with (acute) exacerbation Flory Warren [facility] 07/28/2021 Z51.81 Encounter for therapeutic drug l evel monitoring Protime 07/28/2021 I50.33 Acute on chronic diastolic (amaya estive) heart failure Flory Warren [facility] 07/28/2021 I48.21 Permanent atrial fibrillation An malvin Warren [facility] 07/28/2021 D64.9 Anemia, unspecified Flory Warren [facility] 07/24/2021 Z51.81 Encounter for therapeutic drug l evel monitoring Flory Warren [facility] 07/24/2021 Z51.81 Encounter for therapeutic drug l evel monitoring Protime 07/24/2021 Z79.01 FDC (current) use of antic oagulants Flory Warren [facility] 07/24/2021 D64.9 Anemia, unspecified Flory Warren, [facility] 07/24/2021 I48.21 Permanent atrial fibrillation An malvin Warren, [facility] 07/24/2021 Z79.01 FDC (current) use of antic oagulants Protime 07/24/2021 D64.9 Anemia, unspecified Lab Schedule 07/24/2021 I48.21 Permanent atrial fibrillation Pr otime 07/24/2021 R79.1 Abnormal coagulation profile Flory Warren, [facility] 07/24/2021 I50.33 Acute on chronic diastolic (amaya estive) heart failure Flory Warren, [facility] 07/24/2021 R79.1 Abnormal coagulation profile Lab Schedule 07/24/2021 Z87.891 Personal history of nicotine dep endence Flory Warren, [facility] 07/24/2021 J44.1 Chronic obstructive pulmonary disease with (acute) exacerbation Flory Warren, [facility] 07/24/2021 I48.21 Permanent atrial fibrillation An malvin Warren, [facility] 07/24/2021 D64.9 Anemia, unspecified Flory Warren, [facility] 07/24/2021 R79.1 Abnormal coagulation profile Flory Warren, [facility] 07/16/2021 Z51.81 Encounter for therapeutic drug l evel monitoring Flory Warren, [facility] 07/16/2021 Z51.81 Encounter for therapeutic drug l evel monitoring Protime 07/16/2021 Z79.01 director talent (current) use of antic oagulants Flory Warren, [facility] 07/16/2021 Z79.01 FDC (current) use of antic oagulants Protime 07/16/2021 I48.21 Permanent atrial fibrillation An malvin Warren, [facility] 07/16/2021 I48.21 Permanent atrial fibrillation An malvin Warren, [facility] 07/16/2021 I48.21 Permanent atrial fibrillation Pr otime 07/16/2021 Z79.01 director talent (current) use of antic oagulants Flory Warren, [facility] 07/16/2021 N17.9 Acute kidney failure, unspecifie d Flory Warren, [facility] 07/16/2021 I13.0 Hypertensive heart a nd chronic kidney disease with heart failure and stage 1 through stage 4 chronic kidney disease, or unspecified chronic kidney disease Flory Warren, [facility] 07/16/2021 I50.33 Acute on chronic diastolic (amaya estive) heart failure Flory Warren, [facility] 07/16/2021 N18.31 Chronic kidney disease, stage 3a Flory Warren, [facility] 07/16/2021 J44.9 Chronic obstructive pulmonary di sease, unspecified Flory Warren, [facility] 07/16/2021 E11.65 Type 2 diabetes mellitus with hy perglycemia Flory Warren, [facility] 07/16/2021 Z79.84 director talent (current) use of oral hypoglycemic drugs Flory Warren, [facility] 07/16/2021 E66.01 Morbid (severe) obesity due to e xcess calories Flory Warren, [facility] 07/16/2021 Z68.42 Body mass index [BMI] 45.0-49.9, adult Flory Warren, [facility] 06/30/2021 I11.9 Hypertensive heart disease witho ut heart failure Flory Warren, [facility] 06/30/2021 I48.21 Permanent atrial fibrillation An malvin Warren, [facility] 06/30/2021 Z51.81 Encounter for therapeutic drug l evel monitoring Flory Warren, [facility] 06/30/2021 Z79.01 FDC (current) use of antic oagulants Flory Warren, [facility] 06/30/2021 J44.9 Chronic obstructive pulmonary di sease, unspecified Flory Warren, [facility] 06/30/2021 Z51.81 Encounter for therapeutic drug l evel monitoring Protime 06/30/2021 E11.65 Type 2 diabetes mellitus with hy perglycemia Flory Warren, [facility] 06/30/2021 E11.40 Type 2 diabetes jl itus with diabetic neuropathy, unspecified Flory Kathrine Mazariegos, [facility] 06/30/2021 Z79.84 FDC (current) use of oral hypoglycemic drugs Flory Kathrine Mazariegos, [facility] 06/30/2021 Z79.01 FDC (current) use of antic oagulants Flory Warren, [facility] 06/30/2021 E66.01 Morbid (severe) obesity due to e xcess calories Flory Kathrine Mazariegos, [facility] 06/30/2021 B35.4 Tinea corporis Flory Kathrine Mazariegos, [facility] 06/30/2021 Z79.01 director talent (current) use of antic oagulants Protime 06/30/2021 Z68.42 Body mass index [BMI] 45.0-49.9, adult Flory Warren, [facility] 06/30/2021 I48.21 Permanent atrial fibrillation An malvin Warren, [facility] 06/30/2021 I48.21 Permanent atrial fibrillation Pr otime 05/26/2021 Z51.81 Encounter for therapeutic drug l evel monitoring Flory Warren, [facility] 05/26/2021 Z51.81 Encounter for therapeutic drug l evel monitoring Protime 05/26/2021 Z79.01 FDC (current) use of antic oagulants Flory Warren, [facility] 05/26/2021 Z79.01 director talent (current) use of antic oagulants Protime 05/26/2021 I48.21 Permanent atrial fibrillation An malvin Warren, [facility] 05/26/2021 I48.21 Permanent atrial fibrillation Pr otime 05/12/2021 Z51.81 Encounter for therapeutic drug l evel monitoring Flory Warren, [facility] 05/12/2021 Z51.81 Encounter for therapeutic drug l evel monitoring Protime 05/12/2021 Z79.01 director talent (current) use of antic oagulants Flory Warren, [facility] 05/12/2021 Z79.01 FDC (current) use of antic oagulants Protime 05/12/2021 I48.21 Permanent atrial fibrillation An malvin Warren, [facility] 05/12/2021 I48.21 Permanent atrial fibrillation Pr otime 04/10/2021 Z51.81 Encounter for therapeutic drug l evel monitoring Flory Warren, [facility] 04/10/2021 Z51.81 Encounter for therapeutic drug l evel monitoring Protime 04/10/2021 I48.21 Permanent atrial fibrillation An malvin Warren, [facility] 04/10/2021 I11.9 Hypertensive heart disease witho ut heart failure Flory Warren, [facility] 04/10/2021 Z79.01 FDC (current) use of antic oagulants Flory Warren, [facility] 04/10/2021 I48.21 Permanent atrial fibrillation Pr otime 04/10/2021 J44.9 Chronic obstructive pulmonary di sease, unspecified Flory Warren, [facility] 04/10/2021 Z79.01 FDC (current) use of antic oagulants Protime 04/10/2021 I48.21 Permanent atrial fibrillation An malvin Warren, [facility] 04/10/2021 Z79.01 director talent (current) use of antic oagulants Flory Warren, [facility] 04/10/2021 E11.65 Type 2 diabetes mellitus with hy perglycemia Flory Warren, [facility] 04/10/2021 E11.40 Type 2 diabetes jl itus with diabetic neuropathy, unspecified Flory Warren, [facility] 04/10/2021 E66.01 Morbid (severe) obesity due to e xcess calories Flory Warren, [facility] 04/10/2021 Z68.42 Body mass index [BMI] 45.0-49.9, adult Flory Warren, [facility] 03/09/2021 Z51.81 Encounter for therapeutic drug l evel monitoring Flory Warren, [facility] 03/09/2021 Z51.81 Encounter for therapeutic drug l evel monitoring Protime 03/09/2021 I48.21 Permanent atrial fibrillation An malvin Warren, [facility] 03/09/2021 I48.21 Permanent atrial fibrillation Pr otime 03/09/2021 Z79.01 director talent (current) use of antic oagulants Flory Warren, [facility] 03/09/2021 Z79.01 director talent (current) use of antic oagulants Protime 02/10/2021 Z51.81 Encounter for therapeutic drug l evel monitoring Flory Warren, [facility] 02/10/2021 Z51.81 Encounter for therapeutic drug l evel monitoring Protime 02/10/2021 I48.21 Permanent atrial fibrillation An malvin Warren, [facility] 02/10/2021 I48.21 Permanent atrial fibrillation Pr otime 02/10/2021 Z79.01 director talent (current) use of antic oagulants Flory Warren, [facility] 02/10/2021 Z79.01 FDC (current) use of antic oagulants Protime Plan of Treatment Future Appointment(s):* 08/12/2021 1:40 pm - IDALIA Rivera at [facility] * 10/06/2021 9:20 am - IDALIA Rivera at [facility] * 08/07/2021 10:45 am - Protime at [facility] * 01/22/2022 10:40 am - IDALIA Rivera at [facility] * 01/22/2022 10:20 am - Nurse #2 at [facility] 08/05/2021 - IDALIA Rivera* I50.9 [...] evidence of a thromboembolic event. * Z79.01 FDC (current) use of anticoagulants* Comments:* INR completed. [...]
--- OUTSIDE RECORDS SUMMARY | 2021-09-07 11:19 | CCD ---
Continuity of Care Document (CCD) Created on: 07/28/2021 ToreyTony External Reference #: [id number] : [id number] Sex: Male Author Author Tony Rivera Organization Unknown Address [address] [address] Phone [phone] Care Team Providers Care Lpta Name Role Phone Flory Finch [phone] [phone] Problems Active Problems Provider Date Atrial fibrillation [...] daily [facility] day [facility] Prednisone 10mg Tablets 4 every day x 3 days,3 every day x 3 days, 2 every day x 3 days, then 1 tablet x 3 days then discontinue 30tabs Flory Warren [facility] 07/21/2021 Guaifenesin ac 100-10mg/5ML Syrup 5 milliliters every 6 hour, 10 milliliters at bedtime 120ml Robyn Cuadra, [facility] 07/20/2021 Atenolol 50mg Tablets 1 by mouth every day 90tabs [facility]/16[facility]2021 Ketoconazole 2% Cream apply to rash under arms two times a day for 14 days 60gm Flory Warren [facility] 06/30/2021 Amlodipine Besylate 5mg Tablets Take One Tablet By Mouth Every Day 30tabs I11.9 Flory Warren [facility] 01/16 Rosuvastatin Calcium 40mg Tablets Take One Tablet By Mouth Every Day 90tabs [facility]/16 Fluticasone Propionate/Salmeterol Diskus 250-50mcg/Dose Aerosol Inhale 1 puff By Mouth Two Times A Day 180units Flory Warren [facility] 10/03/2020 Lisinopril 40mg Tablets 1 by mouth every day 90tabs Flory Warren [facility] 11/29/2019 Proventil HFA 108(90Base) mcg/Act Aerosol 2 puffs four times a day for one week then as needed for cough 1units I48.2 Flory Warren [facility] 09/09/2015 Warfarin Sodium 6mg Tablets take 1 or 2 tablets by mouth daily as directed 60tabs Flory Warren [facility] 12/16/2009 Warfarin Sodium 1mg Tablets take 1-3 tablets by mouth daily as directed 100tabs Flory Warren [facility] 10/21/2009 History Medications Fluconazole 100mg Tablets one daily x 7 days 7tabs Flory Warren [facility] 06/30/2021 - Medications Administered in Office Medication SIG Qnty Indications Ordering Provider Date Administration Of Flu Vaccine Inj ection Quirino Soler MD 09/12/2020 Administration Of Flu Vaccine Inj ection Flory Warren [facility] 09/18/2019 Immunization Adminstration,1 Vaccine/Tox oid Injection Flory Kathrine Mazariegos, [facility] 05/01/2019 Administration Of Flu Vaccine Inj ection Flory Chisholm Yair, [facility] 10/03/2018 Immunizations CPT Code Status Date Vaccine Lot # [id number] Given 01/16/2021 Pneumovax 23 [id number] Given 09/12/2020 Influenza Vaccin e Quadrivalent Preser/Antibiotic Free Im Use [id number] 68786 Given 09/18/2019 Influenza Vaccin e Quadrivalent Preser/Antibiotic Free Im Use [id number] 85605 Given 05/01/2019 Adacel- Tetanus Diphtheria P ertussis (Age64 & Under) [id number] 60898 Given 10/03/2018 Influenza Virus Vaccine, Quadrivalent ([id number]), Derived From 4 Given 09/14/2017 Influenza Vaccin e Quadrivalent Preser/Antibiotic Free Im Use [id number] 19355 Given 12/16/2016 Prevnar 13 Q2037 Given 09/07/2016 Fluvirin Virus Vaccine [id number] 01 Q2037 Given 09/09/2015 Fluvirin Virus Vaccine Q2037 Given 09/09/2015 Fluvirin Virus Vaccine 10225 01 Q2037 Given 09/10/2014 Fluvirin Virus Vaccine 67993 21 97609 Given 11/29/2013 Pneumovax 23 [id number] Q2037 Given 09/06/2013 Fluvirin Virus Vaccine Q2037 [...] H/L Range Note Basic Metabolic Panel 07/28/2021 [facility] [employer] Starter: [place] [address] [phone] Glucose 95 mg/dL 74 - 99 1 [...] mL/min >60 2 Complete Blood Count 07/28/2021 [facility] [employer] Starter: [place] [address] [phone] WBC 11.2 x10*3/UL High 4.1 - 10.9 [...] 07/28/2021 Wi-Inr Inr 1.6 Prothrombin Time/Inr 07/24/2021 [facility] [address] [place] [address] [phone] Prothrombin Time 43.8 seconds High 12.7-14.5 Inr 4.63 Normal 3 Laboratory test finding 07/24/2021 Wi[facility]Inr Inr 5.6 Complete Blood Count 07/24/2021 [facility] [employer] Starter: [place] [address] [phone] WBC 9.6 x10*3/UL 4.1 - 10.9 RBC [...] 2.0 - 7.8 Basic Metabolic Panel 07/16/2021 [facility] [employer] Starter: [place] [address] [phone] Glucose 124 mg/dL High 74 - 99 [...] Wi-Inr Inr 2.8 Complete Blood Count 06/30/2021 [facility] [employer] Starter: [place] [address] [phone] WBC 7.5 x10*3/UL 4.1 - 10.9 RBC [...] 2.0 - 7.8 Basic Metabolic Panel 06/30/2021 [facility] [employer] Starter: [place] [address] [phone] Glucose 105 mg/dL High 74 - 99 [...] Wi-Inr Inr 2.5 Complete Blood Count 04/10/2021 [facility] [employer] Starter: [place] [address] [phone] WBC 6.8 x10*3/UL 4.1 - 10.9 RBC [...] 2.0 - 7.8 Basic Metabolic Panel 04/10/2021 [facility] [employer] Starter: [place] [address] [phone] Glucose 100 mg/dL High 74 - 99 [...] LITTLE GFR LEFT ESRD GFR <15 ON PROFESSOR OF OCEANOGRAPHY 3 THERAPUTIC HUMAN INR VALUES INDICATIONS NORMAL [...] LITTLE GFR LEFT ESRD GFR <15 ON PROFESSOR OF OCEANOGRAPHY 8 100-125 mg/dL PRE-DIABET ES/FASTING >126 mg/dL DIABETES/FASTING 9 CHRONIC KIDNEY DISEASE STAGI NG PER NKF STAGE I & II GFR >= 60 NORMAL TO MILDLY DECREASED STAGE III GFR 30-59 MODERATELY DECREASED STAGE IV GFR 15-29 SEVERELY DECREASED STAGE V GFR <15 VERY LITTLE GFR LEFT ESRD GFR <15 ON PROFESSOR OF OCEANOGRAPHY 10 100-125 mg/dL PRE-DIABET ES/FASTING >126 mg/dL DIABETES/FASTING 11 CHRONIC KIDNEY DISEASE STAGI NG PER NKF STAGE I & II GFR >= 60 NORMAL TO MILDLY DECREASED STAGE III GFR 30-59 MODERATELY DECREASED STAGE IV GFR 15-29 SEVERELY DECREASED STAGE V GFR <15 VERY LITTLE GFR LEFT ESRD GFR <15 ON PROFESSOR OF OCEANOGRAPHY Procedures Date Code Description Status 07/28/2021 12944 Office/Outpatient Established Lo w MDM 20-29 Min Completed 07/16/2021 83267 [facility] Cre SRV W/I 7 Days Of DC, C omm W/I 2 Dys Med Rec Completed 06/30/2021 48416 Office/Outpatient Established Mo d MDM 30-39 Min Completed 04/10/2021 20528 Office/Outpatient Established Lo w MDM 20-29 Min Completed 05/03/2016 [id number] Colonoscopy Completed Medical Devices Description No Information Available Encounters Type Date Location Provider Dx Diagnosis Office Visit 07/28/2021 8:20a [facility] Flory Munoz ne, HARMONIC ANALYST J44.1 Chronic obstructive pulmonary disease w (acute) exacerbation I50.33 Acute on chronic diastolic ( congestive) heart failure I48.21 Permanent atrial fibrillatio n D64.9 Anemia, unspecified Office Visit 07/16/2021 11:20a [facility] Flory Munoz ne, HARMONIC ANALYST I48.21 Permanent atrial fibrillation Z79.01 alf (current) use of a nticoagulants N17.9 Acute kidney failure, unspec ified I13.0 Hyp hrt & chr kdny dis w hrt fail and stg 1-4/unsp chr kdny I50.33 Acute on chronic diastolic ( congestive) heart failure N18.31 Chronic kidney disease, stag e 3a J44.9 Chronic obstructive pulmonar y disease, unspecified E11.65 Type 2 diabetes mellitus wit h hyperglycemia Z79.84 termination clerk (current) use of o ral hypoglycemic drugs E66.01 Morbid (severe) obesity due to excess calories Z68.42 Body mass index [BMI] 45.0-4 9.9, adult Office Visit 06/30/2021 9:40a [facility] Flory Munoz ne, HARMONIC ANALYST I11.9 Hypertensive heart disease without heart failure I48.21 Permanent atrial fibrillatio n Z79.01 termination clerk (current) use of a nticoagulants J44.9 Chronic obstructive pulmonar y disease, unspecified E11.65 Type 2 diabetes mellitus wit h hyperglycemia E11.40 Type 2 diabetes mellitus wit h diabetic neuropathy, unsp Z79.84 alf (current) use of o ral hypoglycemic drugs E66.01 Morbid (severe) obesity due to excess calories B35.4 Tinea corporis Z68.42 Body mass index [BMI] 45.0-4 9.9, adult Office Visit 04/10/2021 11:00a [facility] Flory Munoz ne, HARMONIC ANALYST I11.9 Hypertensive heart disease without heart failure J44.9 Chronic obstructive pulmonar y disease, unspecified I48.21 Permanent atrial fibrillatio n Z79.01 alf (current) use of a nticoagulants E11.65 Type 2 diabetes mellitus wit h hyperglycemia E11.40 Type 2 diabetes mellitus wit h diabetic neuropathy, unsp E66.01 Morbid (severe) obesity due to excess calories Z68.42 Body mass index [BMI] 45.0-4 9.9, adult Assessments Date Code Description Provider 07/28/2021 I48.21 Permanent atrial fibrillation Pr otime 07/28/2021 J44.1 Chronic obstructive pulmonary disease with (acute) exacerbation Flory Warren, [facility] 07/28/2021 Z51.81 Encounter for therapeutic drug l evel monitoring Protime 07/28/2021 I50.33 Acute on chronic diastolic (amaya estive) heart failure Flory Warren, [facility] 07/28/2021 I48.21 Permanent atrial fibrillation An n Kathrine Mazariegos, [facility] 07/28/2021 D64.9 Anemia, unspecified Flory Warren, [facility] 07/24/2021 I50.33 Acute on chronic diastolic (amaya estive) heart failure Flory Warren, [facility] 07/24/2021 I48.21 Permanent atrial fibrillation An n Kathrine Mazariegos, [facility] 07/24/2021 D64.9 Anemia, unspecified Flory Warren, [facility] 07/24/2021 J44.1 Chronic obstructive pulmonary disease with (acute) exacerbation Flory Warren, [facility] 07/24/2021 R79.1 Abnormal coagulation profile Flory Warren, [facility] 07/16/2021 Z51.81 Encounter for therapeutic drug l evel monitoring Flory Warren, [facility] 07/16/2021 Z51.81 Encounter for therapeutic drug l evel monitoring Protime 07/16/2021 Z79.01 termination clerk (current) use of antic oagulants Flory Warren, [facility] 07/16/2021 Z79.01 alf (current) use of antic oagulants Protime 07/16/2021 I48.21 Permanent atrial fibrillation An n Kathrine Mazariegos, [facility] 07/16/2021 I48.21 Permanent atrial fibrillation An n Kathrine Mazariegos, [facility] 07/16/2021 I48.21 Permanent atrial fibrillation Pr otime 07/16/2021 Z79.01 alf (current) use of antic oagulants Flory Kathrine Mazariegos, [facility] 07/16/2021 N17.9 Acute kidney failure, unspecifie d Flory Kathrine Mazariegos, [facility] 07/16/2021 I13.0 Hypertensive heart a nd chronic kidney disease with heart failure and stage 1 through stage 4 chronic kidney disease, or unspecified chronic kidney disease Flory Kathrine Mazariegos, [facility] 07/16/2021 I50.33 Acute on chronic diastolic (amaya estive) heart failure Flory Warren, [facility] 07/16/2021 N18.31 Chronic kidney disease, stage 3a Flory Warren, [facility] 07/16/2021 J44.9 Chronic obstructive pulmonary di sease, unspecified Flory Warren, [facility] 07/16/2021 E11.65 Type 2 diabetes mellitus with hy perglycemia Flory Warren, [facility] 07/16/2021 Z79.84 termination clerk (current) use of oral hypoglycemic drugs Flory Warren, [facility] 07/16/2021 E66.01 Morbid (severe) obesity due to e xcess calories Flory Warren, [facility] 07/16/2021 Z68.42 Body mass index [BMI] 45.0-49.9, adult Flory Warren, [facility] 06/30/2021 I11.9 Hypertensive heart disease witho ut heart failure Flory Warren, [facility] 06/30/2021 I48.21 Permanent atrial fibrillation An malvin Kathrine Mazariegos, [facility] 06/30/2021 Z51.81 Encounter for therapeutic drug l evel monitoring Flory Warren, [facility] 06/30/2021 Z79.01 termination clerk (current) use of antic oagulants Flory Warren, [facility] 06/30/2021 J44.9 Chronic obstructive pulmonary di sease, unspecified Flory Warren, [facility] 06/30/2021 Z51.81 Encounter for therapeutic drug l evel monitoring Protime 06/30/2021 E11.65 Type 2 diabetes mellitus with hy perglycemia Flory Warren, [facility] 06/30/2021 E11.40 Type 2 diabetes jl itus with diabetic neuropathy, unspecified Flory Kathrine Mazariegos, [facility] 06/30/2021 Z79.84 termination clerk (current) use of oral hypoglycemic drugs Flory Warren, [facility] 06/30/2021 Z79.01 termination clerk (current) use of antic oagulants Flory Kathrine Mazariegos, [facility] 06/30/2021 E66.01 Morbid (severe) obesity due to e xcess calories Flory Kathrine Mazariegos, [facility] 06/30/2021 B35.4 Tinea corporis Flory Kathrine Mazariegos, [facility] 06/30/2021 Z79.01 alf (current) use of antic oagulants Protime 06/30/2021 Z68.42 Body mass index [BMI] 45.0-49.9, adult Flory Warren, [facility] 06/30/2021 I48.21 Permanent atrial fibrillation An malvin Warren, [facility] 06/30/2021 I48.21 Permanent atrial fibrillation Pr otime 05/26/2021 Z51.81 Encounter for therapeutic drug l evel monitoring Flory Warren, [facility] 05/26/2021 Z51.81 Encounter for therapeutic drug l evel monitoring Protime 05/26/2021 Z79.01 termination clerk (current) use of antic oagulants Flory Warren, [facility] 05/26/2021 Z79.01 alf (current) use of antic oagulants Protime 05/26/2021 I48.21 Permanent atrial fibrillation An malvin Warren, [facility] 05/26/2021 I48.21 Permanent atrial fibrillation Pr otime 05/12/2021 Z51.81 Encounter for therapeutic drug l evel monitoring Flory Warren, [facility] 05/12/2021 Z51.81 Encounter for therapeutic drug l evel monitoring Protime 05/12/2021 Z79.01 termination clerk (current) use of antic oagulants Flory Warren, [facility] 05/12/2021 Z79.01 alf (current) use of antic oagulants Protime 05/12/2021 I48.21 Permanent atrial fibrillation An malvin Warren, [facility] 05/12/2021 I48.21 Permanent atrial fibrillation Pr otime 04/10/2021 Z51.81 Encounter for therapeutic drug l evel monitoring Flory Warren, [facility] 04/10/2021 Z51.81 Encounter for therapeutic drug l evel monitoring Protime 04/10/2021 I48.21 Permanent atrial fibrillation An malvin Warren, [facility] 04/10/2021 I11.9 Hypertensive heart disease witho ut heart failure Flory Warren, [facility] 04/10/2021 Z79.01 termination clerk (current) use of antic oagulants Flory Warren, [facility] 04/10/2021 I48.21 Permanent atrial fibrillation Pr otime 04/10/2021 J44.9 Chronic obstructive pulmonary di sease, unspecified Flory Warren, [facility] 04/10/2021 Z79.01 termination clerk (current) use of antic oagulants Protime 04/10/2021 I48.21 Permanent atrial fibrillation An malvin Warren, [facility] 04/10/2021 Z79.01 termination clerk (current) use of antic oagulants Flory Warren, [facility] 04/10/2021 E11.65 Type 2 diabetes mellitus with hy perglycemia Flory Warren, [facility] 04/10/2021 E11.40 Type 2 diabetes jl itus with diabetic neuropathy, unspecified Flory Warren, [facility] 04/10/2021 E66.01 Morbid (severe) obesity due to e xcess calories Flory Warren, [facility] 04/10/2021 Z68.42 Body mass index [BMI] 45.0-49.9, adult Flory Warren, [facility] 03/09/2021 Z51.81 Encounter for therapeutic drug l evel monitoring Flory Warren, [facility] 03/09/2021 Z51.81 Encounter for therapeutic drug l evel monitoring Protime 03/09/2021 I48.21 Permanent atrial fibrillation An malvin Warren, [facility] 03/09/2021 I48.21 Permanent atrial fibrillation Pr otime 03/09/2021 Z79.01 alf (current) use of antic oagulants Flory Warren, [facility] 03/09/2021 Z79.01 alf (current) use of antic oagulants Protime 02/10/2021 Z51.81 Encounter for therapeutic drug l evel monitoring Flory Warren, [facility] 02/10/2021 Z51.81 Encounter for therapeutic drug l evel monitoring Protime 02/10/2021 I48.21 Permanent atrial fibrillation An malivn Warren, [facility] 02/10/2021 I48.21 Permanent atrial fibrillation Pr otime 02/10/2021 Z79.01 alf (current) use of antic oagulants Flory Warren, [facility] 02/10/2021 Z79.01 termination clerk (current) use of antic oagulants Protime 01/27/2021 Z51.81 Encounter for therapeutic drug l evel monitoring Flory Warren, [facility] 01/27/2021 Z51.81 Encounter for therapeutic drug l evel monitoring Protime 01/27/2021 I48.21 Permanent atrial fibrillation An malvin Warren, [facility] 01/27/2021 I48.21 Permanent atrial fibrillation Pr otime 01/27/2021 Z79.01 termination clerk (current) use of antic oagulants IDALIA Rivera 01/27/2021 Z79.01 termination clerk (current) use of antic oagulants Protime Plan of Treatment Future Appointment(s):* 08/05/2021 8:30 am - [facility] at [facility] * 08/05/2021 9:40 am - IDALIA Rivera at [facility] * 10/06/2021 9:20 am - IDALIA Rivera at [facility] * 08/07/2021 10:45 am - [facility] at [facility] * 01/22/2022 10:40 am - IDALIA Rivera at [facility] * 01/22/2022 10:20 am - Nurse #2 at [facility] 07/28/2021 - IDALIA Rivera* J44.1 [...]
--- OUTSIDE RECORDS SUMMARY | 2021-09-07 11:20 | CCD | Continuity of Care Document ---
Author Author Tony Hernandes Organization Unknown Address [address] [address] Phone [phone] Care Team Providers Care Hydraulic Governor Assembler Name Role Phone Flory Finch AUT [phone] Problems Active Problems Provider Date Atrial fibrillation [...] SIG Qnty Indications Ordering Provide r Date Prednisone 10mg Tablets 4 every day x 3 days,3 every day x 3 days, 2 every day x 3 days, then 1 tablet x 3 days then discontinue 30tabs IDALIA Rivera 07/21/2021 Guaifenesin ac 100-10mg/5ML Syrup 5 milliliters every 6 hour, 10 milliliters at bedtime 120ml JEAN Watts 07/20/2021 Atenolol 50mg Tablets 1 by mouth every day 90tabs IDALIA Rivera 07/16/2021 Ketoconazole 2% Cream apply to rash under arms two times a day for 14 days 60gm Flory Warren [facility] 06/30/2021 Amlodipine Besylate 5mg Tablets Take One Tablet By Mouth Every Day 30tabs I11.9 Flory Warren [facility] 01/16 Rosuvastatin Calcium 40mg Tablets Take One Tablet By Mouth Every Day 90tabs Flory Warren [facility] 01/16 Fluticasone Propionate/Salmeterol Diskus 250-50mcg/Dose Aerosol Inhale 1 puff By Mouth Two Times A Day 180units Flory Warren [facility] 10/03/2020 Lisinopril 40mg Tablets 1 by mouth every day 90tabs Flory Warren [facility] 11/29/2019 Proventil HFA 108(90Base) mcg/Act Aerosol 2 puffs four times a day for one week then as needed for cough 1units I48.2 Flory Warren [facility] 09/09/2015 Warfarin Sodium 6mg Tablets take 1 or 2 tablets by mouth daily as directed 60tabs Flory Warren [facility] 12/16/2009 Warfarin Sodium 1mg Tablets take 1-3 tablets by mouth daily as directed 100tabs Flory Warren [facility] 10/21/2009 History Medications Fluconazole 100mg Tablets one daily x 7 days 7tabs Flory Warren [facility] 06/30/2021 - Medications Administered in Office Medication SIG Qnty Indications Ordering Provider Date Administration Of Flu Vaccine Inj ection Quirino Soler MD 09/12/2020 Administration Of Flu Vaccine Inj ection Flory Warren [facility] 09/18/2019 Immunization Adminstration,1 Vaccine/Tox oid Injection Flory Warren [facility] 05/01/2019 Administration Of Flu Vaccine Inj ection Flory Warren [facility] 10/03/2018 Immunizations CPT Code Status Date Vaccine Lot # [id number] Given 01/16/2021 Pneumovax 23 [id number] 89027 Given 09/12/2020 Influenza Vaccin e Quadrivalent Preser/Antibiotic Free Im Use [id number] 42420 Given 09/18/2019 Influenza Vaccin e Quadrivalent Preser/Antibiotic Free Im Use [id number] 15179 Given 05/01/2019 Adacel- Tetanus Diphtheria P ertussis (Age64 & Under) [id number] 28231 Given 10/03/2018 Influenza Virus Vaccine, Quadrivalent ([id number]), Derived From 4 Given 09/14/2017 Influenza Vaccin e Quadrivalent Preser/Antibiotic Free Im Use [id number] 36945 Given 12/16/2016 Prevnar 13 [id number] Given 09/07/2016 Fluvirin Virus Vaccine [id number] 01 Q2037 Given 09/09/2015 Fluvirin Virus Vaccine Q2037 Given 09/09/2015 Fluvirin Virus Vaccine 80919 01 Q2037 Given 09/10/2014 Fluvirin Virus Vaccine 17732 21 19795 Given 11/29/2013 Pneumovax 23 [id number] Q2037 Given 09/06/2013 Fluvirin Virus Vaccine Q2037 Given 08/23/2012 Fluvirin Virus Vaccine Q2037 Given 08/23/2012 Fluvirin Virus Vaccine Q2037 Given 10/05/2011 Fluvirin Virus Vaccine Vital Signs Date Vital Result Comment 07/24/2021 8:45am Weight 303.00 lb 07/16/2021 11:23am BP Systolic 112 mmHg BP Diastolic 66 mmHg Heart Rate 86 /min Height 67.5 inches 5'7.50" Weight 296.00 lb O2 % BldC Oximetry 96 % BMI (Body Mass Index) 45.7 kg/m2 Results Test Acquired Date Facility Test Result H/L Range Note Complete Blood Count 07/24/2021 [facility] Collision Worker: Dr Quirino Soler [place] [id number] [phone] WBC 9.6 x10*3/UL 4.1 - 10.9 RBC [...] Neut # 7.6 x10*3/UL 2.0 - 7.8 Laboratory test finding 07/16/2021 [facility].2 Basic Metabolic Panel 07/16/2021 [facility] Collision Worker: [place] [address] [phone] Glucose 124 mg/dL High 74 - 99 2 BUN 48 mg/dL High 7 - 18 3 Creatinine 1.7 mg/dL High 0.6 - 1.3 Sodium 138 mEq/L 136 - 145 Potassium 4.6 mEq/L 3.5 - 5.1 Chloride 106 mEq/L 98 - 107 Carbon Dioxide 27 mEq/L 21 - 32 Calcium 8.9 mg/dL 8.5 - 10.1 GFR 40 mL/min Low >60 GFR 49 mL/min Low >60 4 Laboratory test finding 06/30/2021 [facility] 2.8 Complete Blood Count 06/30/2021 [facility] Collision Worker: [place] [address] [phone] WBC 7.5 x10*3/UL 4.1 - 10.9 RBC [...] 2.0 - 7.8 Basic Metabolic Panel 06/30/2021 [facility] Collision Worker: [place] [address] [phone] Glucose 105 mg/dL High 74 - 99 5 BUN 30 mg/dL High 7 - 18 Creatinine 1.4 mg/dL High 0.6 - 1.3 Sodium 135 mEq/L Low 136 - 145 Potassium 4.7 mEq/L 3.5 - 5.1 Chloride 100 mEq/L 98 - 107 Carbon Dioxide 23 mEq/L 21 - 32 Calcium 9.4 mg/dL 8.5 - 10.1 GFR 51 mL/min Low >60 GFR >= 60 mL/min >60 6 Laboratory test finding 05/26/2021 [facility] 3.0 Laboratory test finding 05/12/2021 [facility] 3.5 Laboratory test finding 04/10/2021 [facility] 2.5 Complete Blood Count 04/10/2021 [facility] Collision Worker: [place] [address] [phone] WBC 6.8 x10*3/UL 4.1 - 10.9 RBC [...] 2.0 - 7.8 Basic Metabolic Panel 04/10/2021 [facility] Collision Worker: Dr Quirino Soler [place], [place] [id number] [phone] Glucose 100 mg/dL High 74 - 99 7 BUN 20 mg/dL High 7 - 18 Creatinine 1.2 mg/dL 0.6 - 1.3 Sodium 137 mEq/L 136 - 145 Potassium 4.4 mEq/L 3.5 - 5.1 Chloride 103 mEq/L 98 - 107 Carbon Dioxide 25 mEq/L 21 - 32 Calcium 8.8 mg/dL 8.5 - 10.1 GFR >= 60 mL/min >60 GFR >= 60 mL/min >60 8 Laboratory test finding 03/09/2021 [facility] 2.6 Laboratory test finding 02/10/2021 [facility] 2.3 Laboratory test finding 01/27/2021 [facility] 1.8 1 NOTE: RESULT VERIFIED. 2 100-125 mg/dL PRE-DIABET ES/FASTING >126 mg/dL DIABETES/FASTING 3 NOTE: RESULT VERIFIED. 4 CHRONIC KIDNEY DISEASE STAGI NG PER NKF STAGE I & II GFR >= 60 NORMAL TO MILDLY DECREASED STAGE III GFR 30-59 MODERATELY DECREASED STAGE IV GFR 15-29 SEVERELY DECREASED STAGE V GFR <15 VERY LITTLE GFR LEFT ESRD GFR <15 ON FINANCE PROFESSOR 5 100-125 mg/dL PRE-DIABET ES/FASTING >126 mg/dL DIABETES/FASTING 6 CHRONIC KIDNEY DISEASE STAGI NG PER NKF STAGE I & II GFR >= 60 NORMAL TO MILDLY DECREASED STAGE III GFR 30-59 MODERATELY DECREASED STAGE IV GFR 15-29 SEVERELY DECREASED STAGE V GFR <15 VERY LITTLE GFR LEFT ESRD GFR <15 ON FINANCE PROFESSOR 7 100-125 mg/dL PRE-DIABET ES/FASTING >126 mg/dL DIABETES/FASTING 8 CHRONIC KIDNEY DISEASE STAGI NG PER NKF STAGE I & II GFR >= 60 NORMAL TO MILDLY DECREASED STAGE III GFR 30-59 MODERATELY DECREASED STAGE IV GFR 15-29 SEVERELY DECREASED STAGE V GFR <15 VERY LITTLE GFR LEFT ESRD GFR <15 ON FINANCE PROFESSOR Procedures Date Code Description Status 07/16/2021 77030 German Cre SRV W/I 7 Days Of DC, C omm W/I 2 Dys Med Rec Completed 06/30/2021 75002 Office/Outpatient Established Mo d MDM 30-39 Min Completed 04/10/2021 80681 Office/Outpatient Established Lo w MDM 20-29 Min Completed 05/03/2016 72999676 Colonoscopy Completed Medical Devices Description No Information Available Encounters Type Date Location Provider Dx Diagnosis Office Visit 07/16/2021 11:20a [facility] Flory Munoz ne, [facility] I48.21 Permanent atrial fibrillation Z79.01 rn long term care (current) use of a [...] 45.0-4 9.9, adult Office Visit 06/30/2021 9:40a [facility] Flory Munoz ne, [facility] I11.9 Hypertensive heart disease without heart failure I48.21 Permanent atrial fibrillatio n Z79.01 rn long term care (current) use of a nticoagulants J44.9 Chronic obstructive pulmonar y disease, unspecified E11.65 Type 2 diabetes mellitus wit h hyperglycemia E11.40 Type 2 diabetes mellitus wit h diabetic neuropathy, unsp Z79.84 rn long term care (current) use of o ral hypoglycemic drugs E66.01 Morbid (severe) obesity due to excess calories B35.4 Tinea corporis Z68.42 Body mass index [BMI] 45.0-4 9.9, adult Office Visit 04/10/2021 11:00a [facility] Flory Munoz ne, [facility] I11.9 Hypertensive heart disease without heart failure [...] therapeutic drug l evel monitoring Flory Warren, [facility] 07/16/2021 Z51.81 Encounter for therapeutic drug l evel monitoring [facility] 07/16/2021 Z79.01 rn long term care (current) use of antic oagulants Flory Kathrine Mazariegos [facility] 07/16/2021 Z79.01 rn long term care (current) use of antic oagulants [facility] 07/16/2021 I48.21 Permanent atrial fibrillation An malvin Kathrine Mazariegos, [facility] 07/16/2021 I48.21 Permanent atrial fibrillation An malvin Kathrine Mazariegos, [facility] 07/16/2021 I48.21 Permanent atrial fibrillation Pr otime 07/16/2021 Z79.01 rn long term care (current) use of antic oagulants Flroy Kathrine Mazariegos, [facility] 07/16/2021 N17.9 Acute kidney failure, unspecifie d Flory Kathrine Mazariegos, [facility] 07/16/2021 I13.0 Hypertensive heart a nd chronic kidney disease with heart failure and stage 1 through stage 4 chronic kidney disease, or unspecified chronic kidney disease Flory Kathrine Mazariegos, [facility] 07/16/2021 I50.33 Acute on chronic diastolic (amaya estive) heart failure Flory Kathrine Yair [facility] 07/16/2021 N18.31 Chronic kidney disease, stage 3a Flory Kathrine Mazariegos, [facility] 07/16/2021 J44.9 Chronic obstructive pulmonary di sease, unspecified Flory Kathrine Mazariegos, [facility] 07/16/2021 E11.65 Type 2 diabetes mellitus with hy perglycemia Flory Kathrine Mazariegos [facility] 07/16/2021 Z79.84 FDC (current) use of oral hypoglycemic drugs Flory Kathrine Mazariegos [facility] 07/16/2021 E66.01 Morbid (severe) obesity due to e xcess calories Flory Kathrine Mazariegos, [facility] 07/16/2021 Z68.42 Body mass index [BMI] 45.0-49.9, adult Flory Kathrine Mazariegos [facility] 06/30/2021 I11.9 Hypertensive heart disease witho ut heart failure Flory Warren [facility] 06/30/2021 I48.21 Permanent atrial fibrillation An malvin Kathrine Mazariegos, [facility] 06/30/2021 Z51.81 Encounter for therapeutic drug l evel monitoring Flory Warren, [facility] 06/30/2021 Z79.01 FDC (current) use of antic oagulants Flory Warren, [facility] 06/30/2021 J44.9 Chronic obstructive pulmonary di sease, unspecified Flory Warren, [facility] 06/30/2021 Z51.81 Encounter for therapeutic drug l evel monitoring [facility] 06/30/2021 E11.65 Type 2 diabetes mellitus with hy perglycemia Flory Warren, [facility] 06/30/2021 E11.40 Type 2 diabetes jl itus with diabetic neuropathy, unspecified Flory Warren, [facility] 06/30/2021 Z79.84 rn long term care (current) use of oral hypoglycemic drugs Flory Warren, [facility] 06/30/2021 Z79.01 FDC (current) use of antic oagulants Flory Warren, [facility] 06/30/2021 E66.01 Morbid (severe) obesity due to e xcess calories Flory Warren, [facility] 06/30/2021 B35.4 Tinea corporis Flory Warren, [facility] 06/30/2021 Z79.01 rn long term care (current) use of antic oagulants [facility] 06/30/2021 Z68.42 Body mass index [BMI] 45.0-49.9, adult Flory Warren, [facility] 06/30/2021 I48.21 Permanent atrial fibrillation An n Kathrine Mazariegos, [facility] 06/30/2021 I48.21 Permanent atrial fibrillation Pr otime 05/26/2021 Z51.81 Encounter for therapeutic drug l evel monitoring Flory Warren, [facility] 05/26/2021 Z51.81 Encounter for therapeutic drug l evel monitoring [facility] 05/26/2021 Z79.01 rn long term care (current) use of antic oagulants Flory Warren, [facility] 05/26/2021 Z79.01 FDC (current) use of antic oagulants [facility] 05/26/2021 I48.21 Permanent atrial fibrillation An n Kathrine Mazariegos, [facility] 05/26/2021 I48.21 Permanent atrial fibrillation Pr otime 05/12/2021 Z51.81 Encounter for therapeutic drug l evel monitoring Flory Warren, [facility] 05/12/2021 Z51.81 Encounter for therapeutic drug l evel monitoring [facility] 05/12/2021 Z79.01 rn long term care (current) use of antic oagulants Flory Warren, [facility] 05/12/2021 Z79.01 rn long term care (current) use of antic oagulants [facility] 05/12/2021 I48.21 Permanent atrial fibrillation An malvin Warren, [facility] 05/12/2021 I48.21 Permanent atrial fibrillation Pr otime 04/10/2021 Z51.81 Encounter for therapeutic drug l evel monitoring Flory Warren, [facility] 04/10/2021 Z51.81 Encounter for therapeutic drug l evel monitoring [facility] 04/10/2021 I48.21 Permanent atrial fibrillation An mavlin Warren, [facility] 04/10/2021 I11.9 Hypertensive heart disease witho ut heart failure Flory Warren, [facility] 04/10/2021 Z79.01 rn long term care (current) use of antic oagulants Flory Warren, [facility] 04/10/2021 I48.21 Permanent atrial fibrillation Pr otime 04/10/2021 J44.9 Chronic obstructive pulmonary di sease, unspecified Flory Warren, [facility] 04/10/2021 Z79.01 FDC (current) use of antic oagulants [facility] 04/10/2021 I48.21 Permanent atrial fibrillation An malvin Warren, [facility] 04/10/2021 Z79.01 FDC (current) use of antic oagulants Flory Warren, [facility] 04/10/2021 E11.65 Type 2 diabetes mellitus with hy perglycemia Flory Warren, [facility] 04/10/2021 E11.40 Type 2 diabetes jl itus with diabetic neuropathy, unspecified Flory Warren, [facility] 04/10/2021 E66.01 Morbid (severe) obesity due to e xcess calories Flory Kathrine Mazariegos, [facility] 04/10/2021 Z68.42 Body mass index [BMI] 45.0-49.9, adult Flory Warren, [facility] 03/09/2021 Z51.81 Encounter for therapeutic drug l evel monitoring Flory Warren, [facility] 03/09/2021 Z51.81 Encounter for therapeutic drug l evel monitoring [facility] 03/09/2021 I48.21 Permanent atrial fibrillation An malvin Warren, [facility] 03/09/2021 I48.21 Permanent atrial fibrillation Pr otime 03/09/2021 Z79.01 rn long term care (current) use of antic oagulants Flory Warren, [facility] 03/09/2021 Z79.01 rn long term care (current) use of antic oagulants [facility] 02/10/2021 Z51.81 Encounter for therapeutic drug l evel monitoring Flory Warren, [facility] 02/10/2021 Z51.81 Encounter for therapeutic drug l evel monitoring [facility] 02/10/2021 I48.21 Permanent atrial fibrillation An n Kathrine Mazariegos, [facility] 02/10/2021 I48.21 Permanent atrial fibrillation Pr otime 02/10/2021 Z79.01 FDC (current) use of antic oagulants Flory Warren, [facility] 02/10/2021 Z79.01 FDC (current) use of antic oagulants [facility] 01/27/2021 Z51.81 Encounter for therapeutic drug l evel monitoring Flory Kathrine Yair, [facility] 01/27/2021 Z51.81 Encounter for therapeutic drug l evel monitoring [facility] 01/27/2021 I48.21 Permanent atrial fibrillation An n Kathrine Mazariegos, [facility] 01/27/2021 I48.21 Permanent atrial fibrillation Pr otime 01/27/2021 Z79.01 FDC (current) use of antic oagulants Flory Warren, [facility] 01/27/2021 Z79.01 FDC (current) use of antic oagulants Protime Plan of Treatment Future Appointment(s):* 07/28/2021 8:30 am - [facility] at [facility] * 10/06/2021 9:20 am - IDALIA Rivera at [facility] * 08/07/2021 10:45 am - [facility] at [facility] * 01/22/2022 10:40 am - IDALIA Rivera at [facility] * 01/22/2022 10:20 am - Nurse #2 at [facility] 07/16/2021 - Flory [place], [facility]* I48.21 Permanent atrial fibrillation* Comments:* Rate controlled on Atenolol which he is tolerating. He had CHF on recent hospitalization. We will arrange an echocardiogram. * Z79.01 rn long term care (current) use of anticoagulants* Comments:* INR completed. Verbal instructions given. Signs and symptoms to report reviewed. No evidence of thromboembolic or bleeding events. CBC pending * N17.9 Acute kidney failure, unspecified * I13.0 Hypertensive heart and chronic kidney disease with heart failure and stage 1 through stage 4 chronic kidney disease, or unspecified chronic kidney disease* Comments:* Blood pressure is controlled on current treatment plan. * I50.33 Acute on chronic diastolic (congestive) heart failure * N18.31 Chronic kidney disease, stage 3a* Comments:* BMP obtained, reviewed and is lower than his baseline.He will be contacted to hold the Metformin for now. * J44.9 Chronic obstructive pulmonary disease, unspecified* Comments:* continues on Fluticasone/Salmeterol. * E11.65 Type 2 diabetes mellitus with hyperglycemia* Comments:* last A1C acceptable. In light of the worsening renal function, will discontinue Metformin for now. * Z79.84 FDC (current) use of oral hypoglycemic drugs * E66.01 Morbid (severe) obesity due to excess calories* Comments:* Diet and exercise discussed. * Z68.42 Body mass index [BMI] 45.0-49.9, adult * All * New Medication:* Atenolol 50 mg - 1 by mouth every day Functional Status Description No Information Available Mental Status Description No Information Available Referrals Description No Information Available
--- OUTSIDE RECORDS SUMMARY | 2021-09-07 11:20 | CCD | Continuity of Care Document ---
Author Author Tony Hernandes Organization Unknown Address [address] [address] Phone [phone] Care Team Providers Care Animal Care Service Worker Name Role Phone Flory Finch AUT [phone] Problems Active Problems Provider Date Atrial fibrillation [...] day for 14 days 60gm Flory Warren [facility] 06/30/2021 Amlodipine Besylate 5mg Tablets Take One Tablet By Mouth Every Day 30tabs I11.9 Folry Warren [facility] 01/16 Rosuvastatin Calcium 40mg Tablets Take One Tablet By Mouth Every Day 90tabs Flory Warren [facility] 01/16 Fluticasone Propionate/Salmeterol Diskus 250-50mcg/Dose Aerosol Inhale 1 puff By Mouth Two Times A Day 180units Flory Warren [facility] 10/03/2020 Lisinopril 40mg Tablets 1 by mouth every day 90tabs Flory Warren [facility] 11/29/2019 Proventil HFA 108(90Base) mcg/Act Aerosol 2 puffs four times a day for one week then as needed for cough 1units I48.2 Flory Warren [facility] 09/09/2015 Warfarin Sodium 6mg Tablets take 1 or 2 tablets by mouth daily as directed 60tabs Flory Warren [facility] 12/16/2009 Warfarin Sodium 1mg Tablets take 1-3 tablets by mouth daily as directed 100tabs Flory Warren [facility] 10/21/2009 History Medications Fluconazole 100mg Tablets one daily x 7 days 7tabs Flory Warren [facility] 06/30/2021 - Medications Administered in Office Medication SIG Qnty Indications Ordering Provider Date Administration Of Flu Vaccine Inj ection Quirino Soler MD 09/12/2020 Administration Of Flu Vaccine Inj ection Flory Warren [facility] 09/18/2019 Immunization Adminstration,1 Vaccine/Tox oid Injection Flory Warren [facility] 05/01/2019 Administration Of Flu Vaccine Inj ection Flory Warren [facility] 10/03/2018 Immunizations CPT Code Status Date Vaccine Lot # [id number] Given 01/16/2021 Pneumovax 23 [id number] Given 09/12/2020 Influenza Vaccin e Quadrivalent Preser/Antibiotic Free Im Use [id number] 14691 Given 09/18/2019 Influenza Vaccin e Quadrivalent Preser/Antibiotic Free Im Use [id number] 91814 Given 05/01/2019 Adacel- Tetanus Diphtheria P ertussis (Age64 & Under) [id number] 22126 Given 10/03/2018 Influenza Virus Vaccine, Quadrivalent ([id number]), Derived From 0 Given 09/14/2017 Influenza Vaccin e Quadrivalent Preser/Antibiotic Free Im Use [id number] 47320 Given 12/16/2016 Prevnar 13 Q2037 Given 09/07/2016 Fluvirin Virus Vaccine [id number] 01 Q2037 Given 09/09/2015 Fluvirin Virus Vaccine Q2037 Given 09/09/2015 Fluvirin Virus Vaccine 61663 01 Q2037 Given 09/10/2014 Fluvirin Virus Vaccine [id number] 21 20133 Given 11/29/2013 Pneumovax 23 [id number] Q2037 Given 09/06/2013 Fluvirin Virus Vaccine Q2037 [...] Result H/L Range Note Laboratory test finding 07/16/2021 [facility] 2.2 Basic Metabolic Panel 07/16/2021 [facility]: [place] [address] [phone] Glucose 124 mg/dL High 74 - 99 1 BUN 48 mg/dL High 7 - 18 2 Creatinine 1.7 mg/dL High 0.6 - 1.3 Sodium 138 mEq/L 136 - 145 Potassium 4.6 mEq/L 3.5 - 5.1 Chloride 106 mEq/L 98 - 107 Carbon Dioxide 27 mEq/L 21 - 32 Calcium 8.9 mg/dL 8.5 - 10.1 GFR 40 mL/min Low >60 GFR 49 mL/min Low >60 3 Laboratory test finding 06/30/2021 [facility] Inr 2.8 Complete Blood Count 06/30/2021 [facility]: [place] [address] [phone] WBC 7.5 x10*3/UL 4.1 - 10.9 RBC [...] 2.0 - 7.8 Basic Metabolic Panel 06/30/2021 [facility]: [place] Quir[place] [address] [phone] Glucose 105 mg/dL High 74 - 99 4 BUN 30 mg/dL High 7 - 18 Creatinine 1.4 mg/dL High 0.6 - 1.3 Sodium 135 mEq/L Low 136 - 145 Potassium 4.7 mEq/L 3.5 - 5.1 Chloride 100 mEq/L 98 - 107 Carbon Dioxide 23 mEq/L 21 - 32 Calcium 9.4 mg/dL 8.5 - 10.1 GFR 51 mL/min Low >60 GFR >= 60 mL/min >60 5 Laboratory test finding 05/26/2021 [facility] Inr 3.0 Laboratory test finding 05/12/2021 [facility] Inr 3.5 Laboratory test finding 04/10/2021 [facility] In[facility] 2.5 Complete Blood Count 04/10/2021 [facility]: Dr Quirino [place] [address] [phone] WBC 6.8 x10*3/UL 4.1 - 10.9 RBC [...] 2.0 - 7.8 Basic Metabolic Panel 04/10/2021 [facility]: [place] [address] [phone] Glucose 100 mg/dL High 74 - 99 6 BUN 20 mg/dL High 7 - 18 Creatinine 1.2 mg/dL 0.6 - 1.3 Sodium 137 mEq/L 136 - 145 Potassium 4.4 mEq/L 3.5 - 5.1 Chloride 103 mEq/L 98 - 107 Carbon Dioxide 25 mEq/L 21 - 32 Calcium 8.8 mg/dL 8.5 - 10.1 GFR >= 60 mL/min >60 GFR >= 60 mL/min >60 7 Laboratory test finding 03/09/2021 [facility] 2.6 Laboratory test finding 02/10/2021 [facility] Inr 2.3 Laboratory test finding 01/27/2021 [facility] 1.8 1 100-125 mg/dL PRE-DIABET ES/FASTING >126 mg/dL DIABETES/FASTING 2 NOTE: RESULT VERIFIED. 3 CHRONIC KIDNEY DISEASE STAGI NG PER NKF STAGE I & II GFR >= 60 NORMAL TO MILDLY DECREASED STAGE III GFR 30-59 MODERATELY DECREASED STAGE IV GFR 15-29 SEVERELY DECREASED STAGE V GFR <15 VERY LITTLE GFR LEFT ESRD GFR <15 [facility] [employer] 4 100-125 mg/dL PRE-DIABET ES/FASTING >126 mg/dL DIABETES/FASTING 5 CHRONIC KIDNEY DISEASE STAGI NG PER NKF STAGE I & II GFR >= 60 NORMAL TO MILDLY DECREASED STAGE III GFR 30-59 MODERATELY DECREASED STAGE IV GFR 15-29 SEVERELY DECREASED STAGE V GFR <15 VERY LITTLE GFR LEFT ESRD GFR <15 ON [employer] 6 100-125 mg/dL PRE-DIABET ES/FASTING >126 mg/dL DIABETES/FASTING 7 CHRONIC KIDNEY DISEASE STAGI NG PER NKF STAGE I & II GFR >= 60 NORMAL TO MILDLY DECREASED STAGE III GFR 30-59 MODERATELY DECREASED STAGE IV GFR 15-29 SEVERELY DECREASED STAGE V GFR <15 VERY LITTLE GFR LEFT ESRD GFR <15 [facility] [employer] Procedures Date Code Description Status 07/16/2021 22799 [place] [facility] SRV W/I 7 Days Of DC, C omm W/I 2 Dys Med Rec Completed 06/30/2021 67474 Office/Outpatient Established Mo d MDM 30-39 Min Completed 04/10/2021 [id number] Office/Outpatient Established Lo w MDM 20-29 Min Completed 05/03/2016 [id number] Colonoscopy Completed Medical Devices Description No Information Available Encounters Type Date Location Provider Dx Diagnosis Office Visit 07/16/2021 11:20a [facility] 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 TECHNICIAN I11.9 Hypertensive heart disease without heart failure I48.21 Permanent atrial fibrillatio n Z79.01 long-term (current) use of a nticoagulants J44.9 Chronic obstructive pulmonar y disease, unspecified E11.65 Type 2 diabetes mellitus wit h hyperglycemia E11.40 Type 2 diabetes mellitus wit h diabetic neuropathy, [facility] Z79.84 long-term (current) use of o ral hypoglycemic drugs E66.01 Morbid (severe) obesity due to excess calories B35.4 Tinea corporis Z68.42 Body mass index [BMI] 45.0-4 9.9, adult Office Visit 04/10/2021 11:00a [facility] Flory Pearson, [facility] I11.9 Hypertensive heart disease without heart failure J44.9 Chronic obstructive pulmonar y disease, unspecified I48.21 Permanent atrial fibrillatio n Z79.01 long-term (current) use of a nticoagulants E11.65 Type 2 diabetes mellitus wit h hyperglycemia E11.40 Type 2 diabetes mellitus wit h diabetic neuropathy, unsp E66.01 Morbid (severe) obesity due to excess calories Z68.42 Body mass index [BMI] 45.0-4 9.9, adult Assessments Date Code Description Provider 07/16/2021 Z79.01 long-term (current) use of antic oagulants [facility] 07/16/2021 I48.21 Permanent atrial fibrillation An n Kathrine Mazariegos [facility] 07/16/2021 Z79.01 long-term (current) use of antic oagulants Flory Warren [facility] 07/16/2021 N17.9 Acute kidney failure, unspecifie d Flory Warren [facility] 07/16/2021 I13.0 Hypertensive heart a nd chronic kidney disease with heart failure and stage 1 through stage 4 chronic kidney disease, or unspecified chronic kidney disease Flory Warren [facility] 07/16/2021 I50.33 Acute on chronic diastolic (amaya estive) heart failure Flory Warren [facility] 07/16/2021 I48.21 Permanent atrial fibrillation Pr otime 07/16/2021 N18.31 Chronic kidney disease, stage 3a Flory Warren [facility] 07/16/2021 J44.9 Chronic obstructive pulmonary di sease, unspecified Flory Warren [facility] 07/16/2021 E11.65 Type 2 diabetes mellitus with hy perglycemia Flory Warren [facility] 07/16/2021 Z79.84 strategic sourcing specialist (current) use of oral hypoglycemic drugs Flory Warren, [facility] 07/16/2021 E66.01 Morbid (severe) obesity due to e xcess calories Flory Warren, [facility] 07/16/2021 Z68.42 Body mass index [BMI] 45.0-49.9, adult Flory Warren, [facility] 06/30/2021 I11.9 Hypertensive heart disease witho ut heart failure Flory Warren, [facility] 06/30/2021 I48.21 Permanent atrial fibrillation An n Kathrine Mazariegos, [facility] 06/30/2021 Z51.81 Encounter for therapeutic drug l evel monitoring Flory Warren, [facility] 06/30/2021 Z79.01 strategic sourcing specialist (current) use of antic oagulants Flory Warren, [facility] 06/30/2021 J44.9 Chronic obstructive pulmonary di sease, unspecified Flory Warren, [facility] 06/30/2021 Z51.81 Encounter for therapeutic drug l evel monitoring [facility] 06/30/2021 E11.65 Type 2 diabetes mellitus with hy perglycemia Flory Warren, [facility] 06/30/2021 E11.40 Type 2 diabetes jl itus with diabetic neuropathy, unspecified Flory Warren, [facility] 06/30/2021 Z79.84 strategic sourcing specialist (current) use of oral hypoglycemic drugs Flory Warren, [facility] 06/30/2021 Z79.01 strategic sourcing specialist (current) use of antic oagulants Flory Warren, [facility] 06/30/2021 E66.01 Morbid (severe) obesity due to e xcess calories Flory Warren, [facility] 06/30/2021 B35.4 Tinea corporis Flory Warren, [facility] 06/30/2021 Z79.01 strategic sourcing specialist (current) use of antic oagulants [facility] 06/30/2021 Z68.42 Body mass index [BMI] 45.0-49.9, adult Flory Warren, [facility] 06/30/2021 I48.21 Permanent atrial fibrillation An n Kathrnie Mazariegos, [facility] 06/30/2021 I48.21 Permanent atrial fibrillation Pr otime 05/26/2021 Z51.81 Encounter for therapeutic drug l evel monitoring Flory Warren, [facility] 05/26/2021 Z51.81 Encounter for therapeutic drug l evel monitoring Protime 05/26/2021 Z79.01 strategic sourcing specialist (current) use of antic oagulants Flory Warren, [facility] 05/26/2021 Z79.01 strategic sourcing specialist (current) use of antic oagulants Protime 05/26/2021 I48.21 Permanent atrial fibrillation An n Kathrine Mazariegos, [facility] 05/26/2021 I48.21 Permanent atrial fibrillation Pr otime 05/12/2021 Z51.81 Encounter for therapeutic drug l evel monitoring Flory Warren, [facility] 05/12/2021 Z51.81 Encounter for therapeutic drug l evel monitoring Protime 05/12/2021 Z79.01 strategic sourcing specialist (current) use of antic oagulants Flory Warren, [facility] 05/12/2021 Z79.01 long-term (current) use of antic oagulants Protime 05/12/2021 I48.21 Permanent atrial fibrillation An n Kathrine Mazariegos, [facility] 05/12/2021 I48.21 Permanent atrial fibrillation Pr otime 04/10/2021 Z51.81 Encounter for therapeutic drug l evel monitoring Flory Warren, [facility] 04/10/2021 Z51.81 Encounter for therapeutic drug l evel monitoring Protime 04/10/2021 I48.21 Permanent atrial fibrillation An malvin Warren, [facility] 04/10/2021 I11.9 Hypertensive heart disease witho ut heart failure Flory Warren, [facility] 04/10/2021 Z79.01 strategic sourcing specialist (current) use of antic oagulants Flory Warren, [facility] 04/10/2021 I48.21 Permanent atrial fibrillation Pr otime 04/10/2021 J44.9 Chronic obstructive pulmonary di sease, unspecified Flory Warren, [facility] 04/10/2021 Z79.01 long-term (current) use of antic oagulants Protime 04/10/2021 I48.21 Permanent atrial fibrillation An malvin Warren, [facility] 04/10/2021 Z79.01 long-term (current) use of antic oagulants Flory Kathrine Mazariegos, [facility] 04/10/2021 E11.65 Type 2 diabetes mellitus with hy perglycemia Flory Warren [facility] 04/10/2021 E11.40 Type 2 diabetes jl itus with diabetic neuropathy, unspecified Flory Warren, [facility] 04/10/2021 E66.01 Morbid (severe) obesity due to e xcess calories Flory Warren, [facility] 04/10/2021 Z68.42 Body mass index [BMI] 45.0-49.9, adult Flory Warren, [facility] 03/09/2021 Z51.81 Encounter for therapeutic drug l evel monitoring Flory Warren, [facility] 03/09/2021 Z51.81 Encounter for therapeutic drug l evel monitoring Protime 03/09/2021 I48.21 Permanent atrial fibrillation An malvin Warren, [facility] 03/09/2021 I48.21 Permanent atrial fibrillation Pr otime 03/09/2021 Z79.01 long-term (current) use of antic oagulants Flory Warren, [facility] 03/09/2021 Z79.01 long-term (current) use of antic oagulants Protime 02/10/2021 Z51.81 Encounter for therapeutic drug l evel monitoring Flory Warren, [facility] 02/10/2021 Z51.81 Encounter for therapeutic drug l evel monitoring Protime 02/10/2021 I48.21 Permanent atrial fibrillation An malvin Warren, [facility] 02/10/2021 I48.21 Permanent atrial fibrillation Pr otime 02/10/2021 Z79.01 long-term (current) use of antic oagulants Flory Warren, [facility] 02/10/2021 Z79.01 long-term (current) use of antic oagulants Protime 01/27/2021 Z51.81 Encounter for therapeutic drug l evel monitoring Flory Warren, [facility] 01/27/2021 Z51.81 Encounter for therapeutic drug l evel monitoring Protime 01/27/2021 I48.21 Permanent atrial fibrillation An malvin Warren, [facility] 01/27/2021 I48.21 Permanent atrial fibrillation Pr otime 01/27/2021 Z79.01 strategic sourcing specialist (current) use of antic oagulants Flory Warren, [facility] 01/27/2021 Z79.01 long-term (current) use of antic oagulants Protime Plan of Treatment Future Appointment(s):* 07/28/2021 8:30 am - Protime at [facility] * 10/06/2021 9:20 am - IDALIA Rivera at [facility] * 08/07/2021 10:45 am - Greta at [facility] * 01/22/2022 10:40 am - IDALIA Rivera at [facility] * 01/22/2022 10:20 am - [facility] 07/16/2021 - IDALIA Rivera* I48.21 Permanent atrial fibrillation* Comments:* Rate controlled on Atenolol which he is tolerating. He had CHF on recent hospitalization. We will arrange an echocardiogram. * Z79.01 long-term (current) use of anticoagulants* Comments:* INR completed. [...] will discontinue Metformin for now. * Z79.84 strategic sourcing specialist (current) use of oral hypoglycemic drugs * [...]
--- OUTSIDE RECORDS SUMMARY | 2021-09-07 11:20 | CCD | Continuity of Care Document ---
Author Author Tony Rivera Organization Unknown Address [address] [address] Phone [phone] Care Team Providers Care Fishing Instructor Name Role Phone Flory Finch [facility] [phone] Problems Active Problems Provider Date Atrial fibrillation [...] by mouth every day 90tabs Flory Warren [facility] 07/16/2021 Ketoconazole 2% Cream apply to rash under arms two times a day for 14 days 60gm Flory Warren [facility] 06/30/2021 Amlodipine Besylate 5mg Tablets Take One Tablet By Mouth Every Day 30tabs I11.9 Flory Warren [facility] 01/16 Rosuvastatin Calcium 40mg Tablets Take One Tablet By Mouth Every Day 90tabs Flory Warren [facility] 01/16 Fluticasone Propionate/Salmeterol Diskus 250-50mcg/Dose Aerosol Inhale 1 puff By Mouth Two Times A Day 180units Flory Warren [facility] 10/03/2020 Lisinopril 40mg Tablets 1 by mouth every day 90tabs Flory Warren [facility] 11/29/2019 Proventil HFA 108(90Base) mcg/Act Aerosol 2 puffs four times a day for one week then as needed for cough 1units I48.2 Flory Warren [facility] 09/09/2015 Warfarin Sodium 6mg Tablets take 1 or 2 tablets by mouth daily as directed 60tabs Flory Warren [facility] 12/16/2009 Warfarin Sodium 1mg Tablets take 1-3 tablets by mouth daily as directed 100tabs Flory Warren [facility] 10/21/2009 History Medications Fluconazole 100mg Tablets one daily x 7 days 7tabs Flory Warren [facility] 06/30/2021 - Medications Administered in Office Medication SIG Qnty Indications Ordering Provider Date Administration Of Flu Vaccine Inj ection Quirino Soler MD 09/12/2020 Administration Of Flu Vaccine Inj ection Flory Warren [facility] 09/18/2019 Immunization Adminstration,1 Vaccine/Tox oid Injection Flory Warren [facility] 05/01/2019 Administration Of Flu Vaccine Inj ection Flory Warren [facility] 10/03/2018 Immunizations CPT Code Status Date Vaccine Lot # [id number] Given 01/16/2021 Pneumovax 23 [id number] 53687 Given 09/12/2020 Influenza Vaccin e Quadrivalent Preser/Antibiotic Free Im Use [id number] 96855 Given 09/18/2019 Influenza Vaccin e Quadrivalent Preser/Antibiotic Free Im Use [id number] 84399 Given 05/01/2019 Adacel- Tetanus Diphtheria P ertussis (Age64 & Under) [id number] 88866 Given 10/03/2018 Influenza Virus Vaccine, Quadrivalent ([id number]), Derived From 3 Given 09/14/2017 Influenza Vaccin e Quadrivalent Preser/Antibiotic Free Im Use [id number] 11376 Given 12/16/2016 Prevnar 13 Q2037 Given 09/07/2016 Fluvirin Virus Vaccine [id number] 01 Q2037 Given 09/09/2015 Fluvirin Virus Vaccine Q2037 Given 09/09/2015 Fluvirin Virus Vaccine [id number] 01 Q2037 Given 09/10/2014 Fluvirin Virus Vaccine 40154 21 17942 Given 11/29/2013 Pneumovax 23 [id number] Q2037 Given 09/06/2013 Fluvirin Virus Vaccine Q2037 [...] Date Facility Test Result H/L Range Note Prothrombin Time/Inr 07/24/2021 [facility] enter [address], [place] [id number] [phone] Prothrombin Time 43.8 seconds High 12.7-14.5 Inr 4.63 Normal 1 Complete Blood Count 07/24/2021 [facility] Assistant Director Of Residence Life: [place] [address] [phone] WBC 9.6 x10*3/UL 4.1 - 10.9 RBC 3.93 x10*6/UL Low 4.20 - 6.30 Hemoglobin 11.9 g/dL Low 12.0 - 18.0 2 Hematocrit 34.2 % Low 37.0 - 51.0 [...] Wi-Inr Inr 2.2 Basic Metabolic Panel 07/16/2021 [facility] Assistant Director Of Residence Life: [place] [address] [phone] Glucose 124 mg/dL High 74 - 99 [...] mL/min Low >60 5 Laboratory test finding 06/30/2021 Wi-Inr Inr 2.8 Complete Blood Count 06/30/2021 [facility], pc Assistant Director Of Residence Life: [place] [address] [phone] WBC 7.5 x10*3/UL 4.1 - 10.9 RBC [...] 2.0 - 7.8 Basic Metabolic Panel 06/30/2021 [facility] Assistant Director Of Residence Life: [place] [address] [phone] Glucose 105 mg/dL High 74 - 99 [...] Wi-Inr Inr 2.5 Complete Blood Count 04/10/2021 [facility] Assistant Director Of Residence Life: [place] [address] [phone] WBC 6.8 x10*3/UL 4.1 - 10.9 RBC [...] 2.0 - 7.8 Basic Metabolic Panel 04/10/2021 [facility] Assistant Director Of Residence Life: [place] [address] [phone] Glucose 100 mg/dL High 74 - 99 [...] test finding 01/27/2021 Wi-Inr Inr 1.8 1 THERAPUTIC HUMAN INR VALUES INDICATIONS NORMAL RANGES PROPHYLAXIS/TREATMENT OF: VENOUS THROMBOSIS 2.0-3.0 PULMONARY EMBOLISM 2.0-3.0 PREVENTION OF SYSTEMIC EMBOLISM FROM: TISSUE HEART VALVES 2.0-3.0 ACUTE MYOCARDIAL INFARCTION 2.0-3.0 VALVULAR HEART DISEASE 2.0-3.0 ATRIAL FIBRILLATION 2.0-3.0 MECHANICAL VALVES(HIGH RISK) 2.5-3.5 RECURRENT MYOCARDIAL INFARCTION 2.5-3.5 2 NOTE: RESULT VERIFIED. 3 100-125 mg/dL PRE-DIABET ES/FASTING >126 mg/dL DIABETES/FASTING 4 NOTE: RESULT VERIFIED. 5 CHRONIC KIDNEY DISEASE STAGI NG PER NKF STAGE I & II GFR >= 60 NORMAL TO MILDLY DECREASED STAGE III GFR 30-59 MODERATELY DECREASED STAGE IV GFR 15-29 SEVERELY DECREASED STAGE V GFR <15 VERY LITTLE GFR LEFT ESRD GFR <15 ON AB[employer]IGINAL [employer]ITY [employer]NCIL MEMBER 6 100-125 mg/dL PRE-DIABET ES/FASTING >126 mg/dL DIABETES/FASTING 7 CHRONIC KIDNEY DISEASE STAGI NG PER NKF STAGE I & II GFR >= 60 NORMAL TO MILDLY DECREASED STAGE III GFR 30-59 MODERATELY DECREASED STAGE IV GFR 15-29 SEVERELY DECREASED STAGE V GFR <15 VERY LITTLE GFR LEFT ESRD GFR <15 ON [employer]NCIL MEMBER 8 100-125 mg/dL PRE-DIABET ES/FASTING >126 mg/dL DIABETES/FASTING 9 CHRONIC KIDNEY DISEASE STAGI NG PER NKF STAGE I & II GFR >= 60 NORMAL TO MILDLY DECREASED STAGE III GFR 30-59 MODERATELY DECREASED STAGE IV GFR 15-29 SEVERELY DECREASED STAGE V GFR <15 VERY LITTLE GFR LEFT ESRD GFR <15 ON [employer]BER Procedures Date Code Description Status 07/16/2021 81927 German Cre SRV W/I 7 Days Of DC, C omm W/I 2 Dys Med Rec Completed 06/30/2021 43321 Office/Outpatient Established Mo d MDM 30-39 Min Completed 04/10/2021 63470 Office/Outpatient Established Lo w MDM 20-29 Min Completed 05/03/2016 [id number] Colonoscopy Completed Medical Devices Description No Information Available Encounters Type Date Location Provider Dx Diagnosis Office Visit 07/16/2021 11:20a [facility] 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 Flory Munoz ne, [facility] I11.9 Hypertensive heart disease without heart failure J44.9 Chronic obstructive pulmonar y disease, unspecified I48.21 Permanent atrial fibrillatio n Z79.01 retirement (current) use of a nticoagulants E11.65 Type 2 diabetes mellitus wit h hyperglycemia E11.40 Type 2 diabetes mellitus wit h diabetic neuropathy, unsp E66.01 Morbid (severe) obesity due to excess calories Z68.42 Body mass index [BMI] 45.0-4 9.9, adult Assessments Date Code Description Provider 07/16/2021 Z51.81 Encounter for therapeutic drug l evel monitoring DAISHA RievraP 07/16/2021 Z51.81 Encounter for therapeutic drug l evel monitoring Protime 07/16/2021 Z79.01 retirement (current) use of antic oagulants DAISHA RiveraP 07/16/2021 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 07/16/2021 I48.21 Permanent atrial fibrillation An malvin Warren [facility] 07/16/2021 I48.21 Permanent atrial fibrillation An DAISHA PalenciaP 07/16/2021 I48.21 Permanent atrial fibrillation Pr otime 07/16/2021 Z79.01 retirement (current) use of antic oagulants DAISHA RiveraP 07/16/2021 N17.9 Acute kidney failure, unspecifie d DAISHA RiveraP 07/16/2021 I13.0 Hypertensive heart a nd chronic kidney disease with heart failure and stage 1 through stage 4 chronic kidney disease, or unspecified chronic kidney disease DAISHA RiveraP 07/16/2021 I50.33 Acute on chronic diastolic (amaya estive) heart failure Flory Warren, [facility] 07/16/2021 N18.31 Chronic kidney disease, stage 3a Flory Warren, [facility] 07/16/2021 J44.9 Chronic obstructive pulmonary di sease, unspecified Flory Warren, [facility] 07/16/2021 E11.65 Type 2 diabetes mellitus with hy perglycemia Flory Warren, [facility] 07/16/2021 Z79.84 retirement (current) use of oral hypoglycemic drugs Flory Warren, [facility] 07/16/2021 E66.01 Morbid (severe) obesity due to e xcess calories Flory Warren, [facility] 07/16/2021 Z68.42 Body mass index [BMI] 45.0-49.9, adult Flory Warren, [facility] 06/30/2021 I11.9 Hypertensive heart disease witho ut heart failure Flory Warren, [facility] 06/30/2021 I48.21 Permanent atrial fibrillation An malvin Kathrine Mazariegos, [facility] 06/30/2021 Z51.81 Encounter for therapeutic drug l evel monitoring Flory Warren, [facility] 06/30/2021 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 Flory Warren, [facility] 06/30/2021 J44.9 Chronic obstructive pulmonary di sease, unspecified Flory Warren, [facility] 06/30/2021 Z51.81 Encounter for therapeutic drug l evel monitoring Protime 06/30/2021 E11.65 Type 2 diabetes mellitus with hy perglycemia Flory Warren, [facility] 06/30/2021 E11.40 Type 2 diabetes jl itus with diabetic neuropathy, unspecified Flory Kathrine Mazariegos, [facility] 06/30/2021 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 Flory Kathrine Mazariegos, [facility] 06/30/2021 Z79.01 retirement (current) use of antic oagulants Flory Kathrine Mazariegos, [facility] 06/30/2021 E66.01 Morbid (severe) obesity due to e xcess calories Flory Kathrine Mazariegos, [facility] 06/30/2021 B35.4 Tinea corporis Flory Kathrine Mazariegos, [facility] 06/30/2021 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 06/30/2021 Z68.42 Body mass index [BMI] 45.0-49.9, adult Flory Warren, [facility] 06/30/2021 I48.21 Permanent atrial fibrillation An malvin Warren, [facility] 06/30/2021 I48.21 Permanent atrial fibrillation Pr otime 05/26/2021 Z51.81 Encounter for therapeutic drug l evel monitoring Flory Warren, [facility] 05/26/2021 Z51.81 Encounter for therapeutic drug l evel monitoring Protime 05/26/2021 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 Flory Warren, [facility] 05/26/2021 Z79.01 retirement (current) use of antic oagulants Protime 05/26/2021 I48.21 Permanent atrial fibrillation An malvin Warren, [facility] 05/26/2021 I48.21 Permanent atrial fibrillation Pr otime 05/12/2021 Z51.81 Encounter for therapeutic drug l evel monitoring Flory Warren, [facility] 05/12/2021 Z51.81 Encounter for therapeutic drug l evel monitoring Protime 05/12/2021 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 Flory Warren, [facility] 05/12/2021 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 05/12/2021 I48.21 Permanent atrial fibrillation An malvin Warren, [facility] 05/12/2021 I48.21 Permanent atrial fibrillation Pr otime 04/10/2021 Z51.81 Encounter for therapeutic drug l evel monitoring Flory Warren, [facility] 04/10/2021 Z51.81 Encounter for therapeutic drug l evel monitoring Protime 04/10/2021 I48.21 Permanent atrial fibrillation An malvin Warren, [facility] 04/10/2021 I11.9 Hypertensive heart disease witho ut heart failure Flory Warren, [facility] 04/10/2021 Z79.01 retirement (current) use of antic oagulants Flory Warren, [facility] 04/10/2021 I48.21 Permanent atrial fibrillation Pr otime 04/10/2021 J44.9 Chronic obstructive pulmonary di sease, unspecified Flory Warren, [facility] 04/10/2021 Z79.01 retirement (current) use of antic oagulants Protime 04/10/2021 I48.21 Permanent atrial fibrillation An malvin Warren, [facility] 04/10/2021 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 Flory Warren, [facility] 04/10/2021 E11.65 Type 2 diabetes mellitus with hy perglycemia Flory Warren, [facility] 04/10/2021 E11.40 Type 2 diabetes jl itus with diabetic neuropathy, unspecified Flory Warren, [facility] 04/10/2021 E66.01 Morbid (severe) obesity due to e xcess calories Flory Warren, [facility] 04/10/2021 Z68.42 Body mass index [BMI] 45.0-49.9, adult Flory Warren, [facility] 03/09/2021 Z51.81 Encounter for therapeutic drug l evel monitoring Flory Warren, [facility] 03/09/2021 Z51.81 Encounter for therapeutic drug l evel monitoring Protime 03/09/2021 I48.21 Permanent atrial fibrillation An malvin Warren, [facility] 03/09/2021 I48.21 Permanent atrial fibrillation Pr otime 03/09/2021 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 Flory Warren, [facility] 03/09/2021 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 02/10/2021 Z51.81 Encounter for therapeutic drug l evel monitoring Flory Warren, [facility] 02/10/2021 Z51.81 Encounter for therapeutic drug l evel monitoring Protime 02/10/2021 I48.21 Permanent atrial fibrillation An malvin Warren, [facility] 02/10/2021 I48.21 Permanent atrial fibrillation Pr otime 02/10/2021 Z79.01 retirement (current) use of antic oagulants Flory Warren, [facility] 02/10/2021 Z79.01 retirement (current) use of antic oagulants Protime 01/27/2021 Z51.81 Encounter for therapeutic drug l evel monitoring Flory Warren, [facility] 01/27/2021 Z51.81 Encounter for therapeutic drug l evel monitoring Protime 01/27/2021 I48.21 Permanent atrial fibrillation An n IDALIA Warren 01/27/2021 I48.21 Permanent atrial fibrillation Pr otime 01/27/2021 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 * 10/06/2021 9:20 am - IDALIA Rivera at [facility] * 08/07/2021 10:45 am - Greta at [facility] * 01/22/2022 10:40 am - IDALIA Rivera at [facility] * 01/22/2022 10:20 am - Nurse #2 at [facility] 07/24/2021 - IDALIA Rivera* All * New Medication:* Torsemide 10 mg - 2 today then one daily by mouth every day Functional Status Description No Information Available Mental Status Description No Information Available Referrals Description No Information Available
--- OUTSIDE RECORDS SUMMARY | 2021-09-07 11:20 | CCD | Continuity of Care Document ---
Author Author Lab Schedule, Tony Organization Unknown Address [address] [address] Phone Unavailable Care Team Providers [place] Name Role Phone Flory Finch Kandis PENA AUT [phone] Problems Active Problems Provider Date Atrial fibrillation [...] 10 milliliters at bedtime 120ml Robyn Cuadra, JEAN 07/20/2021 Atenolol 50mg Tablets 1 by mouth every day 90tabs IDALIA Rivera 07/16/2021 Ketoconazole 2% Cream apply to rash under arms two times a day for 14 days [address] [facility] 06/30/2021 Amlodipine Besylate 5mg Tablets Take One Tablet By Mouth Every Day 30tabs I11.9 Flory Warren [facility] 01/16 Rosuvastatin Calcium 40mg Tablets Take One Tablet By Mouth Every Day 90tabs [facility] Fluticasone Propionate/Salmeterol Diskus 250-50mcg/Dose Aerosol Inhale 1 puff By Mouth Two Times A Day 180units Flory Warren [facility] 10/03/2020 Lisinopril 40mg Tablets 1 by mouth every day 90tabs [facility]/29/2019 Proventil HFA 108(90Base) mcg/Act Aerosol 2 puffs four times a day for one week then as needed for cough 1units I48.2 Flory Warren [facility] 09/09/2015 Warfarin Sodium 6mg Tablets take 1 or 2 tablets by mouth daily as directed 60tabs Flory Warren [facility] 12/16/2009 Warfarin Sodium 1mg Tablets take 1-3 tablets by mouth daily as directed 100tabs Flory Warren [facility] 10/21/2009 History Medications Fluconazole 100mg Tablets one daily x 7 days 7tabs Flory Warren [facility] 06/30/2021 - Medications Administered in Office Medication SIG Qnty Indications Ordering Provider Date Administration Of Flu Vaccine Inj ection Quirino Soler MD 09/12/2020 Administration Of Flu Vaccine Inj ection Flory Warren [facility] 09/18/2019 Immunization Adminstration,1 Vaccine/Tox oid Injection Flory Warren [facility] 05/01/2019 Administration Of Flu Vaccine Inj ection Flory Warren [facility] 10/03/2018 Immunizations CPT Code Status Date Vaccine Lot # [id number] Given 01/16/2021 Pneumovax 23 [id number] Given 09/12/2020 Influenza Vaccin e Quadrivalent Preser/Antibiotic Free Im Use [id number] 40545 Given 09/18/2019 Influenza Vaccin e Quadrivalent Preser/Antibiotic Free Im Use [id number] 04855 Given 05/01/2019 Adacel- Tetanus Diphtheria P ertussis (Age64 & Under) [id number] 33684 Given 10/03/2018 Influenza Virus Vaccine, Quadrivalent ([id number]), Derived From 3 Given 09/14/2017 Influenza Vaccin e Quadrivalent Preser/Antibiotic Free Im Use [id number] 68841 Given 12/16/2016 Prevnar 13 [id number] Given 09/07/2016 Fluvirin Virus Vaccine 12090 01 Q2037 Given 09/09/2015 Fluvirin Virus Vaccine Q2037 Given 09/09/2015 Fluvirin Virus Vaccine 44334 01 Q2037 Given 09/10/2014 Fluvirin Virus Vaccine 92415 21 03103 Given 11/29/2013 Pneumovax 23 [id number] Q2037 Given 09/06/2013 Fluvirin Virus Vaccine Q2037 Given 08/23/2012 Fluvirin Virus Vaccine Q2037 Given 08/23/2012 Fluvirin Virus Vaccine Q2037 Given 10/05/2011 Fluvirin Virus Vaccine Vital Signs Date Vital Result Comment 07/16/2021 11:23am BP Systolic 112 mmHg BP Diastolic 66 mmHg Heart Rate 86 /min Height 67.5 inches 5'7.50" Weight 296.00 lb O2 % BldC Oximetry 96 % BMI (Body Mass Index) 45.7 kg/m2 06/30/2021 10:28am BP Systolic 134 mmHg BP Diastolic 70 mmHg Heart Rate 90 /min Height 67.5 inches 5'7.50" Weight 294.00 lb O2 % BldC Oximetry 94 % BMI (Body Mass Index) 45.4 kg/m2 Results Test Acquired Date Facility Test Result H/L Range Note Laboratory test finding 07/16/2021 [facility] 2.2 Basic Metabolic Panel 07/16/2021 [facility] Hair Designer: [place] [address] [phone] Glucose 124 mg/dL High 74 - 99 [...] Wi-Inr Inr 2.8 Complete Blood Count 06/30/2021 [facility] Hair Designer: [place] [address] [phone] WBC 7.5 x10*3/UL 4.1 - 10.9 RBC [...] 2.0 - 7.8 Basic Metabolic Panel 06/30/2021 [facility] Hair Designer: [place] [address] [phone] Glucose 105 mg/dL High 74 - 99 [...] Wi-Inr Inr 2.5 Complete Blood Count 04/10/2021 [facility] Hair Designer: [place] [address] [phone] WBC 6.8 x10*3/UL 4.1 - 10.9 RBC [...] 2.0 - 7.8 Basic Metabolic Panel 04/10/2021 [facility] Hair Designer: [place] [address] [phone] Glucose 100 mg/dL High 74 - 99 [...] LITTLE GFR LEFT ESRD GFR <15 ON AUTO SLIP COVER INSTALLER 4 100-125 mg/dL PRE-DIABET ES/FASTING >126 mg/dL DIABETES/FASTING 5 CHRONIC KIDNEY DISEASE STAGI NG PER NKF STAGE I & II GFR >= 60 NORMAL TO MILDLY DECREASED STAGE III GFR 30-59 MODERATELY DECREASED STAGE IV GFR 15-29 SEVERELY DECREASED STAGE V GFR <15 VERY LITTLE GFR LEFT ESRD GFR <15 ON AUTO SLIP COVER INSTALLER 6 100-125 mg/dL PRE-DIABET ES/FASTING >126 mg/dL DIABETES/FASTING 7 CHRONIC KIDNEY DISEASE STAGI NG PER NKF STAGE I & II GFR >= 60 NORMAL TO MILDLY DECREASED STAGE III GFR 30-59 MODERATELY DECREASED STAGE IV GFR 15-29 SEVERELY DECREASED STAGE V GFR <15 VERY LITTLE GFR LEFT ESRD GFR <15 ON AUTO SLIP COVER INSTALLER Procedures Date Code Description Status 07/16/2021 12913 German Cre SRV W/I 7 Days Of DC, C omm W/I 2 Dys Med Rec Completed 06/30/2021 99913 Office/Outpatient Established Mo d MDM 30-39 Min Completed 04/10/2021 96001 Office/Outpatient Established Lo w MDM 20-29 Min Completed 05/03/2016 44093155 Colonoscopy Completed Medical Devices Description No Information Available Encounters Type Date Location Provider Dx Diagnosis Office Visit 07/16/2021 11:20a [facility] Flory Munoz ne, [employer] I48.21 Permanent atrial fibrillation Z79.01 [employer] intermediary (current) use of a nticoagulants N17.9 Acute kidney failure, unspec ified I13.0 Hyp hrt & chr kdny dis w hrt fail and stg 1-4/unsp chr kdny I50.33 Acute on chronic diastolic ( congestive) heart failure N18.31 Chronic kidney disease, stag e 3a J44.9 Chronic obstructive pulmonar y disease, unspecified E11.65 Type 2 diabetes mellitus wit h hyperglycemia Z79.84 [employer] (current) use of o ral hypoglycemic drugs E66.01 Morbid (severe) obesity due to excess calories Z68.42 Body mass index [BMI] 45.0-4 9.9, adult Office Visit 06/30/2021 9:40a [facility] Flory Pearson, [facility] I11.9 Hypertensive heart disease without heart failure I48.21 Permanent atrial fibrillatio n Z79.01 nursing home (current) use of a nticoagulants J44.9 Chronic obstructive pulmonar y disease, unspecified E11.65 Type 2 diabetes mellitus wit h hyperglycemia E11.40 Type 2 diabetes mellitus wit h diabetic neuropathy, unsp Z79.84 [employer] intermediary (current) use of o ral hypoglycemic drugs E66.01 Morbid (severe) obesity due to excess calories B35.4 Tinea corporis Z68.42 Body mass index [BMI] 45.0-4 9.9, adult Office Visit 04/10/2021 11:00a [facility] Flory Pearson, [facility] I11.9 Hypertensive heart disease without heart failure J44.9 Chronic obstructive pulmonar y disease, unspecified I48.21 Permanent atrial fibrillatio n Z79.01 nursing home (current) use of a nticoagulants E11.65 Type 2 diabetes mellitus wit h hyperglycemia E11.40 Type 2 diabetes mellitus wit h diabetic neuropathy, unsp E66.01 Morbid (severe) obesity due to excess calories Z68.42 Body mass index [BMI] 45.0-4 9.9, adult Assessments Date Code Description Provider 07/16/2021 Z79.01 nursing home (current) use of antic oagulants Protime 07/16/2021 I48.21 Permanent atrial fibrillation An n Kathrine Mazariegos [facility] 07/16/2021 Z79.01 nursing home (current) use of antic oagulants Flory Warren [facility] 07/16/2021 N17.9 Acute kidney failure, unspecifie d Flory Warren [facility] 07/16/2021 I13.0 Hypertensive heart a nd chronic kidney disease with heart failure and stage 1 through stage 4 chronic kidney disease, or unspecified chronic kidney disease Flory Warren [facility] 07/16/2021 I50.33 Acute on chronic diastolic (amaya estive) heart failure Flory Warren [facility] 07/16/2021 I48.21 Permanent atrial fibrillation Pr otime 07/16/2021 N18.31 Chronic kidney disease, stage 3a Flory Warren [facility] 07/16/2021 J44.9 Chronic obstructive pulmonary di sease, unspecified DAISHA RiveraP 07/16/2021 E11.65 Type 2 diabetes mellitus with hy perglycemia Flory Warren, [facility] 07/16/2021 Z79.84 nursing home (current) use of oral hypoglycemic drugs Flory Warren, [facility] 07/16/2021 E66.01 Morbid (severe) obesity due to e xcess calories Flory Warren, [facility] 07/16/2021 Z68.42 Body mass index [BMI] 45.0-49.9, adult Flory Warren, [facility] 06/30/2021 I11.9 Hypertensive heart disease witho ut heart failure Flory Warren, [facility] 06/30/2021 I48.21 Permanent atrial fibrillation An n Kathrine Mazariegos, [facility] 06/30/2021 Z51.81 Encounter for therapeutic drug l evel monitoring Flory Warren, [facility] 06/30/2021 Z79.01 nursing home (current) use of antic oagulants Flory Warren, [facility] 06/30/2021 J44.9 Chronic obstructive pulmonary di sease, unspecified Flory Warren, [facility] 06/30/2021 Z51.81 Encounter for therapeutic drug l evel monitoring Protime 06/30/2021 E11.65 Type 2 diabetes mellitus with hy perglycemia Flory Warren, [facility] 06/30/2021 E11.40 Type 2 diabetes jl itus with diabetic neuropathy, unspecified Flory Warren, [facility] 06/30/2021 Z79.84 [employer] intermedi[employer] (current) use of oral hypoglycemic drugs Flory Warren, [facility] 06/30/2021 Z79.01 [employer] transportation intermediary (current) use of antic oagulants Flory Warren, [facility] 06/30/2021 E66.01 Morbid (severe) obesity due to e xcess calories Flory Warren, [facility] 06/30/2021 B35.4 Tinea corporis Flory Warren, [facility] 06/30/2021 Z79.01 nursing home (current) use of antic oagulants Protime 06/30/2021 Z68.42 Body mass index [BMI] 45.0-49.9, adult Flory Warren, [facility] 06/30/2021 I48.21 Permanent atrial fibrillation An n Kathrine Mazariegos, [facility] 06/30/2021 I48.21 Permanent atrial fibrillation Pr otime 05/26/2021 Z51.81 Encounter for therapeutic drug l evel monitoring Flory Warren, [facility] 05/26/2021 Z51.81 Encounter for therapeutic drug l evel monitoring Protime 05/26/2021 Z79.01 [employer] intermediary (current) use of antic oagulants Flory Warren, [facility] 05/26/2021 Z79.01 nursing home (current) use of antic oagulants Protime 05/26/2021 I48.21 Permanent atrial fibrillation An n Kathrine Mazariegos, [facility] 05/26/2021 I48.21 Permanent atrial fibrillation Pr otime 05/12/2021 Z51.81 Encounter for therapeutic drug l evel monitoring Flory Warren, [facility] 05/12/2021 Z51.81 Encounter for therapeutic drug l evel monitoring Protime 05/12/2021 Z79.01 [employer] transportation intermediary (current) use of antic oagulants Flory Warren, [facility] 05/12/2021 Z79.01 nursing home (current) use of antic oagulants Protime 05/12/2021 I48.21 Permanent atrial fibrillation An n Kathrine Mazariegos, [facility] 05/12/2021 I48.21 Permanent atrial fibrillation Pr otime 04/10/2021 Z51.81 Encounter for therapeutic drug l evel monitoring Flory Warren, [facility] 04/10/2021 Z51.81 Encounter for therapeutic drug l evel monitoring Protime 04/10/2021 I48.21 Permanent atrial fibrillation An n Kathrine Mazariegos, [facility] 04/10/2021 I11.9 Hypertensive heart disease witho ut heart failure Flory Warren, [facility] 04/10/2021 Z79.01 [employer] intermediary (current) use of antic oagulants Flory Warren, [facility] 04/10/2021 I48.21 Permanent atrial fibrillation Pr otime 04/10/2021 J44.9 Chronic obstructive pulmonary di sease, unspecified Flory Warren, [facility] 04/10/2021 Z79.01 ocean transportation intermediary (current) use of antic oagulants Protime 04/10/2021 I48.21 Permanent atrial fibrillation An n Kathrine Mazariegos, [facility] 04/10/2021 Z79.01 ocean transportation intermediary (current) use of antic oagulants Flory Kathrine Mazariegos, [facility] 04/10/2021 E11.65 Type 2 diabetes mellitus with hy perglycemia Flory Warren, [facility] 04/10/2021 E11.40 Type 2 diabetes jl itus with diabetic neuropathy, unspecified Flory Warren, [facility] 04/10/2021 E66.01 Morbid (severe) obesity due to e xcess calories Flory Warren, [facility] 04/10/2021 Z68.42 Body mass index [BMI] 45.0-49.9, adult Flory Warren, [facility] 03/09/2021 Z51.81 Encounter for therapeutic drug l evel monitoring Flory Warren, [facility] 03/09/2021 Z51.81 Encounter for therapeutic drug l evel monitoring Protime 03/09/2021 I48.21 Permanent atrial fibrillation An malvin Warren, [facility] 03/09/2021 I48.21 Permanent atrial fibrillation Pr otime 03/09/2021 Z79.01 [employer] intermediary (current) use of antic oagulants Flory Warren, [facility] 03/09/2021 Z79.01 nursing home (current) use of antic oagulants Protime 02/10/2021 Z51.81 Encounter for therapeutic drug l evel monitoring Flory Warren, [facility] 02/10/2021 Z51.81 Encounter for therapeutic drug l evel monitoring Protime 02/10/2021 I48.21 Permanent atrial fibrillation An malvin Warren, [facility] 02/10/2021 I48.21 Permanent atrial fibrillation Pr otime 02/10/2021 Z79.01 [employer] transportation intermediary (current) use of antic oagulants Flory Warren, [facility] 02/10/2021 Z79.01 nursing home (current) use of antic oagulants Protime 01/27/2021 Z51.81 Encounter for therapeutic drug l evel monitoring Flory Warren, [facility] 01/27/2021 Z51.81 Encounter for therapeutic drug l evel monitoring Protime 01/27/2021 I48.21 Permanent atrial fibrillation An malvin Warren, [facility] 01/27/2021 I48.21 Permanent atrial fibrillation Pr otime 01/27/2021 Z79.01 nursing home (current) use of antic oagulants Flory Warren, [facility] 01/27/2021 Z79.01 [employer] intermediary (current) use of antic oagulants Protime Plan of Treatment Future Appointment(s):* 07/28/2021 8:30 am - [facility] at [facility] * 10/06/2021 9:20 am - IDALIA Rivera at [facility] * 08/07/2021 10:45 am - Protime at [facility] * 01/22/2022 10:40 am - IDALIA Rivera at [facility] * 01/22/2022 10:20 am - Nurse #2 at [facility] 07/16/2021 - IDALIA Rivera* I48.21 Permanent atrial fibrillation* Comments:* Rate controlled on Atenolol which he is tolerating. He had CHF on recent hospitalization. We will arrange an echocardiogram. * Z79.01 nursing home (current) use of anticoagulants* Comments:* INR completed. [...] will discontinue Metformin for now. * Z79.84 nursing home (current) use of oral hypoglycemic drugs * [...]
--- OUTSIDE RECORDS SUMMARY | 2021-09-07 11:20 | CCD | Continuity of Care Document ---
Author Author Lab Schedule, Tony Organization Unknown Address [address] [address] Phone Unavailable Care Team Providers [employer] Manager Name Role Phone Flory Finch Kandis PENA AUT [phone] Problems Active Problems Provider Date Atrial fibrillation [...] day for 14 days 60gm Flory Warren [facility] 06/30/2021 Amlodipine Besylate 5mg Tablets Take One Tablet By Mouth Every Day 30tabs I11.9 Flory Warren [facility] 01/16 Rosuvastatin Calcium 40mg Tablets Take One Tablet By Mouth Every Day 90tabs [facility] Fluticasone Propionate/Salmeterol Diskus 250-50mcg/Dose Aerosol Inhale 1 puff By Mouth Two Times A Day 180units Flory Warren [facility] 10/03/2020 Lisinopril 40mg Tablets 1 by mouth every day 90tabs [facility] 11/29/2019 Proventil HFA 108(90Base) mcg/Act Aerosol 2 puffs four times a day for one week then as needed for cough 1units I48.2 Flory Warren [facility] 09/09/2015 Warfarin Sodium 6mg Tablets take 1 or 2 tablets by mouth daily as directed 60tabs Flory Warren [facility] 12/16/2009 Warfarin Sodium 1mg Tablets take 1-3 tablets by mouth daily as directed 100tabs Flory Warren [facility] 10/21/2009 History Medications Fluconazole 100mg Tablets one daily x 7 days 7tabs Flory Warren [facility] 06/30/2021 - Medications Administered in Office Medication SIG Qnty Indications Ordering Provider Date Administration Of Flu Vaccine Inj ection Quirino Soler MD 09/12/2020 Administration Of Flu Vaccine Inj ection Flory Warren [facility] 09/18/2019 Immunization Adminstration,1 Vaccine/Tox oid Injection Flory Warren [facility] 05/01/2019 Administration Of Flu Vaccine Inj ection Flory Warren [facility] 10/03/2018 Immunizations CPT Code Status Date Vaccine Lot # [id number] Given 01/16/2021 Pneumovax 23 [id number] 39944 Given 09/12/2020 Influenza Vaccin e Quadrivalent Preser/Antibiotic Free Im Use [id number] 83644 Given 09/18/2019 Influenza Vaccin e Quadrivalent Preser/Antibiotic Free Im Use [id number] 82653 Given 05/01/2019 Adacel- Tetanus Diphtheria P ertussis (Age64 & Under) [id number] 55314 Given 10/03/2018 Influenza Virus Vaccine, Quadrivalent ([id number]), Derived From 7 Given 09/14/2017 Influenza Vaccin e Quadrivalent Preser/Antibiotic Free Im Use [id number] 69227 Given 12/16/2016 Prevnar 13 [id number] Given 09/07/2016 Fluvirin Virus Vaccine 00346 01 Q2037 Given 09/09/2015 Fluvirin Virus Vaccine Q2037 Given 09/09/2015 Fluvirin Virus Vaccine 88773 01 Q2037 Given 09/10/2014 Fluvirin Virus Vaccine 34279 21 92709 Given 11/29/2013 Pneumovax 23 [id number] Q2037 Given 09/06/2013 Fluvirin Virus Vaccine Q2037 Given 08/23/2012 Fluvirin Virus Vaccine Q2037 Given 08/23/2012 Fluvirin Virus Vaccine Q2037 Given 10/05/2011 Fluvirin Virus Vaccine Vital Signs Date Vital Result Comment 07/24/2021 8:45am Heart Rate 84 /min Height 67.5 inches [...] Result H/L Range Note Prothrombin Time/Inr 07/24/2021 [facility] enter [address] [place] [address] [phone] Prothrombin Time 43.8 seconds High 12.7-14.5 Inr 4.63 Normal 1 Complete Blood Count 07/24/2021 [facility] Fle[employer] Market Seller: [place] [address] [phone] WBC 9.6 x10*3/UL 4.1 - 10.9 RBC [...] Wi-Inr Inr 2.2 Basic Metabolic Panel 07/16/2021 [facility] Fle[employer] Market Seller: [place] [address] [phone] Glucose 124 mg/dL High 74 - 99 [...] Wi-Inr Inr 2.8 Complete Blood Count 06/30/2021 [facility] Fle[employer] Market Seller: [place] [address] [phone] WBC 7.5 x10*3/UL 4.1 - 10.9 RBC [...] 2.0 - 7.8 Basic Metabolic Panel 06/30/2021 [facility] Fle[employer] Market Seller: [place] [address] [phone] Glucose 105 mg/dL High 74 - 99 [...] Wi-Inr Inr 2.5 Complete Blood Count 04/10/2021 [facility] Fle[employer] Market Seller: [place] [address] [phone] WBC 6.8 x10*3/UL 4.1 - 10.9 RBC [...] 2.0 - 7.8 Basic Metabolic Panel 04/10/2021 [facility] Flea Market Seller: [place] [address] [phone] Glucose 100 mg/dL High 74 - 99 [...] LITTLE GFR LEFT ESRD GFR <15 ON [employer]AM[employer] WORKER 6 100-125 mg/dL PRE-DIABET ES/FASTING >126 mg/dL DIABETES/FASTING 7 CHRONIC KIDNEY DISEASE STAGI NG PER NKF STAGE I & II GFR >= 60 NORMAL TO MILDLY DECREASED STAGE III GFR 30-59 MODERATELY DECREASED STAGE IV GFR 15-29 SEVERELY DECREASED STAGE V GFR <15 VERY LITTLE GFR LEFT ESRD GFR <15 ON [employer] WORKER 8 100-125 mg/dL PRE-DIABET ES/FASTING >126 mg/dL DIABETES/FASTING 9 CHRONIC KIDNEY DISEASE STAGI NG PER NKF STAGE I & II GFR >= 60 NORMAL TO MILDLY DECREASED STAGE III GFR 30-59 MODERATELY DECREASED STAGE IV GFR 15-29 SEVERELY DECREASED STAGE V GFR <15 VERY LITTLE GFR LEFT ESRD GFR <15 ON [employer] WORKER Procedures Date Code Description Status 07/16/2021 35907 [facility] SRV W/I 7 Days Of DC, C omm W/I 2 Dys Med Rec Completed 06/30/2021 00039 Office/Outpatient Established Mo d MDM 30-39 Min Completed 04/10/2021 45165 Office/Outpatient Established Lo w MDM 20-29 Min Completed 05/03/2016 [id number] Colonoscopy Completed Medical Devices Description No Information Available Encounters Type Date Location Provider Dx Diagnosis Office Visit 07/16/2021 11:20a [facility] Flory Munoz ne, [employer] I48.21 Permanent atrial fibrillation Z79.01 terminal supervisor (current) use of a nticoagulants N17.9 Acute kidney failure, unspec ified I13.0 Hyp hrt & chr kdny dis w hrt fail and stg 1-4/unsp chr kdny I50.33 Acute on chronic diastolic ( congestive) heart failure N18.31 Chronic kidney disease, stag e 3a J44.9 Chronic obstructive pulmonar y disease, unspecified E11.65 Type 2 diabetes mellitus wit h hyperglycemia Z79.84 nursing home (current) use of o ral hypoglycemic drugs E66.01 Morbid (severe) obesity due to excess calories Z68.42 Body mass index [BMI] 45.0-4 9.9, adult Office Visit 06/30/2021 9:40a [facility] Flory Munoz ne, [employer] I11.9 Hypertensive heart disease without heart failure I48.21 Permanent atrial fibrillatio n Z79.01 terminal supervisor (current) use of a nticoagulants J44.9 Chronic obstructive pulmonar y disease, unspecified E11.65 Type 2 diabetes mellitus wit h hyperglycemia E11.40 Type 2 diabetes mellitus wit h diabetic neuropathy, unsp Z79.84 terminal supervisor (current) use of o ral hypoglycemic drugs E66.01 Morbid (severe) obesity due to excess calories B35.4 Tinea corporis Z68.42 Body mass index [BMI] 45.0-4 9.9, adult Office Visit 04/10/2021 11:00a [facility] Flory Pearson, [facility] I11.9 Hypertensive heart disease without heart [...] therapeutic drug l evel monitoring Flory Warren [facility] 07/16/2021 Z51.81 Encounter for therapeutic drug l evel monitoring Protime 07/16/2021 Z79.01 nursing home (current) use of antic oagulants Flory Warren [facility] 07/16/2021 Z79.01 nursing home (current) use of antic oagulants Protime 07/16/2021 I48.21 Permanent atrial fibrillation An malvin Warren [facility] 07/16/2021 I48.21 Permanent atrial fibrillation An malvin Warren [facility] 07/16/2021 I48.21 Permanent atrial fibrillation Pr otime 07/16/2021 Z79.01 terminal supervisor (current) use of antic oagulants Flory Warren [facility] 07/16/2021 N17.9 Acute kidney failure, unspecifie d Flory Warren [facility] 07/16/2021 I13.0 Hypertensive heart a nd chronic kidney disease with heart failure and stage 1 through stage 4 chronic kidney disease, or unspecified chronic kidney disease Flory Warren [facility] 07/16/2021 I50.33 Acute on chronic diastolic (amaya estive) heart failure Flory Warren [facility] 07/16/2021 N18.31 Chronic kidney disease, stage 3a Flory Warren [facility] 07/16/2021 J44.9 Chronic obstructive pulmonary di sease, unspecified Flory Warren, [facility] 07/16/2021 E11.65 Type 2 diabetes mellitus with hy perglycemia Flory Warren, [facility] 07/16/2021 Z79.84 terminal supervisor (current) use of oral hypoglycemic drugs Flory Warren, [facility] 07/16/2021 E66.01 Morbid (severe) obesity due to e xcess calories Flory Warren, [facility] 07/16/2021 Z68.42 Body mass index [BMI] 45.0-49.9, adult Flory Warren, [facility] 06/30/2021 I11.9 Hypertensive heart disease witho ut heart failure Flory Warren, [facility] 06/30/2021 I48.21 Permanent atrial fibrillation An n Kathrine Mazariegos, [facility] 06/30/2021 Z51.81 Encounter for therapeutic drug l evel monitoring Flory Warren, [facility] 06/30/2021 Z79.01 terminal supervisor (current) use of antic oagulants Flory Warren, [facility] 06/30/2021 J44.9 Chronic obstructive pulmonary di sease, unspecified Flory Warren, [facility] 06/30/2021 Z51.81 Encounter for therapeutic drug l evel monitoring Protime 06/30/2021 E11.65 Type 2 diabetes mellitus with hy perglycemia Flory Warren, [facility] 06/30/2021 E11.40 Type 2 diabetes jl itus with diabetic neuropathy, unspecified Flory Warren, [facility] 06/30/2021 Z79.84 nursing home (current) use of oral hypoglycemic drugs Flory Warren, [facility] 06/30/2021 Z79.01 terminal supervisor (current) use of antic oagulants Flory Warren, [facility] 06/30/2021 E66.01 Morbid (severe) obesity due to e xcess calories Flory Warren, [facility] 06/30/2021 B35.4 Tinea corporis Flory Warren, [facility] 06/30/2021 Z79.01 terminal supervisor (current) use of antic oagulants Protime 06/30/2021 Z68.42 Body mass index [BMI] 45.0-49.9, adult Flory Warren, [facility] 06/30/2021 I48.21 Permanent atrial fibrillation An n Kathrine Mazariegos, [facility] 06/30/2021 I48.21 Permanent atrial fibrillation Pr otime 05/26/2021 Z51.81 Encounter for therapeutic drug l evel monitoring Flory Warren, [facility] 05/26/2021 Z51.81 Encounter for therapeutic drug l evel monitoring Protime 05/26/2021 Z79.01 terminal supervisor (current) use of antic oagulants Flory Warren [facility] 05/26/2021 Z79.01 terminal supervisor (current) use of antic oagulants Protime 05/26/2021 I48.21 Permanent atrial fibrillation An malvin Warren, [facility] 05/26/2021 I48.21 Permanent atrial fibrillation Pr otime 05/12/2021 Z51.81 Encounter for therapeutic drug l evel monitoring Flory Warren, [facility] 05/12/2021 Z51.81 Encounter for therapeutic drug l evel monitoring Protime 05/12/2021 Z79.01 terminal supervisor (current) use of antic oagulants Flory Warren [facility] 05/12/2021 Z79.01 nursing home (current) use of antic oagulants Protime 05/12/2021 I48.21 Permanent atrial fibrillation An malvin Warren, [facility] 05/12/2021 I48.21 Permanent atrial fibrillation Pr otime 04/10/2021 Z51.81 Encounter for therapeutic drug l evel monitoring Flory Warren, [facility] 04/10/2021 Z51.81 Encounter for therapeutic drug l evel monitoring Protime 04/10/2021 I48.21 Permanent atrial fibrillation An malvin Warren [facility] 04/10/2021 I11.9 Hypertensive heart disease witho ut heart failure Flory Warren [facility] 04/10/2021 Z79.01 terminal supervisor (current) use of antic oagulants Flory Warren [facility] 04/10/2021 I48.21 Permanent atrial fibrillation Pr otime 04/10/2021 J44.9 Chronic obstructive pulmonary di sease, unspecified Flory Warren, [facility] 04/10/2021 Z79.01 terminal supervisor (current) use of antic oagulants Protime 04/10/2021 I48.21 Permanent atrial fibrillation An malvin Warren [facility] 04/10/2021 Z79.01 nursing home (current) use of antic oagulants Flory Warren, [facility] 04/10/2021 E11.65 Type 2 diabetes mellitus with hy perglycemia Flory Warren, [facility] 04/10/2021 E11.40 Type 2 diabetes jl itus with diabetic neuropathy, unspecified Flory Warren, [facility] 04/10/2021 E66.01 Morbid (severe) obesity due to e xcess calories Flory Warren, [facility] 04/10/2021 Z68.42 Body mass index [BMI] 45.0-49.9, adult Flory Warren, [facility] 03/09/2021 Z51.81 Encounter for therapeutic drug l evel monitoring Flory Warren, [facility] 03/09/2021 Z51.81 Encounter for therapeutic drug l evel monitoring Protime 03/09/2021 I48.21 Permanent atrial fibrillation An malvin Warren, [facility] 03/09/2021 I48.21 Permanent atrial fibrillation Pr otime 03/09/2021 Z79.01 terminal supervisor (current) use of antic oagulants Flory Warren, [facility] 03/09/2021 Z79.01 nursing home (current) use of antic oagulants Protime 02/10/2021 Z51.81 Encounter for therapeutic drug l evel monitoring Flory Warren, [facility] 02/10/2021 Z51.81 Encounter for therapeutic drug l evel monitoring Protime 02/10/2021 I48.21 Permanent atrial fibrillation An malvin Warren, [facility] 02/10/2021 I48.21 Permanent atrial fibrillation Pr otime 02/10/2021 Z79.01 terminal supervisor (current) use of antic oagulants Flory Warren, [facility] 02/10/2021 Z79.01 nursing home (current) use of antic oagulants Protime 01/27/2021 Z51.81 Encounter for therapeutic drug l evel monitoring Flory Warren, [facility] 01/27/2021 Z51.81 Encounter for therapeutic drug l evel monitoring Protime 01/27/2021 I48.21 Permanent atrial fibrillation An malvin Warren, [facility] 01/27/2021 I48.21 Permanent atrial fibrillation Pr otime 01/27/2021 Z79.01 terminal supervisor (current) use of antic oagulants Flory Warren, [facility] 01/27/2021 Z79.01 terminal supervisor (current) use of antic oagulants Protime Plan of Treatment Future Appointment(s):* 07/28/2021 8:30 am - Greta at [facility] * 10/06/2021 9:20 am - IDALIA Rivera at [facility] * 08/07/2021 10:45 am - Greta at [facility] * 01/22/2022 10:40 am - IDALIA Rivera at [facility] * 01/22/2022 10:20 am - Nurse #2 at [facility] Functional Status Description No Information Available Mental Status Description No Information Available Referrals Description No Information Available
--- OUTSIDE RECORDS SUMMARY | 2021-09-07 11:20 | CCD | Continuity of Care Document ---
Author Author Lab Schedule, Tony Organization Unknown Address [address] [address] Phone Unavailable Care Team Providers Care Global [employer] Head Name Role Phone Flory Finch Kandis PENA AUT [phone] Problems Active Problems Provider Date Atrial fibrillation [...] day for 14 days 60gm Flory Warren [facility] 06/30/2021 Amlodipine Besylate 5mg Tablets Take One Tablet By Mouth Every Day 30tabs I11.9 Flory Warren [facility] 01/16 Rosuvastatin Calcium 40mg Tablets Take One Tablet By Mouth Every Day [facility] Fluticasone Propionate/Salmeterol Diskus 250-50mcg/Dose Aerosol Inhale 1 puff By Mouth Two Times A Day 180units Flory Warren [facility] 10/03/2020 Lisinopril 40mg Tablets 1 by mouth every day 90tabs [facility] 11/29/2019 Proventil HFA 108(90Base) mcg/Act Aerosol 2 puffs four times a day for one week then as needed for cough 1units I48.2 Flory Warren [facility] 09/09/2015 Warfarin Sodium 6mg Tablets take 1 or 2 tablets by mouth daily as directed 60tabs Flory Warren [facility] 12/16/2009 Warfarin Sodium 1mg Tablets take 1-3 tablets by mouth daily as directed 100tabs Flory Warren [facility] 10/21/2009 History Medications Fluconazole 100mg Tablets one daily x 7 days 7tabs Flory Warren [facility] 06/30/2021 - Medications Administered in Office Medication SIG Qnty Indications Ordering Provider Date Administration Of Flu Vaccine Inj ection Quirino Soler MD 09/12/2020 Administration Of Flu Vaccine Inj ection Flory Warren [facility] 09/18/2019 Immunization Adminstration,1 Vaccine/Tox oid Injection Flory Warren [facility] 05/01/2019 Administration Of Flu Vaccine Inj ection Flroy Warren [facility] 10/03/2018 Immunizations CPT Code Status Date Vaccine Lot # [id number] Given 01/16/2021 Pneumovax 23 [id number] Given 09/12/2020 Influenza Vaccin e Quadrivalent Preser/Antibiotic Free Im Use [id number] 61296 Given 09/18/2019 Influenza Vaccin e Quadrivalent Preser/Antibiotic Free Im Use [id number] 46567 Given 05/01/2019 Adacel- Tetanus Diphtheria P ertussis (Age64 & Under) [id number] Given 10/03/2018 Influenza Virus Vaccine, Quadrivalent ([id number]), Derived From 9 Given 09/14/2017 Influenza Vaccin e Quadrivalent Preser/Antibiotic Free Im Use [id number] 66391 Given 12/16/2016 Prevnar 13 [id number] Given 09/07/2016 Fluvirin Virus Vaccine [id number] 01 Q2037 Given 09/09/2015 Fluvirin Virus Vaccine Q2037 Given 09/09/2015 Fluvirin Virus Vaccine [id number] 01 Q2037 Given 09/10/2014 Fluvirin Virus Vaccine 45524 21 55809 Given 11/29/2013 Pneumovax 23 [id number] Q2037 Given 09/06/2013 Fluvirin Virus Vaccine Q2037 [...] Result H/L Range Note Prothrombin Time/Inr 07/24/2021 [facility] enter [address] [place] [address] [phone] Prothrombin Time 43.8 seconds High 12.7-14.5 Inr 4.63 Normal 1 Complete Blood Count 07/24/2021 [facility] Sustainable Communities Designer: [place] [address] [phone] WBC 9.6 x10*3/UL 4.1 - 10.9 RBC [...] Wi-Inr Inr 2.2 Basic Metabolic Panel 07/16/2021 [facility] [employer] Communities Designer: [place] [address] [phone] Glucose 124 mg/dL High 74 - 99 [...] Wi-Inr Inr 2.8 Complete Blood Count 06/30/2021 [facility] [employer]ustainable Communities Designer: [place] [address] [phone] WBC 7.5 x10*3/UL 4.1 - 10.9 RBC [...] 2.0 - 7.8 Basic Metabolic Panel 06/30/2021 [facility] [employer] Communities Designer: [place] [address] [phone] Glucose 105 mg/dL High 74 - 99 [...] Wi-Inr Inr 2.5 Complete Blood Count 04/10/2021 [facility] [employer] Communities Designer: [place] [address] [phone] WBC 6.8 x10*3/UL 4.1 - 10.9 RBC [...] 2.0 - 7.8 Basic Metabolic Panel 04/10/2021 [facility] [employer] Communities Designer: [place] [address] [phone] Glucose 100 mg/dL High 74 - 99 [...] LITTLE GFR LEFT ESRD GFR <15 ON [facility] 6 100-125 mg/dL PRE-DIABET ES/FASTING >126 mg/dL DIABETES/FASTING 7 CHRONIC KIDNEY DISEASE STAGI NG PER NKF STAGE I & II GFR >= 60 NORMAL TO MILDLY DECREASED STAGE III GFR 30-59 MODERATELY DECREASED STAGE IV GFR 15-29 SEVERELY DECREASED STAGE V GFR <15 VERY LITTLE GFR LEFT ESRD GFR <15 ON [employer] 8 100-125 mg/dL PRE-DIABET ES/FASTING >126 mg/dL DIABETES/FASTING 9 CHRONIC KIDNEY DISEASE STAGI NG PER NKF STAGE I & II GFR >= 60 NORMAL TO MILDLY DECREASED STAGE III GFR 30-59 MODERATELY DECREASED STAGE IV GFR 15-29 SEVERELY DECREASED STAGE V GFR <15 VERY LITTLE GFR LEFT ESRD GFR <15 ON [facility] Procedures Date Code Description Status 07/16/2021 [address]5814 [facility] SRV W/I 7 Days Of DC, C omm W/I 2 Dys Med Rec Completed 06/30/2021 49529 Office/Outpatient Established Mo d MDM 30-39 Min Completed 04/10/2021 [id number] Office/Outpatient Established Lo w MDM 20-29 Min Completed 05/03/2016 [id number] Colonoscopy Completed Medical Devices Description No Information Available Encounters Type Date Location Provider Dx Diagnosis Office Visit 07/16/2021 11:20a [facility] 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 Flory Munoz ne, FLOOR SURFACER I11.9 Hypertensive heart disease without heart failure I48.21 Permanent atrial fibrillatio n Z79.01 sharepoint consultant (current) use of a nticoagulants J44.9 Chronic obstructive pulmonar y disease, unspecified E11.65 Type 2 diabetes mellitus wit h hyperglycemia E11.40 Type 2 diabetes mellitus wit h diabetic neuropathy, unsp Z79.84 sharepoint consultant (current) use of o ral hypoglycemic drugs E66.01 Morbid (severe) obesity due to excess calories B35.4 Tinea corporis Z68.42 Body mass index [BMI] 45.0-4 9.9, adult Office Visit 04/10/2021 11:00a [facility] Flory Pearson, [facility] I11.9 Hypertensive heart disease without heart failure J44.9 Chronic obstructive pulmonar y disease, unspecified I48.21 Permanent atrial fibrillatio n Z79.01 assisted (current) use of a nticoagulants E11.65 Type 2 diabetes mellitus wit h hyperglycemia E11.40 Type 2 diabetes mellitus wit h diabetic neuropathy, unsp E66.01 Morbid (severe) obesity due to excess calories Z68.42 Body mass index [BMI] 45.0-4 9.9, adult Assessments Date Code Description Provider 07/16/2021 Z51.81 Encounter for therapeutic drug l evel monitoring Flory Warren [facility] 07/16/2021 Z51.81 Encounter for therapeutic drug l evel monitoring Protime 07/16/2021 Z79.01 assisted (current) use of antic oagulants Flory Warren [facility] 07/16/2021 Z79.01 assisted (current) use of antic oagulants Protime 07/16/2021 I48.21 Permanent atrial fibrillation An malvin Warren [facility] 07/16/2021 I48.21 Permanent atrial fibrillation An malvin Warren [facility] 07/16/2021 I48.21 Permanent atrial fibrillation Pr otime 07/16/2021 Z79.01 sharepoint consultant (current) use of antic oagulants Flory Warren [facility] 07/16/2021 N17.9 Acute kidney failure, unspecifie d Flory Warren [facility] 07/16/2021 I13.0 Hypertensive heart a nd chronic kidney disease with heart failure and stage 1 through stage 4 chronic kidney disease, or unspecified chronic kidney disease Flory Warren [facility] 07/16/2021 I50.33 Acute on chronic diastolic (amaya estive) heart failure Flory Warren [facility] 07/16/2021 N18.31 Chronic kidney disease, stage 3a Flory Warren [facility] 07/16/2021 J44.9 Chronic obstructive pulmonary di sease, unspecified Flory Warren, [facility] 07/16/2021 E11.65 Type 2 diabetes mellitus with hy perglycemia Flory Warren, [facility] 07/16/2021 Z79.84 sharepoint consultant (current) use of oral hypoglycemic drugs Flory Warren, [facility] 07/16/2021 E66.01 Morbid (severe) obesity due to e xcess calories Flory Warren, [facility] 07/16/2021 Z68.42 Body mass index [BMI] 45.0-49.9, adult Flory Warren, [facility] 06/30/2021 I11.9 Hypertensive heart disease witho ut heart failure Flory Warren, [facility] 06/30/2021 I48.21 Permanent atrial fibrillation An n Kathrine Mazariegos, [facility] 06/30/2021 Z51.81 Encounter for therapeutic drug l evel monitoring Flory Warren, [facility] 06/30/2021 Z79.01 sharepoint consultant (current) use of antic oagulants Flory Warren, [facility] 06/30/2021 J44.9 Chronic obstructive pulmonary di sease, unspecified Flory Warren, [facility] 06/30/2021 Z51.81 Encounter for therapeutic drug l evel monitoring Protime 06/30/2021 E11.65 Type 2 diabetes mellitus with hy perglycemia Flory Warren, [facility] 06/30/2021 E11.40 Type 2 diabetes jl itus with diabetic neuropathy, unspecified Flory Warren, [facility] 06/30/2021 Z79.84 assisted (current) use of oral hypoglycemic drugs Flory Warren, [facility] 06/30/2021 Z79.01 sharepoint consultant (current) use of antic oagulants Flory Warren, [facility] 06/30/2021 E66.01 Morbid (severe) obesity due to e xcess calories Flory Warren, [facility] 06/30/2021 B35.4 Tinea corporis Flory Warren, [facility] 06/30/2021 Z79.01 sharepoint consultant (current) use of antic oagulants Protime 06/30/2021 Z68.42 Body mass index [BMI] 45.0-49.9, adult Flory Warren, [facility] 06/30/2021 I48.21 Permanent atrial fibrillation An n Kathrine Mazariegos, [facility] 06/30/2021 I48.21 Permanent atrial fibrillation Pr otime 05/26/2021 Z51.81 Encounter for therapeutic drug l evel monitoring Flory Warren, [facility] 05/26/2021 Z51.81 Encounter for therapeutic drug l evel monitoring Protime 05/26/2021 Z79.01 sharepoint consultant (current) use of antic oagulants Flory Warren [facility] 05/26/2021 Z79.01 sharepoint consultant (current) use of antic oagulants Protime 05/26/2021 I48.21 Permanent atrial fibrillation An malvin Warren, [facility] 05/26/2021 I48.21 Permanent atrial fibrillation Pr otime 05/12/2021 Z51.81 Encounter for therapeutic drug l evel monitoring Flory Warren, [facility] 05/12/2021 Z51.81 Encounter for therapeutic drug l evel monitoring Protime 05/12/2021 Z79.01 sharepoint consultant (current) use of antic oagulants Flory Warren [facility] 05/12/2021 Z79.01 assisted (current) use of antic oagulants Protime 05/12/2021 I48.21 Permanent atrial fibrillation An malvin Warren, [facility] 05/12/2021 I48.21 Permanent atrial fibrillation Pr otime 04/10/2021 Z51.81 Encounter for therapeutic drug l evel monitoring Flory Warren, [facility] 04/10/2021 Z51.81 Encounter for therapeutic drug l evel monitoring Protime 04/10/2021 I48.21 Permanent atrial fibrillation An malvin Warren [facility] 04/10/2021 I11.9 Hypertensive heart disease witho ut heart failure Flory Warren [facility] 04/10/2021 Z79.01 sharepoint consultant (current) use of antic oagulants Flory Warren [facility] 04/10/2021 I48.21 Permanent atrial fibrillation Pr otime 04/10/2021 J44.9 Chronic obstructive pulmonary di sease, unspecified Flory Warren, [facility] 04/10/2021 Z79.01 sharepoint consultant (current) use of antic oagulants Protime 04/10/2021 I48.21 Permanent atrial fibrillation An malvin Warren [facility] 04/10/2021 Z79.01 assisted (current) use of antic oagulants Flory Warren, [facility] 04/10/2021 E11.65 Type 2 diabetes mellitus with hy perglycemia Flory Warren, [facility] 04/10/2021 E11.40 Type 2 diabetes jl itus with diabetic neuropathy, unspecified Flory Warren, [facility] 04/10/2021 E66.01 Morbid (severe) obesity due to e xcess calories Flory Warren, [facility] 04/10/2021 Z68.42 Body mass index [BMI] 45.0-49.9, adult Flory Warren, [facility] 03/09/2021 Z51.81 Encounter for therapeutic drug l evel monitoring Flory Warren, [facility] 03/09/2021 Z51.81 Encounter for therapeutic drug l evel monitoring Protime 03/09/2021 I48.21 Permanent atrial fibrillation An malvin Warren, [facility] 03/09/2021 I48.21 Permanent atrial fibrillation Pr otime 03/09/2021 Z79.01 sharepoint consultant (current) use of antic oagulants Flory Warren, [facility] 03/09/2021 Z79.01 assisted (current) use of antic oagulants Protime 02/10/2021 Z51.81 Encounter for therapeutic drug l evel monitoring Flory Warren, [facility] 02/10/2021 Z51.81 Encounter for therapeutic drug l evel monitoring Protime 02/10/2021 I48.21 Permanent atrial fibrillation An malvin Warren, [facility] 02/10/2021 I48.21 Permanent atrial fibrillation Pr otime 02/10/2021 Z79.01 sharepoint consultant (current) use of antic oagulants Flory Warren, [facility] 02/10/2021 Z79.01 assisted (current) use of antic oagulants Protime 01/27/2021 Z51.81 Encounter for therapeutic drug l evel monitoring Flory Warren, [facility] 01/27/2021 Z51.81 Encounter for therapeutic drug l evel monitoring Protime 01/27/2021 I48.21 Permanent atrial fibrillation An malvin Warren, [facility] 01/27/2021 I48.21 Permanent atrial fibrillation Pr otime 01/27/2021 Z79.01 sharepoint consultant (current) use of antic oagulants Flory Warren, [facility] 01/27/2021 Z79.01 sharepoint consultant (current) use of antic oagulants Protime Plan of Treatment Future Appointment(s):* 07/28/2021 8:30 am - Greta at [facility] * 10/06/2021 9:20 am - IDALIA Rivera at [facility] * 08/07/2021 10:45 am - Greta at [facility] * 01/22/2022 10:40 am - IDALIA Rivera at [facility] * 01/22/2022 10:20 am - Nurse #2 at [facility] Functional Status Description No Information Available Mental Status Description No Information Available Referrals Description No Information Available
--- OUTSIDE RECORDS SUMMARY | 2021-09-07 11:22 | CCD ---
Author Author [facility] Organization [facility] Address Unknown Phone Unavailable Care Team Providers Care Manager Of Training Name Role Phone LePine, M Flory TUNNEL KILN OPERATOR Unavailable Unavailable LePine, M Flory TUNNEL KILN OPERATOR Unavailable Unavailable LePine, M Flory TUNNEL KILN OPERATOR Unavailable Unavailable LePine, M Flory TUNNEL KILN OPERATOR Unavailable Unavailable LePine, M Flory TUNNEL KILN OPERATOR Unavailable Unavailable LePine, M Flory TUNNEL KILN OPERATOR Unavailable Unavailable LePine, M Flory TUNNEL KILN OPERATOR Unavailable Unavailable LePine, M Flory TUNNEL KILN OPERATOR Unavailable Unavailable LePine, M Flory TUNNEL KILN OPERATOR Unavailable Unavailable LePine, M Flory TUNNEL KILN OPERATOR Unavailable Unavailable LePine, M Flory TUNNEL KILN OPERATOR Unavailable Unavailable LePine, M Flory TUNNEL KILN OPERATOR Unavailable Unavailable LePine, M Flory TUNNEL KILN OPERATOR Unavailable Unavailable LePine, M Flory TUNNEL KILN OPERATOR Unavailable Unavailable LePine, M Flory TUNNEL KILN OPERATOR Unavailable Unavailable LePine, M Flory TUNNEL KILN OPERATOR Unavailable Unavailable LePine, M Flory TUNNEL KILN OPERATOR Unavailable Unavailable LePine, M Flory TUNNEL KILN OPERATOR Unavailable Unavailable LePine, M Flory TUNNEL KILN OPERATOR Unavailable Unavailable LePine, M Flory TUNNEL KILN OPERATOR Unavailable Unavailable LePine, M Flory TUNNEL KILN OPERATOR Unavailable Unavailable LePine, M Flory TUNNEL KILN OPERATOR Unavailable Unavailable LePine, M Flory TUNNEL KILN OPERATOR Unavailable Unavailable LePine, M Flory TUNNEL KILN OPERATOR Unavailable Unavailable LePine, M Flory TUNNEL KILN OPERATOR Unavailable Unavailable LePine, M Flory TUNNEL KILN OPERATOR Unavailable Unavailable LePine, M Flory TUNNEL KILN OPERATOR Unavailable Unavailable LePine, M Flory TUNNEL KILN OPERATOR Unavailable Unavailable LePine, M Flory TUNNEL KILN OPERATOR Unavailable Unavailable LePine, M Flory TUNNEL KILN OPERATOR Unavailable Unavailable LePine, M Flory TUNNEL KILN OPERATOR Unavailable Unavailable LePine, M Flory TUNNEL KILN OPERATOR Unavailable Unavailable LePine, M Flory TUNNEL KILN OPERATOR Unavailable Unavailable LePine, M Flory TUNNEL KILN OPERATOR Unavailable Unavailable LePine, M Flory TUNNEL KILN OPERATOR Unavailable Unavailable LePine, M Flory TUNNEL KILN OPERATOR Unavailable Unavailable LePine, M Flory TUNNEL KILN OPERATOR Unavailable Unavailable LePine, M Flory TUNNEL KILN OPERATOR Unavailable Unavailable LePine, M Flory TUNNEL KILN OPERATOR Unavailable Unavailable LePine, M Flory TUNNEL KILN OPERATOR Unavailable Unavailable LePine, M Flory TUNNEL KILN OPERATOR Unavailable Unavailable LePine, M Flory TUNNEL KILN OPERATOR Unavailable Unavailable LePine, M Flory TUNNEL KILN OPERATOR Unavailable Unavailable LePine, M Flory TUNNEL KILN OPERATOR Unavailable Unavailable LePine, M Flory TUNNEL KILN OPERATOR Unavailable Unavailable LePine, M Flory TUNNEL KILN OPERATOR Unavailable Unavailable LePine, M Flory TUNNEL KILN OPERATOR Unavailable Unavailable LePine, M Flory TUNNEL KILN OPERATOR Unavailable Unavailable LePine, M Flory TUNNEL KILN OPERATOR Unavailable Unavailable LePine, M Flory TUNNEL KILN OPERATOR Unavailable Unavailable LePine, M Flory TUNNEL KILN OPERATOR Unavailable Unavailable LePine, M Flory TUNNEL KILN OPERATOR Unavailable Unavailable LePine, M Flory TUNNEL KILN OPERATOR Unavailable Unavailable LePine, M Flory TUNNEL KILN OPERATOR Unavailable Unavailable LePine, M Flory TUNNEL KILN OPERATOR Unavailable Unavailable LePine, M Flory TUNNEL KILN OPERATOR Unavailable Unavailable Boo, L Melissa RPA Unavailable Unavailable Boo, L Melissa RPA Unavailable Unavailable Boo, L Melissa RPA Unavailable Unavailable Boo, L Melissa RPA Unavailable Unavailable Boo, L Melissa RPA Unavailable Unavailable Boo, L Melissa RPA Unavailable Unavailable Boo, L Melissa RPA Unavailable Unavailable Boo, L Melissa RPA Unavailable Unavailable Boo, L Melissa RPA Unavailable Unavailable Boo, L Melissa RPA Unavailable Unavailable Boo, L Melissa RPA Unavailable Unavailable Boo, L Melissa RPA Unavailable Unavailable Boo, L Melissa RPA Unavailable Unavailable Boo, L Melissa RPA Unavailable Unavailable Boo, L Melissa RPA Unavailable Unavailable Boo, L Melissa RPA Unavailable Unavailable Boo, L Melissa RPA Unavailable Unavailable Boo, L Melissa RPA Unavailable Unavailable Boo, L Melissa RPA Unavailable Unavailable Boo, L Melissa RPA Unavailable Unavailable Boo, L Melissa RPA Unavailable Unavailable Boo, L Melissa RPA Unavailable Unavailable Boo, L Melissa RPA Unavailable Unavailable Boo, L Melissa RPA Unavailable Unavailable Boo, L Melissa RPA Unavailable Unavailable Boo, L Melissa RPA Unavailable Unavailable Boo, L Melissa RPA Unavailable Unavailable Boo, L Melissa RPA Unavailable Unavailable Boo, L Melissa RPA Unavailable Unavailable Boo, L Melissa RPA Unavailable Unavailable Boo, L Melissa RPA Unavailable Unavailable Boo, L Melissa RPA Unavailable Unavailable Re-disclosure Warning The records that you are about to access may contain information from federally-assisted alcohol or drug abuse programs. If such information is present, then the following federally mandated warning applies: This information has been disclosed to you from records protected by federal confidentiality rules (42 CFR part 2). The federal rules prohibit you from making any further disclosure of this information unless further disclosure is expressly permitted by the written consent of the person to whom it pertains or as otherwise permitted by 42 CFR part 2. A general authorization for the release of medical or other information is NOT sufficient for this purpose. The Federal rules restrict any use of the information to criminally investigate or prosecute any alcohol or drug abuse patient.The records that you are about to access may contain highly sensitive health information, the redisclosure of which is protected by Article 27-F of the [facility] Public Health law. If you continue you may have access to information: Regarding HIV / AIDS; Provided by facilities licensed or operated by the [facility] Office of Mental Health; or Provided by the [facility] Office for People With Developmental Disabilities. If such information is present, then the following [facility] mandated warning applies: This information has been disclosed to you from confidential records which are protected by state law. State law prohibits you from making any further disclosure of this information without the specific written consent of the person to whom it pertains, or as otherwise permitted by law. Any unauthorized further disclosure in violation of state law may result in a fine or fci sentence or both. A general authorization for the release of medical or other information is NOT sufficient authorization for further disc losure. Family History Family Member Name Family Member Gender Family Member Status Date o f Status Description Data Source(s) Unknown Unknown Problem [facility] ([facility]) Encounters Encounter Providers Location Date Indications Data Source(s ) Outpatient Attender: Flory Harrison 08/12 01:40:00 PM EDT [facility] ([facility] ) Outpatient Attender: Flory Harrison 08/05 09:40:00 AM EDT [facility] ([facility] ) Outpatient Attender: Flory Harrison 07/28 08:20:00 AM EDT [facility] ([facility] ) Outpatient Attender: Flory Harrison 07/24 11:20:00 AM EDT [facility] ([facility] ) Outpatient Attender: Flory Harrison 07/16 11:20:00 AM EDT [facility] ([facility] ) Outpatient Attender: Flory Juares BLAYNE Karlene Christy 06/30 09:40:00 AM EDT [facility] ([facility] ) Outpatient Attender: Melissa Walter/Herminia/Nabeel/Benigno castañeda 05/04/2021 01:00:00 PM EDT [facility] ([facility] ) Outpatient Attender: Flory CISNEROS Karlene Christy 04/10 11:00:00 AM EDT [facility] ([facility] ) Outpatient Attender: Flory CISNEROS Karlene Christy 01/16 09:40:00 AM EST [facility] ([facility] ) Outpatient Attender: Flory CISNEROS Karlene Christy 08/13 09:20:00 AM EDT [facility] ([facility] ) Immunizations Vaccine Date Status Description Data Source(s) COVID-19 VACCINE Moderna 03/02/2021 12:00:00 AM EDT completed [facility] Vaccine Series Complete: YESThis Data wa s Submitted to [facility] Via [employer]. COVID-19 VACCINE, MRNA-1273, LNP-S (MODERNA)/PF 03/02/2021 1 2:00:00 AM EDT completed [facility] COVID-19 VACCINE Moderna 01/30/2021 12:00:00 AM EST completed [facility] Vaccine Series Complete: NOThis Data was Submitted to [facility] Via [employer]. COVID-19 VACCINE, MRNA-1273, LNP-S (MODERNA)/PF 01/30/2021 1 2:00:00 AM EST completed [facility] pneumococcal polysaccharide PPV23 01/16/2021 10:25:00 AM EST comple mazin [facility] ([facility]) Influenza, injectable, MDCK, preservative free, john valent 09/12/2020 08:28:00 AM EDT completed [facility]) Medications Medication Brand Name Start Date Product Form Dose Route Admi nistrative Instructions Pharmacy Instructions Status Indications Reaction Description Data Source(s) 2.5 mg /3 mL (0.083 %) 08/18/2021 12:00:00 AM EDT solu tion for nebulization 75 USE VIA AEROSOL NEBULIZER FOUR TIMES A D AY NEEDED USE VIA AEROSOL NEBULIZER FOUR TIMES A DAY NEEDED SOLD: 08/18/2021 [facility] 50 mg 08/18/2021 12:00:00 AM EDT tablet 90 TAKE ONE TABLET BY MOUTH EVERY DAY TAKE ONE TABLET BY MOUTH EVERY DAY SOLD: 08/18/2021 [facility] 2.5 mg /3 mL (0.083 %) 07/28/2021 12:00:00 AM EDT solu tion for nebulization 75 INHALE THE CONTENTS OF ONE VIAL VIA NEBU LIZER FOUR TIMES A DAY NEEDED INHALE THE CONTENTS OF ONE VIAL VIA NEBULIZER FOUR TIMES A DAY NEEDED SOLD: 07/28/2021 [facility] Albuterol 0.83 MG/ML Inhalant Solution Albuterol Sulfate 0 07/28/2021 12:00:00 AM EDT active [facility] ([facility]) 12 HR Guaifenesin 600 MG Extended Release Oral Tablet [Mucin ex] Mucinex 07/28/2021 12:00:00 AM EDT ORAL active [facility] ([facility]) Nebulizer Kit/Tubing/Mouthpiece 07/28/2021 12:00:00 AM EDT active [facility] ([facility] ) 2.5 mg /3 mL (0.083 %) 07/28/2021 12:00:00 AM EDT solu tion for nebulization 75 INHALE THE CONTENTS OF ONE VIAL VIA NEBU LIZER FOUR TIMES A DAY NEEDED INHALE THE CONTENTS OF ONE VIAL VIA NEBULIZER FOUR TIMES A DAY NEEDED SOLD: 08/14/2021 [facility] NEBULIZER AND COMPRESSOR 07/28/2021 12:00:00 AM EDT device 1 USE FOUR TIMES A DAY USE FOUR TIMES A DAY SOLD: 07/28/2021 [facility] 2.5 mg /3 mL (0.083 %) 07/28/2021 12:00:00 AM EDT solu tion for nebulization 75 INHALE THE CONTENTS OF ONE VIAL VIA NEBU LIZER FOUR TIMES A DAY NEEDED INHALE THE CONTENTS OF ONE VIAL VIA NEBULIZER FOUR TIMES A DAY NEEDED SOLD: 08/02/2021 [facility] torsemide 10 MG Oral Tablet Torsemide 07/24/2021 12:00:00 AM EDT ORAL active [facility] ([facility]) 10 mg 07/24/2021 12:00:00 AM EDT tablet 30 TAKE 2 TABLETS BY MOUTH TODAY THEN 1 TABLET DAILY TAKE 2 TABLETS BY MOUTH TODAY THEN 1 TABLET DAILY SOLD : 07/24/2021 [facility] 10 mg 07/21/2021 12:00:00 AM EDT tablet 30 TAKE 4 TABLETS BY MOUTH EVERY DAY FOR 3 DAYS THEN 3 TABLETS EVERY DAY FOR 3 DAYS THEN 2 TABLETS EVERY DAY FOR 3 DAYS THEN 1 TABLET EVERY DAY FOR 3 DAYS THEN DISCONTINUE TAKE 4 TABLETS BY MOUTH EVERY DAY FOR 3 DAYS THEN 3 TABLETS EVERY DAY FOR 3 DAYS THEN 2 TABLETS EVERY DAY FOR 3 DAYS THEN 1 TABLET EVERY DAY FOR 3 DAYS THEN DISCONTINUE SOLD: 07/21/2021 [facility] Prednisone 10 MG Oral Tablet Prednisone 07/21/2021 12:00:00 AM EDT completed [facility] ([facility]) 10-100 mg/5 mL 07/20/2021 12:00:00 AM EDT liquid 120 TAKE 5ML BY MOUTH EVERY 6 HOURS AND 10ML AT BEDTIME. MAXIMUM DAILY DOSE = 40ML TAKE 5ML BY MOUTH EVERY 6 HOURS AND 10ML AT BEDTIME. MAXIMUM DAILY DOSE = 40ML SOLD: 07/20/2021 [facility] Codeine Phosphate 2 MG/ML / Guaifenesin 20 MG/ML Oral Soluti on Guaifenesin ac 07/20/2021 12:00:00 AM EDT active [facility] ([facility]) Atenolol 50 MG Oral Tablet Atenolol 07/16/2021 12:00:00 AM EDT ORAL active [facility] 50 mg 07/13/2021 12:00:00 AM EDT tablet 30 TAKE ONE TABLET BY MOUTH EVERY DAY TAKE ONE TABLET BY MOUTH EVERY DAY SOLD: 07/14/2021 [facility] Rosuvastatin calcium 40 MG Oral Tablet ROSUVASTATIN CALCIUM 07/13/2021 12:00:00 AM EDT tablet 90 TAKE ONE TABLET BY MOUTH BRIGITTE DAY TAKE ONE TABLET BY MOUTH EVERY DAY SOLD: 07/14/2021 [facility] 90 mcg/actuation 06/30/2021 12:00:00 AM EDT HFA aerosol inha ler 6 INHALE 2 PUFFS BY MOUTH 4 TIMES A DAY FOR 1 WEEK, THEN NEEDED FOR COUGH INHALE 2 PUFFS BY MOUTH 4 TIMES A DAY FOR 1 WEEK, THEN NEEDED FOR COUGH SOLD: 08/29/2021 [facility] 2 % 06/30/2021 12:00:00 AM EDT cream 60 APPLY TO RASH UNDER ARMS TWO TIMES A DAY FOR 14 DAYS APPLY TO RASH UNDER ARMS TWO TIMES A DAY FOR 14 DAYS S OLD: 06/30/2021 [facility] 100 mg 06/30/2021 12:00:00 AM EDT tablet 7 TAKE ONE TABLET BY MOUTH DAILY FOR 7 DAYS TAKE ONE TABLET BY MOUTH DAILY FOR 7 DAYS SOLD: 06/30/2021 [facility] 90 mcg/actuation 06/30/2021 12:00:00 AM EDT HFA aerosol inha ler 6 INHALE 2 PUFFS BY MOUTH 4 TIMES A DAY FOR 1 WEEK, THEN NEEDED FOR COUGH INHALE 2 PUFFS BY MOUTH 4 TIMES A DAY FOR 1 WEEK, THEN NEEDED FOR COUGH SOLD: 06/30/2021 [facility] Ketoconazole 20 MG/ML Topical Cream Ketoconazole 06/30/2021 12:00:00 AM EDT active [facility] ([facility]) Fluconazole 100 MG Oral Tablet Fluconazole 06/30/2021 12:00:00 AM EDT completed [facility] ([facility]) 1 mg 06/23/2021 12:00:00 AM EDT tablet 100 TAKE 1-3 TABLETS BY MOUTH DAILY DIRECTED TAKE 1-3 TABLETS BY MOUTH DAILY DIRECTED SOLD: 06/24/2021 [facility] 5 mg 05/25/2021 12:00:00 AM EDT tablet 30 TAKE ONE TABLET BY MOUTH EVERY DAY TAKE ONE TABLET BY MOUTH EVERY DAY SOLD: 08/29/2021 [facility] 5 mg 05/25/2021 12:00:00 AM EDT tablet 30 TAKE ONE TABLET BY MOUTH EVERY DAY TAKE ONE TABLET BY MOUTH EVERY DAY SOLD: 07/27/2021 [facility] 5 mg 05/25/2021 12:00:00 AM EDT tablet 30 TAKE ONE TABLET BY MOUTH EVERY DAY TAKE ONE TABLET BY MOUTH EVERY DAY SOLD: 05/28/2021 [facility] 5 mg 05/25/2021 12:00:00 AM EDT tablet 30 TAKE ONE TABLET BY MOUTH EVERY DAY TAKE ONE TABLET BY MOUTH EVERY DAY SOLD: 06/27/2021 [facility] 6 mg 05/14/2021 12:00:00 AM EDT tablet 60 TAKE ONE TO TWO TABLETS BY MOUTH EVERY DAY DIRECTED TAKE ONE TO TWO TABLETS BY MOUTH EVERY DAY DIRECTED SOLD: 05/16/2021 [facility] Hydrochlorothiazide 12.5 MG Oral Tablet HYDROCHLOROTHIAZIDE 05/09/2021 12:00:00 AM EDT tablet 90 TAKE ONE TABLET BY MOUTH BRIGITTE DAY TAKE ONE TABLET BY MOUTH EVERY DAY SOLD: 05/11/2021 [facility] 1 mg 03/09/2021 12:00:00 AM EDT tablet 100 TAKE 1 TO 3 TABLETS BY MOUTH DAILY DIRECTED TAKE 1 TO 3 TABLETS BY MOUTH DAILY DIRECTED SOLD: 03/11/2021 [facility] 6 mg 02/09/2021 12:00:00 AM EDT tablet 60 TAKE 1 OR 2 TABLETS BY MOUTH DAILY DIRECTED TAKE 1 OR 2 TABLETS BY MOUTH DAILY DIRECTED SOLD: 03/11/2021 [facility] 500 mg 02/09/2021 12:00:00 AM EDT tablet extended release 24 hr 90 TAKE ONE TABLET BY MOUTH EVERY DAY AT SUPPER TAKE ONE TABLET BY MOUTH EVERY DAY AT CARCAMO PPER SOLD: 02/10/2021 [facility] 6 mg 02/09/2021 12:00:00 AM EDT tablet 60 TAKE 1 OR 2 TABLETS BY MOUTH DAILY DIRECTED TAKE 1 OR 2 TABLETS BY MOUTH DAILY DIRECTED SOLD: 02/10/2021 [facility] 24 HR Metformin hydrochloride 500 MG Extended Release Oral T ablet METFORMIN HCL 02/09/2021 12:00:00 AM EDT tablet extended release 24 hr 90 TAKE ONE TABLET BY MOUTH EVERY DAY AT SUPPER TAKE ONE TABLET BY MOUTH EVERY DAY AT SUPPER SOLD: 05/11/2021 [facility] 6 mg 02/09/2021 12:00:00 AM EDT tablet 60 TAKE 1 OR 2 TABLETS BY MOUTH DAILY DIRECTED TAKE 1 OR 2 TABLETS BY MOUTH DAILY DIRECTED SOLD: 04/16/2021 [facility] 5 mg 01/17/2021 12:00:00 AM EST tablet 30 TAKE ONE TABLET BY MOUTH EVERY DAY TAKE ONE TABLET BY MOUTH EVERY DAY SOLD: 03/23/2021 [facility] 5 mg 01/17/2021 12:00:00 AM EST tablet 30 TAKE ONE TABLET BY MOUTH EVERY DAY TAKE ONE TABLET BY MOUTH EVERY DAY SOLD: 01/17/2021 [facility] Rosuvastatin calcium 40 MG Oral Tablet ROSUVASTATIN CALCIUM 01/17/2021 12:00:00 AM EST tablet 90 TAKE ONE TABLET BY MOUTH BRIGITTE DAY TAKE ONE TABLET BY MOUTH EVERY DAY SOLD: 04/16/2021 [facility] 5 mg 01/17/2021 12:00:00 AM EST tablet 30 TAKE ONE TABLET BY MOUTH EVERY DAY TAKE ONE TABLET BY MOUTH EVERY DAY SOLD: 04/27/2021 [facility] 5 mg 01/17/2021 12:00:00 AM EST tablet 30 TAKE ONE TABLET BY MOUTH EVERY DAY TAKE ONE TABLET BY MOUTH EVERY DAY SOLD: 02/20/2021 [facility] Rosuvastatin calcium 40 MG Oral Tablet ROSUVASTATIN CALCIUM 01/17/2021 12:00:00 AM EST tablet 90 TAKE ONE TABLET BY MOUTH BRIGITTE TAKE ONE TABLET BY MOUTH EVERY DAY SOLD: 01/17/2021 [facility] Rosuvastatin calcium 40 MG Oral Tablet Rosuvastatin Calcium 01/16/2021 12:00:00 AM EST active [facility] ([facility]) Amlodipine 5 MG Oral Tablet Amlodipine Besylate 01/16/2021 12:00:00 A M EST active [facility] ([facility]) 1 mg 01/06/2021 12:00:00 AM EST tablet 100 TAKE 1-3 TABLETS BY MOUTH DAILY DIRECTED TAKE 1-3 TABLETS BY MOUTH DAILY DIRECTED SOLD: 01/07/2021 [facility] 40 mg 12/16/2020 12:00:00 AM EST tablet 90 TAKE ONE TABLET BY MOUTH EVERY DAY TAKE ONE TABLET BY MOUTH EVERY DAY SOLD: 03/23/2021 [facility] 40 mg 12/16/2020 12:00:00 AM EST tablet 90 TAKE ONE TABLET BY MOUTH EVERY DAY TAKE ONE TABLET BY MOUTH EVERY DAY SOLD: 12/16/2020 [facility] 40 mg 12/16/2020 12:00:00 AM EST tablet 90 TAKE ONE TABLET BY MOUTH EVERY DAY TAKE ONE TABLET BY MOUTH EVERY DAY SOLD: 06/21/2021 [facility] 6 mg 12/10/2020 12:00:00 AM EST tablet 60 TAKE 1 OR 2 TABLETS BY MOUTH DAILY DIRECTED TAKE 1 OR 2 TABLETS BY MOUTH DAILY DIRECTED SOLD: 12/12/2020 [facility] 6 mg 12/10/2020 12:00:00 AM EST tablet 60 TAKE 1 OR 2 TABLETS BY MOUTH DAILY DIRECTED TAKE 1 OR 2 TABLETS BY MOUTH DAILY DIRECTED SOLD: 01/12/2021 [facility] Hydrochlorothiazide 12.5 MG Oral Tablet HYDROCHLOROTHIAZIDE 11/10/2020 12:00:00 AM EST tablet 90 TAKE ONE TABLET BY MOUTH BRIGITTE DAY TAKE ONE TABLET BY MOUTH EVERY DAY SOLD: 11/12/2020 [facility] Hydrochlorothiazide 12.5 MG Oral Tablet HYDROCHLOROTHIAZIDE 11/10/2020 12:00:00 AM EST tablet 90 TAKE ONE TABLET BY MOUTH BRIGITTE DAY TAKE ONE TABLET BY MOUTH EVERY DAY SOLD: 02/10/2021 [facility] 1 mg 11/04/2020 12:00:00 AM EST tablet 100 TAKE 1-3 TABLETS BY MOUTH DAILY DIRECTED TAKE 1-3 TABLETS BY MOUTH DAILY DIRECTED SOLD: 11/04/2020 [facility] 250-50 mcg/dose 10/04/2020 12:00:00 AM EST blister with adriana ce 180 INHALE 1 PUFF BY MOUTH TWO TIMES A DAY INHALE 1 PUFF BY MOUTH TWO TIMES A DAY SOLD: 04/16/2021 [facility] 250-50 mcg/dose 10/04/2020 12:00:00 AM EST blister with adriana ce 180 INHALE 1 PUFF BY MOUTH TWO TIMES A DAY INHALE 1 PUFF BY MOUTH TWO TIMES A DAY SOLD: 07/14/2021 [facility] 250-50 mcg/dose 10/04/2020 12:00:00 AM EST blister with adriana ce 180 INHALE 1 PUFF BY MOUTH TWO TIMES A DAY INHALE 1 PUFF BY MOUTH TWO TIMES A DAY SOLD: 01/17/2021 [facility] 250-50 mcg/dose 10/04/2020 12:00:00 AM EST blister with adriana ce 180 INHALE 1 PUFF BY MOUTH TWO TIMES A DAY INHALE 1 PUFF BY MOUTH TWO TIMES A DAY SOLD: 10/22/2020 [facility] 60 ACTUAT Fluticasone propionate 0.25 MG /ACTUAT / salmeterol 0.05 MG/ACTUAT Dry Powder Inhaler Fluticasone Propionate/Salmeterol Diskus 10/03/2020 12 :00:00 AM EST RESPIRATORY active MEDEN T ([facility]) Administration Of Flu Vaccine 09/12/2020 12:00:00 AM EDT completed [facility] ([facility]) Medication administered onsite 1 mg 08/27/2020 12:00:00 AM EDT tablet 100 TAKE 1-3 TABLETS BY MOUTH DAILY DIRECTED TAKE 1-3 TABLETS BY MOUTH DAILY DIRECTED SOLD: 08/27/2020 [facility] 6 mg 08/13/2020 12:00:00 AM EDT tablet 60 TAKE 1 OR 2 TABLETS BY MOUTH DAILY DIRECTED TAKE 1 OR 2 TABLETS BY MOUTH DAILY DIRECTED SOLD: 09/14/2020 [facility] 24 HR Metformin hydrochloride 500 MG Extended Release Oral Tablet Metformin HCL ER 08/13/2020 12:00:00 AM EDT ORAL active [facility] ([facility]) 6 mg 08/13/2020 12:00:00 AM EDT tablet 60 TAKE 1 OR 2 TABLETS BY MOUTH DAILY DIRECTED TAKE 1 OR 2 TABLETS BY MOUTH DAILY DIRECTED SOLD: 11/12/2020 [facility] 6 mg 08/13/2020 12:00:00 AM EDT tablet 60 TAKE 1 OR 2 TABLETS BY MOUTH DAILY DIRECTED TAKE 1 OR 2 TABLETS BY MOUTH DAILY DIRECTED SOLD: 08/14/2020 [facility] 500 mg 08/13/2020 12:00:00 AM EDT tablet extended release 24 hr 90 TAKE ONE TABLET BY MOUTH EVERY DAY AT SUPPER TAKE ONE TABLET BY MOUTH EVERY DAY AT PPER SOLD: 11/12/2020 [facility] 500 mg 08/13/2020 12:00:00 AM EDT tablet extended release 24 hr 90 TAKE ONE TABLET BY MOUTH EVERY DAY AT SUPPER TAKE ONE TABLET BY MOUTH EVERY DAY AT PPER SOLD: 08/14/2020 [facility] 6 mg 08/13/2020 12:00:00 AM EDT tablet 60 TAKE 1 OR 2 TABLETS BY MOUTH DAILY DIRECTED TAKE 1 OR 2 TABLETS BY MOUTH DAILY DIRECTED SOLD: 10/13/2020 [facility] Warfarin Sodium 1 MG Oral Tablet WARFARIN SODIUM 2020 12:0 0:00 AM EDT tablet 90 TAKE 1-3 TABLETS BY MOUTH ONCE D AILY DIRECTED TAKE 1-3 TABLETS BY MOUTH ONCE DAILY DIRECTED SOLD: 07/11/2020 [facility] 1 mg 2020 12:00:00 AM EDT tablet 10 TAKE 1-3 TABLETS BY MOUTH ONCE DAILY DIRECTED TAKE 1-3 TABLETS BY MOUTH ONCE DAILY DIRECTED SOLD: 2020 [facility] Hydrochlorothiazide 12.5 MG Oral Tablet HYDROCHLOROTHIAZIDE 05/13/2020 12:00:00 AM EDT tablet 90 TAKE ONE TABLET BY MOUTH BRIGITTE DAY TAKE ONE TABLET BY MOUTH EVERY DAY SOLD: 08/14/2020 [facility] 250-50 mcg/dose 10/04/2019 12:00:00 AM EST blister with adriana ce 180 INHALE 1 PUFF BY MOUTH TWO TIMES A DAY INHALE 1 PUFF BY MOUTH TWO TIMES A DAY SOLD: 2020 [facility] Insurance Providers Payer name Policy type / Coverage type Policy ID Covered libertarian ID Covered libertarian's relationship to valenzuela Policy Valenzuela Plan Information [facility] Healthcare Commercial [id number] Self [id number] [facility] Healthcare Commercial [place] Pref [place] Ded[place] E[place] [id number] Self [place] Pref High Deduct Epo [place] Commercial [id number] Family Dependent 802 BS [place] Medigap Part B [id number] Family Dependent [id number] [facility] HEALTH CARE [id number] [facility] Healthcare Commercial [id number] Family Dependent [id number] [facility] Healthcare Commercial [id number] Family Dependent [id number] [facility] Healthcare Commercial [place] [id number] Family Dependent [place] MVP (pr) Commercial [id number] Family Dependent P HEALTH CARE [id number] SP [id number] P HEALTH CARE [id number] SP [id number] Medicaid Commercial [id number] Self [id number] Medicare Blue Ppo Commercial [id number] Self [id number] Medicare Natl Govt Serv Medicare Primary [id number] Self [id number] Medicare Natl Govt Serv Medicare Primary [id number] [facility] [id number] Self [id number] [facility] [id number] [facility] HEALTH CARE [id number] SP [id number] MEDICARE BLUE PPO [id number] SP [id number] [facility] Medicaid Commercial [id number] Self [id number] P HEALTH CARE O [id number] S [id number] [facility] HEALTH CARE O [id number] S [id number] [facility] Commercial [id number] Self [id number] [facility] Commercial [id number] Self [id number] [facility] HEALTH CARE O [id number] S 80 [id number] [phone] [id number] [place]2 [id number] [facility] [id number] SP [id number] [employer]CE[employer] BCBS P [id number] P VYS [id number] [employer] P UNAVAILABLE [id number] S UNAV AILABLE MEDICARE BLUE O 306 [id number] SP [id number] Problems, Conditions, and Diagnoses Code Display Name Description Problem Type Effective Dates Data Source(s) I45.10 Right bundle branch block Right bundle branch block Pr oblem 01/16/2021 12:00:00 AM EST [facility] ([facility]) Z79.01 Long-term current use of anticoagulant L pedro-term current use of anticoagulant Problem 01/16/2021 12:00:00 AM EST [facility] ([facility]) E66.01 Morbid obesity Morbid obesity Problem 01/16/2021 12:00: 00 AM EST [facility] ([facility]) J44.9 Chronic obstructive lung disease Chronic obstructive l patrice disease Problem 01/16/2021 12:00:00 AM EST [facility] ([facility]) E11.65 Type II diabetes mellitus uncontrolled T ype II diabetes mellitus uncontrolled Problem 01/16/2021 12:00:00 AM EST [facility] ([facility]) I11.9 Hypertensive heart disease without conge stive heart failure Hypertensive heart disease without congestive heart failure Problem 021 12:00:00 AM EST [facility] ([facility]) Surgeries/Procedures Procedure Description Date Indications Data Source(s) OFFICE OUTPATIENT VISIT 15 MINUTES 08/12/2021 12:00:00 AM EDT [facility] ([facility]) OFFICE OUTPATIENT VISIT 15 MINUTES 08/05/2021 12:00:00 AM EDT [facility] ([facility]) OFFICE OUTPATIENT VISIT 25 MINUTES 07/28/2021 12:00:00 AM EDT [facility] ([facility]) OFFICE OUTPATIENT VISIT 15 MINUTES 07/28/2021 12:00:00 AM EDT [facility] ([facility]) OFFICE OUTPATIENT VISIT 15 MINUTES 07/24/2021 12:00:00 AM EDT [facility] ([facility]) German Cre SRV W/I 7 Days Of DC, Comm W/I 2 Dys Med Rec 07/16/2021 12:00:00 AM EDT [facility] ([facility] ) OFFICE OUTPATIENT VISIT 25 MINUTES 06/30/2021 12:00:00 AM EDT [facility] ([facility]) OFFICE OUTPATIENT VISIT 15 MINUTES 04/10/2021 12:00:00 AM EDT [facility] ([facility]) PERIODIC PREVENTIVE MED EST PATIENT 63YRS&> 01/16/2021 12:00:00 AM EST [facility] ([facility]) Results ID Date Data Source [id number] 08/13/2021 09:30:00 AM EDT [facility] ([facility]) Name Value Range Interpretation Code Description Data She rce(s) Supporting Document(s) INR in Platelet poor plasma by Coagulation assay 2.6 [facility] ([facility]) ID Date Data Source [id number] 08/12/2021 02:04:00 PM EDT [facility] ([facility]) Name Value Range Interpretation Code Description Data She rce(s) Supporting Document(s) Prothrombin Time 28.0 s 12.7-14.5 [facility] Inr 2.58 [facility] THERAPUTIC HUMAN INR VALUES INDICATIONS NORMAL RANGES PROPHYLAXIS/TREATMENT OF: VENOUS THROMBOSIS 2.0-3.0 PULMONARY EMBOLISM 2.0-3.0 PREVENTION OF SYSTEMIC EMBOLISM FROM: TISSUE HEART VALVES 2.0-3.0 ACUTE MYOCARDIAL INFARCTION 2.0-3.0 VALVULAR HEART DISEASE 2.0-3.0 ATRIAL FIBRILLATION 2.0-3.0 MECHANICAL VALVES(HIGH RISK) 2.5-3.5 RECURRENT MYOCARDIAL INFARCTION 2.5-3.5 ID Date Data Source [id number] 08/12/2021 02:03:00 PM EDT [facility] ([facility]) Name Value Range Interpretation Code Description Data She rce(s) Supporting Document(s) Glucose [Mass/volume] in Serum or Plasma 95 mg/dL 74-99 [facility] ([facility]) 100-125 mg/dL PRE-DIABETES/FASTING >126 mg/dL DIABETES/FASTING Urea nitrogen [Mass/volume] in Serum or Plasma 22 mg/dL 7-18 [facility] ([facility]) Creatinine 1.3 mg/dL 0.6-1.3 [facility]) Potassium [Moles/volume] in Serum or Plasma 4.3 meq/L 3.5-5.1 [facility] ([facility]) Sodium [Moles/volume] in Serum or Plasma 138 meq/L 136-145 [facility] ([facility]) Chloride [Moles/volume] in Serum or Plasma 106 meq/L 98-107 [facility] ([facility]) Carbon dioxide, total [Moles/volume] in Serum or Plasma 24 meq/L 21 -32 [facility] Calcium [Mass/volume] in Serum or Plasma 8.6 mg/dL 8.5-10.1 [facility] ([facility]) Glomerular filtration rate/1.73 sq M pre dicted among non-blacks [Volume Rate/Area] in Serum or Plasma by Creatinine-based formula (MDRD) 55 mL/min [facility]) Glomerular filtration rate/1.73 sq M pre dicted among blacks [Volume Rate/Area] in Serum or Plasma by Creatinine-based formula (MDRD) Laboratory test result [facility] ([facility]) <content>CHRONIC KIDNEY DISEASE STAGING PER NKF</content>
<content></content>
<content>STAGE I & II GFR >= 60 NORMAL TO MILDLY DECREASED</content>
<content>STAGE III GFR 30-59 MODERATELY DECREASED</content>
<content>STAGE IV GFR 15-29 SEVERELY DECREASED</content>
<content>STAGE V GFR <15 VERY LITTLE GFR LEFT</content>
<content>ESRD GFR <15 ON CHAIRPERSON ANESTHESIOLOGY</content>
<content></content> ID Date Data Source [id number] 07/28/2021 09:26:00 AM EDT [facility] ([facility]) Name Value Range Interpretation Code Description Data She rce(s) Supporting Document(s) INR in Platelet poor plasma by Coagulation assay 1.6 [facility] ([facility]) ID Date Data Source [id number] 07/28/2021 09:08:00 AM EDT [facility]) Name Value Range Interpretation Code Description Data She rce(s) Supporting Document(s) Leukocytes [#/volume] in Blood by Automated count 11.2 x10*3/UL 4.1-1 0.9 [facility] ([facility]) Erythrocytes [#/volume] in Blood by Automated count 4.31 x10*6/UL 4.2 0-6.30 [facility] ([facility]) Hemoglobin [Mass/volume] in Blood 13.1 g/dL 12.0-18.0 [facility] ([facility]) MCV 87.8 fL 80.0-97.0 [facility] ([facility]) Hematocrit [Volume Fraction] of Blood by Automated count 37.9 % 3 7.0-51.0 [facility] MCH 30.5 pg 26.0-32.0 [facility] ([facility]) MCHC 34.7 g/dL 31.0-38.0 [facility] ([facility]) Erythrocyte distribution width [Ratio] by Automated count 13.1 % 11.6-13.7 [facility] MPV 8.9 FL 7.8-11.0 [facility] ([facility]) Platelets [#/volume] in Blood by Automated count 257 x10*3/UL 140-440 [facility] Lymph % 16.4 % 10.0-58.5 [facility] ([facility]) Mid % 4.3 % 1.7-9.3 [facility] ([facility]) Lymph # 1.8 x10*3/UL 0.6-4.1 [facility] ([facility]) Neut % 79.3 % 37.0-92.0 [facility] ([facility]) Neut # 8.9 x10*3/UL 2.0-7.8 [facility] ([facility]) Mid # 0.5 x10*3/UL 0.1-0.6 [facility] ([facility]) ID Date Data Source [id number] 07/28/2021 09:08:00 AM EDT [facility] ([facility]) Name Value Range Interpretation Code Description Data She rce(s) Supporting Document(s) Urea nitrogen [Mass/volume] in Serum or Plasma 37 mg/dL 7-18 [facility] ([facility]) Glucose [Mass/volume] in Serum or Plasma 95 mg/dL 74-99 [facility] ([facility]) 100-125 mg/dL PRE-DIABETES/FASTING >126 mg/dL DIABETES/FASTING Creatinine 1.3 mg/dL 0.6-1.3 [facility] ([facility]) Sodium [Moles/volume] in Serum or Plasma 141 meq/L 136-145 [facility] ([facility]) Potassium [Moles/volume] in Serum or Plasma 4.3 meq/L 3.5-5.1 [facility] ([facility]) Chloride [Moles/volume] in Serum or Plasma 105 meq/L 98-107 [facility] ([facility]) Calcium [Mass/volume] in Serum or Plasma 9.0 mg/dL 8.5-10.1 [facility] Carbon dioxide, total [Moles/volume] in Serum or Plasma 24 meq/L 21 -32 [facility] Glomerular filtration rate/1.73 sq M pre dicted among non-blacks [Volume Rate/Area] in Serum or Plasma by Creatinine-based formula (MDRD) 55 mL/min [facility] Glomerular filtration rate/1.73 sq M pre dicted among blacks [Volume Rate/Area] in Serum or Plasma by Creatinine-based formula (MDRD) Laboratory test result [facility] ([facility]) <content>CHRONIC KIDNEY DISEASE STAGING PER NKF</content>
<content></content>
<content>STAGE I & II GFR >= 60 NORMAL TO MILDLY DECREASED</content>
<content>STAGE III GFR 30-59 MODERATELY DECREASED</content>
<content>STAGE IV GFR 15-29 SEVERELY DECREASED</content>
<content>STAGE V GFR <15 VERY LITTLE GFR LEFT</content>
<content>ESRD GFR <15 ON CHAIRPERSON ANESTHESIOLOGY</content>
<content></content> ID Date Data Source [id number] 07/24/2021 08:45:00 AM EDT [facility] ([facility]) Name Value Range Interpretation Code Description Data She rce(s) Supporting Document(s) INR in Platelet poor plasma by Coagulation assay 5.6 [facility] ([facility]) ID Date Data Source [id number] 07/24/2021 08:45:00 AM EDT [facility] ([facility]) Name Value Range Interpretation Code Description Data She rce(s) Supporting Document(s) Prothrombin Time 43.8 s 12.7-14.5 [facility] Inr 4.63 [facility] ([facility]) THERAPUTIC HUMAN INR VALUES INDICATIONS NORMAL RANGES PROPHYLAXIS/TREATMENT OF: VENOUS THROMBOSIS 2.0-3.0 PULMONARY EMBOLISM 2.0-3.0 PREVENTION OF SYSTEMIC EMBOLISM FROM: TISSUE HEART VALVES 2.0-3.0 ACUTE MYOCARDIAL INFARCTION 2.0-3.0 VALVULAR HEART DISEASE 2.0-3.0 ATRIAL FIBRILLATION 2.0-3.0 MECHANICAL VALVES(HIGH RISK) 2.5-3.5 RECURRENT MYOCARDIAL INFARCTION 2.5-3.5 ID Date Data Source [id number] 07/24/2021 08:44:00 AM EDT [facility] Name Value Range Interpretation Code Description Data She rce(s) Supporting Document(s) Leukocytes [#/volume] in Blood by Automated count 9.6 x10*3/UL 4.1-10 .9 [facility] Erythrocytes [#/volume] in Blood by Automated count 3.93 x10*6/UL 4.2 0-6.30 [facility] Hemoglobin [Mass/volume] in Blood 11.9 g/dL 12.0-18.0 [facility] NOTE: RESULT VERIFIED. MCV 87.0 fL 80.0-97.0 [facility] ([facility]) Hematocrit [Volume Fraction] of Blood by Automated count 34.2 % 3 7.0-51.0 [facility] ([facility]) MCH 30.4 pg 26.0-32.0 [facility] ([facility]) Erythrocyte distribution width [Ratio] by Automated count 13.4 % 11.6-13.7 [facility] MCHC 35.0 g/dL 31.0-38.0 [facility] ([facility]) Platelets [#/volume] in Blood by Automated count 232 x10*3/UL 140-440 [facility] Lymph % 15.9 % 10.0-58.5 [facility]) MPV 8.8 FL 7.8-11.0 [facility]) Mid % 4.3 % 1.7-9.3 [facility]) Neut % 79.8 % 37.0-92.0 [facility]) Lymph # 1.5 x10*3/UL 0.6-4.1 [facility] ([facility]) Mid # 0.5 x10*3/UL 0.1-0.6 [facility] ([facility]) Neut # 7.6 x10*3/UL 2.0-7.8 [facility] ([facility]) ID Date Data Source [id number] 07/16/2021 11:59:00 AM EDT [facility] ([facility]) Name Value Range Interpretation Code Description Data She rce(s) Supporting Document(s) INR in Platelet poor plasma by Coagulation assay 2.2 [facility] ([facility]) ID Date Data Source [id number] 07/16/2021 11:56:00 AM EDT [facility] ([facility]) Name Value Range Interpretation Code Description Data She rce(s) Supporting Document(s) Glucose [Mass/volume] in Serum or Plasma 124 mg/dL 74-99 [facility] ([facility]) 100-125 mg/dL PRE-DIABETES/FASTING >126 mg/dL DIABETES/FASTING Creatinine 1.7 mg/dL 0.6-1.3 [facility] Urea nitrogen [Mass/volume] in Serum or Plasma 48 mg/dL 7-18 [facility] ([facility]) NOTE: RESULT VERIFIED. Sodium [Moles/volume] in Serum or Plasma 138 meq/L 136-145 [facility] ([facility]) Potassium [Moles/volume] in Serum or Plasma 4.6 meq/L 3.5-5.1 [facility] ([facility]) Calcium [Mass/volume] in Serum or Plasma 8.9 mg/dL 8.5-10.1 [facility] ([facility]) Chloride [Moles/volume] in Serum or Plasma 106 meq/L 98-107 [facility] Carbon dioxide, total [Moles/volume] in Serum or Plasma 27 meq/L 21 -32 [facility] Glomerular filtration rate/1.73 sq M pre dicted among blacks [Volume Rate/Area] in Serum or Plasma by Creatinine-based formula (MDRD) 49 mL/min [facility] <content>CHRONIC KIDNEY DISEASE STAGING PER NKF</content>
<content></content>
<content>STAGE I & II GFR >= 60 NORMAL TO MILDLY DECREASED</content>
<content>STAGE III GFR 30-59 MODERATELY DECREASED</content>
<content>STAGE IV GFR 15-29 SEVERELY DECREASED</content>
<content>STAGE V GFR <15 VERY LITTLE GFR LEFT</content>
<content>ESRD GFR <15 ON CHAIRPERSON ANESTHESIOLOGY</content>
<content></content> Glomerular filtration rate/1.73 sq M pre dicted among non-blacks [Volume Rate/Area] in Serum or Plasma by Creatinine-based formula (MDRD) 40 mL/min [facility] ID Date Data Source [id number] 07/11/2021 09:55:00 AM EDT [facility] Name Value Range Interpretation Code Description Data She rce(s) Supporting Document(s) SARS-CoV-2 (COVID 19) NEGATIVE - SARS-CoV-2 (COVID19) [place] This lab was ordered by [facility] a nd reported by . ID Date Data Source [id number] 06/30/2021 10:34:00 AM EDT [facility] Name Value Range Interpretation Code Description Data She rce(s) Supporting Document(s) INR in Platelet poor plasma by Coagulation assay 2.8 [facility] ([facility]) ID Date Data Source [id number] 06/30/2021 10:20:00 AM EDT [facility] Name Value Range Interpretation Code Description Data She rce(s) Supporting Document(s) Glucose [Mass/volume] in Serum or Plasma 105 mg/dL 74-99 [facility] ([facility]) 100-125 mg/dL PRE-DIABETES/FASTING >126 mg/dL DIABETES/FASTING Creatinine 1.4 mg/dL 0.6-1.3 [facility] ([facility]) Urea nitrogen [Mass/volume] in Serum or Plasma 30 mg/dL 7-18 [facility] ([facility]) Sodium [Moles/volume] in Serum or Plasma 135 meq/L 136-145 [facility] ([facility]) Chloride [Moles/volume] in Serum or Plasma 100 meq/L 98-107 [facility] ([facility]) Potassium [Moles/volume] in Serum or Plasma 4.7 meq/L 3.5-5.1 [facility] ([facility]) Carbon dioxide, total [Moles/volume] in Serum or Plasma 23 meq/L 21 -32 [facility] ([facility]) Calcium [Mass/volume] in Serum or Plasma 9.4 mg/dL 8.5-10.1 [facility] Glomerular filtration rate/1.73 sq M pre dicted among non-blacks [Volume Rate/Area] in Serum or Plasma by Creatinine-based formula (MDRD) 51 mL/min [facility] Glomerular filtration rate/1.73 sq M pre dicted among blacks [Volume Rate/Area] in Serum or Plasma by Creatinine-based formula (MDRD) Laboratory test result [facility] <content>CHRONIC KIDNEY DISEASE STAGING PER NKF</content>
<content></content>
<content>STAGE I & II GFR >= 60 NORMAL TO MILDLY DECREASED</content>
<content>STAGE III GFR 30-59 MODERATELY DECREASED</content>
<content>STAGE IV GFR 15-29 SEVERELY DECREASED</content>
<content>STAGE V GFR <15 VERY LITTLE GFR LEFT</content>
<content>ESRD GFR <15 ON CHAIRPERSON ANESTHESIOLOGY</content>
<content></content> ID Date Data Source [id number] 06/30/2021 10:20:00 AM EDT [facility] ([facility]) Name Value Range Interpretation Code Description Data She rce(s) Supporting Document(s) Leukocytes [#/volume] in Blood by Automated count 7.5 x10*3/UL 4.1-10 .9 [facility] ([facility]) Erythrocytes [#/volume] in Blood by Automated count 4.77 x10*6/UL 4.2 0-6.30 [facility] ([facility]) Hemoglobin [Mass/volume] in Blood 14.0 g/dL 12.0-18.0 [facility] ([facility]) Hematocrit [Volume Fraction] of Blood by Automated count 42.0 % 3 7.0-51.0 [facility] ([facility]) MCV 88.1 fL 80.0-97.0 [facility] Erythrocyte distribution width [Ratio] by Automated count 13.3 % 11.6-13.7 [facility] ([facility]) MCH 29.3 pg 26.0-32.0 [facility] MCHC 33.2 g/dL 31.0-38.0 [facility]) MPV 8.7 FL 7.8-11.0 [facility] Platelets [#/volume] in Blood by Automated count 261 x10*3/UL 140-440 [facility] ([facility]) Mid % 6.0 % 1.7-9.3 [facility] Neut % 66.9 % 37.0-92.0 [facility] Lymph % 27.1 % 10.0-58.5 [facility] Lymph # 2.0 x10*3/UL 0.6-4.1 [facility] ([facility]) Mid # 0.5 x10*3/UL 0.1-0.6 [facility] ([facility]) Neut # 5.0 x10*3/UL 2.0-7.8 [facility] ([facility]) ID Date Data Source [id number] 05/26/2021 08:45:00 AM EDT [facility] ([facility]) Name Value Range Interpretation Code Description Data She rce(s) Supporting Document(s) INR in Platelet poor plasma by Coagulation assay 3.0 [facility] ([facility]) ID Date Data Source [id number] 05/12/2021 11:44:00 AM EDT [facility] ([facility]) Name Value Range Interpretation Code Description Data She rce(s) Supporting Document(s) INR in Platelet poor plasma by Coagulation assay 3.5 [facility] ([facility]) ID Date Data Source [id number] 04/10/2021 11:35:00 AM EDT [facility] ([facility]) Name Value Range Interpretation Code Description Data She rce(s) Supporting Document(s) INR in Platelet poor plasma by Coagulation assay 2.5 [facility] ([facility]) ID Date Data Source [id number] 04/10/2021 11:21:00 AM EDT [facility] ([facility]) Name Value Range Interpretation Code Description Data She rce(s) Supporting Document(s) Glucose [Mass/volume] in Serum or Plasma 100 mg/dL 74-99 [facility] ([facility]) 100-125 mg/dL PRE-DIABETES/FASTING >126 mg/dL DIABETES/FASTING Urea nitrogen [Mass/volume] in Serum or Plasma 20 mg/dL 7-18 [facility] ([facility]) Creatinine 1.2 mg/dL 0.6-1.3 [facility] Sodium [Moles/volume] in Serum or Plasma 137 meq/L 136-145 [facility] ([facility]) Potassium [Moles/volume] in Serum or Plasma 4.4 meq/L 3.5-5.1 [facility] ([facility]) Carbon dioxide, total [Moles/volume] in Serum or Plasma 25 meq/L 21 -32 [facility] ([facility]) Chloride [Moles/volume] in Serum or Plasma 103 meq/L 98-107 [facility] ([facility]) Glomerular filtration rate/1.73 sq M pre dicted among blacks [Volume Rate/Area] in Serum or Plasma by Creatinine-based formula (MDRD) Laboratory test result [facility] ([facility]) <content>CHRONIC KIDNEY DISEASE STAGING PER NKF</content>
<content></content>
<content>STAGE I & II GFR >= 60 NORMAL TO MILDLY DECREASED</content>
<content>STAGE III GFR 30-59 MODERATELY DECREASED</content>
<content>STAGE IV GFR 15-29 SEVERELY DECREASED</content>
<content>STAGE V GFR <15 VERY LITTLE GFR LEFT</content>
<content>ESRD GFR <15 ON CHAIRPERSON ANESTHESIOLOGY</content>
<content></content> Glomerular filtration rate/1.73 sq M pre dicted among non-blacks [Volume Rate/Area] in Serum or Plasma by Creatinine-based formula (MDRD) Laboratory test result [facility] ([facility] ) Calcium [Mass/volume] in Serum or Plasma 8.8 mg/dL 8.5-10.1 [facility] ([facility]) ID Date Data Source [id number] 04/10/2021 11:21:00 AM EDT [facility] ([facility]) Name Value Range Interpretation Code Description Data She rce(s) Supporting Document(s) Leukocytes [#/volume] in Blood by Automated count 6.8 x10*3/UL 4.1-10 .9 [facility] ([facility]) Erythrocytes [#/volume] in Blood by Automated count 4.39 x10*6/UL 4.2 0-6.30 [facility] ([facility]) Hemoglobin [Mass/volume] in Blood 13.3 g/dL 12.0-18.0 [facility] ([facility]) MCV 88.2 fL 80.0-97.0 [facility] Hematocrit [Volume Fraction] of Blood by Automated count 38.7 % 3 7.0-51.0 [facility] ([facility]) MCH 30.3 pg 26.0-32.0 [facility] Erythrocyte distribution width [Ratio] by Automated count 13.0 % 11.6-13.7 [facility] ([facility]) MCHC 34.4 g/dL 31.0-38.0 [facility] Platelets [#/volume] in Blood by Automated count 226 x10*3/UL 140-440 [facility] ([facility]) MPV 8.0 FL 7.8-11.0 [facility] Lymph % 26.9 % 10.0-58.5 [facility] Mid % 7.1 % 1.7-9.3 [facility] Neut % 66.0 % 37.0-92.0 [facility] Mid # 0.5 x10*3/UL 0.1-0.6 [facility] ([facility]) Lymph # 1.8 x10*3/UL 0.6-4.1 [facility] ([facility]) Neut # 4.5 x10*3/UL 2.0-7.8 [facility] ([facility]) ID Date Data Source [id number] 03/09/2021 08:33:00 AM EDT [facility] ([facility]) Name Value Range Interpretation Code Description Data She rce(s) Supporting Document(s) INR in Platelet poor plasma by Coagulation assay 2.6 [facility] ([facility]) ID Date Data Source [id number] 02/10/2021 08:35:00 AM EDT [facility] ([facility]) Name Value Range Interpretation Code Description Data She rce(s) Supporting Document(s) INR in Platelet poor plasma by Coagulation assay 2.3 [facility] ([facility]) ID Date Data Source [id number] 01/27/2021 08:47:00 AM EST [facility] ([facility]) Name Value Range Interpretation Code Description Data She rce(s) Supporting Document(s) INR in Platelet poor plasma by Coagulation assay 1.8 [facility] ([facility]) ID Date Data Source [id number] 01/16/2021 11:25:00 AM EST [facility] ([facility]) Name Value Range Interpretation Code Description Data She rce(s) Supporting Document(s) Prostate specific Ag [Mass/volume] in Serum or Plasma 0.62 ng/mL [facility] [facility]) This assay was performed on the Siemens Dimension EXL using the B- Galactosidase/CPRG methodology and should not be compared interchangeably with other methods. The PSA should not be used alone as a screening test for the presence or absence of malignant disease. ID Date Data Source [id number] 01/16/2021 11:25:00 AM EST [facility] ([facility]) Name Value Range Interpretation Code Description Data She rce(s) Supporting Document(s) Microalbumin Urine 63.9 mg/L 1.3-20.0 [facility] ([facility]) Urine Creatinine 161.1 mg/dL 30.0-125.0 [facility] ([facility]) Microalb/Creat Ratio 39.7 ug/mg 0.0-30.0 [facility] ( [facility]) ID Date Data Source [id number] 01/16/2021 11:25:00 AM EST [facility] Name Value Range Interpretation Code Description Data She rce(s) Supporting Document(s) Triglyceride [Mass/volume] in Serum or Plasma 127 mg/dL 30-150 [facility] ([facility]) Cholesterol [Mass/volume] in Serum or Plasma 172 mg/dL 131-200 [facility] ([facility]) Cholesterol in HDL [Mass/volume] in Serum or Plasma 47 mg/dL 35-60 [facility] ([facility]) Cholesterol in LDL [Mass/volume] in Serum or Plasma by calcu lation 100 CALC 50-159 [facility] ([facility]) ID Date Data Source [id number] 01/16/2021 11:25:00 AM EST [facility] Name Value Range Interpretation Code Description Data She rce(s) Supporting Document(s) Urea nitrogen [Mass/volume] in Serum or Plasma 23 mg/dL 7-18 [facility] ([facility]) Glucose [Mass/volume] in Serum or Plasma 104 mg/dL 74-99 [facility] ([facility]) 100-125 mg/dL PRE-DIABETES/FASTING >126 mg/dL DIABETES/FASTING Potassium [Moles/volume] in Serum or Plasma 4.8 meq/L 3.5-5.1 [facility] ([facility]) Sodium [Moles/volume] in Serum or Plasma 140 meq/L 136-145 [facility] ([facility]) Creatinine 1.2 mg/dL 0.6-1.3 [facility] ([facility]) Chloride [Moles/volume] in Serum or Plasma 104 meq/L 98-107 [facility] ([facility]) Calcium [Mass/volume] in Serum or Plasma 8.7 mg/dL 8.5-10.1 [facility] ([facility]) Alkaline phosphatase isoenzyme [Units/volume] in Serum or Pl asma 130 mg/dL 46-116 [facility] ([facility]) Carbon dioxide, total [Moles/volume] in Serum or Plasma 25 meq/L 21 -32 [facility] ([facility]) Total Bilirubin 0.6 mg/dL 0.2-1.0 [facility] ([facility]) Alanine aminotransferase [Enzymatic activity/volume] in Seru m or Plasma 23 U/L 12-78 [facility] ([facility]) Aspartate aminotransferase [Enzymatic activity/volume] in Serum or Plasma 18 U/L 15-37 [facility] ([facility] ) Proteinase 3 Ab [Units/volume] in Serum 7.6 g/dL 6.4-8.2 [facility] ([facility]) Albumin [Mass/volume] in Serum or Plasma 3.7 g/dL 3.4-5.0 [facility] ([facility]) Glomerular filtration rate/1.73 sq M pre dicted among non-blacks [Volume Rate/Area] in Serum or Plasma by Creatinine-based formula (MDRD) Laboratory test result [facility] ([facility] ) A/G Ratio 0.95 CALC 1.00-1.90 [facility]) Glomerular filtration rate/1.73 sq M pre dicted among blacks [Volume Rate/Area] in Serum or Plasma by Creatinine-based formula (MDRD) Laboratory test result [facility] ([facility]) <content>CHRONIC KIDNEY DISEASE STAGING PER NKF</content>
<content></content>
<content>STAGE I & II GFR >= 60 NORMAL TO MILDLY DECREASED</content>
<content>STAGE III GFR 30-59 MODERATELY DECREASED</content>
<content>STAGE IV GFR 15-29 SEVERELY DECREASED</content>
<content>STAGE V GFR <15 VERY LITTLE GFR LEFT</content>
<content>ESRD GFR <15 ON CHAIRPERSON ANESTHESIOLOGY</content>
<content></content> ID Date Data Source [id number] 01/16/2021 11:25:00 AM EST [facility] ([facility] Name Value Range Interpretation Code Description Data She rce(s) Supporting Document(s) Hemoglobin A1c/Hemoglobin.total in Blood 6.5 % [facility] ([facility]) Lab Result Notes: Pre-Diabetes 5.7 - 6.4 % Diabetes = or > 6.5% Glucose mean value [Mass/volume] in Blood Estimated fr om glycated hemoglobin 140 mg/dL 60-110 [facility] ([facility] ) ID Date Data Source [id number] 01/16/2021 11:25:00 AM EST [facility] ([facility]) Name Value Range Interpretation Code Description Data She rce(s) Supporting Document(s) Erythrocytes [#/volume] in Blood by Automated count 4.44 x10*6/UL 4.2 0-6.30 [facility] Leukocytes [#/volume] in Blood by Automated count 7.2 x10*3/UL 4.1-10 .9 [facility] Hematocrit [Volume Fraction] of Blood by Automated count 39.3 % 3 7.0-51.0 [facility] ([facility]) Hemoglobin [Mass/volume] in Blood 13.7 g/dL 12.0-18.0 [facility] ([facility]) MCV 88.4 fL 80.0-97.0 [facility] MCH 30.8 pg 26.0-32.0 [facility]) MCHC 34.8 g/dL 31.0-38.0 [facility]) Erythrocyte distribution width [Ratio] by Automated count 12.9 % 11.6-13.7 [facility] ([facility]) Platelets [#/volume] in Blood by Automated count 235 x10*3/UL 140-440 [facility] ([facility]) MPV 8.6 FL 7.8-11.0 [facility]) Lymph % 26.6 % 10.0-58.5 [facility]) Mid % 6.1 % 1.7-9.3 [facility] Neut % 67.3 % 37.0-92.0 [facility] Lymph # 1.9 x10*3/UL 0.6-4.1 [facility] ([facility]) Mid # 0.4 x10*3/UL 0.1-0.6 [facility] ([facility]) Neut # 4.9 x10*3/UL 2.0-7.8 [facility] ([facility]) ID Date Data Source [id number] 12/30/2020 08:55:00 AM EST [facility] ([facility]) Name Value Range Interpretation Code Description Data She rce(s) Supporting Document(s) INR in Platelet poor plasma by [facility]agulation assay 2.4 [facility] ID Date Data Source [id number] 12/15/2020 08:52:00 AM EST [facility] ([facility]) Name Value Range Interpretation Code Description Data She rce(s) Supporting Document(s) INR in Platelet poor plasma by Coagulation assay 1.9 [facility] ([facility]) ID Date Data Source [id number] 11/11/2020 08:56:00 AM EST [facility] ([facility]) Name Value Range Interpretation Code Description Data She rce(s) Supporting Document(s) INR in Platelet poor plasma by Coagulation assay 1.9 [facility] ([facility]) ID Date Data Source [id number] 10/13/2020 08:38:00 AM EST [facility] ([facility]) Name Value Range Interpretation Code Description Data She rce(s) Supporting Document(s) INR in Platelet poor plasma by Coagulation assay 2.7 [facility] ([facility]) ID Date Data Source [id number] 09/12/2020 08:27:00 AM EDT [facility] ([facility]) Name Value Range Interpretation Code Description Data She rce(s) Supporting Document(s) INR in Platelet poor plasma by Coagulation assay 3.1 [facility] ([facility]) ID Date Data Source [id number] 08/13/2020 09:03:00 AM EDT [facility] ([facility]) Name Value Range Interpretation Code Description Data She rce(s) Supporting Document(s) Urine Color Laboratory test result MEDEN T ([facility]) Urine Appearance Laboratory test result [facility] ([facility]) Specific gravity of Urine 1.020 1.005-1.030 ME DENT ([facility]) Urine PH 5.0 units 5.0-9.0 [facility]) Urine Leukocytes Laboratory test result [facility] ([facility]) Urine Protein Laboratory test result 0-0 MED [facility] ([facility]) Glucose [Presence] in Urine Laboratory test result [facility] ([facility]) Urine Blood Laboratory test result MEDEN T ([facility]) Bilirubin.total [Mass/volume] in Serum or Plasma Laboratory test resu lt [facility] ([facility]) Urine Ketone Laboratory test result MEDE NT ([facility]) Urine Nitrite Laboratory test result MED [facility] ([facility]) Urine Urobilinogen 0.2 mg/dL 0.2-1.0 [facility] ID Date Data Source [id number] 08/13/2020 09:03:00 AM EDT [facility] ([facility]) Name Value Range Interpretation Code Description Data She rce(s) Supporting Document(s) Glucose [Mass/volume] in Serum or Plasma 108 mg/dL 74-99 [facility] ([facility]) 100-125 mg/dL PRE-DIABETES/FASTING >126 mg/dL DIABETES/FASTING Sodium [Moles/volume] in Serum or Plasma 135 meq/L 136-145 [facility] ([facility]) Creatinine 1.2 mg/dL 0.6-1.3 [facility] Urea nitrogen [Mass/volume] in Serum or Plasma 25 mg/dL 7-18 [facility] ([facility]) Carbon dioxide, total [Moles/volume] in Serum or Plasma 24 meq/L 21 -32 [facility] ([facility]) Chloride [Moles/volume] in Serum or Plasma 102 meq/L 98-107 [facility] ([facility]) Potassium [Moles/volume] in Serum or Plasma 4.2 meq/L 3.5-5.1 [facility] ([facility]) Calcium [Mass/volume] in Serum or Plasma 8.8 mg/dL 8.5-10.1 [facility] ([facility]) Total Bilirubin 0.5 mg/dL 0.2-1.0 [facility] ([facility]) Alkaline phosphatase isoenzyme [Units/volume] in Serum or Pl asma 102 mg/dL 46-116 [facility] ([facility]) Albumin [Mass/volume] in Serum or Plasma 3.5 g/dL 3.4-5.0 [facility] ([facility]) Alanine aminotransferase [Enzymatic activity/volume] in Seru m or Plasma 27 U/L 12-78 [facility] ([facility]) Aspartate aminotransferase [Enzymatic activity/volume] in Serum or Plasma 20 U/L 15-37 [facility] ([facility] ) Proteinase 3 Ab [Units/volume] in Serum 7.7 g/dL 6.4-8.2 [facility] Glomerular filtration rate/1.73 sq M pre dicted among non-blacks [Volume Rate/Area] in Serum or Plasma by Creatinine-based formula (MDRD) Laboratory test result [facility] ([facility] A/G Ratio 0.83 CALC 1.00-1.90 [facility]) Glomerular filtration rate/1.73 sq M pre dicted among blacks [Volume Rate/Area] in Serum or Plasma by Creatinine-based formula (MDRD) Laboratory test result [facility] <content>CHRONIC KIDNEY DISEASE STAGING PER NKF</content>
<content></content>
<content>STAGE I & II GFR >= 60 NORMAL TO MILDLY DECREASED</content>
<content>STAGE III GFR 30-59 MODERATELY DECREASED</content>
<content>STAGE IV GFR 15-29 SEVERELY DECREASED</content>
<content>STAGE V GFR <15 VERY LITTLE GFR LEFT</content>
<content>ESRD GFR <15 ON CHAIRPERSON ANESTHESIOLOGY</content>
<content></content> ID Date Data Source [id number] 08/13/2020 09:03:00 AM EDT [facility] Name Value Range Interpretation Code Description Data She rce(s) Supporting Document(s) Hemoglobin A1c/Hemoglobin.total in Blood 6.7 % [facility] ([facility]) Lab Result Notes: Pre-Diabetes 5.7 - 6.4 % Diabetes = or > 6.5% Glucose mean value [Mass/volume] in Blood Estimated fr om glycated hemoglobin 146 mg/dL 60-110 [facility] ID Date Data Source [id number] 08/13/2020 09:03:00 AM EDT [facility]) Name Value Range Interpretation Code Description Data She rce(s) Supporting Document(s) Leukocytes [#/volume] in Blood by Automated count 6.9 x10*3/UL 4.1-10 .9 [facility] ([facility]) Erythrocytes [#/volume] in Blood by Automated count 4.42 x10*6/UL 4.2 0-6.30 [facility] Hemoglobin [Mass/volume] in Blood 13.4 g/dL 12.0-18.0 [facility] ([facility]) MCV 86.2 fL 80.0-97.0 [facility] MCH 30.3 pg 26.0-32.0 [facility] Hematocrit [Volume Fraction] of Blood by Automated count 38.1 % 3 7.0-51.0 [facility]) MCHC 35.1 g/dL 31.0-38.0 [facility]) Erythrocyte distribution width [Ratio] by Automated count 12.7 % 11.6-13.7 [facility] ([facility]) Platelets [#/volume] in Blood by Automated count 217 x10*3/UL 140-440 [facility]) MPV 8.9 FL 7.8-11.0 [facility] Mid % 6.3 % 1.7-9.3 [facility] Lymph % 28.5 % 10.0-58.5 [facility] ([facility]) Lymph # 1.9 x10*3/UL 0.6-4.1 [facility] ([facility]) Neut % 65.2 % 37.0-92.0 [facility] ([facility]) Mid # 0.5 x10*3/UL 0.1-0.6 [facility] ([facility]) Neut # 4.5 x10*3/UL 2.0-7.8 [facility] ([facility]) ID Date Data Source [id number] 08/13/2020 08:59:00 AM EDT [facility] Name Value Range Interpretation Code Description Data She rce(s) Supporting Document(s) INR in Platelet poor plasma by Coagulation assay 2.7 [facility] ([facility]) ID Date Data Source [id number] 07/14/2020 08:31:00 AM EDT [facility] ([facility]) Name Value Range Interpretation Code Description Data She rce(s) Supporting Document(s) INR in Platelet poor plasma by Coagulation assay 3.1 [facility] ([facility]) Procedure Social History No Information Vital Signs ID Date Data Source UNK Name Value Range Interpretation Code Description Data Source(s) Heart rate 84 /min 84 /min [facility] ([facility]) irregular Body height 67.5 [in_i] 67.5 [in_i] [facility] 5'7.50" Body weight 298.00 [lb_av] 298.00 [lb_av] [facility] T ([facility]) Oxygen saturation in Arterial blood by Pulse oximetry 93 % 93 % [facility] ([facility]) Body mass index (BMI) [Ratio] 46.0 kg/m2 46.0 k g/m2 [facility]) Systolic blood pressure 148 mm[Hg] 148 mm[Hg] [facility] Diastolic blood pressure 68 mm[Hg] 68 mm[Hg] [facility]) Systolic blood pressure 138 mm[Hg] 138 mm[Hg] [facility] Diastolic blood pressure 80 mm[Hg] 80 mm[Hg] [facility] ([facility]) Heart rate 95 /min 95 /min [facility] ([facility]) Body height 67.5 [in_i] 67.5 [in_i] [facility] ([facility]) 5'7.50" Body weight 298.00 [lb_av] 298.00 [lb_av] [facility] T ([facility]) Oxygen saturation in Arterial blood by Pulse oximetry 94 % 94 % [facility] Body mass index (BMI) [Ratio] 46.0 kg/m2 46.0 k g/m2 [facility] ([facility]) Body weight 296.00 [lb_av] 296.00 [lb_av] [facility] T ([facility]) Oxygen saturation in Arterial blood by Pulse oximetry 95 % 95 % [facility] Body mass index (BMI) [Ratio] 45.7 kg/m2 45.7 k g/m2 [facility] ([facility]) Diastolic blood pressure 74 mm[Hg] 74 mm[Hg] [facility] ([facility]) Heart rate 82 /min 82 /min [facility] Body height 67.5 [in_i] 67.5 [in_i] [facility] ([facility]) 5'7.50" Systolic blood pressure 138 mm[Hg] 138 mm[Hg] [facility] Diastolic blood pressure 60 mm[Hg] 60 mm[Hg] [facility] Heart rate 84 /min 84 /min [facility] Body height 67.5 [in_i] 67.5 [in_i] [facility] ([facility]) 5'7.50" Systolic blood pressure 120 mm[Hg] 120 mm[Hg] [facility] Body weight 303.00 [lb_av] 303.00 [lb_av] [facility] T ([facility]) Oxygen saturation in Arterial blood by Pulse oximetry 95 % 95 % [facility] Body mass index (BMI) [Ratio] 46.8 kg/m2 46.8 k g/m2 [facility] ([facility]) Body mass index (BMI) [Ratio] 45.7 kg/m2 45.7 k g/m2 [facility] ([facility]) Heart rate 86 /min 86 /min [facility]) Diastolic blood pressure 66 mm[Hg] 66 mm[Hg] [facility] Body height 67.5 [in_i] 67.5 [in_i] [facility] ([facility]) 5'7.50" Body weight 296.00 [lb_av] 296.00 [lb_av] [facility] T ([facility]) Oxygen saturation in Arterial blood by Pulse oximetry 96 % 96 % [facility]) Systolic blood pressure 112 mm[Hg] 112 mm[Hg] [facility] Systolic blood pressure 134 mm[Hg] 134 mm[Hg] M [facility]) Heart rate 90 /min 90 /min [facility] Body height 67.5 [in_i] 67.5 [in_i] [facility] ([facility]) 5'7.50" Body weight 294.00 [lb_av] 294.00 [lb_av] [facility] T ([facility]) Diastolic blood pressure 70 mm[Hg] 70 mm[Hg] [facility]) Oxygen saturation in Arterial blood by Pulse oximetry 94 % 94 % [facility] ([facility]) Body mass index (BMI) [Ratio] 45.4 kg/m2 45.4 k g/m2 [facility] ([facility]) Oxygen saturation in Arterial blood by Pulse oximetry 94 % 94 % [facility] Body mass index (BMI) [Ratio] 45.4 kg/m2 45.4 k g/m2 [facility] ([facility]) Heart rate 90 /min 90 /min [facility] ([facility]) Body height 67.5 [in_i] 67.5 [in_i] [facility] ([facility]) 5'7.50" Body weight 294.00 [lb_av] 294.00 [lb_av] [facility] T ([facility]) Body weight 300.00 [lb_av] 300.00 [lb_av] [facility] T ([facility]) Systolic blood pressure 2 mm[Hg] 2 mm[Hg] M EDENT ([facility]) Body weight 298.00 [lb_av] 298.00 [lb_av] [facility] T ([facility]) Systolic blood pressure 126 mm[Hg] 126 mm[Hg] [facility] ([facility]) Diastolic blood pressure 76 mm[Hg] 76 mm[Hg] [facility] ([facility]) [place] body weight 166 [lb_av] 166 [facility]_av] [facility] Body height 70 [in_i] 70 [in_i] [facility] ([facility]) 5'10" Body weight 137.044 kg 137.044 kg [facility] ([facility]) Body surface area Derived from formula 2.49 m2 2.49 m2 [facility] ([facility]) Body weight 302.12 [lb_av] 302.12 [lb_av] [facility] Body mass index (BMI) [Ratio] 43.3 kg/m2 43.3 k g/m2 [facility] ([facility]) Systolic blood pressure 132 mm[Hg] 132 mm[Hg] [facility] ([facility]) Body mass index (BMI) [Ratio] 46.3 kg/m2 46.3 k g/m2 [facility] ([facility]) Diastolic blood pressure 82 mm[Hg] 82 mm[Hg] [facility] ([facility]) Oxygen saturation in Arterial blood by Pulse oximetry 95 % 95 % [facility] ([facility]) RM Air Body weight 300.00 [lb_av] 300.00 [lb_av] [facility] T ([facility]) Heart rate 88 /min 88 /min [facility] ([facility]) Body height 67.5 [in_i] 67.5 [in_i] [facility] ([facility]) 5'7.50" Body weight 298.00 [lb_av] 298.00 [lb_av] [facility] T ([facility]) Body weight 294.00 [lb_av] 294.00 [lb_av] [facility] ([facility]) Body weight 299.00 [lb_av] 299.00 [lb_av] [facility] ([facility]) Heart rate 97 /min 97 /min [facility] ([facility]) Body mass index (BMI) [Ratio] 45.9 kg/m2 45.9 k g/m2 [facility] ([facility]) Systolic blood pressure 150 mm[Hg] 150 mm[Hg] M EDENT ([facility]) Diastolic blood pressure 90 mm[Hg] 90 mm[Hg] [facility] ([facility]) Body height 67.5 [in_i] 67.5 [in_i] [facility] ([facility]) 5'7.50" Body weight 297.50 [lb_av] 297.50 [lb_av] [facility] T ([facility]) Oxygen saturation in Arterial blood by Pulse oximetry 99 % 99 % [facility] ([facility]) RM Air Body weight 298.00 [lb_av] 298.00 [lb_av] [facility] ([facility]) Body weight 300.00 [lb_av] 300.00 [lb_av] [facility] ([facility]) Body weight 300.00 [lb_av] 300.00 [lb_av] [facility] ([facility]) Body weight 303.00 [lb_av] 303.00 [lb_av] [facility] ([facility]) Body weight 300.00 [lb_av] 300.00 [lb_av] [facility] ([facility]) Body height 67.5 [in_i] 67.5 [in_i] ANCELMO ([facility]) 5'7.50" Systolic blood pressure 138 mm[Hg] 138 mm[Hg] M JOHNSON ([facility]) Diastolic blood pressure 84 mm[Hg] 84 mm[Hg] ANCELMO ([facility]) Heart rate 110 /min 110 /min ANC[facility] ([facility]) Body weight 300.00 [lb_av] 300.00 [lb_av] CARMEN Montero ([facility]) Oxygen saturation in Arterial blood by Pulse oximetry 96 % 96 % [facility] ([facility]) Body mass index (BMI) [Ratio] 46.3 kg/m2 46.3 k g/m2 [facility] Body weight 300.00 [lb_av] 300.00 [lb_av] SCOTTEN T ([facility])
[2021-09-07] MEDS ORDERED: HYDR12.55 (11:42)
[2021-09-07] MEDS ORDERED: WARF-20 PO (11:42)
--- OUTSIDE RECORDS SUMMARY | 2021-09-07 12:37 | CCD ---
Author Author [facility] Organization [facility] Address Unknown Phone Unavailable Care Team Providers Care Damage Inside Adjuster Name Role Phone LePine, M Flory SOUNDSCRIBER MECHANIC Unavailable Unavailable LePine, M Flory SOUNDSCRIBER MECHANIC Unavailable Unavailable LePine, M Flory SOUNDSCRIBER MECHANIC Unavailable Unavailable LePine, M Flory SOUNDSCRIBER MECHANIC Unavailable Unavailable LePine, M Flory SOUNDSCRIBER MECHANIC Unavailable Unavailable LePine, M Flory SOUNDSCRIBER MECHANIC Unavailable Unavailable LePine, M Flory SOUNDSCRIBER MECHANIC Unavailable Unavailable LePine, M Flory SOUNDSCRIBER MECHANIC Unavailable Unavailable LePine, M Flory SOUNDSCRIBER MECHANIC Unavailable Unavailable LePine, M Flory SOUNDSCRIBER MECHANIC Unavailable Unavailable LePine, M Flory SOUNDSCRIBER MECHANIC Unavailable Unavailable LePine, M Flory SOUNDSCRIBER MECHANIC Unavailable Unavailable LePine, M Flory SOUNDSCRIBER MECHANIC Unavailable Unavailable LePine, M Flory SOUNDSCRIBER MECHANIC Unavailable Unavailable LePine, M Flory SOUNDSCRIBER MECHANIC Unavailable Unavailable LePine, M Flory SOUNDSCRIBER MECHANIC Unavailable Unavailable LePine, M Flory SOUNDSCRIBER MECHANIC Unavailable Unavailable LePine, M Flory SOUNDSCRIBER MECHANIC Unavailable Unavailable LePine, M Flory SOUNDSCRIBER MECHANIC Unavailable Unavailable LePine, M Flory SOUNDSCRIBER MECHANIC Unavailable Unavailable LePine, M Flory SOUNDSCRIBER MECHANIC Unavailable Unavailable LePine, M Flory SOUNDSCRIBER MECHANIC Unavailable Unavailable LePine, M Flory SOUNDSCRIBER MECHANIC Unavailable Unavailable LePine, M Flory SOUNDSCRIBER MECHANIC Unavailable Unavailable LePine, M Flory SOUNDSCRIBER MECHANIC Unavailable Unavailable LePine, M Flory SOUNDSCRIBER MECHANIC Unavailable Unavailable LePine, M Flory SOUNDSCRIBER MECHANIC Unavailable Unavailable LePine, M Flory SOUNDSCRIBER MECHANIC Unavailable Unavailable LePine, M Flory SOUNDSCRIBER MECHANIC Unavailable Unavailable LePine, M Flory SOUNDSCRIBER MECHANIC Unavailable Unavailable LePine, M Flory SOUNDSCRIBER MECHANIC Unavailable Unavailable LePine, M Flory SOUNDSCRIBER MECHANIC Unavailable Unavailable LePine, M Flory SOUNDSCRIBER MECHANIC Unavailable Unavailable LePine, M Flory SOUNDSCRIBER MECHANIC Unavailable Unavailable LePine, M Flory SOUNDSCRIBER MECHANIC Unavailable Unavailable LePine, M Flory SOUNDSCRIBER MECHANIC Unavailable Unavailable LePine, M Flory SOUNDSCRIBER MECHANIC Unavailable Unavailable LePine, M Flory SOUNDSCRIBER MECHANIC Unavailable Unavailable LePine, M Flory SOUNDSCRIBER MECHANIC Unavailable Unavailable LePine, M Flory SOUNDSCRIBER MECHANIC Unavailable Unavailable LePine, M Flory SOUNDSCRIBER MECHANIC Unavailable Unavailable LePine, M Flory SOUNDSCRIBER MECHANIC Unavailable Unavailable LePine, M Flory SOUNDSCRIBER MECHANIC Unavailable Unavailable LePine, M Flory SOUNDSCRIBER MECHANIC Unavailable Unavailable LePine, M Flory SOUNDSCRIBER MECHANIC Unavailable Unavailable LePine, M Flory SOUNDSCRIBER MECHANIC Unavailable Unavailable LePine, M Flory SOUNDSCRIBER MECHANIC Unavailable Unavailable LePine, M Flory SOUNDSCRIBER MECHANIC Unavailable Unavailable LePine, M Flory SOUNDSCRIBER MECHANIC Unavailable Unavailable LePine, M Flory SOUNDSCRIBER MECHANIC Unavailable Unavailable LePine, M Flory SOUNDSCRIBER MECHANIC Unavailable Unavailable LePine, M Flory SOUNDSCRIBER MECHANIC Unavailable Unavailable LePine, M Flory SOUNDSCRIBER MECHANIC Unavailable Unavailable LePine, M Flory SOUNDSCRIBER MECHANIC Unavailable Unavailable LePine, M Flory SOUNDSCRIBER MECHANIC Unavailable Unavailable LePine, M Flory SOUNDSCRIBER MECHANIC Unavailable Unavailable Boo, L Melissa RPA Unavailable [...] is protected by Article 27-F of the [facility] Public Health law. If you continue you may have access to information: Regarding HIV / AIDS; Provided by facilities licensed or operated by the [facility] Office of Mental Health; or Provided by the [facility] Office for People With Developmental Disabilities. If such information is present, then the following [facility] mandated warning applies: This information has been [...] law may result in a fine or care home sentence or both. A general authorization for the release of medical or other information is NOT sufficient authorization for further disc losure. Family History Family Member Name Family Member Gender Family Member Status Date o f Status Description Data Source(s) Unknown Unknown Problem [facility] ([facility]) Encounters Encounter Providers Location Date Indications Data Source(s ) Outpatient Attender: Flory Harrison 08/12 01:40:00 PM EDT [facility] ([facility] ) Outpatient Attender: Flory Harrison 08/05 09:40:00 AM EDT [facility] ([facility] ) Outpatient Attender: Flory Harrison 07/28 08:20:00 AM EDT [facility] ([facility] ) Outpatient Attender: Flory Harrison 07/24 11:20:00 AM EDT [facility] ([facility] ) Outpatient Attender: Flory Harrison 07/16 11:20:00 AM EDT [facility] ([facility] ) Outpatient Attender: Flory Juares BLAYNE Karlene Christy 06/30 09:40:00 AM EDT [facility] ([facility] ) Outpatient Attender: Melissa Walter/Herminia/Nabeel/Benigno castañeda 05/04/2021 01:00:00 PM EDT [facility] Outpatient Attender: Flory CISNEROS Karlene Christy 04/10 11:00:00 AM EDT [facility] ([facility] ) Outpatient Attender: Flory CISNEROS Karlene Christy 01/16 09:40:00 AM EST [facility] ([facility] ) Outpatient Attender: Flory CISNEROS Karlene Christy 08/13 09:20:00 AM EDT [facility] ([facility] ) Immunizations Vaccine Date Status Description Data Source(s) COVID-19 VACCINE Moderna 03/02/2021 12:00:00 AM EDT completed [facility] Vaccine Series Complete: YESThis Data wa s Submitted to [facility] Via [employer]. COVID-19 VACCINE, MRNA-1273, LNP-S (MODERNA)/PF 03/02/2021 1 2:00:00 AM EDT completed [facility] COVID-19 VACCINE Moderna 01/30/2021 12:00:00 AM EST completed [facility] Vaccine Series Complete: NOThis Data was Submitted to [facility] Via [email or web address]. COVID-19 VACCINE, MRNA-1273, LNP-S (MODERNA)/PF 01/30/2021 1 2:00:00 AM EST completed [facility] pneumococcal polysaccharide PPV23 01/16/2021 10:25:00 AM EST comple mazin [facility] ([facility]) Influenza, injectable, MDCK, preservative free, john valent 09/12/2020 08:28:00 AM EDT completed [facility]) Medications Medication Brand Name Start [...] 0 07/28/2021 12:00:00 AM EDT active [facility] ([facility]) 12 HR Guaifenesin 600 MG Extended Release Oral Tablet [Mucin ex] Mucinex 07/28/2021 12:00:00 AM EDT ORAL active [facility] ([facility]) Nebulizer Kit/Tubing/Mouthpiece 07/28/2021 12:00:00 AM EDT active [facility] ([facility] ) 2.5 mg /3 mL (0.083 [...] 07/24/2021 12:00:00 AM EDT ORAL active [facility] ([facility]) 10 mg 07/24/2021 12:00:00 AM [...] Prednisone 07/21/2021 12:00:00 AM EDT completed [facility] ([facility]) 10-100 mg/5 mL 07/20/2021 12:00:00 [...] ac 07/20/2021 12:00:00 AM EDT active [facility] ([facility]) Atenolol 50 MG Oral Tablet Atenolol 07/16/2021 12:00:00 AM EDT ORAL active [facility] 50 mg 07/13/2021 12:00:00 AM [...] TABLET BY MOUTH EVERY DAY SOLD: 04/27/2021 [facility] 5 mg 01/17/2021 12:00:00 AM EST [...] :00:00 AM EST RESPIRATORY active MEDEN T ([facility]) Administration Of Flu Vaccine 09/12/2020 12:00:00 [...] 08/13/2020 12:00:00 AM EDT ORAL active [facility] ([facility]) 6 mg 08/13/2020 12:00:00 AM EDT [...] MOUTH EVERY DAY AT PPER SOLD: 08/14/2020 [facility] 6 mg 08/13/2020 12:00:00 AM [...] type / Coverage type Policy ID Covered constitution party ID Covered constitution party's relationship to valenzuela Policy Valenzuela Plan Information [facility] Healthcare Commercial [id number] Self [id number] [facility] Healthcare Commercial [place] Pref [place] Deduct Epo [id number] Self MD Pref High Deduct Epo [place] Trad/[place] Commercial [id number] Family Dependent 802 BS [place] Trad/[place] Medigap Part B [id number] Family Dependent [id number] [facility] HEALTH CARE [id number] WI2 80 [id number] [facility] Healthcare Commercial [id number] Family Dependent [id number] [facility] Healthcare Commercial [id number] Family Dependent [id number] [facility] Healthcare Commercial [place] [id number] Family Dependent [place] MVP (pr) Commercial [id number] Family Dependent P HEALTH CARE [id number] SP [id number] P HEALTH CARE [id number] SP [id number] P Medicaid Commercial [id number] 00 [id number] Self [id number] Medicare Blue Ppo Commercial [id number] Self [id number] Medicare Natl Govt Serv Medicare Primary [id number] Self [id number] Medicare Natl Govt Serv Medicare Primary [id number] [facility] [id number] Self [id number] [facility] [id number] [facility] HEALTH CARE [id number] SP [id number] MEDICARE BLUE PPO 306 [id number] SP [id number] [facility] Medicaid Commercial [id number] Self [id number] P HEALTH CARE O [id number] S [id number] [facility] HEALTH CARE O [id number] S [id number] [facility] Commercial [id number] Self [id number] [facility] Commercial [id number] Self [id number] [facility] HEALTH CARE O [id number] S [id number] [id number] WI2 [id number] [facility] [id number] SP [id number] EXCELLUS BCBS P [id number] P VYS [id number] EXCELLUS BCBS P UNAVAILABLE [id number] S UNAV AILABLE MEDICARE BLUE O 306 [id number] SP [id number] Problems, Conditions, and Diagnoses Code Display Name Description Problem Type Effective Dates Data Source(s) I45.10 Right bundle branch block Right bundle branch block Pr oblem 01/16/2021 12:00:00 AM EST [facility] ([facility]) Z79.01 Long-term current use of anticoagulant L pedro-term current use of anticoagulant Problem 01/16/2021 12:00:00 AM EST [facility] ([facility]) E66.01 Morbid obesity Morbid obesity Problem 01/16/2021 12:00: 00 AM EST [facility] ([facility]) J44.9 Chronic obstructive lung disease Chronic obstructive l patrice disease Problem 01/16/2021 12:00:00 AM EST [facility] ([facility]) E11.65 Type II diabetes mellitus uncontrolled T ype II diabetes mellitus uncontrolled Problem 01/16/2021 12:00:00 AM EST [facility] ([facility]) I11.9 Hypertensive heart disease without conge stive heart failure Hypertensive heart disease without congestive heart failure Problem 021 12:00:00 AM EST [facility] ([facility]) Surgeries/Procedures Procedure Description Date Indications Data Source(s) OFFICE OUTPATIENT VISIT 15 MINUTES 08/12/2021 12:00:00 AM EDT [facility] ([facility]) OFFICE OUTPATIENT VISIT 15 MINUTES 08/05/2021 12:00:00 AM EDT [facility] ([facility]) OFFICE OUTPATIENT VISIT 25 MINUTES 07/28/2021 12:00:00 AM EDT [facility] ([facility]) OFFICE OUTPATIENT VISIT 15 MINUTES 07/28/2021 12:00:00 AM EDT [facility] ([facility]) OFFICE OUTPATIENT VISIT 15 MINUTES 07/24/2021 12:00:00 AM EDT [facility] ([facility]) German Cre SRV W/I 7 Days Of DC, Comm W/I 2 Dys Med Rec 07/16/2021 12:00:00 AM EDT [facility] ([facility] ) OFFICE OUTPATIENT VISIT 25 MINUTES 06/30/2021 12:00:00 AM EDT [facility] ([facility]) OFFICE OUTPATIENT VISIT 15 MINUTES 04/10/2021 12:00:00 AM EDT [facility] ([facility]) PERIODIC PREVENTIVE MED EST PATIENT 65YRS&> 01/16/2021 12:00:00 AM EST [facility] ([facility]) Results ID Date Data Source [id number] 08/13/2021 09:30:00 AM EDT [facility] ([facility]) Name Value Range Interpretation Code Description Data She rce(s) Supporting Document(s) INR in Platelet poor plasma by Coagulation assay 2.6 [facility] ([facility]) ID Date Data Source [id number] 08/12/2021 02:04:00 PM EDT [facility] ([facility]) Name Value Range Interpretation Code Description Data She rce(s) Supporting Document(s) Prothrombin Time 28.0 s 12.7-14.5 [facility] ([facility]) Inr 2.58 [facility]) THERAPUTIC HUMAN INR VALUES INDICATIONS NORMAL RANGES PROPHYLAXIS/TREATMENT OF: VENOUS THROMBOSIS 2.0-3.0 PULMONARY EMBOLISM 2.0-3.0 PREVENTION OF SYSTEMIC EMBOLISM FROM: TISSUE HEART VALVES 2.0-3.0 ACUTE MYOCARDIAL INFARCTION 2.0-3.0 VALVULAR HEART DISEASE 2.0-3.0 ATRIAL FIBRILLATION 2.0-3.0 MECHANICAL VALVES(HIGH RISK) 2.5-3.5 RECURRENT MYOCARDIAL INFARCTION 2.5-3.5 ID Date Data Source [id number] 08/12/2021 02:03:00 PM EDT [facility] ([facility]) Name Value Range Interpretation Code Description Data She rce(s) Supporting Document(s) Glucose [Mass/volume] in Serum or Plasma 95 mg/dL 74-99 [facility] ([facility]) 100-125 mg/dL PRE-DIABETES/FASTING >126 mg/dL DIABETES/FASTING Urea nitrogen [Mass/volume] in Serum or Plasma 22 mg/dL 7-18 [facility] ([facility]) Creatinine 1.3 mg/dL 0.6-1.3 [facility] Potassium [Moles/volume] in Serum or Plasma 4.3 meq/L 3.5-5.1 [facility] ([facility]) Sodium [Moles/volume] in Serum or Plasma 138 meq/L 136-145 [facility] ([facility]) Chloride [Moles/volume] in Serum or Plasma 106 meq/L 98-107 [facility] ([facility]) Carbon dioxide, total [Moles/volume] in Serum or Plasma 24 meq/L 21 -32 [facility] Calcium [Mass/volume] in Serum or Plasma 8.6 mg/dL 8.5-10.1 [facility] ([facility]) Glomerular filtration rate/1.73 sq M pre dicted among non-blacks [Volume Rate/Area] in Serum or Plasma by Creatinine-based formula (MDRD) 55 mL/min [facility] ([facility]) Glomerular filtration rate/1.73 sq M pre dicted among blacks [Volume Rate/Area] in Serum or Plasma by Creatinine-based formula (MDRD) Laboratory test result [facility] ([facility]) <content>CHRONIC KIDNEY DISEASE STAGING PER NKF</content>
<content></content>
<content>STAGE I & II GFR >= 60 NORMAL TO MILDLY DECREASED</content>
<content>STAGE III GFR 30-59 MODERATELY DECREASED</content>
<content>STAGE IV GFR 15-29 SEVERELY DECREASED</content>
<content>STAGE V GFR <15 VERY LITTLE GFR LEFT</content>
<content>ESRD GFR <15 ON NOTEMAN</content>
<content></content> ID Date Data Source [id number] 07/28/2021 09:26:00 AM EDT [facility] ([facility]) Name Value Range Interpretation Code Description Data She rce(s) Supporting Document(s) INR in Platelet poor plasma by Coagulation assay 1.6 [facility] ([facility]) ID Date Data Source [id number] 07/28/2021 09:08:00 AM EDT [facility]) Name Value Range Interpretation Code Description Data She rce(s) Supporting Document(s) Leukocytes [#/volume] in Blood by Automated count 11.2 x10*3/UL 4.1-1 0.9 [facility] ([facility]) Erythrocytes [#/volume] in Blood by Automated count 4.31 x10*6/UL 4.2 0-6.30 [facility] ([facility]) Hemoglobin [Mass/volume] in Blood 13.1 g/dL 12.0-18.0 [facility] ([facility]) MCV 87.8 fL 80.0-97.0 [facility] ([facility]) Hematocrit [Volume Fraction] of Blood by Automated count 37.9 % 3 7.0-51.0 [facility] MCH 30.5 pg 26.0-32.0 [facility] ([facility]) MCHC 34.7 g/dL 31.0-38.0 [facility] ([facility]) Erythrocyte distribution width [Ratio] by Automated count 13.1 % 11.6-13.7 [facility] MPV 8.9 FL 7.8-11.0 [facility] ([facility]) Platelets [#/volume] in Blood by Automated count 257 x10*3/UL 140-440 [facility] Lymph % 16.4 % 10.0-58.5 [facility] ([facility]) Mid % 4.3 % 1.7-9.3 [facility] ([facility]) Lymph # 1.8 x10*3/UL 0.6-4.1 [facility] ([facility]) Neut % 79.3 % 37.0-92.0 [facility] ([facility]) Neut # 8.9 x10*3/UL 2.0-7.8 [facility] ([facility]) Mid # 0.5 x10*3/UL 0.1-0.6 [facility] ([facility]) ID Date Data Source [id number] 07/28/2021 09:08:00 AM EDT [facility] ([facility]) Name Value Range Interpretation Code Description Data She rce(s) Supporting Document(s) Urea nitrogen [Mass/volume] in Serum or Plasma 37 mg/dL 7-18 [facility] ([facility]) Glucose [Mass/volume] in Serum or Plasma 95 mg/dL 74-99 [facility] ([facility]) 100-125 mg/dL PRE-DIABETES/FASTING >126 mg/dL DIABETES/FASTING Creatinine 1.3 mg/dL 0.6-1.3 [facility] ([facility]) Sodium [Moles/volume] in Serum or Plasma 141 meq/L 136-145 [facility] ([facility]) Potassium [Moles/volume] in Serum or Plasma 4.3 meq/L 3.5-5.1 [facility] ([facility]) Chloride [Moles/volume] in Serum or Plasma 105 meq/L 98-107 [facility] ([facility]) Calcium [Mass/volume] in Serum or Plasma 9.0 mg/dL 8.5-10.1 [facility] Carbon dioxide, total [Moles/volume] in Serum or Plasma 24 meq/L 21 -32 [facility] Glomerular filtration rate/1.73 sq M pre dicted among non-blacks [Volume Rate/Area] in Serum or Plasma by Creatinine-based formula (MDRD) 55 mL/min [facility] Glomerular filtration rate/1.73 sq M pre dicted among blacks [Volume Rate/Area] in Serum or Plasma by Creatinine-based formula (MDRD) Laboratory test result [facility] ([facility]) <content>CHRONIC KIDNEY DISEASE STAGING PER NKF</content>
<content></content>
<content>STAGE I & II GFR >= 60 NORMAL TO MILDLY DECREASED</content>
<content>STAGE III GFR 30-59 MODERATELY DECREASED</content>
<content>STAGE IV GFR 15-29 SEVERELY DECREASED</content>
<content>STAGE V GFR <15 VERY LITTLE GFR LEFT</content>
<content>ESRD GFR <15 ON NOTEMAN</content>
<content></content> ID Date Data Source [id number] 07/24/2021 08:45:00 AM EDT [facility] ([facility]) Name Value Range Interpretation Code Description Data She rce(s) Supporting Document(s) INR in Platelet poor plasma by Coagulation assay 5.6 [facility] ([facility]) ID Date Data Source [id number] 07/24/2021 08:45:00 AM EDT [facility] ([facility]) Name Value Range Interpretation Code Description Data She rce(s) Supporting Document(s) Prothrombin Time 43.8 s 12.7-14.5 [facility] Inr 4.63 [facility] ([facility]) THERAPUTIC HUMAN INR VALUES INDICATIONS NORMAL RANGES PROPHYLAXIS/TREATMENT OF: VENOUS THROMBOSIS 2.0-3.0 PULMONARY EMBOLISM 2.0-3.0 PREVENTION OF SYSTEMIC EMBOLISM FROM: TISSUE HEART VALVES 2.0-3.0 ACUTE MYOCARDIAL INFARCTION 2.0-3.0 VALVULAR HEART DISEASE 2.0-3.0 ATRIAL FIBRILLATION 2.0-3.0 MECHANICAL VALVES(HIGH RISK) 2.5-3.5 RECURRENT MYOCARDIAL INFARCTION 2.5-3.5 ID Date Data Source [id number] 07/24/2021 08:44:00 AM EDT [facility] Name Value Range Interpretation Code Description Data She rce(s) Supporting Document(s) Leukocytes [#/volume] in Blood by Automated count 9.6 x10*3/UL 4.1-10 .9 [facility] Erythrocytes [#/volume] in Blood by Automated count 3.93 x10*6/UL 4.2 0-6.30 [facility] Hemoglobin [Mass/volume] in Blood 11.9 g/dL 12.0-18.0 [facility] NOTE: RESULT VERIFIED. MCV 87.0 fL 80.0-97.0 [facility] ([facility]) Hematocrit [Volume Fraction] of Blood by Automated count 34.2 % 3 7.0-51.0 [facility] ([facility]) MCH 30.4 pg 26.0-32.0 [facility] ([facility]) Erythrocyte distribution width [Ratio] by Automated count 13.4 % 11.6-13.7 [facility] MCHC 35.0 g/dL 31.0-38.0 [facility] ([facility]) Platelets [#/volume] in Blood by Automated count 232 x10*3/UL 140-440 [facility] Lymph % 15.9 % 10.0-58.5 [facility]) MPV 8.8 FL 7.8-11.0 [facility]) Mid % 4.3 % 1.7-9.3 [facility]) Neut % 79.8 % 37.0-92.0 [facility]) Lymph # 1.5 x10*3/UL 0.6-4.1 [facility] ([facility]) Mid # 0.5 x10*3/UL 0.1-0.6 [facility] ([facility]) Neut # 7.6 x10*3/UL 2.0-7.8 [facility] ([facility]) ID Date Data Source [id number] 07/16/2021 11:59:00 AM EDT [facility] ([facility]) Name Value Range Interpretation Code Description Data She rce(s) Supporting Document(s) INR in Platelet poor plasma by Coagulation assay 2.2 [facility] ([facility]) ID Date Data Source [id number] 07/16/2021 11:56:00 AM EDT [facility] ([facility]) Name Value Range Interpretation Code Description Data She rce(s) Supporting Document(s) Glucose [Mass/volume] in Serum or Plasma 124 mg/dL 74-99 [facility] ([facility]) 100-125 mg/dL PRE-DIABETES/FASTING >126 mg/dL DIABETES/FASTING Creatinine 1.7 mg/dL 0.6-1.3 [facility] Urea nitrogen [Mass/volume] in Serum or Plasma 48 mg/dL 7-18 [facility] ([facility]) NOTE: RESULT VERIFIED. Sodium [Moles/volume] in Serum or Plasma 138 meq/L 136-145 [facility] ([facility]) Potassium [Moles/volume] in Serum or Plasma 4.6 meq/L 3.5-5.1 [facility] ([facility]) Calcium [Mass/volume] in Serum or Plasma 8.9 mg/dL 8.5-10.1 [facility] ([facility]) Chloride [Moles/volume] in Serum or Plasma 106 meq/L 98-107 [facility] Carbon dioxide, total [Moles/volume] in Serum or Plasma 27 meq/L 21 -32 [facility] Glomerular filtration rate/1.73 sq M pre dicted among blacks [Volume Rate/Area] in Serum or Plasma by Creatinine-based formula (MDRD) 49 mL/min [facility] <content>CHRONIC KIDNEY DISEASE STAGING PER NKF</content>
<content></content>
<content>STAGE I & II GFR >= 60 NORMAL TO MILDLY DECREASED</content>
<content>STAGE III GFR 30-59 MODERATELY DECREASED</content>
<content>STAGE IV GFR 15-29 SEVERELY DECREASED</content>
<content>STAGE V GFR <15 VERY LITTLE GFR LEFT</content>
<content>ESRD GFR <15 ON NOTEMAN</content>
<content></content> Glomerular filtration rate/1.73 sq M pre dicted among non-blacks [Volume Rate/Area] in Serum or Plasma by Creatinine-based formula (MDRD) 40 mL/min [facility] ID Date Data Source [id number] 07/11/2021 09:55:00 AM EDT [facility] Name Value Range Interpretation Code Description Data She rce(s) Supporting Document(s) SARS-CoV-2 (COVID 19) NEGATIVE - SARS-CoV-2 (COVID19) [facility] This lab was ordered by [facility] a nd reported by [facility]. ID Date Data Source [id number] 06/30/2021 10:34:00 AM EDT [facility] ([facility]) Name Value Range Interpretation Code Description Data She rce(s) Supporting Document(s) INR in Platelet poor plasma by Coagulation assay 2.8 [facility] ([facility]) ID Date Data Source [id number] 06/30/2021 10:20:00 AM EDT [facility] ([facility]) Name Value Range Interpretation Code Description Data She rce(s) Supporting Document(s) Glucose [Mass/volume] in Serum or Plasma 105 mg/dL 74-99 [facility] ([facility]) 100-125 mg/dL PRE-DIABETES/FASTING >126 mg/dL DIABETES/FASTING Creatinine 1.4 mg/dL 0.6-1.3 [facility] ([facility]) Urea nitrogen [Mass/volume] in Serum or Plasma 30 mg/dL 7-18 [facility] ([facility]) Sodium [Moles/volume] in Serum or Plasma 135 meq/L 136-145 [facility] ([facility]) Chloride [Moles/volume] in Serum or Plasma 100 meq/L 98-107 [facility] ([facility]) Potassium [Moles/volume] in Serum or Plasma 4.7 meq/L 3.5-5.1 [facility] ([facility]) Carbon dioxide, total [Moles/volume] in Serum or Plasma 23 meq/L 21 -32 [facility] ([facility]) Calcium [Mass/volume] in Serum or Plasma 9.4 mg/dL 8.5-10.1 [facility] Glomerular filtration rate/1.73 sq M pre dicted among non-blacks [Volume Rate/Area] in Serum or Plasma by Creatinine-based formula (MDRD) 51 mL/min [facility] Glomerular filtration rate/1.73 sq M pre dicted among blacks [Volume Rate/Area] in Serum or Plasma by Creatinine-based formula (MDRD) Laboratory test result [facility] ([facility]) <content>CHRONIC KIDNEY DISEASE STAGING PER NKF</content>
<content></content>
<content>STAGE I & II GFR >= 60 NORMAL TO MILDLY DECREASED</content>
<content>STAGE III GFR 30-59 MODERATELY DECREASED</content>
<content>STAGE IV GFR 15-29 SEVERELY DECREASED</content>
<content>STAGE V GFR <15 VERY LITTLE GFR LEFT</content>
<content>ESRD GFR <15 ON NOTEMAN</content>
<content></content> ID Date Data Source [id number] 06/30/2021 10:20:00 AM EDT [facility] ([facility]) Name Value Range Interpretation Code Description Data She rce(s) Supporting Document(s) Leukocytes [#/volume] in Blood by Automated count 7.5 x10*3/UL 4.1-10 .9 [facility] ([facility]) Erythrocytes [#/volume] in Blood by Automated count 4.77 x10*6/UL 4.2 0-6.30 [facility] ([facility]) Hemoglobin [Mass/volume] in Blood 14.0 g/dL 12.0-18.0 [facility] ([facility]) Hematocrit [Volume Fraction] of Blood by Automated count 42.0 % 3 7.0-51.0 [facility] ([facility]) MCV 88.1 fL 80.0-97.0 [facility]) Erythrocyte distribution width [Ratio] by Automated count 13.3 % 11.6-13.7 [facility] ([facility]) MCH 29.3 pg 26.0-32.0 [facility]) MCHC 33.2 g/dL 31.0-38.0 [facility]) MPV 8.7 FL 7.8-11.0 [facility] Platelets [#/volume] in Blood by Automated count 261 x10*3/UL 140-440 [facility] ([facility]) Mid % 6.0 % 1.7-9.3 [facility]) Neut % 66.9 % 37.0-92.0 [facility] Lymph % 27.1 % 10.0-58.5 [facility]) Lymph # 2.0 x10*3/UL 0.6-4.1 [facility] ([facility]) Mid # 0.5 x10*3/UL 0.1-0.6 [facility] ([facility]) Neut # 5.0 x10*3/UL 2.0-7.8 [facility] ([facility]) ID Date Data Source [id number] 05/26/2021 08:45:00 AM EDT [facility] ([facility]) Name Value Range Interpretation Code Description Data She rce(s) Supporting Document(s) INR in Platelet poor plasma by Coagulation assay 3.0 [facility] ([facility]) ID Date Data Source [id number] 05/12/2021 11:44:00 AM EDT [facility] ([facility]) Name Value Range Interpretation Code Description Data She rce(s) Supporting Document(s) INR in Platelet poor plasma by Coagulation assay 3.5 [facility] ([facility]) ID Date Data Source [id number] 04/10/2021 11:35:00 AM EDT [facility] ([facility]) Name Value Range Interpretation Code Description Data She rce(s) Supporting Document(s) INR in Platelet poor plasma by Coagulation assay 2.5 [facility] ([facility]) ID Date Data Source [id number] 04/10/2021 11:21:00 AM EDT [facility] ([facility]) Name Value Range Interpretation Code Description Data She rce(s) Supporting Document(s) Glucose [Mass/volume] in Serum or Plasma 100 mg/dL 74-99 [facility] ([facility]) 100-125 mg/dL PRE-DIABETES/FASTING >126 mg/dL DIABETES/FASTING Urea nitrogen [Mass/volume] in Serum or Plasma 20 mg/dL 7-18 [facility] ([facility]) Creatinine 1.2 mg/dL 0.6-1.3 [facility] Sodium [Moles/volume] in Serum or Plasma 137 meq/L 136-145 [facility] ([facility]) Potassium [Moles/volume] in Serum or Plasma 4.4 meq/L 3.5-5.1 [facility] ([facility]) Carbon dioxide, total [Moles/volume] in Serum or Plasma 25 meq/L 21 -32 [facility] ([facility]) Chloride [Moles/volume] in Serum or Plasma 103 meq/L 98-107 [facility] ([facility]) Glomerular filtration rate/1.73 sq M pre dicted among blacks [Volume Rate/Area] in Serum or Plasma by Creatinine-based formula (MDRD) Laboratory test result [facility] ([facility]) <content>CHRONIC KIDNEY DISEASE STAGING PER NKF</content>
<content></content>
<content>STAGE I & II GFR >= 60 NORMAL TO MILDLY DECREASED</content>
<content>STAGE III GFR 30-59 MODERATELY DECREASED</content>
<content>STAGE IV GFR 15-29 SEVERELY DECREASED</content>
<content>STAGE V GFR <15 VERY LITTLE GFR LEFT</content>
<content>ESRD GFR <15 ON NOTEMAN</content>
<content></content> Glomerular filtration rate/1.73 sq M pre dicted among non-blacks [Volume Rate/Area] in Serum or Plasma by Creatinine-based formula (MDRD) Laboratory test result [facility] ([facility] ) Calcium [Mass/volume] in Serum or Plasma 8.8 mg/dL 8.5-10.1 [facility] ([facility]) ID Date Data Source [id number] 04/10/2021 11:21:00 AM EDT [facility] ([facility]) Name Value Range Interpretation Code Description Data She rce(s) Supporting Document(s) Leukocytes [#/volume] in Blood by Automated count 6.8 x10*3/UL 4.1-10 .9 [facility] ([facility]) Erythrocytes [#/volume] in Blood by Automated count 4.39 x10*6/UL 4.2 0-6.30 [facility] ([facility]) Hemoglobin [Mass/volume] in Blood 13.3 g/dL 12.0-18.0 [facility] ([facility]) MCV 88.2 fL 80.0-97.0 [facility]) Hematocrit [Volume Fraction] of Blood by Automated count 38.7 % 3 7.0-51.0 [facility] ([facility]) MCH 30.3 pg 26.0-32.0 [facility]) Erythrocyte distribution width [Ratio] by Automated count 13.0 % 11.6-13.7 [facility] ([facility]) MCHC 34.4 g/dL 31.0-38.0 [facility] Platelets [#/volume] in Blood by Automated count 226 x10*3/UL 140-440 [facility] ([facility]) MPV 8.0 FL 7.8-11.0 [facility] Lymph % 26.9 % 10.0-58.5 [facility] Mid % 7.1 % 1.7-9.3 [facility] Neut % 66.0 % 37.0-92.0 [facility]) Mid # 0.5 x10*3/UL 0.1-0.6 [facility] ([facility]) Lymph # 1.8 x10*3/UL 0.6-4.1 [facility] ([facility]) Neut # 4.5 x10*3/UL 2.0-7.8 [facility] ([facility]) ID Date Data Source [id number] 03/09/2021 08:33:00 AM EDT [facility] ([facility]) Name Value Range Interpretation Code Description Data She rce(s) Supporting Document(s) INR in Platelet poor plasma by Coagulation assay 2.6 [facility] ([facility]) ID Date Data Source [id number] 02/10/2021 08:35:00 AM EDT [facility] ([facility]) Name Value Range Interpretation Code Description Data She rce(s) Supporting Document(s) INR in Platelet poor plasma by Coagulation assay 2.3 [facility] ([facility]) ID Date Data Source [id number] 01/27/2021 08:47:00 AM EST [facility] ([facility]) Name Value Range Interpretation Code Description Data She rce(s) Supporting Document(s) INR in Platelet poor plasma by Coagulation assay 1.8 [facility] ([facility]) ID Date Data Source [id number] 01/16/2021 11:25:00 AM EST [facility] ([facility]) Name Value Range Interpretation Code Description Data She rce(s) Supporting Document(s) Prostate specific Ag [Mass/volume] in Serum or Plasma 0.62 ng/mL [facility] ([facility]) This assay was performed on the Siemens Dimension EXL using the B- Galactosidase/CPRG methodology and should not be compared interchangeably with other methods. The PSA should not be used alone as a screening test for the presence or absence of malignant disease. ID Date Data Source [id number] 01/16/2021 11:25:00 AM EST [facility] ([facility]) Name Value Range Interpretation Code Description Data She rce(s) Supporting Document(s) Microalbumin Urine 63.9 mg/L 1.3-20.0 [facility] ([facility]) Urine Creatinine 161.1 mg/dL 30.0-125.0 [facility] ([facility]) Microalb/Creat Ratio 39.7 ug/mg 0.0-30.0 [facility] ( [facility]) ID Date Data Source [id number] 01/16/2021 11:25:00 AM EST [facility] ([facility]) Name Value Range Interpretation Code Description Data She rce(s) Supporting Document(s) Triglyceride [Mass/volume] in Serum or Plasma 127 mg/dL 30-150 [facility] ([facility]) Cholesterol [Mass/volume] in Serum or Plasma 172 mg/dL 131-200 [facility] ([facility]) Cholesterol in HDL [Mass/volume] in Serum or Plasma 47 mg/dL 35-60 [facility] ([facility]) Cholesterol in LDL [Mass/volume] in Serum or Plasma by calcu lation 100 CALC 50-159 [facility] ([facility]) ID Date Data Source [id number] 01/16/2021 11:25:00 AM EST [facility] ([facility]) Name Value Range Interpretation Code Description Data She rce(s) Supporting Document(s) Urea nitrogen [Mass/volume] in Serum or Plasma 23 mg/dL 7-18 [facility] ([facility]) Glucose [Mass/volume] in Serum or Plasma 104 mg/dL 74-99 [facility] ([facility]) 100-125 mg/dL PRE-DIABETES/FASTING >126 mg/dL DIABETES/FASTING Potassium [Moles/volume] in Serum or Plasma 4.8 meq/L 3.5-5.1 [facility] ([facility]) Sodium [Moles/volume] in Serum or Plasma 140 meq/L 136-145 [facility] ([facility]) Creatinine 1.2 mg/dL 0.6-1.3 [facility] ([facility]) Chloride [Moles/volume] in Serum or Plasma 104 meq/L 98-107 [facility] ([facility]) Calcium [Mass/volume] in Serum or Plasma 8.7 mg/dL 8.5-10.1 [facility] ([facility]) Alkaline phosphatase isoenzyme [Units/volume] in Serum or Pl asma 130 mg/dL 46-116 [facility] ([facility]) Carbon dioxide, total [Moles/volume] in Serum or Plasma 25 meq/L 21 -32 [facility] ([facility]) Total Bilirubin 0.6 mg/dL 0.2-1.0 [facility] ([facility]) Alanine aminotransferase [Enzymatic activity/volume] in Seru m or Plasma 23 U/L 12-78 [facility] ([facility]) Aspartate aminotransferase [Enzymatic activity/volume] in Serum or Plasma 18 U/L 15-37 [facility] ([facility] ) Proteinase 3 Ab [Units/volume] in Serum 7.6 g/dL 6.4-8.2 [facility] ([facility]) Albumin [Mass/volume] in Serum or Plasma 3.7 g/dL 3.4-5.0 [facility] ([facility]) Glomerular filtration rate/1.73 sq M pre dicted among non-blacks [Volume Rate/Area] in Serum or Plasma by Creatinine-based formula (MDRD) Laboratory test result [facility] ([facility] ) A/G Ratio 0.95 CALC 1.00-1.90 [facility]) Glomerular filtration rate/1.73 sq M pre dicted among blacks [Volume Rate/Area] in Serum or Plasma by Creatinine-based formula (MDRD) Laboratory test result [facility] ([facility]) <content>CHRONIC KIDNEY DISEASE STAGING PER NKF</content>
<content></content>
<content>STAGE I & II GFR >= 60 NORMAL TO MILDLY DECREASED</content>
<content>STAGE III GFR 30-59 MODERATELY DECREASED</content>
<content>STAGE IV GFR 15-29 SEVERELY DECREASED</content>
<content>STAGE V GFR <15 VERY LITTLE GFR LEFT</content>
<content>ESRD GFR <15 ON NOTEMAN</content>
<content></content> ID Date Data Source [id number] 01/16/2021 11:25:00 AM EST [facility] ([facility]) Name Value Range Interpretation Code Description Data She rce(s) Supporting Document(s) Hemoglobin A1c/Hemoglobin.total in Blood 6.5 % [facility] ([facility]) Lab Result Notes: Pre-Diabetes 5.7 - 6.4 % Diabetes = or > 6.5% Glucose mean value [Mass/volume] in Blood Estimated fr om glycated hemoglobin 140 mg/dL 60-110 [facility] ([facility] ) ID Date Data Source [id number] 01/16/2021 11:25:00 AM EST [facility] ([facility]) Name Value Range Interpretation Code Description Data She rce(s) Supporting Document(s) Erythrocytes [#/volume] in Blood by Automated count 4.44 x10*6/UL 4.2 0-6.30 [facility] Leukocytes [#/volume] in Blood by Automated count 7.2 x10*3/UL 4.1-10 .9 [facility] Hematocrit [Volume Fraction] of Blood by Automated count 39.3 % 3 7.0-51.0 [facility] ([facility]) Hemoglobin [Mass/volume] in Blood 13.7 g/dL 12.0-18.0 [facility] ([facility]) MCV 88.4 fL 80.0-97.0 [facility] MCH 30.8 pg 26.0-32.0 [facility]) MCHC 34.8 g/dL 31.0-38.0 [facility]) Erythrocyte distribution width [Ratio] by Automated count 12.9 % 11.6-13.7 [facility] ([facility]) Platelets [#/volume] in Blood by Automated count 235 x10*3/UL 140-440 [facility] ([facility]) MPV 8.6 FL 7.8-11.0 [facility]) Lymph % 26.6 % 10.0-58.5 [facility]) Mid % 6.1 % 1.7-9.3 [facility] Neut % 67.3 % 37.0-92.0 [facility] Lymph # 1.9 x10*3/UL 0.6-4.1 [facility] ([facility]) Mid # 0.4 x10*3/UL 0.1-0.6 [facility] ([facility]) Neut # 4.9 x10*3/UL 2.0-7.8 [facility] ([facility]) ID Date Data Source [id number] 12/30/2020 08:55:00 AM EST [facility] ([facility]) Name Value Range Interpretation Code Description Data She rce(s) Supporting Document(s) INR in Platelet poor plasma by Coagulation assay 2.4 [facility] ([facility]) ID Date Data Source [id number] 12/15/2020 08:52:00 AM EST [facility] ([facility]) Name Value Range Interpretation Code Description Data She rce(s) Supporting Document(s) INR in Platelet poor plasma by Coagulation assay 1.9 [facility] ([facility]) ID Date Data Source [id number] 11/11/2020 08:56:00 AM EST [facility] ([facility]) Name Value Range Interpretation Code Description Data She rce(s) Supporting Document(s) INR in Platelet poor plasma by Coagulation assay 1.9 [facility] ([facility]) ID Date Data Source [id number] 10/13/2020 08:38:00 AM EST [facility] ([facility]) Name Value Range Interpretation Code Description Data She rce(s) Supporting Document(s) INR in Platelet poor plasma by Coagulation assay 2.7 [facility] ([facility]) ID Date Data Source [id number] 09/12/2020 08:27:00 AM EDT [facility] ([facility]) Name Value Range Interpretation Code Description Data She rce(s) Supporting Document(s) INR in Platelet poor plasma by Coagulation assay 3.1 [facility] ([facility]) ID Date Data Source [id number] 08/13/2020 09:03:00 AM EDT [facility] ([facility]) Name Value Range Interpretation Code Description Data She rce(s) Supporting Document(s) Urine Color Laboratory test result [facility] ([facility]) Urine Appearance Laboratory test result [facility] ([facility]) Specific gravity of Urine 1.020 1.005-1.030 [facility] ([facility]) Urine PH 5.0 units 5.0-9.0 [facility] Urine Leukocytes Laboratory test result [facility] ([facility]) Urine Protein Laboratory test result 0-0 [facility] ([facility]) Glucose [Presence] in Urine Laboratory test result [facility] ([facility]) Urine Blood Laboratory test result [facility] ([facility]) Bilirubin.total [Mass/volume] in Serum or Plasma Laboratory test resu lt [facility] ([facility]) Urine Ketone Laboratory test result [facility] ([facility]) Urine Nitrite Laboratory test result [facility] ([facility]) Urine Urobilinogen 0.2 mg/dL 0.2-1.0 [facility] ([facility]) ID Date Data Source [id number] 08/13/2020 09:03:00 AM EDT [facility] ([facility]) Name Value Range Interpretation Code Description Data She rce(s) Supporting Document(s) Glucose [Mass/volume] in Serum or Plasma 108 mg/dL 74-99 [facility] ([facility]) 100-125 mg/dL PRE-DIABETES/FASTING >126 mg/dL DIABETES/FASTING Sodium [Moles/volume] in Serum or Plasma 135 meq/L 136-145 [facility] ([facility]) Creatinine 1.2 mg/dL 0.6-1.3 [facility]) Urea nitrogen [Mass/volume] in Serum or Plasma 25 mg/dL 7-18 [facility] ([facility]) Carbon dioxide, total [Moles/volume] in Serum or Plasma 24 meq/L 21 -32 [facility] ([facility]) Chloride [Moles/volume] in Serum or Plasma 102 meq/L 98-107 [facility] ([facility]) Potassium [Moles/volume] in Serum or Plasma 4.2 meq/L 3.5-5.1 [facility] ([facility]) Calcium [Mass/volume] in Serum or Plasma 8.8 mg/dL 8.5-10.1 [facility] ([facility]) Total Bilirubin 0.5 mg/dL 0.2-1.0 [facility] ([facility]) Alkaline phosphatase isoenzyme [Units/volume] in Serum or Pl asma 102 mg/dL 46-116 [facility] ([facility]) Albumin [Mass/volume] in Serum or Plasma 3.5 g/dL 3.4-5.0 [facility] ([facility]) Alanine aminotransferase [Enzymatic activity/volume] in Seru m or Plasma 27 U/L 12-78 [facility] ([facility]) Aspartate aminotransferase [Enzymatic activity/volume] in Serum or Plasma 20 U/L 15-37 [facility] ([facility] ) Proteinase 3 Ab [Units/volume] in Serum 7.7 g/dL 6.4-8.2 [facility] Glomerular filtration rate/1.73 sq M pre dicted among non-blacks [Volume Rate/Area] in Serum or Plasma by Creatinine-based formula (MDRD) Laboratory test result [facility] ([facility] A/G Ratio 0.83 CALC 1.00-1.90 [facility]) Glomerular filtration rate/1.73 sq M pre dicted among blacks [Volume Rate/Area] in Serum or Plasma by Creatinine-based formula (MDRD) Laboratory test result [facility] ([facility]) <content>CHRONIC KIDNEY DISEASE STAGING PER NKF</content>
<content></content>
<content>STAGE I & II GFR >= 60 NORMAL TO MILDLY DECREASED</content>
<content>STAGE III GFR 30-59 MODERATELY DECREASED</content>
<content>STAGE IV GFR 15-29 SEVERELY DECREASED</content>
<content>STAGE V GFR <15 VERY LITTLE GFR LEFT</content>
<content>ESRD GFR <15 ON NOTEMAN</content>
<content></content> ID Date Data Source [id number] 08/13/2020 09:03:00 AM EDT [facility]) Name Value Range Interpretation Code Description Data She rce(s) Supporting Document(s) Hemoglobin A1c/Hemoglobin.total in Blood 6.7 % [facility] ([facility]) Lab Result Notes: Pre-Diabetes 5.7 - 6.4 % Diabetes = or > 6.5% Glucose mean value [Mass/volume] in Blood Estimated fr om glycated hemoglobin 146 mg/dL 60-110 [facility] ID Date Data Source [id number] 08/13/2020 09:03:00 AM EDT [facility]) Name Value Range Interpretation Code Description Data She rce(s) Supporting Document(s) Leukocytes [#/volume] in Blood by Automated count 6.9 x10*3/UL 4.1-10 .9 [facility] ([facility]) Erythrocytes [#/volume] in Blood by Automated count 4.42 x10*6/UL 4.2 0-6.30 [facility] ([facility]) Hemoglobin [Mass/volume] in Blood 13.4 g/dL 12.0-18.0 [facility] ([facility]) MCV 86.2 fL 80.0-97.0 [facility] [facility]) MCH 30.3 pg 26.0-32.0 [facility]) Hematocrit [Volume Fraction] of Blood by Automated count 38.1 % 3 7.0-51.0 [facility] ([facility]) MCHC 35.1 g/dL 31.0-38.0 [facility] [facility]) Erythrocyte distribution width [Ratio] by Automated count 12.7 % 11.6-13.7 [facility] ([facility]) Platelets [#/volume] in Blood by Automated count 217 x10*3/UL 140-440 [facility] ([facility]) MPV 8.9 FL 7.8-11.0 [facility] Mid % 6.3 % 1.7-9.3 [facility] Lymph % 28.5 % 10.0-58.5 [facility] [facility]) Lymph # 1.9 x10*3/UL 0.6-4.1 [facility] ([facility]) Neut % 65.2 % 37.0-92.0 [facility] [facility]) Mid # 0.5 x10*3/UL 0.1-0.6 [facility] ([facility]) Neut # 4.5 x10*3/UL 2.0-7.8 [facility] ([facility]) ID Date Data Source [id number] 08/13/2020 08:59:00 AM EDT [facility] ([facility]) Name Value Range Interpretation Code Description Data She rce(s) Supporting Document(s) INR in Platelet poor plasma by Coagulation assay 2.7 [facility] ([facility]) ID Date Data Source [id number] 07/14/2020 08:31:00 AM EDT [facility] ([facility]) Name Value Range Interpretation Code Description Data She rce(s) Supporting Document(s) INR in Platelet poor plasma by Coagulation assay 3.1 [facility] ([facility]) Procedure Social History No Information Vital Signs ID Date Data Source UNK Name Value Range Interpretation Code Description Data Source(s) Heart rate 84 /min 84 /min [facility] ([facility]) irregular Body height 67.5 [in_i] 67.5 [in_i] [facility] ([facility]) 5'7.50" Body weight 298.00 [lb_av] 298.00 [lb_av] [facility] ([facility]) Oxygen saturation in Arterial blood by Pulse oximetry 93 % 93 % [facility] ([facility]) Body mass index (BMI) [Ratio] 46.0 kg/m2 46.0 k g/m2 [facility] ([facility]) Systolic blood pressure 148 mm[Hg] 148 mm[Hg] [facility] Diastolic blood pressure 68 mm[Hg] 68 mm[Hg] [facility] ([facility]) Systolic blood pressure 138 mm[Hg] 138 mm[Hg] [facility] Diastolic blood pressure 80 mm[Hg] 80 mm[Hg] [facility] ([facility]) Heart rate 95 /min 95 /min [facility] ([facility]) Body height 67.5 [in_i] 67.5 [in_i] [facility] ([facility]) 5'7.50" Body weight 298.00 [lb_av] 298.00 [lb_av] [facility] ([facility]) Oxygen saturation in Arterial blood by Pulse oximetry 94 % 94 % [facility] ([facility]) Body mass index (BMI) [Ratio] 46.0 kg/m2 46.0 k g/m2 [facility] ([facility]) Body weight 296.00 [lb_av] 296.00 [lb_av] [facility] ([facility]) Oxygen saturation in Arterial blood by Pulse oximetry 95 % 95 % [facility] ([facility]) [facility] Body mass index (BMI) [Ratio] 45.7 kg/m2 45.7 k g/m2 [facility] ([facility]) Diastolic blood pressure 74 mm[Hg] 74 mm[Hg] [facility] ([facility]) Heart rate 82 /min 82 /min [facility] ([facility]) Body height 67.5 [in_i] 67.5 [in_i] [facility] ([facility]) 5'7.50" Systolic blood pressure 138 mm[Hg] 138 mm[Hg] [facility] Systolic blood pressure 120 mm[Hg] 120 mm[Hg] [facility] Diastolic blood pressure 60 mm[Hg] 60 mm[Hg] [facility] ([facility]) Heart rate 84 /min 84 /min [facility] ([facility]) Body height 67.5 [in_i] 67.5 [in_i] [facility] ([facility]) 5'7.50" Body weight 303.00 [lb_av] 303.00 [lb_av] [facility] ([facility]) Oxygen saturation in Arterial blood by Pulse oximetry 95 % 95 % [facility] ([facility]) Body mass index (BMI) [Ratio] 46.8 kg/m2 46.8 k g/m2 [facility] ([facility]) Body mass index (BMI) [Ratio] 45.7 kg/m2 45.7 k g/m2 [facility] ([facility]) Heart rate 86 /min 86 /min [facility] ([facility]) Diastolic blood pressure 66 mm[Hg] 66 mm[Hg] [facility] ([facility]) Body height 67.5 [in_i] 67.5 [in_i] [facility] ([facility]) 5'7.50" Body weight 296.00 [lb_av] 296.00 [lb_av] [facility] ([facility]) Oxygen saturation in Arterial blood by Pulse oximetry 96 % 96 % [facility] ([facility]) Systolic blood pressure 112 mm[Hg] 112 mm[Hg] M [facility] ([facility]) Systolic blood pressure 134 mm[Hg] 134 mm[Hg] M [facility] ([facility]) Heart rate 90 /min 90 /min [facility] ([facility]) Body height 67.5 [in_i] 67.5 [in_i] [facility] ([facility]) 5'7.50" Body weight 294.00 [lb_av] 294.00 [lb_av] [facility] ([facility]) Diastolic blood pressure 70 mm[Hg] 70 mm[Hg] [facility] ([facility]) Oxygen saturation in Arterial blood by Pulse oximetry 94 % 94 % [facility] ([facility]) Body mass index (BMI) [Ratio] 45.4 kg/m2 45.4 k g/m2 [facility] ([facility]) Oxygen saturation in Arterial blood by Pulse oximetry 94 % 94 % [facility] ([facility]) Body mass index (BMI) [Ratio] 45.4 kg/m2 45.4 k g/m2 [facility] ([facility]) Heart rate 90 /min 90 /min [facility] ([facility]) Body height 67.5 [in_i] 67.5 [in_i] [facility] ([facility]) 5'7.50" Body weight 294.00 [lb_av] 294.00 [lb_av] [facility] ([facility]) Body weight 300.00 [lb_av] 300.00 [lb_av] [facility] ([facility]) Systolic blood pressure 2 mm[Hg] 2 mm[Hg] M [facility] ([facility]) Body weight 298.00 [lb_av] 298.00 [lb_av] [facility] ([facility]) Systolic blood pressure 126 mm[Hg] 126 mm[Hg] [facility] ([facility]) Diastolic blood pressure 76 mm[Hg] 76 mm[Hg] [facility] ([facility]) Body height 70 [in_i] 70 [in_i] [facility] ([facility]) 5'10" [place] body weight 166 [lb_av] 166 [lb_av] [facility] ([facility]) Body weight 302.12 [lb_av] 302.12 [lb_av] [facility] Body mass index (BMI) [Ratio] 43.3 kg/m2 43.3 k g/m2 [facility] ([facility]) Body weight 137.044 kg 137.044 kg [facility] ([facility]) Body surface area Derived from formula 2.49 m2 2.49 m2 [facility] ([facility]) Body mass index (BMI) [Ratio] 46.3 kg/m2 46.3 k g/m2 [facility] ([facility]) Systolic blood pressure 132 mm[Hg] 132 mm[Hg] [facility] ([facility]) Diastolic blood pressure 82 mm[Hg] 82 mm[Hg] [facility] ([facility]) Oxygen saturation in Arterial blood by Pulse oximetry 95 % 95 % [facility] ([facility]) RM Air Body weight 300.00 [lb_av] 300.00 [lb_av] [facility] ([facility]) Heart rate 88 /min 88 /min [facility] ([facility]) Body height 67.5 [in_i] 67.5 [in_i] [facility] ([facility]) 5'7.50" Body weight 298.00 [lb_av] 298.00 [lb_av] [facility] ([facility]) Body weight 294.00 [lb_av] 294.00 [lb_av] [facility] ([facility]) Body weight 299.00 [lb_av] 299.00 [lb_av] [facility] ([facility]) Heart rate 97 /min 97 /min [facility] ([facility]) Body mass index (BMI) [Ratio] 45.9 kg/m2 45.9 k g/m2 [facility] ([facility]) Systolic blood pressure 150 mm[Hg] 150 mm[Hg] M [facility] ([facility]) Diastolic blood pressure 90 mm[Hg] 90 mm[Hg] [facility] ([facility]) Body height 67.5 [in_i] 67.5 [in_i] [facility] ([facility]) 5'7.50" Body weight 297.50 [lb_av] 297.50 [lb_av] [facility] ([facility]) Oxygen saturation in Arterial blood by Pulse oximetry 99 % 99 % [facility] ([facility]) RM Air Body weight 298.00 [lb_av] 298.00 [lb_av] [facility] ([facility]) Body weight 300.00 [lb_av] 300.00 [lb_av] [facility] ([facility]) Body weight 300.00 [lb_av] 300.00 [lb_av] [facility] ([facility]) Body weight 303.00 [lb_av] 303.00 [lb_av] [facility] ([facility]) Body weight 300.00 [lb_av] 300.00 [lb_av] [facility] ([facility]) Systolic blood pressure 138 mm[Hg] 138 mm[Hg] M [facility] ([facility]) Body height 67.5 [in_i] 67.5 [in_i] [facility] ([facility]) 5'7.50" Diastolic blood pressure 84 mm[Hg] 84 mm[Hg] [facility] ([facility]) Heart rate 110 /min 110 /min [facility] ([facility]) Body weight 300.00 [lb_av] 300.00 [lb_av] [facility] ([facility]) Oxygen saturation in Arterial blood by Pulse oximetry 96 % 96 % [facility] ([facility]) Body mass index (BMI) [Ratio] 46.3 kg/m2 46.3 k g/m[facility] Body weight 300.00 [lb_av] 300.00 [lb_av] [facility] ([facility])
[2021-09-07] MEDS ORDERED: FUROSEMIDE 40MG/4ML VIAL (J1940) IV ONE (12:50)
[2021-09-07 12:56] LABS: BASO % 0.5 % (0.0-1.0); EOS # 0.1 10^3/uL (0.0-0.5); EOS % 0.9 % (0.0-3.0); HEMATOCRIT 39.1 % (42.0-52.0); HEMOGLOBIN 12.6 g/dl (13.5-17.5); LYMPH # 1.7 10^3/uL (1.5-5.0); LYMPH % 20.4 % (24.0-44.0); MEAN CORPUSCULAR HEMOGLOBIN 30.1 pg (27.0-33.0); MEAN CORPUSCULAR HGB CONC 32.2 g/dl (32.0-36.5); MEAN CORPUSCULAR VOLUME 93.5 fl (80.0-96.0); MONO # 0.7 10^3/uL (0.0-0.8); NEUTROPHILS # 5.6 10^3/uL (1.5-8.5); NEUTROPHILS % 69.8 % (36.0-66.0); PLATELET COUNT, AUTOMATED 211 10^3/uL (150-450); RED BLOOD COUNT 4.18 10^6/uL (4.30-6.10); WHITE BLOOD COUNT 8.1 10^3/uL (4.0-10.0)
[2021-09-07 13:11] LABS: INR 4.05; PROTHROMBIN TIME 39.6 SECONDS (12.7-14.5)
[2021-09-07 13:25] LABS: BLOOD UREA NITROGEN 26 MG/DL (7-18); CALCIUM LEVEL 9.1 MG/DL (8.8-10.2); CARBON DIOXIDE LEVEL 25 MEQ/L (21-32); CHLORIDE LEVEL 114 MEQ/L (98-107); CREATININE FOR GFR 1.09 MG/DL (0.70-1.30); GLOMERULAR FILTRATION RATE > 60.0 (>49); GLUCOSE, FASTING 101 MG/DL (70-100); POTASSIUM SERUM 4.2 MEQ/L (3.5-5.1); SODIUM LEVEL 143 MEQ/L (136-145)
--- NOTE | 2021-09-07 13:55 | REP ---
INDICATION: DYSPNEA/COUGH. COMPARISON: 07/21/2021. TECHNIQUE: Single portable AP view of the chest was performed. FINDINGS: There is no acute infiltrate or pulmonary edema. Lungs are clear. The heart is mildly enlarged. The mediastinal silhouette is unremarkable and unchanged. The visualized osseous structures are intact. IMPRESSION: No acute pulmonary disease.Mild cardiomegaly. <Electronically signed by Latrell Sin > 09/07/21 [id number]
[2021-09-07 14:02] LABS: CK-MB VALUE MASS 1.9 NG/ML (<3.6); CPK CREATINE PHOSPHOKINASE 235 U/L (39-308); MB/CK RELATIVE INDEX 0.81 (< OR =4); NT-PRO BNP 2340 PG/ML (<125); TROPONIN I < 0.02 NG/ML (< 0.10)
[2021-09-07 15:00] VITALS: BP 170/96
--- NOTE | 2021-09-08 01:08 | ECGEPIP ---
[facility] - ED Test Date: 2021-09-07 Pat Name: AMY TRAN Department: Room: - Gender: Male [employer]: JODI : 1955 Requested By: Luis Enrique Newby Order Number: [id number] Reading MD: Dakota Ruth Measurements Intervals [place] Rate: 81 P: NM: QRS: 102 QRSD: 130 T: -15 QT: 372 QTc: 432 Interpretive Statements Atrial fibrillation Right bundle branch block Similar to tracing done 07-11-21 Electronically Signed on 09-08-2021 1:07:43 EDT by Dakota Ruth
== END 2021-09-07 15:15 | disposition home or self-care (01) ==
LOC: M ED 11:11
DX: I50.813 Acute on chronic right heart failure (principal); I48.91 Unspecified atrial fibrillation; I45.10 Unspecified right bundle-branch block; I25.10 Atherosclerotic heart disease of native coronary artery without angina pectoris; E11.9 Type 2 diabetes mellitus without complications; I10 Essential (primary) hypertension; E78.5 Hyperlipidemia, unspecified; F17.200 Nicotine dependence, unspecified, uncomplicated; Z79.01 Long term (current) use of anticoagulants; Z79.899 Other long term (current) drug therapy
CPT/HCPCS: 71045; 80048; 82550; 82553; 83880; 84484; 85025; 85610; 93005; 93041; 94760; 96374; 99285; J1940

== ENCOUNTER 2022-01-25 21:34 | Emergency (ER) | payer MEDICARE ==
[~2022-01-25] VITALS: Ht 177.8 cm; Wt 132.7 kg
[~2022-01-25 21:34] MED LIST changes: -LISI-898 PO; +LISI5TAB11 PO
[2022-01-26 00:31] LABS: BASO # 0.1 10^3/uL (0.0-0.2); BASO % 0.8 % (0.0-1.0); EOS # 0.2 10^3/uL (0.0-0.5); EOS % 2.1 % (0.0-3.0); HEMATOCRIT 41.6 % (42.0-52.0); HEMOGLOBIN 13.4 g/dl (13.5-17.5); LYMPH # 2.2 10^3/uL (1.5-5.0); LYMPH % 25.5 % (24.0-44.0); MEAN CORPUSCULAR HEMOGLOBIN 29.1 pg (27.0-33.0); MEAN CORPUSCULAR HGB CONC 32.2 g/dl (32.0-36.5); MEAN CORPUSCULAR VOLUME 90.4 fl (80.0-96.0); MONO % 11.2 % (2.0-8.0); NEUTROPHILS # 5.1 10^3/uL (1.5-8.5); NEUTROPHILS % 59.9 % (36.0-66.0); PLATELET COUNT, AUTOMATED 225 10^3/uL (150-450); WHITE BLOOD COUNT 8.6 10^3/uL (4.0-10.0)
[2022-01-26 00:46] LABS: INR 1.77
[2022-01-26 01:29] VITALS: BP 178/89
== END 2022-01-26 01:30 | disposition home or self-care (01) ==
LOC: M ED 21:34
DX: R04.0 Epistaxis (principal); I10 Essential (primary) hypertension; E78.00 Pure hypercholesterolemia, unspecified; I48.91 Unspecified atrial fibrillation; Z86.711 Personal history of pulmonary embolism; Z79.899 Other long term (current) drug therapy; Z79.01 Long term (current) use of anticoagulants

== ENCOUNTER → 2022-06-17 | Outpatient (CLI) | payer MEDICARE | LOC: M RAD 08:18 | PROVIDERS: ATTEND Physician Assistant | DX: R06.00 Dyspnea, unspecified (principal) ==

== ENCOUNTER 2023-08-30 07:22 | Inpatient (IN) | payer MEDICARE ==
[~2023-08-30] VITALS: Ht 177.8 cm; Wt 136.0 kg
[2023-08-30 10:01] LABS: BASO # 0.1 10^3/uL (0.0-0.2); BASO % 0.8 % (0.0-1.0); EOS # 0.1 10^3/uL (0.0-0.5); EOS % 1.4 % (0.0-3.0); HEMATOCRIT 39.5 % (42.0-52.0); HEMOGLOBIN 12.5 g/dl (13.5-17.5); LYMPH # 1.4 10^3/uL (1.5-5.0); LYMPH % 22.8 % (24.0-44.0); MEAN CORPUSCULAR HGB CONC 31.6 g/dl (32.0-36.5); MEAN CORPUSCULAR VOLUME 94.7 fl (80.0-96.0); MONO # 0.4 10^3/uL (0.0-0.8); MONO % 6.7 % (2.0-8.0); NEUTROPHILS # 4.2 10^3/uL (1.5-8.5); PLATELET COUNT, AUTOMATED 183 10^3/uL (150-450); RED BLOOD COUNT 4.17 10^6/uL (4.30-6.10); WHITE BLOOD COUNT 6.2 10^3/uL (4.0-10.0)
[2023-08-30] MEDS ORDERED: ISOVUE-370 76% 100ML VIAL As Ordered ONE (10:05)
[2023-08-30 10:14] LABS: INR 2.43; PROTHROMBIN TIME 25.8 SECONDS (12.5-14.5)
[2023-08-30 10:15] LABS: PARTIAL THROMBOPLASTIN TIME 30.1 SECONDS (24.8-34.2)
[2023-08-30 10:19] LABS: ERYTHROCYTE SEDIMENTATION RATE 64 mm/hr (0-20)
[2023-08-30] MEDS ORDERED: FUROSEMIDE 100MG/10ML VIAL IV ONE (10:20)
[2023-08-30 10:28] LABS: LIPASE 25 U/L (12-53)
[2023-08-30 10:29] LABS: C REACTIVE PROTEIN QUANTITATIV < 0.40 MG/DL (<1.0)
[2023-08-30 10:31] LABS: ALKALINE PHOSPHATASE 104 U/L (46-116); ALT/SGPT 15 U/L (7.0-40); AST/SGOT 17 U/L (<34); BILIRUBIN,DIRECT 0.4 MG/DL (<0.4); BILIRUBIN,TOTAL 0.9 MG/DL (0.3-1.2); BLOOD UREA NITROGEN 26 MG/DL (9-23); CALCIUM LEVEL 8.5 MG/DL (8.3-10.6); CARBON DIOXIDE LEVEL 24 MMOL/L (20-31); CHLORIDE LEVEL 108 MMOL/L (98-107); CK-MB VALUE MASS 1.8 NG/ML (<3.6); CPK CREATINE PHOSPHOKINASE 167 U/L (46-171); CREATININE FOR GFR 0.98 MG/DL (0.70-1.30); GLOMERULAR FILTRATION RATE > 60.0 (>42); GLUCOSE, FASTING 109 MG/DL (74-106); MB/CK RELATIVE INDEX 1.07 (< OR =4); POTASSIUM SERUM 4.2 MMOL/L (3.5-5.1); SODIUM LEVEL 140 MMOL/L (136-145); TOTAL PROTEIN 7.6 G/DL (5.7-8.2)
[2023-08-30 11:46] LABS: CK-MB VALUE MASS 2.2 NG/ML (<3.6)
[2023-08-30 11:47] LABS: MB/CK RELATIVE INDEX 1.19 (< OR =4)
[2023-08-30] MEDS: COMBIVENT RESPIMAT 100-20MCG INHALER 4GM INH SCH (12:03)
[2023-08-30 12:25] LABS: ABG BASE EXCESS -0.4 (-2.0-2.0); ABG HCO3 23.8 MMOL/L (22.0-26.0); ABG O2 SATURATION 66.1 % (95.0-99.0); ABG PARTIAL PRESSURE CO2 37.6 mmHg (35.0-45.0); ABG STANDARD HCO3 23.4 MMOL/L. (22.0-26.0); ABG TOTAL CO2 24.9 MMOL/L (23.0-31.0); ABG pH (ARTERIAL) 7.419 UNITS (7.350-7.450)
[2023-08-30 12:30] LABS: ABG PARTIAL PRESSURE O2 32.8 mmHg (75.0-100.0)
[2023-08-30] MEDS ORDERED: MED REC IN PROGRESS XX SCH (13:15)
[2023-08-30] MEDS ORDERED: MAALOX 30 ML SUSP *UDC PO PRN (13:20)
[2023-08-30] MEDS ORDERED: MOM 30ML SUSPENSION UDC PO PRN (13:20)
[2023-08-30] MEDS ORDERED: ALBU2.5V10 NEB (13:30)
[2023-08-30] MEDS ORDERED: WARF4TAB52 PO (13:30)
[2023-08-30] MEDS ORDERED: GUAI600T12 PO (13:30)
[2023-08-30] MEDS ORDERED: METF-838 PO (13:30)
[2023-08-30] MEDS ORDERED: ATEN50TA2 PO (13:30)
[2023-08-30] MEDS ORDERED: HOME MED LIST COMPLETE! XX SCH (13:35)
[2023-08-30] MEDS ORDERED: DEXTROSE 50% 50ML SYRINGE IV PRN (14:00)
[2023-08-30] MEDS ORDERED: GLUCAGON INJ 1MG VIAL SC PRN (14:00)
[2023-08-30] MEDS ORDERED: GLUCOSE 4GM CHEW TABLET PO PRN (14:00)
[2023-08-30 15:45] VITALS: BP 155/95; TEMP 98.6; O2SAT 97
[2023-08-30] MEDS ORDERED: WARFARIN SOD 4MG TAB PO SCH (17:00)
[2023-08-30] MEDS ORDERED: WARFARIN SOD 3MG TAB PO SCH (17:00)
[2023-08-30 17:07] LABS: ALBUMIN 3.8 G/DL (3.2-5.2)
[2023-08-30] MEDS: INSULIN LISPRO (NovoLOG) PER UNIT SC SCH ×2 (17:30→21:00)
[2023-08-30] MEDS: FUROSEMIDE 40MG/4ML VIAL IV SCH (18:06)
[2023-08-30 20:29] VITALS: BP 128/75; TEMP 98.1; O2SAT 96
[2023-08-30] MEDS: ACETAMINOPHEN TAB 650MG DOSE (2X325MG) PO PRN (21:54)
[2023-08-31] MEDS: FUROSEMIDE 40MG/4ML VIAL IV SCH ×2 (01:47→10:51)
[2023-08-31] MEDS: ACETAMINOPHEN TAB 650MG DOSE (2X325MG) PO PRN (01:57)
[2023-08-31 06:03] LABS: HEMATOCRIT 40.7 % (42.0-52.0); HEMOGLOBIN 13.4 g/dl (13.5-17.5); MEAN CORPUSCULAR HEMOGLOBIN 30.5 pg (27.0-33.0); MEAN CORPUSCULAR HGB CONC 32.9 g/dl (32.0-36.5); MEAN CORPUSCULAR VOLUME 92.7 fl (80.0-96.0); PLATELET COUNT, AUTOMATED 223 10^3/uL (150-450); RED BLOOD COUNT 4.39 10^6/uL (4.30-6.10); WHITE BLOOD COUNT 6.7 10^3/uL (4.0-10.0)
[2023-08-31 06:07] LABS: INR 1.9; PROTHROMBIN TIME 21.3 SECONDS (12.5-14.5)
[2023-08-31 06:15] LABS: CALCIUM LEVEL 8.8 MG/DL (8.3-10.6); CREATININE FOR GFR 1.36 MG/DL (0.70-1.30); GLOMERULAR FILTRATION RATE 55.2 (>42); MAGNESIUM LEVEL 1.9 MG/DL (1.8-2.4); POTASSIUM SERUM 3.9 MMOL/L (3.5-5.1)
[2023-08-31 06:22] LABS: ATYPICAL LYMPH 2 % (0-5); BASOPHILS 1 % (0-1); EOSINOPHILS 1 % (0-3); LYMPHOCYTES 29 % (16-44); MONOCYTES 12 % (0-5); NEUTROPHILS 55 % (28-66); PLATELET ESTIMATE NORMAL (NORMAL); POLYCHROMASIA 1+
[2023-08-31] MEDS: INSULIN LISPRO (NovoLOG) PER UNIT SC SCH ×4 (08:31→20:25)
[2023-08-31] MEDS ORDERED: ALBUTEROL SULFATE 2.5MG/0.5ML INH NEB SOLN NEB PRN (14:35)
[2023-08-31 15:32] VITALS: BP 131/87; TEMP 98.5; O2SAT 87; O2SAT 90
[2023-08-31] MEDS ORDERED: WARFARIN SOD 4MG TAB PO ONE (17:00)
[2023-08-31] MEDS ORDERED: BENZONATATE 100MG CAPSULE PO PRN (20:00)
[2023-08-31 20:07] VITALS: BP 136/81
[2023-08-31] MEDS ORDERED: ROSUVASTATIN 10 MG TAB (CRESTOR) PO SCH (21:00)
[2023-08-31] MEDS ORDERED: amLODIPine 5 MG TAB PO SCH (21:00)
[2023-08-31] MEDS ORDERED: atenoloL 50 MG TAB PO SCH (21:00)
[2023-09-01 06:00] VITALS: BP 106/64; TEMP 97.9; O2SAT 91
[2023-09-01 06:36] LABS: BASO # 0.1 10^3/uL (0.0-0.2); BASO % 0.6 % (0.0-1.0); BLOOD UREA NITROGEN 39 MG/DL (9-23); CALCIUM LEVEL 8.8 MG/DL (8.3-10.6); CARBON DIOXIDE LEVEL 28 MMOL/L (20-31); CHLORIDE LEVEL 104 MMOL/L (98-107); CREATININE FOR GFR 1.23 MG/DL (0.70-1.30); EOS # 0.1 10^3/uL (0.0-0.5); EOS % 1.8 % (0.0-3.0); GLOMERULAR FILTRATION RATE > 60.0 (>42); GLUCOSE, FASTING 103 MG/DL (74-106); HEMATOCRIT 39.9 % (42.0-52.0); LYMPH # 2.5 10^3/uL (1.5-5.0); LYMPH % 31.9 % (24.0-44.0); MEAN CORPUSCULAR HEMOGLOBIN 30.3 pg (27.0-33.0); MEAN CORPUSCULAR HGB CONC 32.6 g/dl (32.0-36.5); MONO # 0.8 10^3/uL (0.0-0.8); MONO % 10.5 % (2.0-8.0); NEUTROPHILS # 4.3 10^3/uL (1.5-8.5); NEUTROPHILS % 54.7 % (36.0-66.0); PLATELET COUNT, AUTOMATED 217 10^3/uL (150-450); POTASSIUM SERUM 3.8 MMOL/L (3.5-5.1); RED BLOOD COUNT 4.29 10^6/uL (4.30-6.10); SODIUM LEVEL 140 MMOL/L (136-145); WHITE BLOOD COUNT 7.9 10^3/uL (4.0-10.0)
[2023-09-01 06:41] LABS: INR 1.85; PROTHROMBIN TIME 20.9 SECONDS (12.5-14.5)
[2023-09-01] MEDS: INSULIN LISPRO (NovoLOG) PER UNIT SC SCH ×2 (08:44→11:18)
[2023-09-01] MEDS ORDERED: FUROSEMIDE 40MG/4ML VIAL IV SCH (09:00)
[2023-09-01] MEDS ORDERED: FURO40TA2 PO (10:23)
== END 2023-09-01 15:02 | disposition home or self-care (01) | DRG 291 ==
LOC: M ED 07:22 → M ED INP 13:16 → M MSPAV 15:47
PROVIDERS: ADMIT Student in an Organized Health Care Education/Training Program; ATTEND Student in an Organized Health Care Education/Training Program
PROC: B246ZZZ Ultrasonography of Right and Left Heart (ICD-10-PCS; principal; 2023-09-01)
DX: I11.0 Hypertensive heart disease with heart failure (principal); I50.33 Acute on chronic diastolic (congestive) heart failure; U07.1 COVID-19; I48.20 Chronic atrial fibrillation, unspecified; I25.10 Atherosclerotic heart disease of native coronary artery without angina pectoris; I25.2 Old myocardial infarction; E11.9 Type 2 diabetes mellitus without complications; E78.5 Hyperlipidemia, unspecified; I70.0 Atherosclerosis of aorta; G47.33 Obstructive sleep apnea (adult) (pediatric); E66.01 Morbid (severe) obesity due to excess calories; Z90.49 Acquired absence of other specified parts of digestive tract; Z87.891 Personal history of nicotine dependence; Z79.84 Long term (current) use of oral hypoglycemic drugs; Z79.01 Long term (current) use of anticoagulants; Z79.899 Other long term (current) drug therapy; Z86.711 Personal history of pulmonary embolism

== ENCOUNTER 2024-03-08 08:23 | Day surgery (SDC) | payer MEDICARE ==
[~2024-03-08] VITALS: Ht 175.3 cm; Wt 133.5 kg
[~2024-03-08 08:23] MED LIST changes: +ALBU2.5V10 NEB; +FURO40TA2 PO; +GUAI600T12 PO
[2024-03-08] MEDS: NS 1,000 ML IV ONE (08:49)
[2024-03-08] MEDS ORDERED: propofoL 200 MG/20 ML VIAL As Ordered ONE (10:13)
[2024-03-08 10:18] VITALS: TEMP 98.1
[2024-03-08 10:35] VITALS: BP 174/80; O2SAT 96
== END 2024-03-08 10:50 | disposition home or self-care (01) ==
LOC: M OPP 08:23
PROVIDERS: ATTEND Surgery
DX: Z86.010 Personal history of colon polyps (principal); D12.6 Benign neoplasm of colon, unspecified; K57.30 Diverticulosis of large intestine without perforation or abscess without bleeding; Z87.891 Personal history of nicotine dependence; Z86.74 Personal history of sudden cardiac arrest; I50.9 Heart failure, unspecified; I48.91 Unspecified atrial fibrillation; E11.9 Type 2 diabetes mellitus without complications; Z79.01 Long term (current) use of anticoagulants; Z79.02 Long term (current) use of antithrombotics/antiplatelets; Z79.51 Long term (current) use of inhaled steroids; Z79.84 Long term (current) use of oral hypoglycemic drugs; Z79.899 Other long term (current) drug therapy

== ENCOUNTER 2024-03-25 11:53 | Emergency (ER) | payer MEDICARE ==
[~2024-03-25] VITALS: Ht 177.8 cm; Wt 133.3 kg
[~2024-03-25 11:53] MED LIST changes: -ROSU40TA4 PO; +ROSU40TA63 PO
[2024-03-25] MEDS ORDERED: ACET-683 PO (12:06)
[2024-03-25 12:37] LABS: BASO # 0.1 10^3/uL (0.0-0.2); BASO % 0.5 % (0.0-1.0); EOS % 0.1 % (0.0-3.0); HEMOGLOBIN 14.2 g/dl (13.5-17.5); MEAN CORPUSCULAR HEMOGLOBIN 30.1 pg (27.0-33.0); MEAN CORPUSCULAR VOLUME 91.1 fl (80.0-96.0); MONO # 0.6 10^3/uL (0.0-0.8); MONO % 5.4 % (2.0-8.0); NEUTROPHILS # 8.6 10^3/uL (1.5-8.5); NEUTROPHILS % 83.6 % (36.0-66.0); PLATELET COUNT, AUTOMATED 258 10^3/uL (150-450); RED BLOOD COUNT 4.72 10^6/uL (4.30-6.10); WHITE BLOOD COUNT 10.3 10^3/uL (4.0-10.0)
[2024-03-25 13:00] LABS: LIPASE 33 U/L (12-53)
[2024-03-25 13:03] LABS: ALBUMIN 3.7 G/DL (3.2-5.2); ALKALINE PHOSPHATASE 142 U/L (46-116); ALT/SGPT 22 U/L (7.0-40); AST/SGOT 28 U/L (<34); BILIRUBIN,DIRECT 0.2 MG/DL (<0.4); BILIRUBIN,TOTAL 0.5 MG/DL (0.3-1.2); BLOOD UREA NITROGEN 26 MG/DL (9-23); CALCIUM LEVEL 9.1 MG/DL (8.3-10.6); CARBON DIOXIDE LEVEL 24 MMOL/L (20-31); CHLORIDE LEVEL 104 MMOL/L (98-107); CREATININE FOR GFR 1.12 MG/DL (0.70-1.30); GLOMERULAR FILTRATION RATE > 60.0 (>42); GLUCOSE, FASTING 136 MG/DL (74-106); POTASSIUM SERUM 4.6 MMOL/L (3.5-5.1); SODIUM LEVEL 137 MMOL/L (136-145); TOTAL PROTEIN 7.8 G/DL (5.7-8.2)
[2024-03-25 13:15] LABS: CK-MB VALUE MASS 1.7 NG/ML (<3.6)
[2024-03-25 13:16] LABS: CPK CREATINE PHOSPHOKINASE 154 U/L (46-171)
[2024-03-25] MEDS: NS 1,000 ML IV SCH (13:16)
[2024-03-25] MEDS: MORPHINE 4 MG/ML 1ML VIAL IV ONE (13:16)
[2024-03-25] MEDS: ONDANSETRON 4MG 2ML VIAL IV ONE (13:16)
[2024-03-25] MEDS ORDERED: ISOVUE-370 76% 100ML VIAL As Ordered ONE (13:20)
[2024-03-25 13:40] LABS: INR 2.25; PARTIAL THROMBOPLASTIN TIME 30.7 SECONDS (24.8-34.2); PROTHROMBIN TIME 24.1 SECONDS (12.5-14.5)
[2024-03-25 14:13] LABS: CK-MB VALUE MASS 2.1 NG/ML (<3.6)
[2024-03-25 14:17] LABS: MB/CK RELATIVE INDEX 1.4 (< OR =4)
[2024-03-25 16:31] VITALS: BP 139/77; TEMP 98.6; O2SAT 93
== END 2024-03-25 16:39 | disposition short-term general hospital (02) ==
LOC: M ED 11:53
DX: N28.0 Ischemia and infarction of kidney (principal); D73.5 Infarction of spleen; K55.069 Acute infarction of intestine, part and extent unspecified; I51.7 Cardiomegaly; I48.91 Unspecified atrial fibrillation; I50.9 Heart failure, unspecified; I25.10 Atherosclerotic heart disease of native coronary artery without angina pectoris; I25.2 Old myocardial infarction; E11.9 Type 2 diabetes mellitus without complications; I10 Essential (primary) hypertension; E66.9 Obesity, unspecified; G47.33 Obstructive sleep apnea (adult) (pediatric); Z87.891 Personal history of nicotine dependence; Z79.01 Long term (current) use of anticoagulants; Z79.84 Long term (current) use of oral hypoglycemic drugs; Z79.899 Other long term (current) drug therapy
CPT/HCPCS: 71045; 74177; 80048; 80076; 81001; 82550; 82553; 83605; 83690; 84484; 85025; 85610; 85730; 87635; 93005; 93041; 96361; 96374; 96375; 99285; J2405; Q9967

== ENCOUNTER → 2024-05-21 | Outpatient (REF) | payer MEDICARE ==
[~2024-05-21] MED LIST changes: +ACET-683 PO
[2024-05-21 12:40] LABS: INR 4.27; PROTHROMBIN TIME 39.4 SECONDS (12.5-14.5)
== END ==
LOC: M LAB REF 11:47
PROVIDERS: ATTEND Internal Medicine
DX: I48.21 Permanent atrial fibrillation (principal); Z79.01 Long term (current) use of anticoagulants

== ENCOUNTER → 2024-06-12 | Outpatient (REF) | payer MEDICARE ==
[2024-06-12 13:12] LABS: PROTHROMBIN TIME 48.5 SECONDS (12.5-14.5)
[2024-06-12 13:13] LABS: INR 5.6
== END ==
LOC: M LAB REF 12:20
PROVIDERS: ATTEND Nurse Practitioner Family
DX: Z51.81 Encounter for therapeutic drug level monitoring (principal); I48.21 Permanent atrial fibrillation; Z79.01 Long term (current) use of anticoagulants

== ENCOUNTER → 2024-07-02 | Outpatient (REF) | payer MEDICARE ==
[2024-07-02 12:40] LABS: INR 1.7; PROTHROMBIN TIME 19.4 SECONDS (12.5-14.5)
== END ==
LOC: M LAB REF 12:14
PROVIDERS: ATTEND Nurse Practitioner Family
DX: Z79.01 Long term (current) use of anticoagulants (principal); I48.21 Permanent atrial fibrillation

== ENCOUNTER 2024-07-09 08:41 | Day surgery (SDC) | payer MEDICARE ==
[~2024-07-09] VITALS: Ht 177.8 cm; Wt 115.1 kg
[~2024-07-09 08:41] MED LIST changes: +ATOR80TA59 PO; +LR 1,000 ML IV SCH; +MIDAZOLAM INJ 2MG/2ML VIAL As Ordered ONE; +fentaNYL 100 MCG/2 ML INJECTION As Ordered ONE
[2024-07-09] MEDS: ATROPINE SULFATE 1% OPHTH SOLN 2ML BTL OS SCH (09:08)
[2024-07-09] MEDS: TETRACAINE 0.5% OPHTH SOLN 4ML OS SCH (09:08)
[2024-07-09] MEDS: FLURBIPROFEN 0.03% OPHTH SOLN 2.5 ML OS SCH (09:08)
[2024-07-09] MEDS: PHENYLEPHRINE 2.5% OPHTH SOL 2ML OS SCH (09:08)
[2024-07-09] MEDS: CEFUROXIME 1MG/0.1ML INTRACAMERAL INJ As Ordered ONE (10:06)
[2024-07-09] MEDS: LIDOCAINE 1% SDV 5ML VIAL As Ordered ONE (10:06)
[2024-07-09 10:26] VITALS: BP 145/80; TEMP 97.6; O2SAT 94
== END 2024-07-09 10:43 | disposition home or self-care (01) ==
LOC: M SDC 08:41
PROVIDERS: ATTEND Ophthalmology
DX: H25.12 Age-related nuclear cataract, left eye (principal)
CPT/HCPCS: 66984; J0697; J2250; J3010; V2632

== ENCOUNTER → 2024-07-30 | Outpatient (REF) | payer MEDICARE ==
[~2024-07-30] MED LIST changes: -LR 1,000 ML IV SCH; -MIDAZOLAM INJ 2MG/2ML VIAL As Ordered ONE; -ROSU40TA63 PO; +ROSU40TA81 PO; -fentaNYL 100 MCG/2 ML INJECTION As Ordered ONE
[2024-08-02 07:58] LABS: ALKALINE PHOSPHATASE ISO-MACR0 0 % (<=0); ALKALINE PHOSPHATASE ISO-PLAC 0 % (<=0); Alkaline Phosphatase Iso-Bone 20 % (28-66); Alkaline Phosphatase Iso-Intes 0 % (1-24); Alkaline Phosphatase Iso-Liver 80 % (25-69); TOTAL ALK PHOS 155 U/L (35-144)
[2024-08-07 21:52] LABS: MITOCHONDRIAL M2 ANTIBODY < 20.0 U (<=20.0)
== END ==
LOC: M LAB REF 12:44
PROVIDERS: ATTEND Nurse Practitioner Family
DX: R74.8 Abnormal levels of other serum enzymes (principal)

== ENCOUNTER 2024-08-13 06:28 | Day surgery (SDC) | payer MEDICARE ==
[~2024-08-13] VITALS: Ht 177.8 cm; Wt 116.1 kg
[2024-08-13] MEDS ORDERED: LR 1,000 ML IV SCH (07:00)
[2024-08-13] MEDS: ATROPINE SULFATE 1% OPHTH SOLN 2ML BTL OD SCH (07:05)
[2024-08-13] MEDS: FLURBIPROFEN 0.03% OPHTH SOLN 2.5 ML OD SCH (07:06)
[2024-08-13] MEDS: PHENYLEPHRINE 2.5% OPHTH SOL 2ML OD SCH (07:06)
[2024-08-13] MEDS: TETRACAINE 0.5% OPHTH SOLN 4ML OD SCH (07:06)
[2024-08-13] MEDS ORDERED: MIDAZOLAM INJ 2MG/2ML VIAL As Ordered ONE (07:07)
[2024-08-13] MEDS ORDERED: fentaNYL 100 MCG/2 ML INJECTION As Ordered ONE (07:09)
[2024-08-13] MEDS: CEFUROXIME 1MG/0.1ML INTRACAMERAL INJ As Ordered ONE (08:07)
[2024-08-13] MEDS: LIDOCAINE 1% SDV 5ML VIAL As Ordered ONE (08:07)
[2024-08-13 08:21] VITALS: BP 138/68; TEMP 99.1; O2SAT 97
== END 2024-08-13 08:34 | disposition home or self-care (01) ==
LOC: M SDC 06:28
PROVIDERS: ATTEND Ophthalmology
DX: H25.11 Age-related nuclear cataract, right eye (principal); I10 Essential (primary) hypertension; I25.2 Old myocardial infarction; I48.91 Unspecified atrial fibrillation; Z79.01 Long term (current) use of anticoagulants; Z79.899 Other long term (current) drug therapy; Z87.891 Personal history of nicotine dependence; E78.5 Hyperlipidemia, unspecified
CPT/HCPCS: 66984; J0697; J2250; J3010; V2632

== ENCOUNTER → 2024-11-08 | Outpatient (CLI) | payer MEDICARE ==
[~2024-11-08] MED LIST changes: +ISOVUE-370 76% 100ML VIAL As Ordered ONE; +NYST1POW3 TOP; -NYST1POW9 TOP
== END ==
LOC: M RAD 09:55
PROVIDERS: ATTEND Nurse Practitioner Family
DX: R74.8 Abnormal levels of other serum enzymes (principal); K76.0 Fatty (change of) liver, not elsewhere classified; N28.1 Cyst of kidney, acquired; K43.9 Ventral hernia without obstruction or gangrene
CPT/HCPCS: 74177; Q9967

== ENCOUNTER 2025-01-06 19:12 | Emergency (ER) | payer MEDICARE ==
[~2025-01-06] VITALS: Ht 177.8 cm; Wt 122.3 kg
[~2025-01-06 19:12] MED LIST changes: -ISOVUE-370 76% 100ML VIAL As Ordered ONE
[2025-01-06 19:15] VITALS: BP 149/79; TEMP 97; O2SAT 93
== END 2025-01-07 01:09 | disposition home or self-care (01) ==
LOC: M ED 19:12
DX: S70.02XA Contusion of left hip, initial encounter (principal); W00.0XXA Fall on same level due to ice and snow, initial encounter; Y92.89 Other specified places as the place of occurrence of the external cause; Y93.9 Activity, unspecified; Y99.9 Unspecified external cause status; Z79.01 Long term (current) use of anticoagulants; Z79.899 Other long term (current) drug therapy

== ENCOUNTER → 2025-11-08 | Outpatient (CLI) | payer MEDICARE ==
[~2025-11-08] MED LIST changes: +LISI40TA10 PO; -LISI40TA4 PO
== END ==
LOC: M WUC 09:14
PROVIDERS: ATTEND Nurse Practitioner Adult Health
DX: R06.00 Dyspnea, unspecified (principal); I50.32 Chronic diastolic (congestive) heart failure; R91.8 Other nonspecific abnormal finding of lung field